=== PATIENT | female | born 1935 | race African-American/Black ===

== ENCOUNTER 2017-05-03 23:33 | Inpatient (IN) | payer OTHER ==
--- NOTE | 2017-05-04 | PDOC ---
History of Present Illness - General Chief Complaint: Nausea/Vomiting Stated Complaint: VOMITED X ONE/CHEST PAIN EARLY TODAY Time Seen by Provider: 05/03/17 23:50 History Source: Patient, Family Exam Limitations: No Limitations - History of Present Illness Initial Comments: 05/03/17 23:54 82 yo F with ho HTN HLD DM prior CVA right sided hemiplegia, CAD here from [facility] c/o cp yesterday and earlier today, and had episode of vomiting today. currently denies pain. no cough. no f/c . chest pain was described as pressure like or heaviness over left chest , no radiation, spontaneously resolved. does have mild suprapubic abd pain. mild no mod factors. no radiation. Past History - Past Medical History Allergies/Adverse Reactions: Allergies Allergy/AdvReac Type Severity Reaction Status Date / Time Penicillins Allergy Verified 05/03/17 23:45 simvastatin Allergy Verified 05/03/17 23:46 Home Medications: Ambulatory Orders Acetaminophen [Tylenol] 650 mg PO Q6H 05/04/17 Amlodipine/Valsartan [Amlodipine-Valsartan 10-160 mg] 1 each PO DAILY 05/04/17 Docusate Sodium 100 mg PO HS 05/04/17 Metformin HCl 500 mg PO BID 05/04/17 Nitrofurantoin Monohyd/M-Cryst [Macrobid -] 100 mg PO BID 05/04/17 CVA: Yes Diabetes: Yes HTN: Yes Hypercholesterolemia: Yes Review of Systems - Review of Systems Constitutional: No: Chills, Diaphoresis, Fever Respiratory: No: Cough, Orthopnea Cardiac (ROS): Yes: Chest Pain. No: Irregular Heart Rate ABD/GI: Yes: Nausea, Vomiting, Abdominal cramping : No: Burning, Dysuria, Discharge Musculoskeletal: No: Back Pain, Gout, Joint Pain Neurological: No: Headache, Numbness All Other Systems: Reviewed and Negative *Physical Exam - Physical Exam HEENT: positive: [place] Respiratory/Chest: positive: Lungs Clear, Normal Breath Sounds. negative: Respiratory Distress Cardiovascular: positive: Regular Rhythm, Regular Rate, S1, S2. negative: Edema , JVD Gastrointestinal/Abdominal: positive: Normal Bowel Sounds, Tender (suprapubic ttp. no rebound no guarding.) Extremity: positive: Normal Capillary Refill, Normal Inspection Integumentary: positive: Normal Color, Dry, Warm Neurologic: positive: Fully Oriented, Alert, Normal Mood/Affect, Other (right sided ext weakness ( old cva) ) Heart Score/ECG Review #1 General ECG Interpretation: Sinus Rhythm, Normal Rate (88), Normal Intervals, No acute ischemic changes Compared to previous ECG there are: Previous ECG unavail - ECG Intrepretation Rhythm: Regular Rhythm - Malone Malone: Normal ED Treatment Course - LABORATORY CBC & Chemistry Diagram: 05/04/17 00:31 05/04/17 00:31 - RADIOLOGY Radiology Studies Ordered: Category Date Time Status CXRPORT [CHEST X-RAY PORTABLE*] [RAD] Stat Radiology 05/03/17 23:51 Ordered Medical Decision Making - Medical Decision Making 05/04/17 00:04 82 yo F with h/o HTN HLD DM CVA right sided hemiplegia here wtih /co ccp . n/v and abd pain. differential mi infection such as pna, uti pyelo electrolyte abnormality, renal failure, dka plan labs cxr ua ekg . will likely require admission for serial enzymes and r/o acs. 05/04/17 02:11 d/w dr cerna, would like pt admitted to the hospitalist for admission. given ceftriaxone for uti. d/w pt and pt daughter regarding allergies. pt h/o pcn allergy --> rash. unsure if has had ceftriaxone in the past. has been getting macrobid for 6 days at nursing facility. troponin 0.07, given asa 162. d/w admitting resident, will admit to tele under Dr. Esquivel. resident states will inform dr esquivel *DC/Admit/Observation/Transfer Diagnosis at time of Disposition: Urinary tract infection, Chest pain - Discharge Dispostion Condition at time of disposition: Stable Admit: Yes
[2017-05-04 00:54] LABS: BASOPHIL 0.7 % (0-2.0); EOSINOPHIL 0.7 % (0-4.5); MCH 29.4 pg (25.7-33.7); MCHC 32.7 g/dl (32.0-36.0); MEAN CELL VOLUME 89.9 fl (80-96); MEAN PLT VOLUME 9.6 fl (7.5-11.1); NEUTROPHILS 61.3 % (42.8-82.8); PLATELET COUNT 234 K/MM3 (134-434); RDW 13.6 % (11.6-15.6); WHITE BLOOD COUNT 6.6 K/mm3 (4.0-10.0)
[2017-05-04 00:55] LABS: URINE APPEARANCE CLOUDY; URINE BILIRUBIN NEGATIVE (NEGATIVE); URINE BLOOD 1+ (NEGATIVE); URINE COLOR YELLOW; URINE GLUCOSE (UA) NEGATIVE (NEGATIVE); URINE KETONE NEGATIVE (NEGATIVE); URINE NITRITE NEGATIVE (NEGATIVE); URINE UROBILINOGEN NEGATIVE mg/dL (0.2-1.0)
[2017-05-04 01:07] LABS: URINE LEUK ESTERASE 3+ (NEGATIVE); URINE PROTEIN 1+ (NEGATIVE)
[2017-05-04 01:10] LABS: URINE BACTERIA MODERATE /hpf (NONE SEEN); URINE RBC 3 /hpf (0-3); URINE WBC 959 /hpf (3-5)
[2017-05-04] MEDS ORDERED: CEFTRIAXONE 1 GM in DEXTROSE 5%-WATER - 50 ML IVPB ONE (01:16)
[2017-05-04] MEDS ORDERED: cefTRIAXone SODIUM 1 GM VIAL ONE (01:17)
[2017-05-04 01:27] LABS: ALBUMIN 3.6 g/dl (3.4-5.0); ANION GAP 7 (8-16); CALCIUM 9.1 mg/dL (8.5-10.1); CO2 28 mmol/L (21-32); CREATININE 1.3 mg/dL (0.55-1.02); GLUCOSE,RANDOM 136 mg/dL (74-106); SGOT/AST 20 U/L (15-37)
[2017-05-04 01:31] LABS: ALK PHOS 94 U/L (45-117); BILIRUBIN,TOTAL 0.5 mg/dL (0.2-1.0); SGPT/ALT 16 U/L (12-78); TOT PROT 7.5 g/dl (6.4-8.2)
[2017-05-04] MEDS ORDERED: SODIUM CHLORIDE 0.9% 1000 ML INFUS.BAG IV ONE (01:40)
[2017-05-04] MEDS ORDERED: ASPIRIN 81 MG CHEWABLE TABLETS ONE (01:50)
[2017-05-04] MEDS ORDERED: ASPIRIN 81 MG CHEWABLE TABLETS PO ONE (01:53)
[2017-05-04 03:31] VITALS: BMI 26.9
--- NOTE | 2017-05-04 08:44 | HP ---
CHIEF COMPLAINT: Vomiting and chest pain PCP: Dr. Franco, requests hospitalist for admission HISTORY OF PRESENT ILLNESS: This is an 82 year old female with a history of HTN , HLD, NIDDM, dementia, and CVA with right-sided hemiplegia transferred from [facility] after an episode of vomiting and complaints of chest pain. ER course was notable for: (1) EKG: NSR at 88bpm, biphasic T waves in I and aVL (2) Troponin mildly elevated at 0.07 (3) UA with 959 WBCs and suprapubic pain (is s/p 6 days of Macrobid at [facility]) (4) CXR: No acute process, old first and second rib deformities Recent Travel: None PAST MEDICAL HISTORY: As above PAST SURGICAL HISTORY: Unknown Social History: Resident of [facility] Smoking: Unknown Family History: Unavailable Allergies Penicillins Allergy (Verified 05/03/17 23:45) simvastatin Allergy (Verified 05/03/17 23:46) HOME MEDICATIONS: Home Medications Medication Instructions Recorded Acetaminophen [Tylenol] 650 mg PO Q6H 05/04/17 Amlodipine/Valsartan 1 each PO DAILY 05/04/17 [Amlodipine-Valsartan 10-160 mg] Docusate Sodium 100 mg PO HS 05/04/17 Metformin HCl 500 mg PO BID 05/04/17 Nitrofurantoin Monohyd/M-Cryst 100 mg PO BID 05/04/17 [Macrobid -] REVIEW OF SYSTEMS Limited by dementia. Denies chest pain. Denies nausea. PHYSICAL EXAMINATION Vital Signs - 24 hr 05/04/17 05/04/17 03:15 08:27 Temperature 98.6 F Pulse Rate 70 Respiratory 16 16 Rate Blood Pressure 148/57 O2 Sat by Pulse 99 99 Oximetry (%) GENERAL: Awake, alert, oriented to name only, in no acute distress. HEAD: Normal with no signs of trauma. EYES: Pupils equal, round and reactive to light, extraocular movements intact, sclera anicteric, conjunctiva clear. No lid lag. EARS, NOSE, THROAT: Ears normal, nares patent, oropharynx clear without exudates. Moist mucous membranes. NECK: Normal range of motion, supple without lymphadenopathy, JVD, or masses. LUNGS: Breath sounds equal, clear to auscultation bilaterally. No wheezes, and no crackles. No accessory muscle use. HEART: Regular rate and rhythm, normal S1 and S2 without murmur, rub or gallop. ABDOMEN: Soft, suprapubic tenderness, no other abdominal tenderness. Not distended, normoactive bowel sounds, no guarding, no rebound, no masses. No hepatomegaly or splenomegaly. MUSCULOSKELETAL: Normal range of motion at all joints. No bony deformities or tenderness. No CVA tenderness. UPPER EXTREMITIES: 2+ pulses, warm, well-perfused. No cyanosis. No clubbing. No peripheral edema. LOWER EXTREMITIES: 2+ pulses, warm, well-perfused. No calf tenderness. No peripheral edema. NEUROLOGICAL: Cranial nerves II-XII intact. Normal speech. Non-ambulatory at baseline. RUE 1/5 strength, RLE 0/5 strenght. PSYCHIATRIC: Cooperative. Good eye contact. Appropriate mood and affect. SKIN: Warm, dry, normal turgor, no rashes or lesions noted, normal capillary refill. ASSESSMENT/PLAN: 82 year old SNF resident with vomiting, chest pain, and UTI failing outpatient therapy. Problem List - Problem (1) Chest pain Assessment/Plan: -Monitor on telemetry -Serial troponins to rule out AK -Start ASA 81mg daily (also with history of CVA) -Echocardiogram -Consider cardiology consultation Code(s): R07.9 - CHEST PAIN, UNSPECIFIED (2) UTI (urinary tract infection) Assessment/Plan: -Failed outpatient therapy -Ceftriaxone 1g daily -Follow up urine culture -Follow temp, WBC Code(s): N39.0 - URINARY TRACT INFECTION, SITE NOT SPECIFIED (3) Nausea & vomiting Assessment/Plan: -Mild suprapubic tenderness; no other tenderness appreciated -Zofran 4mg IVPB q6h prn -Clear liquid diet, advance as tolerated Code(s): R11.2 - NAUSEA WITH VOMITING, UNSPECIFIED (4) HTN (hypertension) Assessment/Plan: -At goal for age -Continue home amlodipine, valsartan Code(s): I10 - ESSENTIAL (PRIMARY) HYPERTENSION (5) HLD (hyperlipidemia) Assessment/Plan: -Statin allergy listed -Check lipid profile -Fat/cholesterol-controlled when resumes full diet Code(s): E78.5 - HYPERLIPIDEMIA, UNSPECIFIED (6) Diabetes Assessment/Plan: -Resume Metformin when PO intake adequate Code(s): E11.9 - TYPE 2 DIABETES MELLITUS WITHOUT COMPLICATIONS (7) DVT prophylaxis Assessment/Plan: -Sqh 5000 unit bid Code(s): [id number] - Visit type - Emergency Visit Emergency Visit: Yes ED Registration Date: 05/04/17 Care time: The patient presented to the Emergency Department on the above date and was hospitalized for further evaluation of their emergent condition. - New Patient This patient is new to me today: Yes Date on this admission: 05/04/17 - Critical Care Critical Care patient: No
[2017-05-04] MEDS ORDERED: ACETAMINOPHEN 325 MG TABLET (FP) PO PRN (08:51)
[2017-05-04] MEDS ORDERED: ONDANSETRON 4 MG/2 ML VIAL IVPB PRN (08:51)
[2017-05-04] MEDS ORDERED: ASPIRIN 81 MG CHEWABLE TABLETS PO SCH (10:00)
[2017-05-04] MEDS ORDERED: metFORMIN HCL 500 MG TABLET (FP) PO SCH (10:00)
[2017-05-04] MEDS: ASPIRIN 81 MG CHEWABLE TABLETS PO SCH (10:38)
[2017-05-04] MEDS: amLODIPine BESYLATE 10 MG TABLET (FP) PO SCH (10:38)
[2017-05-04] MEDS: HEPARIN NA (PORCINE) 5,000 UNITS/ML 1ML VIAL SQ SCH ×2 (10:38→22:22)
[2017-05-04] MEDS: VALSARTAN 160 MG TABLET (UD) PO SCH (10:38)
--- NOTE | 2017-05-04 19:04 | EKG ---
Test Reason : Blood Pressure : / mmHG Vent. Rate : 088 BPM Atrial Rate : 088 BPM P-R Int : 136 ms QRS Dur : 084 ms QT Int : 384 ms P-R-T Axes : 069 019 108 degrees QTc Int : 464 ms SINUS RHYTHM NONSPECIFIC ST AND T WAVE ABNORMALITY NO PREVIOUS ECGS AVAILABLE Confirmed by ROSSY BHAKTA MD ([id number]) on 05/04/2017 7:03:53 PM Referred By: MD REY Confirmed By:ROSSY BHAKTA MD
[2017-05-04] MEDS: CEFTRIAXONE 50 ML IVPB SCH (22:22)
[2017-05-04] MEDS: DOCUSATE SODIUM 100 MG CAPSULE (FP) PO SCH (22:22)
--- NOTE | 2017-05-05 07:13 | CON.CARD ---
Consult Consult Specialty:: cardio Referred by:: hospitalist Reason for Consultation:: cp - History of Present Illness Chief Complaint: cp, vomiting History of Present Illness: 82 yo female sent to ER from [place] for cp and vomiting. she is a limited historian, but states that she felt pain in center of chest, lasted > 30 min. says she had heart attack (different from the stroke) few yrs ago (many?)--doesn 't recall if had cath/stent then. says she's been having this type of cp for few years. admits to radiation to neck/jaw, R arm and back. admits to assctd diaph and sob, and naus/vomiting. says it felt different than her heartburn she sometimes gets. no pain at present time PMH: HTN, HLD, DM, prior CVA with right sided hemiplegia - Past Medical History ...: No - Alcohol/Substance Use Hx Alcohol Use: No - Smoking History Smoking history: Never smoked Have you smoked in the past 12 months: No Home Medications - Allergies Allergies/Adverse Reactions: Allergies Allergy/AdvReac Type Severity Reaction Status Date / Time Penicillins Allergy Verified 05/03/17 23:45 simvastatin Allergy Verified 05/03/17 23:46 - Home Medications Home Medications: Ambulatory Orders Acetaminophen [Tylenol] 650 mg PO Q6H 05/04/17 Amlodipine/Valsartan [Amlodipine-Valsartan 10-160 mg] 1 each PO DAILY 05/04/17 Docusate Sodium 100 mg PO HS 05/04/17 Metformin HCl 500 mg PO BID 05/04/17 Nitrofurantoin Monohyd/M-Cryst [Macrobid -] 100 mg PO BID 05/04/17 Family Disease History - Family Disease History Family History: Denies (no cmp) Review of Systems - Review of Systems Constitutional: denies: Chills, Fever Eyes: denies: Eye Pain HENT: denies: Nasal Congestion Neck: denies: Stiffness Cardiovascular: denies: Palpitations Respiratory: denies: Orthopnea, PND Gastrointestinal: denies: Diarrhea, Rectal Bleeding Genitourinary: denies: Burning, Hematuria Musculoskeletal: denies: Muscle Pain Integumentary: denies: Rash Neurological: denies: Numbness, Seizure, Syncope Endocrine: denies: Excessive Sweating Hematology/Lymphatic: denies: Excessive Bleeding Vital Signs: Vital Signs Temperature 98.6 F 05/05/17 06:00 Pulse Rate 65 05/05/17 06:00 Respiratory Rate 18 05/05/17 06:00 Blood Pressure 98/45 05/05/17 06:00 O2 Sat by Pulse Oximetry (%) 94 L 05/05/17 06:13 Constitutional: Yes: Well Nourished, No Distress Eyes: No: Sclera Icterus HENT: No: Nasal Congestion Neck: No: Decreased ROM Respiratory: Yes: CTA Bilaterally. No: Accessory Muscle Use, Rales, Wheezes Gastrointestinal: Yes: Normal Bowel Sounds. No: Distention, Hepatomegaly, Palpable Mass, Tenderness Cardiovascular: Yes: Regular Rate and Rhythm JVD: No Carotid Bruit: No PMI: Non-Displaced Heart Sounds: Yes: S1, S2. No: Gallop Murmur: No: Systolic Murmur, Diastolic Murmur Musculoskeletal: Yes: Other (No kyphosis) Extremities: No: Cold, Cyanosis Edema: No Peripheral Pulses: 2+ Left Carotid, 2+ Right Carotid, 2+ Left Doralis Pedis, 2+ Right Dorsalis Pedis Integumentary: No: Jaundice Neurological: Yes: Alert, Oriented (x3) Psychiatric: No: Agitated - Other Data Labs, Other Data: Troponin, BNP 05/04/17 05/04/17 13:30 17:15 Troponin I 0.13 0.14 Troponin, BNP 05/04/17 05/04/17 13:30 17:15 Troponin I 0.13 0.14 Laboratory Tests 05/04/17 05/04/17 05/04/17 00:31 00:31 00:31 WBC 6.6 Hgb 11.3 Plt Count 234 Sodium 141 Potassium 5.3 H Carbon Dioxide 28 BUN 40 H Creatinine 1.3 H AST 20 ALT 16 Troponin I 0.07 H 05/04/17 05/04/17 13:30 17:15 WBC Hgb Plt Count Sodium Potassium Carbon Dioxide BUN Creatinine AST ALT Troponin I 0.13 0.14 Assessment/Plan EKG: NSR, normal axis/intervals; no path q's; nonsp ST-Ts lateral leads (no old) CXR: clear lungs/pleura chest pain, vomiting: -troponin trend not c/w ACS (0.07-->0.13-->0.14): intermediate range and no rise -and-slope pattern -ekg no ischemic findings, though nonspecific ST-Ts present with no prior baseline to compare -pt not a terrific historian--sx description could be c/w CAD though suspect it is GI in etiology given ongoing sx's for few yrs per pt. -? of prior h/o CAD unclear as well per her report, not on usual secondary prevention CV med regimen -rec persantine nuclear stress test today--if negative, pt can be discharged from cv p.o.v. with GI med trial for sx control renal insufficiency: -no prior labs available -creat 1.3 here -observe trend HTN: -bp stable to mildly low -cont home valsartan; agree with holding thiazide for now given elevated creat and low bp trend DM: -per hospitalist h/o CVA: -details unknown -home med list not containing anti-PLT agent or statin -rec reconciliation of [place] meds to confirm this is accurate--if not on these agents, will not start here given prior h/o mechanism of CVA (ICH?) and med intolerances are not known to me UTI: -per hospitalis
[2017-05-05 08:55] LABS: ALBUMIN 3.2 g/dl (3.5-5.0); ALK PHOS 65 U/L (32-92); ANION GAP 7 (8-16); BILIRUBIN,TOTAL 0.5 mg/dl (0.2-1.0); CO2 25 mmol/L (22-28); CREATININE 1.2 mg/dl (0.6-1.3); GLUCOSE,RANDOM 84 mg/dl (74-106); MAGNESIUM 2.3 mg/dL (1.8-2.4); SGOT/AST 17 U/L (10-42); SGPT/ALT 9 U/L (10-40); TOT PROT 6.2 g/dl (6.4-8.3)
[2017-05-05 09:01] LABS: CHOLESTEROL 308 mg/dl
[2017-05-05 09:03] LABS: BASOPHIL 1.5 % (0-2.0); EOSINOPHIL 3.2 % (0-4.5); MCH 29.6 pg (25.7-33.7); MCHC 32.8 g/dl (32.0-36.0); MEAN PLT VOLUME 9.5 fl (7.5-11.1); NEUTROPHILS 39.5 % (42.8-82.8); PLATELET COUNT 237 K/MM3 (134-434); WHITE BLOOD COUNT 5.5 K/mm3 (4.0-10.8)
[2017-05-05] MEDS: amLODIPine BESYLATE 10 MG TABLET (FP) PO SCH (09:15)
[2017-05-05] MEDS: ASPIRIN 81 MG CHEWABLE TABLETS PO SCH (09:15)
[2017-05-05] MEDS: VALSARTAN 160 MG TABLET (UD) PO SCH (09:15)
[2017-05-05] MEDS: HEPARIN NA (PORCINE) 5,000 UNITS/ML 1ML VIAL SQ SCH ×2 (09:16→22:01)
--- NOTE | 2017-05-05 09:37 | PN ---
Progress Note (short form) - Note Progress Note: ID Consult dictated Chest pain syndrome UTI PCN allergy Pending c/s continue empiric ceftriaxone
[2017-05-05] MEDS ORDERED: DIPYRIDAMOLE STRESS TEST IVPB ONE (10:00)
[2017-05-05] MEDS ORDERED: WATER IVPB ONE (10:00)
[2017-05-05] MEDS ORDERED: DEXTROSE 5% IVPB ONE (10:00)
--- NOTE | 2017-05-05 10:12 | EKG ---
Test Reason : Blood Pressure : / mmHG Vent. Rate : 060 BPM Atrial Rate : 060 BPM P-R Int : 136 ms QRS Dur : 080 ms QT Int : 448 ms P-R-T Axes : 048 -15 139 degrees QTc Int : 448 ms SINUS RHYTHM INFERIOR INFARCT (CITED ON OR BEFORE 04-MAY-2017) POOR R WAVE PROGRESSION T WAVE ABNORMALITY, CONSIDER LATERAL ISCHEMIA ABNORMAL ECG WHEN COMPARED WITH ECG OF 04-MAY-2017 15:37, NO SIGNIFICANT CHANGE WAS FOUND Confirmed by ROSSY BHAKTA MD ([id number]) on 05/05/2017 10:12:19 AM Referred By: Confirmed By:ROSSY BHAKTA MD
--- NOTE | 2017-05-05 10:15 | EKG ---
Test Reason : Blood Pressure : / mmHG Vent. Rate : 077 BPM Atrial Rate : 077 BPM P-R Int : 132 ms QRS Dur : 084 ms QT Int : 414 ms P-R-T Axes : 066 002 132 degrees QTc Int : 468 ms SINUS RHYTHM NONSPECIFIC T WAVE ABNORMALITY ABNORMAL ECG WHEN COMPARED WITH ECG OF 04-MAY-2017 00:12, NONSPECIFIC T WAVE ABNORMALITY now present in V2 Confirmed by ROSSY BHAKTA MD ([id number]) on 05/05/2017 10:14:43 AM Referred By: DR Darien JONES Confirmed By:ROSSY BHAKTA MD
--- NOTE | 2017-05-05 12:31 | DS ---
Physical Exam: SUBJECTIVE: Patient seen and examined, confused appears to be comfortable OBJECTIVE:This is an 82 year old female with a history of HTN, HLD, NIDDM, dementia, and CVA with right-sided hemiplegia transferred from [facility] after an episode of vomiting and complaints of chest pain. ER course was notable for: (1) EKG: NSR at 88bpm, biphasic T waves in I and aVL (2) Troponin mildly elevated at 0.07 (3) UA with 959 WBCs and suprapubic pain (is s/p 6 days of Macrobid at [facility]) (4) CXR: No acute process, old first and second rib deformities Vital Signs Period Temp Pulse Resp BP Sys/Douglas Pulse Ox Last 24 Hr 98 F-98.7 F 63-77 16-18 98-128/44-68 94-99 PHYSICAL EXAM GENERAL: Awake, alert, oriented to name only, in no acute distress. HEAD: Normal with no signs of trauma. EYES: Pupils equal, round and reactive to light, extraocular movements intact, sclera anicteric, conjunctiva clear. No lid lag. EARS, NOSE, THROAT: Ears normal, nares patent, oropharynx clear without exudates. Moist mucous membranes. NECK: Normal range of motion, supple without lymphadenopathy, JVD, or masses. LUNGS: Breath sounds equal, clear to auscultation bilaterally. No wheezes, and no crackles. No accessory muscle use. HEART: Regular rate and rhythm, normal S1 and S2 without murmur, rub or gallop. ABDOMEN: Soft, suprapubic tenderness, no other abdominal tenderness. Not distended, normoactive bowel sounds, no guarding, no rebound, no masses. No hepatomegaly or splenomegaly. MUSCULOSKELETAL: Normal range of motion at all joints. No bony deformities or tenderness. No CVA tenderness. UPPER EXTREMITIES: 2+ pulses, warm, well-perfused. No cyanosis. No clubbing. No peripheral edema. LOWER EXTREMITIES: 2+ pulses, warm, well-perfused. No calf tenderness. No peripheral edema. NEUROLOGICAL: Cranial nerves II-XII intact. Normal speech. Non-ambulatory at baseline. RUE 1/5 strength, RLE 0/5 strength. PSYCHIATRIC: Cooperative. Good eye contact. Appropriate mood and affect. SKIN: Warm, dry, normal turgor, no rashes or lesions noted, normal capillary refill. LABS Laboratory Results - last 24 hr 05/04/17 05/04/17 05/05/17 13:30 17:15 07:00 WBC 5.5 RBC 3.46 L Hgb 10.2 L Hct 31.1 L MCV 90.0 MCH 29.6 MCHC 32.8 RDW 13.0 Plt Count 237 MPV 9.5 Neutrophils % 39.5 L Lymphocytes % 48.4 H Monocytes % 7.4 Eosinophils % 3.2 Basophils % 1.5 Sodium Potassium Chloride Carbon Dioxide Anion Gap BUN Creatinine Creat Clearance w eGFR Random Glucose Calcium Magnesium Total Bilirubin AST ALT Alkaline Phosphatase Troponin I 0.13 0.14 Total Protein Albumin Triglycerides Cholesterol Total LDL Cholesterol HDL Cholesterol 05/05/17 05/05/17 05/05/17 07:00 07:00 07:00 WBC RBC Hgb Hct MCV MCH MCHC RDW Plt Count MPV Neutrophils % Lymphocytes % Monocytes % Eosinophils % Basophils % Sodium 139 Potassium 4.4 Chloride 107 Carbon Dioxide 25 Anion Gap 7 L BUN 28 H Creatinine 1.2 Creat Clearance w eGFR 42.90 Random Glucose 84 Calcium 9.0 Magnesium 2.3 Total Bilirubin 0.5 AST 17 ALT 9 L Alkaline Phosphatase 65 Troponin I 0.10 Total Protein 6.2 L Albumin 3.2 L Triglycerides 105 Cholesterol 308 Total LDL Cholesterol 235 HDL Cholesterol 52 Laboratory Tests 05/04/17 05/04/17 05/04/17 00:31 13:30 17:15 Troponin I 0.07 H 0.13 0.14 05/05/17 07:00 Troponin I 0.10 Microbiology 05/04/17 00:31 Urine - Urine - Catheterized Urine Culture - Preliminary Lactose Fermenting Neg Bacilli Lactose Fermenting Neg Bacilli#2 05/04/17 07:35 Blood - Peripheral Venous Blood Culture - Preliminary NO GROWTH OBTAINED AFTER 24 HOURS, INCUBATION TO CONTINUE FOR 4 DAYS. 05/04/17 07:35 Blood - Peripheral Venous Blood Culture - Preliminary NO GROWTH OBTAINED AFTER 24 HOURS, INCUBATION TO CONTINUE FOR 4 DAYS. HOSPITAL COURSE: - Problem (1) Chest pain Assessment/Plan: -Monitor on telemetry -Serial troponins to rule out ME -Start ASA 81mg daily (also with history of CVA) -Echocardiogram -Consider cardiology consultation Code(s): R07.9 - CHEST PAIN, UNSPECIFIED (2) UTI (urinary tract infection) Assessment/Plan: -Failed outpatient therapy -Ceftriaxone 1g daily -Follow up urine culture -Follow temp, WBC Code(s): N39.0 - URINARY TRACT INFECTION, SITE NOT SPECIFIED (3) Nausea & vomiting Assessment/Plan: -Mild suprapubic tenderness; no other tenderness appreciated -Zofran 4mg IVPB q6h prn -Clear liquid diet, advance as tolerated Code(s): R11.2 - NAUSEA WITH VOMITING, UNSPECIFIED (4) HTN (hypertension) Assessment/Plan: -At goal for age -Continue home amlodipine, valsartan Code(s): I10 - ESSENTIAL (PRIMARY) HYPERTENSION (5) HLD (hyperlipidemia) Assessment/Plan: -Statin allergy listed -Check lipid profile -Fat/cholesterol-controlled when resumes full diet Code(s): E78.5 - HYPERLIPIDEMIA, UNSPECIFIED (6) Diabetes Assessment/Plan: -Resume Metformin when PO intake adequate Code(s): E11.9 - TYPE 2 DIABETES MELLITUS WITHOUT COMPLICATIONS (7) DVT prophylaxis Assessment/Plan: -Sqh 5000 unit bid Code(s): [id number] - Date of Admission:05/04/17 Date of Discharge: 05/05/17 Minutes to complete discharge: 45 Discharge Summary Reason For Visit: UTI/CHEST PAIN Current Active Problems Chest pain (Acute) DVT prophylaxis (Acute) Diabetes (Acute) HLD (hyperlipidemia) (Acute) HTN (hypertension) (Acute) Nausea & vomiting (Acute) UTI (urinary tract infection) (Acute) Condition: Stable - Instructions Referrals: Shashank Tinoco MD [Primary Care Provider] - - Home Medications Comprehensive Discharge Medication List: Ambulatory Orders Acetaminophen [Tylenol] 650 mg PO Q6H 05/04/17 Amlodipine/Valsartan [Amlodipine-Valsartan 10-160 mg] 1 each PO DAILY 05/04/17 Docusate Sodium 100 mg PO HS 05/04/17 Metformin HCl 500 mg PO BID 05/04/17 Nitrofurantoin Monohyd/M-Cryst [Macrobid -] 100 mg PO BID 05/04/17
--- NOTE | 2017-05-05 19:04 | CONS ---
DATE OF CONSULTATION: HISTORY: The patient is an 82-year-old female evaluated for urinary tract infection. She was admitted from the snf on May 04, 2017 with reports of nausea, vomiting, and chest pain. The patient had complained of chest discomfort and had episodes of nausea and vomiting. She was admitted to the hospital where initial evaluation showed pyuria. She was empirically treated with ceftriaxone for urinary tract infection. According to the notes, she had been treated with a course of Macrobid for a urinary tract infection at the snf. At the present time, she is awake. She does not give a reliable history. She denies any pain at the present time. She denies any chest pain. Denies any dysuria or hematuria. She has been afebrile with a normal white blood cell count. PAST MEDICAL HISTORY: Positive for hypertension, hyperlipidemia, diabetes mellitus, stroke, coronary artery disease. ALLERGIES: PENICILLIN (rash) and SIMVASTATIN. MEDICATIONS: Include Zofran, Tylenol, Diovan, ceftriaxone, heparin, Colace, Norvasc, aspirin, dipyridamole. SOCIAL HISTORY: She is a snf resident, nonsmoker, nondrinker. SYSTEMS REVIEW: Neurologic: Positive for stroke. Cardiac: As per HPI. Respiratory: Negative cough or sputum production. Gastrointestinal: Positive for vomiting and diarrhea. Genitourinary: Positive for urinary tract infection. LABORATORY DATA: White count 5.5, hematocrit 31.1, platelet count 237, BUN 40, creatinine 1.3. Urinalysis 959 white cells. Blood cultures negative. Urinalysis pending. Chest x-ray negative for acute infiltrate. PHYSICAL EXAMINATION: General: She is awake and alert in no acute distress. Vital Signs: Temperature 98.3, blood pressure 116/53, pulse 63, regular, respirations 18 per minute. HEENT: Sclerae anicteric. Heart: Sounds S1, S2. Lungs: Decreased breath sounds bilaterally. Abdomen: Soft. No tenderness elicited. No mass, rebound, or rigidity. Extremities: Negative for edema. Positive contractures of the upper extremities. IMPRESSION: 1. Chest pain syndrome. 2. Urinary tract infection. 3. PENICILLIN allergy. Pending cultures, empiric antibiotic coverage with ceftriaxone 1 g IV piggyback daily. Further recommendations pending cultures. We will follow. Thank you for the kind referral. CHRIS TELLO M.D. [id number]
[2017-05-05] MEDS: CEFTRIAXONE 50 ML IVPB SCH (22:01)
[2017-05-05] MEDS: DOCUSATE SODIUM 100 MG CAPSULE (FP) PO SCH (22:01)
[2017-05-06] MEDS: amLODIPine BESYLATE 10 MG TABLET (FP) PO SCH (09:32)
[2017-05-06] MEDS: VALSARTAN 160 MG TABLET (UD) PO SCH (09:32)
[2017-05-06] MEDS: HEPARIN NA (PORCINE) 5,000 UNITS/ML 1ML VIAL SQ SCH ×2 (09:32→21:11)
[2017-05-06] MEDS: ASPIRIN 81 MG CHEWABLE TABLETS PO SCH (09:32)
--- NOTE | 2017-05-06 09:44 | PN ---
Progress Note, Physician History of Present Illness: Awake but confused Offers no complaints Denies dysuria. No c/o suprapubic or flank pain Tolerated cephalosporin - Current Medication List Current Medications: Active Medications Acetaminophen (Tylenol -) 650 mg PO Q6H PRN PRN Reason: FEVER OR PAIN Amlodipine Besylate (Norvasc -) 10 mg PO DAILY [facility] Last Admin: 05/06/17 09:32 Dose: 10 mg Aspirin (Asa -) 81 mg PO DAILY [facility] Last Admin: 05/06/17 09:32 Dose: 81 mg Docusate Sodium (Colace -) 100 mg PO HS [facility] Last Admin: 05/05/17 22:01 Dose: 100 mg Heparin Sodium (Porcine) (Heparin -) 5,000 unit SQ BID [facility] Last Admin: 05/06/17 09:32 Dose: 5,000 unit Ceftriaxone Sodium (Rocephin 1gm Ivpb (Pre-Docked)) 50 mls @ 100 mls/hr IVPB DAILY@2200 [facility] Last Admin: 05/05/17 22:01 Dose: 100 mls/hr Ondansetron HCl (Zofran Injection) 4 mg IVPB Q6H PRN PRN Reason: NAUSEA Valsartan (Diovan -) 160 mg PO DAILY [facility] Last Admin: 05/06/17 09:32 Dose: 160 mg - Objective Vital Signs: Vital Signs Temperature 98.6 F 05/06/17 09:28 Pulse Rate 73 05/06/17 09:28 Respiratory Rate 18 05/06/17 09:28 Blood Pressure 115/58 05/06/17 09:28 O2 Sat by Pulse Oximetry (%) 98 05/06/17 06:51 Constitutional: Yes: No Distress Eyes: Yes: Conjunctiva Clear Cardiovascular: Yes: Regular Rate and Rhythm, S1, S2 Respiratory: Yes: CTA Bilaterally Gastrointestinal: Yes: Normal Bowel Sounds, Soft. No: Tenderness Labs: CBC, BMP 05/05/17 07:00 05/05/17 07:00 Assessment/Plan UTI- E coli S/P chest pain syndrome PCN allergy Substitute po nitrofurantion Complete 7d course
[2017-05-06] MEDS ORDERED: VALSARTAN 160 MG TABLET (UD) PO SCH (09:47)
--- NOTE | 2017-05-06 09:47 | PN ---
Progress Note (short form) - Note Progress Note: Echo shows normal LVEF and normal wall motion. Nuclear stress test (persantine) shows post-stress EF 29% with severe global hypokinesis. There is evidence of anterolateral ischemia and fixed defect in inferior/inferolateral and lateral wall with partial reversibility c/w infarct with manuel-infarct ischemia. In light of the normal LV function and wall motion on echo, this nuclear finding likely represents large area of severe ischemia with prolonged stunning post-persantine, and is therefore a high-risk finding. 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 I had an extended conversation with dtr on phone (Taylor). She states mom has severely elevated LDL for many yrs with Dr. Elgin Sauceda, her prior student union consultant, suboptimally treated due to intolerance to multiple statins in the past. 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 She had CVA shortly after that and has not seen Dr. Sauceda since 2011. There is no prior h/o MA. She is WC bound since the stroke. Her cognitive status is intact with normal recognition of family members, awareness of current events, and normal conversations as well as excursions on occasion with family out of the NH. Lately she has had spells of being non-verbal (? effect of chronic aphasic tendencies having worsened, ? dementia onset) with humming to calm herself-- these do not last long. She at times has trouble conversing lately as well. She had 2 recent falls out of bed at night. One witnessed--she seemed confused and slid to floor. Other unwitnessed--no serious injury. No falls during the day when she reliably asks for assistance with transfers. She's had CP in the past, ? > 6 mo but difficulty verbalizing features of it due to aphasia dtr thinks. Increased intensity in past 6 mo, no prior vomiting associated with CP, no prior hospital admits. She has no h/o copd or cancer. no h/o PUD or GIB. i explained to dtr the stress test findings represent high risk for MA, CV . i also explained that studies suggest revascularization of high risk CAD might lower these risks vs medical therapy (though verdict is still out, as no RCTs done using high risk ischemia as entry criteria). i explained that at 82 with what sounds like beginning of neurocognitive decline , with limited functional status, life expectancy is unpredictable and we cannot confidently say that PCI will prolong life. it is likely that it will control sx's well, though with the risks of the procedure, and risks of bleeding on DAPT (including statistically higher GIB risk in debilitated octegenarian, plus falls risk which recently became a problem). she states that mother adamantly refused cath/PCI in 2007 when she was younger and healthier (prior to stroke), and dtr is certain she will refuse now as well in her current stage of life. i advised that it is very reasonable, given lack of confidence in mortality reduction of PCI in her, to try med therapy first and reconsider PCI (if pt willing) if sx's cannot be controlled medically. dtr agrees and i advised she speak to mother about this today. i will see mom at end of day and d/w her as well. i rec we reduce valsartan dose to 40mg daily, and start metoprolol 25 bid for angina and MA prevention, as well as ranexa 500 bid for angina. i rec we start crestor 5mg TIW plus zetia for now (LDL > 200!). i advised dtr mother should have outpt cardio f/u to titrate meds based on efficacy and/or intolerance--she prefers to bring her back to dr sauceda and states she will speak to NH to arrange this after discharge. i rec'd we keep mom in hospital for 24 hrs to observe for CP recurrence and monitor BP on the above meds (low here at times, but hctz stopped and now reducing valsartan--cont amlodipine 10mg for now (? also anti-anginal benefits) ...low threshold to cut to 5mg if need increase BB or addn itrates)
[2017-05-06] MEDS ORDERED: VALSARTAN 40 MG TABLET (FP) PO SCH (10:15)
[2017-05-06] MEDS: RANOLAZINE E.R. 500 MG TABLET (FP) PO SCH ×2 (10:42→21:11)
[2017-05-06] MEDS: METOPROLOL SUCCINATE 25 MG TAB.SR.24H (FP) PO SCH ×2 (10:42→21:12)
[2017-05-06] MEDS: PANTOPRAZOLE 40 MG TABLET (FP) PO SCH (10:42)
--- NOTE | 2017-05-06 12:12 | PN ---
Physical Exam: SUBJECTIVE: Patient seen and examined, confused appears comfortable OBJECTIVE: patient is an 82 year old female with a history of HTN, HLD, NIDDM, dementia, and CVA with right-sided hemiplegia. Patient was admitted from the emergency department for chest pain r/o acs and urinary tract infection, after failing outpatient antibiotics. Vital Signs Period Temp Pulse Resp BP Sys/Douglas Pulse Ox Last 24 Hr 98.3 F-98.6 F 73-88 18-19 104-116/44-59 98-100 PHYSICAL EXAMINATION GENERAL: Awake, alert, oriented to name only, in no acute distress. HEAD: Normal with no signs of trauma. EYES: Pupils equal, round and reactive to light, extraocular movements intact, sclera anicteric, conjunctiva clear. No lid lag. EARS, NOSE, THROAT: Ears normal, nares patent, oropharynx clear without exudates. Moist mucous membranes. NECK: Normal range of motion, supple without lymphadenopathy, JVD, or masses. LUNGS: Breath sounds equal, clear to auscultation bilaterally. No wheezes, and no crackles. No accessory muscle use. HEART: Regular rate and rhythm, normal S1 and S2 without murmur, rub or gallop. ABDOMEN: Soft, suprapubic tenderness, no other abdominal tenderness. Not distended, normoactive bowel sounds, no guarding, no rebound, no masses. No hepatomegaly or splenomegaly. MUSCULOSKELETAL: Normal range of motion at all joints. No bony deformities or tenderness. No CVA tenderness. UPPER EXTREMITIES: 2+ pulses, warm, well-perfused. No cyanosis. No clubbing. No peripheral edema. LOWER EXTREMITIES: 2+ pulses, warm, well-perfused. No calf tenderness. No peripheral edema. NEUROLOGICAL: Cranial nerves II-XII intact. Normal speech. Non-ambulatory at baseline. RUE 1/5 strength, RLE 0/5 strength. PSYCHIATRIC: Cooperative. Good eye contact. Appropriate mood and affect. SKIN: Warm, dry, normal turgor, no rashes or lesions noted, normal capillary refill. Active Medications Generic Name Dose Route Start Last Admin Trade Name Freq PRN Reason Stop Dose Admin Acetaminophen 650 mg 05/04/17 08:51 Tylenol - PO Q6H PRN FEVER OR PAIN Amlodipine Besylate 10 mg 05/04/17 10:00 05/06/17 09:32 Norvasc - PO 10 mg DAILY [facility] Administration Aspirin 81 mg 05/04/17 10:00 05/06/17 09:32 Asa - PO 81 mg DAILY [facility] Administration Docusate Sodium 100 mg 05/04/17 22:00 05/05/17 22:01 Colace - PO 100 mg HS [facility] Administration Ezetimibe 10 mg 05/06/17 22:00 Zetia - PO HS [facility] Heparin Sodium (Porcine) 5,000 unit 05/04/17 10:00 05/06/17 09:32 Heparin - SQ 5,000 unit BID [facility] Administration Metoprolol Succinate 25 mg 05/06/17 10:00 05/06/17 10:42 Toprol Xl - PO 25 mg BID [facility] Administration Nitrofurantoin Macrocrystals 50 mg 05/06/17 12:00 Macrodantin - PO Q6HPO [facility] Ondansetron HCl 4 mg 05/04/17 08:51 Zofran Injection IVPB Q6H PRN NAUSEA Pantoprazole Sodium 40 mg 05/06/17 10:00 05/06/17 10:42 Protonix - PO 40 mg DAILY [facility] Administration Ranolazine 500 mg 05/06/17 10:00 05/06/17 10:42 Ranexa - PO 500 mg BID [facility] Administration Rosuvastatin Calcium 5 mg 05/07/17 22:00 Crestor - PO MoWeFr [facility] Valsartan 40 mg 05/07/17 10:00 Diovan - PO DAILY [facility] Microbiology 05/04/17 00:31 Urine - Urine - Catheterized Urine Culture - Final Escherichia Coli Escherichia Coli#2 05/04/17 07:35 Blood - Peripheral Venous Blood Culture - Preliminary NO GROWTH OBTAINED AFTER 48 HOURS, INCUBATION TO CONTINUE FOR 3 DAYS. 05/04/17 07:35 Blood - Peripheral Venous Blood Culture - Preliminary NO GROWTH OBTAINED AFTER 48 HOURS, INCUBATION TO CONTINUE FOR 3 DAYS. IMAGING perscantine stress test, moderate to large zone of inferior, inferolateral and lateral fixed defect compatible with infarct, small to moderate zone of anterolateral reversible defect compatible with mild intensity ischemia, reduced left ventricular systolic function w/global hypokinesia, LVEF 29% as per cardiology echo, lvef 60-65%, grade I diastolic dysfunction ASSESSMENT/PLAN: 1) card chest pain r/o acs - no dysarhythmias noted on on cardiac monitoring - troponin mild elevated yesterday but trended downwarde - stress test reviewed pt started on renexa, toprol, and diovan dose decreased - trialing low dose statin with zetia - cardiology, Dr Dias, consulted and followed hypertension - continue amlopdine and valsartan - b/p at goal 2) gu:uti - urine culture, treated rocephin for the past 48 hours transition to macrobid 3) gi: - nause and vomiting resolved, symptoms likely secondary to GERD, continue protonix - advance diet 4) endo niddm - hold metformin pt received contrast yesterday, fingersticks achs with regular insulin coverage f/e/n - diabetic/low cholesterol diet ppx - heparin - oob - scd - pt dispo: requires inpatient telemetry care Visit type - Emergency Visit Emergency Visit: Yes ED Registration Date: 05/04/17 Care time: The patient presented to the Emergency Department on the above date and was hospitalized for further evaluation of their emergent condition. - New Patient This patient is new to me today: No - Critical Care Critical Care patient: No
[2017-05-06] MEDS: NITROFURANTOIN MACROCRYSTAL 50 MG CAPSULE (FP) PO SCH ×2 (12:47→17:39)
[2017-05-06] MEDS: INSULIN SLIDING SCALE (NOVOLOG) 1 VIAL SQ SCH (16:20)
--- NOTE | 2017-05-06 17:51 | PN ---
Progress Note, Physician Chief Complaint: unstable angina History of Present Illness: per dtr, yesterday pt sat up in bed and complained "oh my chest is hurting" then lay back down after short time and felt better. per RN and hospitalist Salome Phipps, she has not c/o'd cp. per pt, she says she's had cp today and yesterday--? if reliable. no sob, palpitations, syncope no cigs - Current Medication List Current Medications: Active Medications Acetaminophen (Tylenol -) 650 mg PO Q6H PRN PRN Reason: FEVER OR PAIN Amlodipine Besylate (Norvasc -) 10 mg PO DAILY [facility] Last Admin: 05/06/17 09:32 Dose: 10 mg Aspirin (Asa -) 81 mg PO DAILY [facility] Last Admin: 05/06/17 09:32 Dose: 81 mg Docusate Sodium (Colace -) 100 mg PO HS [facility] Last Admin: 05/05/17 22:01 Dose: 100 mg Ezetimibe (Zetia -) 10 mg PO [facility] Heparin Sodium (Porcine) (Heparin -) 5,000 unit SQ BID [facility] Last Admin: 05/06/17 09:32 Dose: 5,000 unit Insulin Aspart (Novolog Vial Sliding Scale -) [facility] PRN Reason: Protocol Last Admin: 05/06/17 16:20 Dose: Not Given Metoprolol Succinate (Toprol Xl -) 25 mg PO BID [facility] Last Admin: 05/06/17 10:42 Dose: 25 mg Nitrofurantoin Macrocrystals (Macrodantin -) 50 mg PO Q6HPO [facility] Last Admin: 05/06/17 17:39 Dose: 50 mg Ondansetron HCl (Zofran Injection) 4 mg IVPB Q6H PRN PRN Reason: NAUSEA Pantoprazole Sodium (Protonix -) 40 mg PO DAILY [facility] Last Admin: 05/06/17 10:42 Dose: 40 mg Ranolazine (Ranexa -) 500 mg PO BID [facility] Last Admin: 05/06/17 10:42 Dose: 500 mg Rosuvastatin Calcium (Crestor -) 5 mg PO MoWeFr [facility] Valsartan (Diovan -) 40 mg PO DAILY [facility] - Objective Vital Signs: Vital Signs Temperature 98.1 F 05/06/17 14:05 Pulse Rate 59 L 05/06/17 14:05 Respiratory Rate 16 05/06/17 14:05 Blood Pressure 112/46 05/06/17 14:05 O2 Sat by Pulse Oximetry (%) 100 05/06/17 14:05 Constitutional: Yes: No Distress, Calm Eyes: No: Sclera Icterus HENT: No: Nasal Congestion Cardiovascular: Yes: Regular Rate and Rhythm, S1, S2, Other (PMI non diplaced). No: Gallop, Murmur Respiratory: Yes: CTA Bilaterally (not taking deep breaths). No: Accessory Muscle Use, Rales, Wheezes Gastrointestinal: Yes: Normal Bowel Sounds, Soft. No: Tenderness Musculoskeletal: Yes: Other (No kyphosis) Extremities: No: Cold Edema: No Integumentary: No: Jaundice Neurological: Yes: Alert. No: Seizure Psychiatric: No: Agitated Labs: CBC, BMP 05/05/17 07:00 05/05/17 07:00 Assessment/Plan EKG: NSR, normal axis/intervals; no path q's; nonsp ST-Ts lateral leads (no old) CXR: clear lungs/pleura Echo 04/21 (here): nl LV/EF, normal wall motion. nl RV. nl LA. valves WNL. normal ao root. no peric eff MPI 04/21 (here), persantine: no ST changes vs baseline. moderate sized fixed defect inferior/inferolateral/lateral marshall with partial reversibility; small- moderate sized reversible anterolateral defect. severe global LV hypo, EF 29%. chest pain, vomiting: -troponin trend not c/w ACS (0.07-->0.13-->0.14-->0.10): intermediate range, nonspecific trend cannot definitively rule out very small NSTEMI. -ekg no ischemic findings, though nonspecific ST-Ts present with no prior baseline to compare -CP sx's ongoing for 6+ months, ? increasing of late per dtr. -known CAD from 2007 (was seeing Dr. Ellison), advised to have cath/PCI but pt adamantly refused. -stress test suggest anterolateral ischemia, and possibly/probably inferior/ inferolateral/lateral ischemia as well (somewhat fixed defect, but no WMA in this territory on echo). severe decr in EF post-persantine (with normal EF at rest) suggests extensive (multi-vessel) CAD with prolonged stunning. -see prior brief note re: telephone conversation with dtr--pt not interested in invasive procedure including stent, and her risk of falls with head trauma on DAPT is not insignificant (2 recent falls). benefits of invasive mgmt not clearly > risks if sx's can be managed medically. -d/w'd pt herself who reiterates to me that she definitely does not want invasive procedure (this was in presence of her dtr at bedside). she also states she isn't sure if she's willing to take cardiac meds ("i'll see"). -metopr added (valsartan reduced to avoid hypotension) plus low dose ranexa -statin (low dose--crestor 5 TIW) plus zetia (statin intolerant of multiple trials in past, LDL > 200) -cont ASA -outpt cardio f/u important here--dtr verbalized understanding and states will arrange for visit with dr geraldine osorio (note: not sohail) after hosp discharge -unclear that her current sx's are anginal, as she is having severe/intense pain for very brief time, resolves on its own and she has not appeared uncomfortable or in any distress to staffing coordinator--cont to observe but suspect this is more likely non-cardiac as myocardial ischemia pain doesn't tend to behave this way. -will rpt trop now and in am, and rpt ecg in am (or if has recurrent CP), to make sure no evolving abnormalities in light of the ? of her having recurrent CP sx's renal insufficiency: -no prior labs available -creat 1.3 here -stable trend HTN: -bp stable to mildly low -meds adjusted (lurdes fernandezr'd, hctz held) DM: -per hospitalist h/o CVA: -details unknown -home med list not containing anti-PLT agent or statin -rec reconciliation of NH meds to confirm this is accurate--if not on these agents, will not start here given prior h/o mechanism of CVA (ICH?) and med intolerances are not known to me UTI: -per hospitalis
[2017-05-06] MEDS: EZETIMIBE 10 MG TABLET (FP) PO SCH (21:11)
[2017-05-06] MEDS: DOCUSATE SODIUM 100 MG CAPSULE (FP) PO SCH (21:11)
[2017-05-07] MEDS: NITROFURANTOIN MACROCRYSTAL 50 MG CAPSULE (FP) PO SCH ×4 (00:10→18:00)
--- NOTE | 2017-05-07 08:40 | EKG ---
Test Reason : Blood Pressure : / mmHG Vent. Rate : 056 BPM Atrial Rate : 056 BPM P-R Int : 132 ms QRS Dur : 084 ms QT Int : 488 ms P-R-T Axes : 061 008 122 degrees QTc Int : 470 ms SINUS BRADYCARDIA NONSPECIFIC ST ABNORMALITY PROLONGED QT ABNORMAL ECG WHEN COMPARED WITH ECG OF 05-MAY-2017 05:38, Early transition in precordial leads with prominent R wave in V2-3, possibly due to lead placement? CRITERIA FOR INFERIOR INFARCT ARE NO LONGER PRESENT Confirmed by ROSSY BHAKTA MD ([id number]) on 05/07/2017 8:39:56 AM Referred By: MD VILLA Confirmed By:ROSSY BHAKTA MD
[2017-05-07] MEDS: HEPARIN NA (PORCINE) 5,000 UNITS/ML 1ML VIAL SQ SCH ×2 (09:53→22:16)
[2017-05-07] MEDS: ASPIRIN 81 MG CHEWABLE TABLETS PO SCH (09:53)
[2017-05-07] MEDS: RANOLAZINE E.R. 500 MG TABLET (FP) PO SCH ×2 (09:53→22:15)
[2017-05-07] MEDS: PANTOPRAZOLE 40 MG TABLET (FP) PO SCH (09:53)
[2017-05-07] MEDS: amLODIPine BESYLATE 10 MG TABLET (FP) PO SCH (09:53)
[2017-05-07] MEDS: VALSARTAN 40 MG TABLET (FP) PO SCH (09:53)
[2017-05-07] MEDS: METOPROLOL SUCCINATE 25 MG TAB.SR.24H (FP) PO SCH ×2 (09:53→22:15)
--- NOTE | 2017-05-07 10:31 | PN ---
Physical Exam: SUBJECTIVE: Patient seen and examined, reports pain all over her body and sometimes as chest pain OBJECTIVE: patient is an 82 year old female with a history of HTN, HLD, NIDDM, dementia, and CVA with right-sided hemiplegia. Patient was admitted from the emergency department for abnormal EKG with borderline troponins and urinary tract infection, after failing outpatient antibiotics. Vital Signs Period Temp Pulse Resp BP Sys/Douglas Pulse Ox Last 24 Hr 98.1 F-99.2 F 58-62 16-19 110-117/46-50 95-100 GENERAL: Awake, alert, oriented to name only, in no acute distress. HEAD: Normal with no signs of trauma. EYES: Pupils equal, round and reactive to light, extraocular movements intact, sclera anicteric, conjunctiva clear. No lid lag. EARS, NOSE, THROAT: Ears normal, nares patent, oropharynx clear without exudates. Moist mucous membranes. NECK: Normal range of motion, supple without lymphadenopathy, JVD, or masses. LUNGS: Breath sounds equal, clear to auscultation bilaterally. No wheezes, and no crackles. No accessory muscle use. HEART: Regular rate and rhythm, normal S1 and S2 without murmur, rub or gallop. ABDOMEN: Soft, no abdominal tenderness. Not distended, normoactive bowel sounds , no guarding, no rebound, no masses. No hepatomegaly or splenomegaly. MUSCULOSKELETAL: Normal range of motion at all joints. No bony deformities or tenderness. No CVA tenderness. UPPER EXTREMITIES: 2+ pulses, warm, well-perfused. No cyanosis. No clubbing. No peripheral edema. LOWER EXTREMITIES: 2+ pulses, warm, well-perfused. No calf tenderness. No peripheral edema. NEUROLOGICAL: Cranial nerves II-XII intact. Normal speech. Non-ambulatory at baseline. RUE 1/5 strength, RLE 0/5 strength. PSYCHIATRIC: Cooperative. Good eye contact. Appropriate mood and affect. SKIN: Warm, dry, normal turgor, no rashes or lesions noted, normal capillary refill. Laboratory Results - last 24 hr 05/06/17 05/06/17 05/06/17 16:13 18:48 21:15 POC Glucometer 97 88 Troponin I 0.26 05/07/17 05/07/17 05:55 07:30 POC Glucometer 78 Troponin I 0.20 Laboratory Tests 05/04/17 05/04/17 05/04/17 00:31 13:30 17:15 Troponin I 0.07 H 0.13 0.14 05/05/17 05/06/17 05/07/17 07:00 18:48 07:30 Troponin I 0.10 0.26 0.20 Active Medications Generic Name Dose Route Start Last Admin Trade Name Freq PRN Reason Stop Dose Admin Acetaminophen 650 mg 05/04/17 08:51 Tylenol - PO Q6H PRN FEVER OR PAIN Amlodipine Besylate 10 mg 05/04/17 10:00 05/07/17 09:53 Norvasc - PO 10 mg DAILY [facility] Administration Aspirin 81 mg 05/04/17 10:00 05/07/17 09:53 Asa - PO 81 mg DAILY [facility] Administration Docusate Sodium 100 mg 05/04/17 22:00 05/06/17 21:11 Colace - PO 100 mg HS [facility] Administration Ezetimibe 10 mg 05/06/17 22:00 05/06/17 21:11 Zetia - PO 10 mg HS [facility] Administration Heparin Sodium (Porcine) 5,000 unit 05/04/17 10:00 05/07/17 09:53 Heparin - SQ 5,000 unit BID [facility] Administration Insulin Aspart 1 vial 05/06/17 16:30 05/06/17 16:20 Novolog Vial Sliding Scale - SQ Not Given BIDAC [facility] Protocol Metoprolol Succinate 25 mg 05/06/17 10:00 05/07/17 09:53 Toprol Xl - PO 25 mg BID [facility] Administration Nitrofurantoin Macrocrystals 50 mg 05/06/17 12:00 05/07/17 05:57 Macrodantin - PO 50 mg Q6HPO [facility] Administration Ondansetron HCl 4 mg 05/04/17 08:51 Zofran Injection IVPB Q6H PRN [facility] Pantoprazole Sodium 40 mg 05/06/17 10:00 05/07/17 09:53 Protonix - PO 40 mg DAILY [facility] Administration Ranolazine 500 mg 05/06/17 10:00 05/07/17 09:53 Ranexa - PO 500 mg BID [facility] Administration Rosuvastatin Calcium 5 mg 05/07/17 22:00 Crestor - PO MoWeFr [facility] Valsartan 40 mg 05/07/17 10:00 05/07/17 09:53 Diovan - PO 40 mg DAILY [facility] Administration IMAGING perscantine stress test, moderate to large zone of inferior, inferolateral and lateral fixed defect compatible with infarct, small to moderate zone of anterolateral reversible defect compatible with mild intensity ischemia, reduced left ventricular systolic function w/global hypokinesia, LVEF 29% as per cardiology echo, lvef 60-65%, grade I diastolic dysfunction ASSESSMENT/PLAN: 1) card chest pain - no dysarhythmias noted on on cardiac monitoring - troponin mildly elevated yesterday but trended downward, repeat ekg this am poor r wave progression w/intraventricular conduction delay, onspecific st abnormality - pt denied any chest pain yesterday, however, pt reports generalized pain "sometimes chest pain", case discussed with Dr Dias, transfer to at [facility] for closer monitoring - continue renexa and toprol, crestor, and zetia - cardiology, Dr Dias, consulted and following hypertension - continue amlopdine and valsartan - b/p at goal 2) gu:uti - continue macrobid 3) gi: - nause and vomiting resolved, symptoms likely secondary to GERD, continue protonix - advance diet 4) endo niddm - continue to hold metformin, fingersticks achs with regular insulin coverage f/e/n - diabetic/low cholesterol diet ppx - heparin - oob - scd - pt dispo: requires inpatient telemetry care Visit type - Emergency Visit Emergency Visit: Yes ED Registration Date: 05/04/17 Care time: The patient presented to the Emergency Department on the above date and was hospitalized for further evaluation of their emergent condition. - New Patient This patient is new to me today: No - Critical Care Critical Care patient: No - Discharge Referral Referred to [facility] No
[2017-05-07] MEDS: INSULIN SLIDING SCALE (NOVOLOG) 1 VIAL SQ SCH ×2 (12:02→16:05)
[2017-05-07] MEDS ORDERED: PT OWN MED DRAWER 7, Y5N ONE (21:47)
[2017-05-07] MEDS ORDERED: ROSUVASTATIN CA 5 MG TABLET (FP) PO SCH (22:00)
[2017-05-07] MEDS: DOCUSATE SODIUM 100 MG CAPSULE (FP) PO SCH (22:15)
[2017-05-07] MEDS: EZETIMIBE 10 MG TABLET (FP) PO SCH (22:21)
[2017-05-08] MEDS: NITROFURANTOIN MACROCRYSTAL 50 MG CAPSULE (FP) PO SCH ×4 (00:49→17:22)
--- NOTE | 2017-05-08 00:56 | PN ---
Progress Note (short form) - Note Progress Note: Chief Complaint: unstable angina History of Present Illness: per dtr, yesterday pt sat up in bed and complained "oh my chest is hurting" then lay back down after short time and felt better. per RN and hospitalist Salome Phipps, she has not c/o'd cp. per pt, she says she's had cp today and yesterday--? if reliable. no sob, palpitations, syncope no cigs Current Medications Acetaminophen (Tylenol -) 650 mg PO Q6H PRN PRN Reason: FEVER OR PAIN Amlodipine Besylate (Norvasc -) 10 mg PO DAILY [facility] Last Admin: 05/07/17 09:53 Dose: 10 mg Aspirin (Asa -) 81 mg PO DAILY [facility] Last Admin: 05/07/17 09:53 Dose: 81 mg Docusate Sodium (Colace -) 100 mg PO HS [facility] Last Admin: 05/06/17 21:11 Dose: 100 mg Ezetimibe (Zetia -) 10 mg PO [facility] Last Admin: 05/06/17 21:11 Dose: 10 mg Heparin Sodium (Porcine) (Heparin -) 5,000 unit SQ BID [facility] Last Admin: 05/07/17 09:53 Dose: 5,000 unit Insulin Aspart (Novolog Vial Sliding Scale -) 1 vial SQ TIDAC [facility] PRN Reason: Protocol Metoprolol Succinate (Toprol Xl -) 25 mg PO BID [facility] Last Admin: 05/07/17 09:53 Dose: 25 mg Nitrofurantoin Macrocrystals (Macrodantin -) 50 mg PO Q6HPO [facility] Last Admin: 05/07/17 18:00 Dose: 50 mg Ondansetron HCl (Zofran Injection) 4 mg IVPB Q6H PRN PRN Reason: NAUSEA Pantoprazole Sodium (Protonix -) 40 mg PO DAILY [facility] Last Admin: 05/07/17 09:53 Dose: 40 mg Ranolazine (Ranexa -) 500 mg PO BID [facility] Last Admin: 05/07/17 09:53 Dose: 500 mg Rosuvastatin Calcium (Crestor -) 5 mg PO MoWeFr [facility] Last Admin: 05/07/17 22:15 Dose: 5 mg Valsartan (Diovan -) 40 mg PO DAILY [facility] Last Admin: 05/07/17 09:53 Dose: 40 mg - Objective Vital Signs: Vital Signs - 24 hr 05/07/17 05/07/17 05/07/17 06:00 06:23 09:00 Temperature 98.7 F Pulse Rate 62 Respiratory 18 18 Rate Blood Pressure 110/48 O2 Sat by Pulse 95 95 Oximetry (%) 05/07/17 05/07/17 05/07/17 14:14 17:25 17:43 Temperature 97.1 F L 98 F Pulse Rate 58 L 61 Respiratory 16 20 Rate Blood Pressure 116/59 122/61 O2 Sat by Pulse 100 100 Oximetry (%) Constitutional: Yes: No Distress, Calm Eyes: No: Sclera Icterus HENT: No: Nasal Congestion Cardiovascular: Yes: Regular Rate and Rhythm, S1, S2, Other (PMI non diplaced). No: Gallop, Murmur Respiratory: Yes: CTA Bilaterally (not taking deep breaths). No: Accessory Muscle Use, Rales, Wheezes Gastrointestinal: Yes: Normal Bowel Sounds, Soft. No: Tenderness Musculoskeletal: Yes: Other (No kyphosis) Extremities: No: Cold Edema: No Integumentary: No: Jaundice Neurological: Yes: Alert. No: Seizure Psychiatric: No: Agitated Labs: no CBC, BMP Laboratory Tests 05/06/17 05/07/17 18:48 07:30 Troponin I 0.26 0.20 Assessment/Plan EKG: NSR, normal axis/intervals; no path q's; nonsp ST-Ts lateral leads (no old) Repeat EKG: new anterior TWI 05/05, similar on repeat EKG 05/07 CXR: clear lungs/pleura Echo 04/21 (here): nl LV/EF, normal wall motion. nl RV. nl LA. valves WNL. normal ao root. no peric eff MPI 04/21 (here), persantine: no ST changes vs baseline. moderate sized fixed defect inferior/inferolateral/lateral marshall with partial reversibility; small- moderate sized reversible anterolateral defect. severe global LV hypo, EF 29%. chest pain, vomiting: -troponin trend not c/w ACS (0.07-->0.13-->0.14-->0.10): intermediate range, nonspecific trend cannot definitively rule out very small NSTEMI. -ekg no ischemic findings, though nonspecific ST-Ts present with no prior baseline to compare -CP sx's ongoing for 6+ months, ? increasing of late per dtr. -known CAD from 2007 (was seeing Dr. Ellison), advised to have cath/PCI but pt adamantly refused. -stress test suggest anterolateral ischemia, and possibly/probably inferior/ inferolateral/lateral ischemia as well (somewhat fixed defect, but no WMA in this territory on echo). severe decr in EF post-persantine (with normal EF at rest) suggests extensive (multi-vessel) CAD with prolonged stunning. -see prior brief note re: telephone conversation with dtr--pt not interested in invasive procedure including stent, and her risk of falls with head trauma on DAPT is not insignificant (2 recent falls). benefits of invasive mgmt not clearly > risks if sx's can be managed medically. -d/w'd pt herself who reiterates to me that she definitely does not want invasive procedure (this was in presence of her dtr at bedside). she also states she isn't sure if she's willing to take cardiac meds ("i'll see"). -metopr added (valsartan reduced to avoid hypotension) plus low dose ranexa -statin (low dose--crestor 5 TIW) plus zetia (statin intolerant of multiple trials in past, LDL > 200) -cont ASA -outpt cardio f/u important here--dtr verbalized understanding and states will arrange for visit with dr geraldine osorio (note: not sohail) after hosp discharge -unclear that her current sx's are anginal, as she is having severe/intense pain for very brief time, resolves on its own and she has not appeared uncomfortable or in any distress to staff educator--cont to observe but suspect this is more likely non-cardiac as myocardial ischemia pain doesn't tend to behave this way. - 05/07: repeat troponin with no further increase. No CP since yesterday after uptitration of anginal regimen. tele benign. Con't to monitor. will repeat labs in am renal insufficiency: -no prior labs available -creat 1.3 here -stable trend HTN: -bp stable to mildly low -meds adjusted (diovan decr'd, hctz held) DM: -per hospitalist h/o CVA: -details unknown -home med list not containing anti-PLT agent or statin -rec reconciliation of [place] meds to confirm this is accurate--if not on these agents, will not start here given prior h/o mechanism of CVA (ICH?) and med intolerances are not known to me. - currently on ASA. UTI: -per hospitalis
--- NOTE | 2017-05-08 01:01 | PN ---
Progress Note (short form) - Note Progress Note: Chief Complaint: unstable angina History of Present Illness: no sob, palpitations, syncope, CP no cigs Current Medications Acetaminophen (Tylenol -) 650 mg PO Q6H PRN PRN Reason: FEVER OR PAIN Amlodipine Besylate (Norvasc -) 10 mg PO DAILY [facility] Last Admin: 05/07/17 09:53 Dose: 10 mg Aspirin (Asa -) 81 mg PO DAILY [facility] Last Admin: 05/07/17 09:53 Dose: 81 mg Docusate Sodium (Colace -) 100 mg PO HS [facility] Last Admin: 05/06/17 21:11 Dose: 100 mg Ezetimibe (Zetia -) 10 mg PO HS [facility] Last Admin: 05/06/17 21:11 Dose: 10 mg Heparin Sodium (Porcine) (Heparin -) 5,000 unit SQ BID [facility] Last Admin: 05/07/17 09:53 Dose: 5,000 unit Insulin Aspart (Novolog Vial Sliding Scale -) 1 vial SQ TIDAC [facility] PRN Reason: Protocol Metoprolol Succinate (Toprol Xl -) 25 mg PO BID [facility] Last Admin: 05/07/17 09:53 Dose: 25 mg Nitrofurantoin Macrocrystals (Macrodantin -) 50 mg PO Q6HPO [facility] Last Admin: 05/07/17 18:00 Dose: 50 mg Ondansetron HCl (Zofran Injection) 4 mg IVPB Q6H PRN PRN Reason: NAUSEA Pantoprazole Sodium (Protonix -) 40 mg PO DAILY [facility] Last Admin: 05/07/17 09:53 Dose: 40 mg Ranolazine (Ranexa -) 500 mg PO BID [facility] Last Admin: 05/07/17 09:53 Dose: 500 mg Rosuvastatin Calcium (Crestor -) 5 mg PO MoWeFr [facility] Last Admin: 05/07/17 22:15 Dose: 5 mg Valsartan (Diovan -) 40 mg PO DAILY [facility] Last Admin: 05/07/17 09:53 Dose: 40 mg - Objective Vital Signs: Vital Signs - 24 hr 05/07/17 05/07/17 05/07/17 06:00 06:23 09:00 Temperature 98.7 F Pulse Rate 62 Respiratory 18 18 Rate Blood Pressure 110/48 O2 Sat by Pulse 95 95 Oximetry (%) 08/11/2205/07/17 05/07/17 14:14 17:25 17:43 Temperature 97.1 F L 98 F Pulse Rate 58 L 61 Respiratory 16 20 Rate Blood Pressure 116/59 122/61 O2 Sat by Pulse 100 100 Oximetry (%) Constitutional: Yes: No Distress, Calm Eyes: No: Sclera Icterus HENT: No: Nasal Congestion Cardiovascular: Yes: Regular Rate and Rhythm, S1, S2, Other (PMI non diplaced). No: Gallop, Murmur Respiratory: Yes: CTA Bilaterally (not taking deep breaths). No: Accessory Muscle Use, Rales, Wheezes Gastrointestinal: Yes: Normal Bowel Sounds, Soft. No: Tenderness Musculoskeletal: Yes: Other (No kyphosis) Extremities: No: Cold Edema: No Integumentary: No: Jaundice Neurological: Yes: Alert. No: Seizure Psychiatric: No: Agitated Labs: no CBC, BMP Laboratory Tests 05/06/17 05/07/17 18:48 07:30 Troponin I 0.26 0.20 Assessment/Plan Tele: SR EKG: NSR, normal axis/intervals; no path q's; nonsp ST-Ts lateral leads (no old) Repeat EKG: new anterior TWI 05/05, similar on repeat EKG 05/07 CXR: clear lungs/pleura Echo 04/21 (here): nl LV/EF, normal wall motion. nl RV. nl LA. valves WNL. normal ao root. no peric eff MPI 04/21 (here), persantine: no ST changes vs baseline. moderate sized fixed defect inferior/inferolateral/lateral marshall with partial reversibility; small- moderate sized reversible anterolateral defect. severe global LV hypo, EF 29%. chest pain, vomiting: -troponin trend not c/w ACS (0.07-->0.13-->0.14-->0.10): intermediate range, nonspecific trend cannot definitively rule out very small NSTEMI. -ekg no ischemic findings, though nonspecific ST-Ts present with no prior baseline to compare -CP sx's ongoing for 6+ months, ? increasing of late per dtr. -known CAD from 2007 (was seeing Dr. Ellison), advised to have cath/PCI but pt adamantly refused. -stress test suggest anterolateral ischemia, and possibly/probably inferior/ inferolateral/lateral ischemia as well (somewhat fixed defect, but no WMA in this territory on echo). severe decr in EF post-persantine (with normal EF at rest) suggests extensive (multi-vessel) CAD with prolonged stunning. -see prior brief note re: telephone conversation with dtr--pt not interested in invasive procedure including stent, and her risk of falls with head trauma on DAPT is not insignificant (2 recent falls). benefits of invasive mgmt not clearly > risks if sx's can be managed medically. -d/w'd pt herself who reiterates to me that she definitely does not want invasive procedure (this was in presence of her dtr at bedside). she also states she isn't sure if she's willing to take cardiac meds ("i'll see"). -metopr added (valsartan reduced to avoid hypotension) plus low dose ranexa -statin (low dose--crestor 5 TIW) plus zetia (statin intolerant of multiple trials in past, LDL > 200) -cont ASA -outpt cardio f/u important here--dtr verbalized understanding and states will arrange for visit with dr geraldine osorio (note: not sohail) after hosp discharge -unclear that her current sx's are anginal, as she is having severe/intense pain for very brief time, resolves on its own and she has not appeared uncomfortable or in any distress to staffing analyst--cont to observe but suspect this is more likely non-cardiac as myocardial ischemia pain doesn't tend to behave this way. - 05/07: repeat troponin with no further increase. No CP since yesterday after uptitration of anginal regimen. tele benign. Con't to monitor. will repeat labs in am renal insufficiency: -no prior labs available -creat 1.3 here -stable trend HTN: -bp stable to mildly low -meds adjusted (lurdes fernandezr'd, hctz held) DM: -per hospitalist h/o CVA: -details unknown -home med list not containing anti-PLT agent or statin -rec reconciliation of [place] meds to confirm this is accurate--if not on these agents, will not start here given prior h/o mechanism of CVA (ICH?) and med intolerances are not known to me. - currently on ASA. UTI: -per hospitalis
[2017-05-08] MEDS: INSULIN SLIDING SCALE (NOVOLOG) 1 VIAL SQ SCH ×3 (06:44→17:05)
[2017-05-08 07:24] LABS: BASOPHIL 1.1 % (0-2.0); EOSINOPHIL 3.7 % (0-4.5); MCH 29.9 pg (25.7-33.7); MCHC 33.3 g/dl (32.0-36.0); MEAN CELL VOLUME 89.9 fl (80-96); MEAN PLT VOLUME 9.6 fl (7.5-11.1); NEUTROPHILS 48.2 % (42.8-82.8); PLATELET COUNT 211 K/MM3 (134-434); RDW 13.2 % (11.6-15.6); WHITE BLOOD COUNT 5.7 K/mm3 (4.0-10.0)
[2017-05-08 08:37] LABS: ANION GAP 8 (8-16); CALCIUM 8.7 mg/dL (8.5-10.1); CO2 25 mmol/L (21-32); CREATININE 1.4 mg/dL (0.55-1.02); GLUCOSE,RANDOM 106 mg/dL (74-106)
[2017-05-08] MEDS: PANTOPRAZOLE 40 MG TABLET (FP) PO SCH (10:05)
[2017-05-08] MEDS: ASPIRIN 81 MG CHEWABLE TABLETS PO SCH (10:05)
[2017-05-08] MEDS: RANOLAZINE E.R. 500 MG TABLET (FP) PO SCH ×2 (10:05→22:29)
[2017-05-08] MEDS: VALSARTAN 40 MG TABLET (FP) PO SCH (10:05)
[2017-05-08] MEDS: METOPROLOL SUCCINATE 25 MG TAB.SR.24H (FP) PO SCH ×2 (10:05→22:29)
[2017-05-08] MEDS: amLODIPine BESYLATE 10 MG TABLET (FP) PO SCH (10:05)
--- NOTE | 2017-05-08 10:05 | PN ---
Progress Note (short form) - Note Progress Note: Progress Note: Chief Complaint: unstable angina History of Present Illness: no sob, palpitations, syncope, CP no cigs Current Medications Generic Name Dose Route Start Last Admin Trade Name Freq PRN Reason Stop Dose Admin Acetaminophen 650 mg 05/04/17 08:51 Tylenol - PO Q6H PRN FEVER OR PAIN Amlodipine Besylate 10 mg 05/04/17 10:00 05/07/17 09:53 Norvasc - PO 10 mg DAILY [facility] Administration Aspirin 81 mg 05/04/17 10:00 05/07/17 09:53 Asa - PO 81 mg DAILY [facility] Administration Docusate Sodium 100 mg 05/04/17 22:00 05/07/17 22:15 Colace - PO 100 mg HS [facility] Administration Ezetimibe 10 mg 05/06/17 22:00 05/07/17 22:21 Zetia - PO 10 mg HS [facility] Administration Heparin Sodium (Porcine) 5,000 unit 05/04/17 10:00 05/07/17 22:16 Heparin - SQ 5,000 unit BID [facility] Administration Insulin Aspart 1 vial 05/08/17 07:00 05/08/17 06:44 Novolog Vial Sliding Scale - SQ Not Given TIDAC [facility] Protocol Metoprolol Succinate 25 mg 05/06/17 10:00 05/07/17 22:15 Toprol Xl - PO 25 mg BID [facility] Administration Nitrofurantoin Macrocrystals 50 mg 05/06/17 12:00 05/08/17 06:43 Macrodantin - PO 50 mg Q6HPO [facility] Administration Ondansetron HCl 4 mg 05/04/17 08:51 Zofran Injection IVPB Q6H PRN NAUSEA Pantoprazole Sodium 40 mg 05/06/17 10:00 05/07/17 09:53 Protonix - PO 40 mg DAILY [facility] Administration Ranolazine 500 mg 05/06/17 10:00 05/07/17 22:15 Ranexa - PO 500 mg BID [facility] Administration Rosuvastatin Calcium 5 mg 05/07/17 22:00 05/07/17 22:15 Crestor - PO 5 mg MoWeFr [facility] Administration Valsartan 40 mg 05/07/17 10:00 05/07/17 09:53 Diovan - PO 40 mg DAILY [facility] Administration - Objective Vital Signs: Vital Signs Period Temp Pulse Resp BP Sys/Douglas Pulse Ox Last 24 Hr 97.1 F-98.3 F 55-64 16-20 111-123/49-61 98-100 Constitutional: Yes: No Distress, Calm Eyes: No: Sclera Icterus HENT: No: Nasal Congestion Cardiovascular: Yes: Regular Rate and Rhythm, S1, S2, Other (PMI non diplaced). No: Gallop, Murmur Respiratory: Yes: CTA Bilaterally (not taking deep breaths). No: Accessory Muscle Use, Rales, Wheezes Gastrointestinal: Yes: Normal Bowel Sounds, Soft. No: Tenderness Extremities: No: Cold Edema: No Integumentary: No: Jaundice Neurological: Yes: Alert. No: Seizure Psychiatric: No: Agitated Labs: CBC, BMP 05/08/17 05:35 05/08/17 05:35 Tele: SR EKG: NSR, normal axis/intervals; no path q's; nonsp ST-Ts lateral leads (no old) Repeat EKG: new anterior TWI 05/05, similar on repeat EKG 05/07 CXR: clear lungs/pleura Echo 04/21 (here): nl LV/EF, normal wall motion. nl RV. nl LA. valves WNL. normal ao root. no peric eff MPI 04/21 (here), persantine: no ST changes vs baseline. moderate sized fixed defect inferior/inferolateral/lateral marshall with partial reversibility; small- moderate sized reversible anterolateral defect. severe global LV hypo, EF 29%. a/p: chest pain, vomiting: -troponin trend not c/w ACS (0.07-->0.13-->0.14-->0.10): intermediate range, nonspecific trend cannot definitively rule out very small NSTEMI. -ekg no ischemic findings, though nonspecific ST-Ts present with no prior baseline to compare -CP sx's ongoing for 6+ months, ? increasing of late per dtr. -known CAD from 2007 (was seeing Dr. Osorio), advised to have cath/PCI but pt adamantly refused. -stress test suggest anterolateral ischemia, and possibly/probably inferior/ inferolateral/lateral ischemia as well (somewhat fixed defect, but no WMA in this territory on echo). severe decr in EF post-persantine (with normal EF at rest) suggests extensive (multi-vessel) CAD with prolonged stunning. -see prior brief note re: telephone conversation with dtr--pt not interested in invasive procedure including stent, and her risk of falls with head trauma on DAPT is not insignificant (2 recent falls). benefits of invasive mgmt not clearly > risks if sx's can be managed medically. -d/w'd pt herself who reiterates to me that she definitely does not want invasive procedure (this was in presence of her dtr at bedside). she also states she isn't sure if she's willing to take cardiac meds ("i'll see"). -metopr added (valsartan reduced to avoid hypotension) plus low dose ranexa -statin (low dose--crestor 5 TIW) plus zetia (statin intolerant of multiple trials in past, LDL > 200) -cont ASA -outpt cardio f/u important here--dtr verbalized understanding and states will arrange for visit with dr geraldine osorio (note: not sohail) after hosp discharge -unclear that her current sx's are anginal, as she is having severe/intense pain for very brief time, resolves on its own and she has not appeared uncomfortable or in any distress to public health staff nurse--cont to observe but suspect this is more likely non-cardiac as myocardial ischemia pain doesn't tend to behave this way. - 05/07: repeat troponin with no further increase. No CP since yesterday after uptitration of anginal regimen. tele benign. Con't to monitor. -05/08: remains w/o cp. Continue to monitor on current regimen and if no significant cp sxs then could dc tomorrow from cardiac pov. renal insufficiency: -no prior labs available -creat 1.3 here -stable trend HTN: -bp stable to mildly low -meds adjusted (yulianavan decr'd, hctz held) DM: -per hospitalist h/o CVA: -details unknown -home med list not containing anti-PLT agent or statin -rec reconciliation of [place] meds to confirm this is accurate--if not on these agents, will not start here given prior h/o mechanism of CVA (ICH?) and med intolerances are not known to me. - currently on ASA. UTI: -per hospitalis
[2017-05-08] MEDS: HEPARIN NA (PORCINE) 5,000 UNITS/ML 1ML VIAL SQ SCH ×2 (10:06→22:29)
--- NOTE | 2017-05-08 18:20 | PN ---
Progress Note, Physician Chief Complaint: TRANSFERRED FROM [facility] FOR CHEST PAIN AND ABNORMAL STRESS TEST / EKG IN BED TELEMETRY UNIT COMFORTABLE - Current Medication List Current Medications: Active Medications Acetaminophen (Tylenol -) 650 mg PO Q6H PRN PRN Reason: FEVER OR PAIN Amlodipine Besylate (Norvasc -) 10 mg PO DAILY [facility] Last Admin: 05/08/17 10:05 Dose: 10 mg Aspirin (Asa -) 81 mg PO DAILY [facility] Last Admin: 05/08/17 10:05 Dose: 81 mg Docusate Sodium (Colace -) 100 mg PO HS [facility] Last Admin: 05/07/17 22:15 Dose: 100 mg Ezetimibe (Zetia -) 10 mg PO HS [facility] Last Admin: 05/07/17 22:21 Dose: 10 mg Heparin Sodium (Porcine) (Heparin -) 5,000 unit SQ BID [facility] Last Admin: 05/08/17 10:06 Dose: 5,000 unit Insulin Aspart (Novolog Vial Sliding Scale -) 1 vial SQ TIDAC [facility] PRN Reason: Protocol Last Admin: 05/08/17 17:05 Dose: Not Given Metoprolol Succinate (Toprol Xl -) 25 mg PO BID [facility] Last Admin: 05/08/17 10:05 Dose: 25 mg Nitrofurantoin Macrocrystals (Macrodantin -) 50 mg PO Q6HPO [facility] Last Admin: 05/08/17 17:22 Dose: 50 mg Ondansetron HCl (Zofran Injection) 4 mg IVPB Q6H PRN PRN Reason: NAUSEA Pantoprazole Sodium (Protonix -) 40 mg PO DAILY [facility] Last Admin: 05/08/17 10:05 Dose: 40 mg Ranolazine (Ranexa -) 500 mg PO BID [facility] Last Admin: 05/08/17 10:05 Dose: 500 mg Rosuvastatin Calcium (Crestor -) 5 mg PO MoWeFr [facility] Last Admin: 05/07/17 22:15 Dose: 5 mg Valsartan (Diovan -) 40 mg PO DAILY [facility] Last Admin: 05/08/17 10:05 Dose: 40 mg - Objective Vital Signs: Vital Signs Temperature 98 F 05/08/17 14:52 Pulse Rate 64 05/08/17 14:52 Respiratory Rate 18 05/08/17 14:52 Blood Pressure 108/54 05/08/17 14:52 O2 Sat by Pulse Oximetry (%) 98 05/08/17 13:04 Constitutional: Yes: Mild Distress Eyes: Yes: WNL HENT: Yes: WNL Neck: Yes: WNL Cardiovascular: Yes: WNL Respiratory: Yes: WNL Gastrointestinal: Yes: WNL Genitourinary: Yes: WNL Musculoskeletal: Yes: WNL Extremities: Yes: WNL Edema: Yes Edema: LLE: Trace, RLE: Trace Peripheral Pulses WNL: Yes Integumentary: Yes: WNL Wound/Incision: Yes: Clean/Dry Neurological: Yes: WNL ...Motor Strength: WNL Psychiatric: Yes: WNL Labs: CBC, BMP 05/08/17 05:35 05/08/17 05:35 Problem List - Problems (1) Chest pain Code(s): R07.9 - CHEST PAIN, UNSPECIFIED (2) DVT prophylaxis Code(s): LIK4187 - (3) Diabetes Code(s): E11.9 - TYPE 2 DIABETES MELLITUS WITHOUT COMPLICATIONS (4) HLD (hyperlipidemia) Code(s): E78.5 - HYPERLIPIDEMIA, UNSPECIFIED (5) HTN (hypertension) Code(s): I10 - ESSENTIAL (PRIMARY) HYPERTENSION (6) UTI (urinary tract infection) Code(s): N39.0 - URINARY TRACT INFECTION, SITE NOT SPECIFIED Assessment/Plan CORONARY SYNDROME ACUTE WILL LIKELY NEED CARDIAC CATH EITHER OUTPATIENT OR TRANSFER TO [place] FROM [facility], WILL DISCUSS WITH DR TUTTLE. DVT PROPHYLAXIS HEPARIN SQ STATIN THERAPY ( ALLERGHIC TO SIMVASTATIN) PAIN CONTROL ASA ADA/LOW FAT DIET
[2017-05-08] MEDS ORDERED: PT OWN MED DRAWER 7, Y5N ONE (22:17)
[2017-05-08] MEDS: EZETIMIBE 10 MG TABLET (FP) PO SCH (22:29)
[2017-05-08] MEDS: DOCUSATE SODIUM 100 MG CAPSULE (FP) PO SCH (22:29)
[2017-05-09] MEDS: NITROFURANTOIN MACROCRYSTAL 50 MG CAPSULE (FP) PO SCH ×3 (00:30→11:49)
[2017-05-09] MEDS: INSULIN SLIDING SCALE (NOVOLOG) 1 VIAL SQ SCH ×3 (06:10→16:16)
[2017-05-09] MEDS: HEPARIN NA (PORCINE) 5,000 UNITS/ML 1ML VIAL SQ SCH (09:25)
[2017-05-09] MEDS: RANOLAZINE E.R. 500 MG TABLET (FP) PO SCH (09:26)
[2017-05-09] MEDS: amLODIPine BESYLATE 10 MG TABLET (FP) PO SCH (09:26)
[2017-05-09] MEDS: ASPIRIN 81 MG CHEWABLE TABLETS PO SCH (09:26)
[2017-05-09] MEDS: METOPROLOL SUCCINATE 25 MG TAB.SR.24H (FP) PO SCH (09:26)
[2017-05-09] MEDS: PANTOPRAZOLE 40 MG TABLET (FP) PO SCH (09:26)
[2017-05-09] MEDS: VALSARTAN 40 MG TABLET (FP) PO SCH (09:26)
--- NOTE | 2017-05-09 10:09 | PN ---
Progress Note (short form) - Note Progress Note: Progress Note: Chief Complaint: unstable angina History of Present Illness: no sob, palpitations, syncope, CP no cigs Current Medications Generic Name Dose Route Start Last Admin Trade Name Freq PRN Reason Stop Dose Admin Acetaminophen 650 mg 05/04/17 08:51 Tylenol - PO Q6H PRN FEVER OR PAIN Amlodipine Besylate 10 mg 05/04/17 10:00 05/09/17 09:26 Norvasc - PO 10 mg DAILY RODNEY Administration Aspirin 81 mg 05/04/17 10:00 05/09/17 09:26 Asa - PO 81 mg DAILY RODNEY Administration Docusate Sodium 100 mg 05/04/17 22:00 05/08/17 22:29 Colace - PO 100 mg HS RODNEY Administration Ezetimibe 10 mg 05/06/17 22:00 05/08/17 22:29 Zetia - PO 10 mg HS RODNEY Administration Heparin Sodium (Porcine) 5,000 unit 05/04/17 10:00 05/09/17 09:25 Heparin - SQ 5,000 unit BID RODNEY Administration Insulin Aspart 1 vial 05/08/17 07:00 05/09/17 06:10 Novolog Vial Sliding Scale - SQ Not Given TIDAC [facility] Protocol Metoprolol Succinate 25 mg 05/06/17 10:00 05/09/17 09:26 Toprol Xl - PO 25 mg BID RODNEY Administration Nitrofurantoin Macrocrystals 50 mg 05/06/17 12:00 05/09/17 05:42 Macrodantin - PO 50 mg Q6HPO RODNEY Administration Ondansetron HCl 4 mg 05/04/17 08:51 Zofran Injection IVPB Q6H PRN NAUSEA Pantoprazole Sodium 40 mg 05/06/17 10:00 05/09/17 09:26 Protonix - PO 40 mg DAILY RODNEY Administration Ranolazine 500 mg 05/06/17 10:00 05/09/17 09:26 Ranexa - PO 500 mg BID RODNEY Administration Rosuvastatin Calcium 5 mg 05/07/17 22:00 05/07/17 22:15 Crestor - PO 5 mg MoWeFr RODNEY Administration Valsartan 40 mg 05/07/17 10:00 05/09/17 09:26 Diovan - PO 40 mg DAILY RODNEY Administration - Objective Vital Signs: Vital Signs Period Temp Pulse Resp BP Sys/Douglas Pulse Ox Last 24 Hr 97.6 F-98.8 F 59-69 18-20 101-131/41-60 97-98 Constitutional: Yes: No Distress, Calm Eyes: No: Sclera Icterus HENT: No: Nasal Congestion Cardiovascular: Yes: Regular Rate and Rhythm, S1, S2, Other (PMI non diplaced). No: Gallop, Murmur Respiratory: Yes: CTA Bilaterally (not taking deep breaths). No: Accessory Muscle Use, Rales, Wheezes Gastrointestinal: Yes: Normal Bowel Sounds, Soft. No: Tenderness Extremities: No: Cold Edema: No Integumentary: No: Jaundice Neurological: Yes: Alert. No: Seizure Psychiatric: No: Agitated Labs: CBC, BMP 05/08/17 05:35 05/08/17 05:35 Tele: SR EKG: NSR, normal axis/intervals; no path q's; nonsp ST-Ts lateral leads (no old) Repeat EKG: new anterior TWI 05/05, similar on repeat EKG 05/07 CXR: clear lungs/pleura Echo 04/21 (here): nl LV/EF, normal wall motion. nl RV. nl LA. valves WNL. normal ao root. no peric eff MPI 04/21 (here), persantine: no ST changes vs baseline. moderate sized fixed defect inferior/inferolateral/lateral marshall with partial reversibility; small- moderate sized reversible anterolateral defect. severe global LV hypo, EF 29%. a/p: chest pain, vomiting: -troponin trend not c/w ACS (0.07-->0.13-->0.14-->0.10): intermediate range, nonspecific trend -ekg no ischemic findings, though nonspecific ST-Ts present with no prior baseline to compare -CP sx's ongoing for 6+ months, ? increasing of late per dtr. -known CAD from 2007 (was seeing Dr. Osorio), advised to have cath/PCI but pt adamantly refused. -stress test here suggests anterolateral ischemia, and possibly/probably inferior/inferolateral/lateral ischemia as well (somewhat fixed defect, but no WMA in this territory on echo). severe decr in EF post-persantine (with normal EF at rest) suggests extensive (multi-vessel) CAD with prolonged stunning. -see prior brief note re: telephone conversation with dtr--pt not interested in invasive procedure including stent, and her risk of falls with head trauma on DAPT is not insignificant (2 recent falls). benefits of invasive mgmt not clearly > risks if sx's can be managed medically. -d/w'd pt herself who reiterates to me that she definitely does not want invasive procedure (this was in presence of her dtr at bedside). she also states she isn't sure if she's willing to take cardiac meds ("i'll see"). -metopr added (valsartan reduced to avoid hypotension) plus low dose ranexa -statin (low dose--crestor 5 TIW) plus zetia (statin intolerant of multiple trials in past, LDL > 200) -cont ASA -outpt cardio f/u important here--dtr verbalized understanding and states will arrange for visit with dr geraldine osorio (note: not sohail) after hosp discharge -unclear that her current sx's are anginal, as she is having severe/intense pain for very brief time, resolves on its own and she has not appeared uncomfortable or in any distress to billing and accounting staff assistant--cont to observe but suspect this is more likely non-cardiac as myocardial ischemia pain doesn't tend to behave this way. - 05/07: repeat troponin with no further increase. No CP since yesterday after uptitration of anginal regimen. tele benign. Con't to monitor. -05/08-4: remains w/o cp. Ok for dc from cardiac pov on current cardiac med regimen. renal insufficiency: -no prior labs available -creat 1.3 here -stable trend HTN: -bp stable to mildly low -meds adjusted (diovan decr'd, hctz held) DM: -per hospitalist h/o CVA: -details unknown -home med list not containing anti-PLT agent or statin -rec reconciliation of [facility] meds to confirm this is accurate--if not on these agents, will not start here given prior h/o mechanism of CVA (ICH?) and med intolerances are not known to me. - currently on ASA.
--- NOTE | 2017-05-09 11:36 | DS ---
Physical Examination Vital Signs: Vital Signs Temperature 97.6 F 05/09/17 10:00 Pulse Rate 59 L 05/09/17 10:00 Respiratory Rate 19 05/09/17 10:00 Blood Pressure 101/46 05/09/17 10:00 O2 Sat by Pulse Oximetry (%) 97 05/09/17 09:34 Findings/Remarks: PATIENT REFUSING CARDIAC CATH, WILL MANAGE SUPPORTIVELY Constitutional: Yes: No Distress Eyes: Yes: WNL HENT: Yes: WNL Neck: Yes: WNL Cardiovascular: Yes: WNL Respiratory: Yes: WNL Gastrointestinal: Yes: WNL Renal/: Yes: WNL Musculoskeletal: Yes: WNL Extremities: Yes: WNL Edema: No Peripheral Pulses WNL: Yes Integumentary: Yes: WNL Wound/Incision: Yes: Clean/Dry Neurological: Yes: WNL ...Motor Strength: WNL Psychiatric: Yes: WNL Labs: CBC, BMP 05/08/17 05:35 05/08/17 05:35 Discharge Summary Reason For Visit: UTI/CHEST PAIN Current Active Problems Chest pain (Acute) DVT prophylaxis (Acute) Diabetes (Acute) HLD (hyperlipidemia) (Acute) HTN (hypertension) (Acute) Nausea & vomiting (Acute) UTI (urinary tract infection) (Acute) Procedures: Principal: STRESS TEST Other Procedures: LABS Hospital Course: ADMITTED FOR CARDIAC CORONARY ACUTE SYNDROME, TRANSFERRED TO [facility], THEN AFTER MEDICAL MANAGEMENT THE PATIENT HAS REFUSED FURTHER TESTING AND CARDIAC CATH. WILL MANAGE CONSERVATIVELY AND TRANSFER TO HALFWAY Condition: Stable - Instructions Diet, Activity, Other Instructions: LOW FAT/ADA/LOW SALT DIET Referrals: Shashank Tinoco MD [Primary Care Provider] - Disposition: RETIREMENT FACILITY - Home Medications Comprehensive Discharge Medication List: Ambulatory Orders Acetaminophen [Tylenol] 650 mg PO Q6H 05/04/17 Docusate Sodium 100 mg PO HS 05/04/17 Metformin HCl 500 mg PO BID 05/04/17 Nitrofurantoin Monohyd/M-Cryst [Macrobid -] 100 mg PO BID 05/04/17 Acetaminophen [Tylenol .Regular Strength -] 650 mg PO Q6H PRN #0 tablet Amlodipine Besylate [Norvasc -] 10 mg PO DAILY tablet 05/09/17 Aspirin [ASA -] 81 mg PO DAILY tab.chew 05/09/17 Ezetimibe [Zetia -] 10 mg PO HS tablet 05/09/17 Heparin - 5,000 unit SQ BID vial 05/09/17 Insulin Sliding Scale [Novolog Vial Sliding Scale -] 1 vial SQ TIDAC units 01/20 Metoprolol Succinate [Toprol XL -] 25 mg PO BID #60 tab 05/09/17 Nitrofurantoin Macrocrystal [Macrodantin -] 50 mg PO Q6HPO #30 cap 05/09/17 Pantoprazole Sodium [Protonix -] 40 mg PO DAILY #30 tab 05/09/17 Ranolazine [Ranexa -] 500 mg PO BID tab 05/09/17 Rosuvastatin [Crestor -] 5 mg PO MoWeFr tablet 05/09/17 Valsartan [Diovan] 40 mg PO DAILY tablet 05/09/17
[2017-05-09 14:36] VITALS: BP 119/63; PULSE 60; TEMP 97.4
== END 2017-05-09 17:01 | DRG 281 ==
LOC: FER 23:33 → FM/S 05-04 02:29 → J4S 05-07 16:56
PROVIDERS: ADMIT Internal Medicine; ATTEND Family Medicine
DX: I21.4 Non-ST elevation (NSTEMI) myocardial infarction (principal); N39.0 Urinary tract infection, site not specified; I69.351 Hemiplegia and hemiparesis following cerebral infarction affecting right dominant side; I24.9 Acute ischemic heart disease, unspecified; R11.2 Nausea with vomiting, unspecified; I10 Essential (primary) hypertension; E78.5 Hyperlipidemia, unspecified; E11.9 Type 2 diabetes mellitus without complications; Z79.4 Long term (current) use of insulin; N28.9 Disorder of kidney and ureter, unspecified; F03.90 Unspecified dementia, unspecified severity, without behavioral disturbance, psychotic disturbance, mood disturbance, and anxiety; B96.20 Unspecified Escherichia coli [E. coli] as the cause of diseases classified elsewhere; Z88.0 Allergy status to penicillin; R07.89 Other chest pain
CPT/HCPCS: 36415; 71010-TC; 78452-TC; 80048; 80053; 80061; 81003; 81015; 83690; 83735; 84484; 85025; 87040; 87086; 87186; 93005; 93010; 93017; 93306-TC; 97116-GP; 97161-GP; 99283-25; A9502; C1887; J1644

== ENCOUNTER 2017-05-18 07:38 | Inpatient (IN) | payer OTHER ==
[2017-05-18 07:48] VITALS: BMI 26.5
--- NOTE | 2017-05-18 08:12 | PDOC ---
History of Present Illness - General History Source: Patient Exam Limitations: No Limitations - History of Present Illness Initial Comments: 05/18/17 08:13 The patient is a 82 year old female with a significant past medical history of HTN, HLD, DM, Dementia, prior CVA right sided hemiplegia, CAD, frequent UTIs on on macrobid, who presents to the ED from [facility] with chest pain and SOB today. Patient states she feels like there is fluid in her lungs. She states she is having difficulty breathing lying supine. Patient is vomiting on interview. Patient denies fever, chills,cough, diarrhea. Denies dysuria, frequency, hematuria. Denies urinary incontinence, denies bowel incontinence. Patient was here two weeks ago for left sided chest pain and vomiting. She was admitted to Hospitalist Tele under Dr. Franco. <Anthony Denise - Last Filed: 05/18/17 10:09> - General History Source: Patient, Old Records <Claudy Friedman - Last Filed: 05/18/17 10:13> - General Chief Complaint: Respiratory Stated Complaint: DIFFICULT BREATHING Time Seen by Provider: 05/18/17 07:45 Past History <Anthony Denise - Last Filed: 05/18/17 10:09> - Past Medical History CVA: Yes (with right HP) Diabetes: Yes GI Disorders: Yes (UTIS.) HTN: Yes Hypercholesterolemia: Yes - Psycho/Social/Smoking Cessation Hx Anxiety: No Suicidal Ideation: No Smoking History: Never smoked Have you smoked in the past 12 months: No Hx Alcohol Use: No Drug/Substance Use Hx: No Substance Use Type: None <Claudy Friedman - Last Filed: 05/18/17 10:13> - Past Medical History Allergies/Adverse Reactions: Allergies Allergy/AdvReac Type Severity Reaction Status Date / Time Penicillins Allergy Verified 05/18/17 07:43 simvastatin Allergy Verified 05/18/17 07:43 Home Medications: Ambulatory Orders Acetaminophen 650 mg PO PRN PRN 05/18/17 Amlodipine Besylate [Norvasc -] 10 mg PO DAILY 05/18/17 Amlodipine/Valsartan [Amlodipine-Valsartan 10-160 mg] 1 each PO DAILY 05/18/17 Docusate Sodium [Colace -] 300 mg PO HS 05/18/17 Ezetimibe 10 mg PO HS 05/18/17 Heparin - 5,000 unit SQ BID 05/18/17 Insulin Aspart [Novolog] 0 unit SQ TID 05/18/17 Latanoprost 0.005% Eye Drops [Xalatan 0.005% Eye Drops -] 1 drop OD HS 05/18/17 Lidocaine [Aspercreme] 1 each TP BID 05/18/17 Mag Hydrox/Al Hydrox/Simeth [Mylanta *Suspension*] 30 ml PO Q6H PRN 05/18/17 Metformin HCl 500 mg PO BID 05/18/17 Metoprolol Succinate [Toprol Xl -] 25 mg PO BID 05/18/17 Pantoprazole Sodium [Protonix] 40 mg PO DAILY 05/18/17 Polyethylene Glycol 3350 [Glycolax] 119 gm PO PRN PRN 05/18/17 Pravastatin Sodium [Pravachol (Nf)] 40 mg PO HS 05/18/17 Ranolazine [Ranexa -] 500 mg PO BID 05/18/17 Valsartan 40 mg PO DAILY 05/18/17 Review of Systems - Review of Systems Able to Perform ROS?: Yes Comments:: 05/18/17 08:13 GENERAL/CONSTITUTIONAL: No fever or chills. No weakness. HEAD, EYES, EARS, NOSE AND THROAT: No change in vision. No ear pain or discharge. No sore throat. CARDIOVASCULAR: + chest pain. No shortness of breath. RESPIRATORY: No cough, wheezing, or hemoptysis. GASTROINTESTINAL: + vomiting. No diarrhea or constipation. GENITOURINARY: No dysuria, frequency, or change in urination. MUSCULOSKELETAL: No joint or muscle swelling or pain. No neck or back pain. SKIN: No rash NEUROLOGIC: No headache, vertigo, loss of consciousness, or change in strength/ sensation. ENDOCRINE: No increased thirst. No abnormal weight change. HEMATOLOGIC/LYMPHATIC: No anemia, easy bleeding, or history of blood clots. ALLERGIC/IMMUNOLOGIC: No hives or skin allergy. <Anthony Denise - Last Filed: 05/18/17 10:09> *Physical Exam - Vital Signs Last Vital Signs Temp Pulse Resp BP Pulse Ox 102 H 28 H 157/85 96 05/18/17 07:43 05/18/17 07:43 05/18/17 07:43 05/18/17 07:43 - Physical Exam Comments: 05/18/17 08:14 GENERAL: Awake, alert, and fully oriented, in no acute distress HEAD: No signs of trauma EYES: PERRLA, EOMI, sclera anicteric, conjunctiva clear ENT: Auricles normal inspection, hearing grossly normal, nares patent, oropharynx clear without exudates. Moist mucosa NECK: Normal ROM, supple, no lymphadenopathy, JVD, or masses LUNGS: Tachypnea. Rales. Respiratory distress. HEART: Regular rate and rhythm, normal S1 and S2, no murmurs, rubs or gallops ABDOMEN: Soft, nontender, normoactive bowel sounds. No guarding, no rebound. No masses EXTREMITIES: Normal range of motion, no edema. No clubbing or cyanosis. No cords, erythema, or tenderness NEUROLOGICAL: Cranial nerves II through XII grossly intact. Normal speech, normal gait SKIN: Warm, Dry, normal turgor, no rashes or lesions noted. <Anthony Denise - Last Filed: 05/18/17 10:09> - Vital Signs Last Vital Signs Temp Pulse Resp BP Pulse Ox 102 H 28 H 157/85 96 05/18/17 07:43 05/18/17 07:43 05/18/17 07:43 05/18/17 07:43 <Claudy Friedman - Last Filed: 05/18/17 10:13> Heart Score/ECG Review #1 ECG reviewed & interpreted by me at: 08:20 05/18/17 09:58 NSR 93, no faith, but STD V2-V5, normal axis, normal intervals, QTC 484 msec <Claudy Friedman - Last Filed: 05/18/17 10:13> ED Treatment Course - LABORATORY CBC & Chemistry Diagram: 05/18/17 08:12 05/18/17 08:12 <Anthony Denise - Last Filed: 05/18/17 10:09> - LABORATORY CBC & Chemistry Diagram: 05/18/17 08:12 05/18/17 08:12 - RADIOLOGY Radiology Studies Ordered: Category Date Time Status CHEST X-RAY PORTABLE* [RAD] Stat Radiology 05/18/17 07:45 Ordered <Claudy Friedman - Last Filed: 05/18/17 10:13> Medical Decision Making - Medical Decision Making 05/18/17 10:[address] Dennison. Discussed case with Dr. Shi. <Anthony Denise - Last Filed: 05/18/17 10:09> - Critical Care Time Total Critical Care Time (minutes): 45 Critical Care Statement: The care of this patient involved high complexity decision making to prevent further life threatening deterioration of the patient 's condition and/or to evaluate & treat vital organ system(s) failure or risk of failure. - Medical Decision Making 05/18/17 08:11 A portion of this note was documented by scribe services under my direction. I have reviewed the details of the note, within reason, and agree with the documentation with the following case summary and management plan written by me. Patient treated in the ED. Nursing notes are reviewed and incorporated into the medical decision-making. Vital signs reviewed. Peripheral IV access obtained by the nurse, laboratory studies are drawn and sent, reviewed and interpreted by myself. Vital Signs Temp Pulse Resp BP Pulse Ox 102 H 28 H 157/85 96 05/18/17 07:43 05/18/17 07:43 05/18/17 07:43 05/18/17 07:43 82 year old female with past medical history of coronary disease, CHF with ejection fraction approximately 29%, hypertension, diabetes, hyperlipidemia, stroke presents with hypoxia and shortness of breath. The patient was recently here earlier this month with cardiac etiology. At that time, patient had a slightly elevated troponin and had a stress test. Stress test demonstrated anterolateral ischemia and possibly inferior, inferior lateral ischemia. Patient was advised to have a cardiac catheterization but the patient adamantly denied. The patient was managed conservatively and discharged back to nursing facility. Patient reports today that she felt very short of breath and the fdc noted an O2 saturation of 67%. Patient denies chest pain but reports that laying flat worsened symptoms. Denies fevers or cough. However, patient does have a temperature 100.4 degrees here. Differential includes acute congestive heart failure exacerbation, pneumonia, IA , acute coronary syndrome. Adult sepsis protocol ordered. Troponin and BNP ordered patient feels much more comfortable on the BiPAP. Portal chest x-ray and likely admission to the ICU. 05/18/17 10:03 CBC, BMP 05/18/17 08:12 05/18/17 08:12 CMP Sodium 139 mmol/L (136-145) 08/13/17 08:12 Potassium 5.4 mmol/L (3.5-5.1) H D 05/18/17 08:12 Chloride 103 mmol/L (98-107) 05/18/17 08:12 Carbon Dioxide 19 mmol/L (21-32) L D 05/18/17 08:12 Anion Gap 17 (8-16) H 05/18/17 08:12 BUN 34 mg/dL (7-18) H 05/18/17 08:12 Creatinine 2.1 mg/dL (0.55-1.02) H D 05/18/17 08:12 Creat Clearance w eGFR 22.49 (>60) 05/18/17 08:12 Random Glucose 310 mg/dL (74-106) H* D 05/18/17 08:12 Lactic Acid 6.0 mmol/L (0.4-2.0) H* 05/18/17 08:12 Calcium 8.8 mg/dL (8.5-10.1) 05/18/17 08:12 Phosphorus 5.6 mg/dL (2.5-4.9) H 05/18/17 08:12 Magnesium 2.4 mg/dL (1.8-2.4) 05/18/17 08:12 Total Bilirubin 0.6 mg/dL (0.2-1.0) 05/18/17 08:12 AST 21 U/L (15-37) 05/18/17 08:12 ALT 19 U/L (12-78) 05/18/17 08:12 Alkaline Phosphatase 80 U/L (45-117) 05/18/17 08:12 Creatine Kinase 92 IU/L (26-192) 05/18/17 08:12 Troponin I 0.79 ng/ml (0.00-0.05) H* 05/18/17 08:12 B-Natriuretic Peptide 8428.38 pg/ml (5-450) H 05/18/17 08:12 Total Protein 7.2 g/dl (6.4-8.2) 05/18/17 08:12 Albumin 3.1 g/dl (3.4-5.0) L 05/18/17 08:12 Urine Test Results Urine Color Lt. yellow 05/18/17 08:12 Urine Appearance Clear 05/18/17 08:12 Urine pH 6.0 (5.0-8.0) 05/18/17 08:12 Urine Protein Trace (NEGATIVE) H 05/18/17 08:12 Urine Glucose (UA) Negative (NEGATIVE) 05/18/17 08:12 Urine Ketones Negative (NEGATIVE) 05/18/17 08:12 Urine Blood Negative (NEGATIVE) 05/18/17 08:12 Urine Nitrite Negative (NEGATIVE) 05/18/17 08:12 Urine Bilirubin Negative (NEGATIVE) 05/18/17 08:12 Ur Leukocyte Esterase Negative (NEGATIVE) 05/18/17 08:12 Chest x-ray and BNP consistent with congestive heart failure. Troponin is 0.79. There is some slight ST depressions that are small pronounced than her previous EKG several weeks ago. We'll need to trend troponins. Patient has an elevated anion gap a white count of 13 a temperature of 100.4 admitted elevated lactic acid, we'll need to draw blood cultures and give empiric antibiotics vancomycin and Levaquin. Patient is also noted have acute on chronic renal sufficiency. The patient does feel better with the BiPAP and is mentating well, but given the circumstances, decision was made to admit the patient to the ICU. Case is discussed with Dr. Woodward who accepts the patient. Case discussed with Dr. Dennison Who accepts the patient to his service. Case discussed in detail with admitting physician including history, physical exam and ancillary studies. Admitting physician has assumed care for the patient, will follow all pending diagnostics and will complete the evaluation and treatment. 05/18/17 10:[address] Plunkett had seen the patient prior on prior admission, will page Dr. Dias. 05/18/17 10:[address] Fan. Given her CAD hx and elevated trop, recommends to start heparin. Will start it <Claudy Friedman - Last Filed: 05/18/17 10:13> *DC/Admit/Observation/Transfer - Attestations Scribe Attestion: 05/18/17 08:15 Documentation prepared by Anthony Denise, acting as emergency medical service manager for Claudy Friedman MD, . <Anthony Denise - Last Filed: 05/18/17 10:09> - Discharge Dispostion Admit: Yes <Claudy Friedman - Last Filed: 05/18/17 10:13> Diagnosis at time of Disposition: CHF (congestive heart failure) Qualifiers: Congestive heart failure type: unspecified congestive heart failure type Congestive heart failure chronicity: acute Qualified Code(s): I50.9 - Heart failure, unspecified Fever Qualifiers: Fever type: unspecified Qualified Code(s): R50.9 - Fever, unspecified Acute renal failure Qualifiers: Acute renal failure type: unspecified Qualified Code(s): N17.9 - Acute kidney failure, unspecified - Referrals Referrals: Shashank Tinoco MD [Primary Care Provider] -
[2017-05-18] MEDS ORDERED: ACETAMINOPHEN INJECTION 100 ML IVPB ONE (08:25)
[2017-05-18 08:30] LABS: BASOPHIL 0.5 % (0-2.0); EOSINOPHIL 0.5 % (0-4.5); MCHC 31.6 g/dl (32.0-36.0); MEAN CELL VOLUME 91.7 fl (80-96); MEAN PLT VOLUME 9.9 fl (7.5-11.1); NEUTROPHILS 69.5 % (42.8-82.8); PLATELET COUNT 298 K/MM3 (134-434); RDW 13.5 % (11.6-15.6); WHITE BLOOD COUNT 13.6 K/mm3 (4.0-10.0)
[2017-05-18 08:33] LABS: ARTERIAL BLOOD GAS BASE EXCESS -4.6 meq/l (-2-2); ARTERIAL BLOOD GAS HCO3 19.6 meq/L (22-26); ARTERIAL BLOOD GAS PO2 77.7 mmHg (68-100); ARTERIAL BLOOD GAS pH 7.37 (7.35-7.45)
[2017-05-18 08:36] LABS: ALLENS TEST POSITIVE; ART PUNCT SITE LEFT BRACHIAL; LPM/O2% 50%; PT. ON O2? YES
[2017-05-18 08:37] LABS: VENT RATE 14
[2017-05-18 08:51] LABS: ALBUMIN 3.1 g/dl (3.4-5.0); ANION GAP 17 (8-16); CALCIUM 8.8 mg/dL (8.5-10.1); CO2 19 mmol/L (21-32); CREATININE 2.1 mg/dL (0.55-1.02); MAGNESIUM 2.4 mg/dL (1.8-2.4); PHOSPHOROUS 5.6 mg/dL (2.5-4.9); SGOT/AST 21 U/L (15-37); SGPT/ALT 19 U/L (12-78)
[2017-05-18] MEDS ORDERED: LEVOFLOXACIN 500 MG IVPB 100 ML IVPB ONE ×2 (09:03→09:23)
[2017-05-18 09:06] LABS: ALK PHOS 80 U/L (45-117); BILIRUBIN,TOTAL 0.6 mg/dL (0.2-1.0); CPK 92 IU/L (26-192); TOT PROT 7.2 g/dl (6.4-8.2)
[2017-05-18 09:14] LABS: TROPONIN I 0.79 ng/ml (0.00-0.05)
[2017-05-18 09:15] LABS: GLUCOSE,RANDOM 310 mg/dL (74-106)
[2017-05-18 09:18] LABS: URINE APPEARANCE CLEAR; URINE BILIRUBIN NEGATIVE (NEGATIVE); URINE BLOOD NEGATIVE (NEGATIVE); URINE COLOR LT. YELLOW; URINE GLUCOSE (UA) NEGATIVE (NEGATIVE); URINE KETONE NEGATIVE (NEGATIVE); URINE LEUK ESTERASE NEGATIVE (NEGATIVE); URINE NITRITE NEGATIVE (NEGATIVE); URINE PROTEIN TRACE (NEGATIVE); URINE UROBILINOGEN 0.2 mg/dL (0.2-1.0)
[2017-05-18] MEDS ORDERED: VANCOMYCIN 1 GRAM (PRE-DOCKED) 250 ML IVPB ONE (09:23)
[2017-05-18] MEDS ORDERED: FUROSEMIDE 40 MG/4 ML INJECTABLE VIAL IVPB ONE (09:39)
[2017-05-18] MEDS ORDERED: ASPIRIN 81 MG CHEWABLE TABLETS PO ONE (09:39)
[2017-05-18] MEDS ORDERED: FUROSEMIDE 40 MG/4 ML INJECTABLE VIAL ONE (09:46)
[2017-05-18] MEDS ORDERED: ASPIRIN 325 MG TABLET ONE (09:46)
[2017-05-18] MEDS ORDERED: VANCOMYCIN 1,000 MG in DEXTROSE 5%-WATER - 250 ML IVPB SCH (10:00)
[2017-05-18] MEDS ORDERED: HEPARIN NA (PORCINE) 5,000 UNITS/ML 1ML VIAL IVPUSH ONE (10:12)
[2017-05-18] MEDS ORDERED: HEPARIN NA (PORCINE) 5,000 UNITS/ML 1ML VIAL ONE (10:28)
[2017-05-18] MEDS ORDERED: HEPARIN INFUSION - 500 ML IVPB ONE (10:28)
[2017-05-18] MEDS: HEPARIN - 25,000 UNIT in SODIUM CHLORIDE 495 ML IV SCH (10:35)
--- NOTE | 2017-05-18 13:19 | EKG ---
Test Reason : Blood Pressure : / mmHG Vent. Rate : 093 BPM Atrial Rate : 093 BPM P-R Int : 140 ms QRS Dur : 100 ms QT Int : 390 ms P-R-T Axes : 052 022 162 degrees QTc Int : 484 ms NORMAL SINUS RHYTHM POSSIBLE LEFT ATRIAL ENLARGEMENT MARKED ST ABNORMALITY, POSSIBLE LATERAL SUBENDOCARDIAL INJURY ABNORMAL ECG WHEN COMPARED WITH ECG OF 07-MAY-2017 07:12, VENT. RATE HAS INCREASED BY [address] NOW DEPRESSED IN LATERAL LEADS CLINICAL CORRELATION IS RECOMMENDED Confirmed by WEI SWIFT, SOHAM ([id number]) on 05/18/2017 1:19:43 PM Referred By: Confirmed By:SOHAM CARVAJAL MD
--- NOTE | 2017-05-18 13:32 | HP ---
Admitting History and Physical - Admission History of Present Illness: 82 year old female with a significant past medical history of HTN, HLD, DM, Dementia, prior CVA right sided hemiplegia, CAD, frequent UTIs on on macrobid, who presents to the ED from [facility] with chest pain and SOB today. Patient states she feels like there is fluid in her lungs. She states she is having difficulty breathing lying supine. Patient is vomiting on interview. Patient denies fever, chills,cough, diarrhea. Denies dysuria, frequency, hematuria. Denies urinary incontinence, denies bowel incontinence. i evaluated pt in er on bipa. 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, Dementia Cardiovascular: Yes: CAD, HTN, Hyperlipdemia Pulmonary: Yes: COPD Endocrine: Yes: Diabetes Mellitus - Smoking History Smoking history: Never smoked Have you smoked in the past 12 months: No - Alcohol/Substance Use Hx Alcohol Use: No Home Medications - Allergies Allergies/Adverse Reactions: Allergies Allergy/AdvReac Type Severity Reaction Status Date / Time Penicillins Allergy Verified 05/18/17 07:43 simvastatin Allergy Verified 05/18/17 07:43 - Home Medications Home Medications: Ambulatory Orders Amlodipine Besylate [Norvasc -] 10 mg PO DAILY 05/18/17 Aspirin [ASA -] 81 mg PO DAILY 05/18/17 Docusate Sodium [Colace -] 300 mg PO HS 05/18/17 Insulin Aspart [Novolog] 0 unit SQ BID PRN 05/18/17 Latanoprost 0.005% Eye Drops [Xalatan 0.005% Eye Drops -] 1 drop OU DAILY Lidocaine [Aspercreme] 1 each TP BID 05/18/17 Metformin HCl 500 mg PO BID 05/18/17 Metoprolol Succinate [Toprol Xl -] 25 mg PO BID 05/18/17 Pantoprazole Sodium [Protonix] 40 mg PO DAILY 05/18/17 Pravastatin Sodium [Pravachol (Nf)] 40 mg PO HS 05/18/17 Ranolazine [Ranexa -] 500 mg PO BID 05/18/17 Valsartan 40 mg PO DAILY 05/18/17 Review of Systems - Review of Systems Cardiovascular: reports: Chest Pain, Shortness of Breath Respiratory: reports: SOB, SOB on Exertion Gastrointestinal: denies: Abdominal Pain Physical Examination Vital Signs: Vital Signs Temperature 99.1 F 05/18/17 10:59 Pulse Rate 72 05/18/17 11:45 Respiratory Rate 20 05/18/17 11:30 Blood Pressure 131/68 05/18/17 11:30 O2 Sat by Pulse Oximetry (%) 100 05/18/17 11:45 Cardiovascular: Yes: S1, S2 Respiratory: Yes: Diminished, Rales Gastrointestinal: Yes: Normal Bowel Sounds, Soft Edema: No Imaging - Results X-ray: Report Reviewed Problem List - Problems (1) Myocardial infarct Assessment/Plan: IV HEPARIN STATIN B-TOM CARDIO Code(s): I21.3 - ST ELEVATION (STEMI) MYOCARDIAL INFARCTION OF [facility] SITE (2) Acute renal failure Assessment/Plan: MONITOR ON DIURETICS Code(s): N17.9 - ACUTE KIDNEY FAILURE, UNSPECIFIED Qualifiers: Acute renal failure type: unspecified Qualified Code(s): N17.9 - Acute kidney failure, unspecified (3) CHF (congestive heart failure) Assessment/Plan: IV LASIX CXR Code(s): I50.9 - HEART FAILURE, UNSPECIFIED Qualifiers: Congestive heart failure type: unspecified congestive heart failure type Congestive heart failure chronicity: acute Qualified Code(s): I50.9 - Heart failure, unspecified (4) Diabetes Assessment/Plan: BGM Code(s): E11.9 - TYPE 2 DIABETES MELLITUS WITHOUT COMPLICATIONS (5) HLD (hyperlipidemia) Assessment/Plan: LIPITOR Code(s): E78.5 - HYPERLIPIDEMIA, UNSPECIFIED (6) Pneumonia Assessment/Plan: IV ABX ID CONSULT Code(s): J18.9 - PNEUMONIA, UNSPECIFIED ORGANISM
[2017-05-18] MEDS ORDERED: ACETAMINOPHEN 325 MG TABLET (FP) PO PRN (13:41)
--- NOTE | 2017-05-18 14:56 | CON.CARD ---
Cardiology Consult (text) - Consultation Consultation Note: CC: NSTEMI 82 yo female CAD s/p recent nstemi (? demand) and concern for 3vd on stress testing (managed medically), HTN, HLD, DM, prior CVA with right sided hemiplegiawith h/o sent to ER from [place] for hypoxia/sob H/o obtained per daughter since patient is not very talkative. Daughter states she is likely exhausted from having been awake all night. Last night developed acute onset of severe cp simiilar to prior anginal pain but more severe. substernal and sharp. associated with nausea and one episode of vomiting. Over the course of the night symptoms worsened and became associated with worsened sob/orthopnea. --> respiratory distress by the morning In ER received bIPAP and lasix with improvement in sx's. No symptoms in the week preceding event. No le edema, palps, dizziness, bleeding No f/c/s, cough, congestion, h/a, visual disturbances, rashes. PMH/PSHX: per hpi social hx: Never smoked fam hx: no cardiomyopathy ros: per hpi Home Medications - Allergies Allergies/Adverse Reactions: Allergies Allergy/AdvReac Type Severity Reaction Status Date / Time Penicillins Allergy Verified 05/03/17 23:45 simvastatin Allergy Verified 05/03/17 23:46 Ambulatory Orders Amlodipine Besylate [Norvasc -] 10 mg PO DAILY 05/18/17 Aspirin [ASA -] 81 mg PO DAILY 05/18/17 Docusate Sodium [Colace -] 300 mg PO HS 05/18/17 Insulin Aspart [Novolog] 0 unit SQ BID PRN 05/18/17 Latanoprost 0.005% Eye Drops [Xalatan 0.005% Eye Drops -] 1 drop OU DAILY Lidocaine [Aspercreme] 1 each TP BID 05/18/17 Metformin HCl 500 mg PO BID 05/18/17 Metoprolol Succinate [Toprol Xl -] 25 mg PO BID 05/18/17 Pantoprazole Sodium [Protonix] 40 mg PO DAILY 05/18/17 Pravastatin Sodium [Pravachol (Nf)] 40 mg PO HS 05/18/17 Ranolazine [Ranexa -] 500 mg PO BID 05/18/17 Valsartan 40 mg PO DAILY 05/18/17 Current Medications Acetaminophen (Tylenol -) 650 mg PO Q4H PRN PRN Reason: FEVER OR PAIN Amlodipine Besylate (Norvasc -) 10 mg PO DAILY [facility] Aspirin (Asa -) 81 mg PO DAILY [facility] Atorvastatin Calcium (Lipitor -) 40 mg PO HS [facility] Chlorhexidine Gluconate (Hibiclens For Decolonization -) 1 applic TP HS [facility] Docusate Sodium (Colace -) 300 mg PO HS [facility] Furosemide (Lasix Injection -) 40 mg IVPUSH BID@0600,1400 [facility] Vancomycin HCl 1,000 mg/ (Dextrose) 250 mls @ 250 mls/hr IVPB BID [facility] PRN Reason: Protocol Last Admin: 05/18/17 09:45 Dose: 250 mls/hr Heparin Sodium (Porcine) 25, (000 unit/ Sodium Chloride) 500 mls @ 16 mls/hr IV TITR [facility]; 800 UNIT/HR PRN Reason: Protocol Last Admin: 05/18/17 10:35 Dose: 16 mls/hr Insulin Aspart (Novolog Vial Sliding Scale -) 1 vial SQ ACHS [facility] PRN Reason: Protocol Latanoprost (Xalatan 0.005% Eye Drops -) 1 drop OU DAILY [facility] Metoprolol Succinate (Toprol Xl -) 25 mg PO BID [facility] Mupirocin (Bactroban Ointment (For Decolonization) -) 1 applic NS BID [facility] Stop: 05/23/17 21:59 Pantoprazole Sodium (Protonix -) 40 mg PO DAILY [facility] Ranolazine (Ranexa -) 500 mg PO BID [facility] Valsartan (Diovan -) 40 mg PO DAILY [facility] Vital Signs - 24 hr 05/18/17 05/18/17 05/18/17 07:40 07:43 08:12 Temperature 100.4 F H Pulse Rate 102 H 94 H Pulse Rate [ 94 H Left Apical] Respiratory 28 H 14 Rate Blood Pressure 157/85 Blood Pressure 127/69 [Right Arm] O2 Sat by Pulse 97 96 98 Oximetry (%) 05/18/17 05/18/17 05/18/17 09:12 09:38 10:18 Temperature 99.3 F 99.2 F Pulse Rate Pulse Rate [ 80 74 Left Apical] Respiratory 16 14 Rate Blood Pressure Blood Pressure 116/63 121/65 [Right Arm] O2 Sat by Pulse 98 98 Oximetry (%) 08/05/18/17 05/18/17 10:59 11:30 11:45 Temperature 99.1 F Pulse Rate 74 72 Pulse Rate [ 77 Left Apical] Respiratory 16 16 Rate Blood Pressure 131/68 Blood Pressure 126/70 [Right Arm] O2 Sat by Pulse 97 100 100 Oximetry (%) 05/18/17 05/18/17 05/18/17 13:25 13:38 13:46 Temperature 98.0 F Pulse Rate 73 Pulse Rate [ Left Apical] Respiratory 15 Rate Blood Pressure 102/50 Blood Pressure [Right Arm] O2 Sat by Pulse 100 100 Oximetry (%) 05/18/17 14:32 Temperature Pulse Rate Pulse Rate [ Left Apical] Respiratory Rate Blood Pressure Blood Pressure [Right Arm] O2 Sat by Pulse 100 Oximetry (%) Intake & Output 05/16/17 05/17/17 05/18/17 05/19/17 07:59 07:59 07:59 07:59 Output Total 750 Balance -750 Weight 145 lb 139 lb 4.8 oz Constitutional: Yes: Well Nourished, No Distress Eyes: No: Sclera Icterus HENT: No: Nasal Congestion Neck: No: Decreased ROM Respiratory: Yes: CTA Bilaterally. No: Accessory Muscle Use, Rales, Wheezes Gastrointestinal: Yes: Normal Bowel Sounds. No: Distention, Hepatomegaly, Palpable Mass, Tenderness Cardiovascular: Yes: Regular Rate and Rhythm JVD: No Carotid Bruit: No PMI: Non-Displaced Heart Sounds: Yes: S1, S2. No: Gallop Murmur: No: Systolic Murmur, Diastolic Murmur Musculoskeletal: Yes: Other (No kyphosis) Extremities: No: Cold, Cyanosis Edema: No Peripheral Pulses: 2+ Left Carotid, 2+ Right Carotid, 2+ Left Doralis Pedis, 2+ Right Dorsalis Pedis Integumentary: No: Jaundice Neurological: Yes: Alert, Oriented (x3) Psychiatric: No: Agitated CBC, BMP 05/18/17 08:12 05/18/17 08:12 Laboratory Tests 05/06/17 05/18/17 05/18/17 18:48 08:12 08:12 Lactic Acid 6.0 H* Magnesium 2.4 Creatine Kinase 92 Troponin I 0.26 0.79 H* B-Natriuretic Peptide 8428.38 H Albumin 3.1 L EKG 05/18: nsr, lateral std. anterior St/T wave abnormalities. tele: nsr cxr: congestive changes with pleural effusion. by my review, also appears to have possible area of consolidation. Echo 04/21 (here): nl LV/EF, normal wall motion. nl RV. nl LA. valves WNL. normal ao root. no peric eff MPI 04/21 (here), persantine: no ST changes vs baseline. moderate sized fixed defect inferior/inferolateral/lateral marshall with partial reversibility; small- moderate sized reversible anterolateral defect. severe global LV hypo, EF 29%. a/p: 82 yo female CAD s/p recent nstemi (? demand) and concern for 3vd on stress testing (managed medically), HTN, HLD, DM, prior CVA with right sided hemiplegiawith h/o sent to ER from [place] for hypoxia/sob chest pain, vomiting: -acute rise in troponins on second set of enzymes c/w ACS. --> Repeat ekg now. patient remains asymptomatic. Discussed with daughter and she again reiterates desire to pursue medical management if possible, though not opposed to reconsideration of cardiac catheterization if deemed necessary. ASA, Plavix , heparin, statin. Repeat echo tomorrow to assess whether LV function remains normal. If worsened can reassess the need for invasive management with daughter. Will trend enzymes to peak. -ekg without DIRK. + nonspecific ST-Ts. Repeating EKG as mentioned. -* known CAD from 2007 (was [address] Dr[address] Benz), advised to have cath/PCI but pt adamantly refused. ON last admit stress test suggested anterolateral ischemia, and possibly/probably inferior/inferolateral/lateral ischemia as well (somewhat fixed defect, but no WMA in this territory on echo). severe decr in EF post- persantine (with normal EF at rest) suggests extensive (multi-vessel) CAD with prolonged stunning. Daughter elected for medical managment (see prior notes). + fall risk, patient unsure if willing to be compliant with long-term cardiac regimen. - high dose statin now. Of note, has been on low dose--crestor 5 TIW plus zetia b/c of statin intolerence (multiple trials in past, LDL > 200) -con't bb, ranexa. currently bp running low with fever and possible superimposed infection. --> will hold arb and ccb. (currently cp free) SOB/respiratory failure - now off bipap and comfortable. CXR c/w congestion. sx's improving s/p lasix. con't. - cxr also by my review appears to have area of consolidation and patient with low grade fever. will get chest ct when stable to rule out superimposed infectious component. Hypotension - Get echo to evaluate for cardiogenic etiology. rule out infectious etiology as well as bp has been slowly trending down here after lasix. Holding ccb, arb. con't low dose bb for now. MARY - monitor cr with diursis HTN: -bp running low, see discussion above. DM: -per hospitalist h/o CVA: -currently on ASA, plavix, statin.
[2017-05-18 15:18] LABS: TROPONIN I 9.79 ng/ml (0.00-0.05)
--- NOTE | 2017-05-18 15:28 | CONSULT ---
Consult Consult Specialty:: PULM/CCM Referred by:: JOHN Reason for Consultation:: SOB/CHF - History of Present Illness Chief Complaint: SOB History of Present Illness: 82 G, HTN, HLD, DM, Dementia, prior CVA with right hemiplegia, CAD (refused cardiac catherization in the past), frequent UTIs on macrobid. Admitted via the ER from [facility] due to progressive chest pain and SOB of 1 day duration. No travel history or sick contacts. Due to severe respiratory distress she was placed on NIPPV therapy with improvement in her symptoms. No fever, chills, diarrhea, or dysuria. 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 Cardio/Vascular: Yes: CAD, HTN, Hyperlipdemia Pulmonary: Yes: COPD Endocrine: Yes: Diabetes Mellitus - Alcohol/Substance Use Hx Alcohol Use: No - Smoking History Smoking history: Never smoked Have you smoked in the past 12 months: No Home Medications - Allergies Allergies/Adverse Reactions: Allergies Allergy/AdvReac Type Severity Reaction Status Date / Time Penicillins Allergy Verified 05/18/17 07:43 simvastatin Allergy Verified 05/18/17 07:43 - Home Medications Home Medications: Ambulatory Orders Amlodipine Besylate [Norvasc -] 10 mg PO DAILY 05/18/17 Aspirin [ASA -] 81 mg PO DAILY 05/18/17 Docusate Sodium [Colace -] 300 mg PO HS 05/18/17 Insulin Aspart [Novolog] 0 unit SQ BID PRN 05/18/17 Latanoprost 0.005% Eye Drops [Xalatan 0.005% Eye Drops -] 1 drop OU DAILY Lidocaine [Aspercreme] 1 each TP BID 05/18/17 Metformin HCl 500 mg PO BID 05/18/17 Metoprolol Succinate [Toprol Xl -] 25 mg PO BID 05/18/17 Pantoprazole Sodium [Protonix] 40 mg PO DAILY 05/18/17 Pravastatin Sodium [Pravachol (Nf)] 40 mg PO HS 05/18/17 Ranolazine [Ranexa -] 500 mg PO BID 05/18/17 Valsartan 40 mg PO DAILY 05/18/17 Review of Systems - Review of Systems Constitutional: reports: Malaise, Weakness. denies: Chills, Fever, Night Sweats Eyes: reports: No Symptoms HENT: reports: No Symptoms Neck: reports: No Symptoms Cardiovascular: reports: Chest Pain, Edema, Shortness of Breath. denies: Palpitations Respiratory: reports: Cough, SOB, SOB on Exertion. denies: Hemoptysis, Wheezing Gastrointestinal: reports: No Symptoms Genitourinary: reports: No Symptoms Breasts: reports: No Symptoms Reported Musculoskeletal: reports: No Symptoms Integumentary: reports: No Symptoms Neurological: reports: No Symptoms Endocrine: reports: No Symptoms Hematology/Lymphatic: reports: No Symptoms Psychiatric: reports: No Symptoms Physical Exam Vital Signs: Vital Signs Temperature 98.0 F 05/18/17 13:38 Pulse Rate 72 05/18/17 15:00 Respiratory Rate 14 05/18/17 15:00 Blood Pressure 100/51 05/18/17 15:00 O2 Sat by Pulse Oximetry (%) 100 05/18/17 14:32 Constitutional: Yes: Moderate Distress Eyes: Yes: Conjunctiva Clear HENT: Yes: Atraumatic, Normocephalic Neck: Yes: Supple, Trachea Midline Cardiovascular: Yes: Tachycardia Respiratory: Yes: Accessory Muscle Use, Cough, On BiPap, Rales, Rhonchi, SOB, Tachypnea. No: Stridor, Wheezes Gastrointestinal: Yes: WNL ...Rectal Exam: Yes: Deferred Renal/: Yes: Huber Present Musculoskeletal: Yes: WNL Extremities: Yes: WNL Edema: No Peripheral Pulses WNL: Yes Integumentary: Yes: WNL Neurological: Yes: Alert ...Motor Strength: WNL Psychiatric: Yes: Alert Imaging - Results Chest X-ray: Report Reviewed, Image Reviewed Problem List - Problems (1) Acute renal failure Code(s): N17.9 - ACUTE KIDNEY FAILURE, UNSPECIFIED Qualifiers: Acute renal failure type: unspecified Qualified Code(s): N17.9 - Acute kidney failure, unspecified (2) CHF (congestive heart failure) Code(s): I50.9 - HEART FAILURE, UNSPECIFIED Qualifiers: Congestive heart failure type: unspecified congestive heart failure type Congestive heart failure chronicity: acute Qualified Code(s): I50.9 - Heart failure, unspecified (3) Myocardial infarct Code(s): I21.3 - ST ELEVATION (STEMI) MYOCARDIAL INFARCTION OF [place] SITE (4) Pneumonia Code(s): J18.9 - PNEUMONIA, UNSPECIFIED ORGANISM (5) Chest pain Code(s): R07.9 - CHEST PAIN, UNSPECIFIED (6) Diabetes Code(s): E11.9 - TYPE 2 DIABETES MELLITUS WITHOUT COMPLICATIONS (7) HLD (hyperlipidemia) Code(s): E78.5 - HYPERLIPIDEMIA, UNSPECIFIED (8) HTN (hypertension) Code(s): I10 - ESSENTIAL (PRIMARY) HYPERTENSION (9) Acute respiratory failure with hypoxia Code(s): J96.01 - ACUTE RESPIRATORY FAILURE WITH HYPOXIA Assessment/Plan NIPPV to decrease WOB Lasix Agree with empiric ABX per ID Angel-culture Follow CXR Strict I&O Daily weight Repeat lactic acid If hypotensive -> would try Dobutamine as the initial agent ASA IV Heparin ICU monitoring Dr Woodward Critical care time spent in reviewing chart, evaluating patient and formulating plan - 35 minutes.
[2017-05-18] MEDS ORDERED: CLOPIDOGREL BISULFATE 300 MG TABLET PO ONE (15:30)
--- NOTE | 2017-05-18 16:18 | PN ---
Progress Note (short form) - Note Progress Note: ID Consult dictated Chest pain syndrome R/O ACS CHF Probable RLL pneumonia/ HCAP CKD Uncontrolled DM PCN allergy Await cultures Empiric zithromax/ cefepime + stat dose vancomycin Pt has tolerated cephalosporins in past ICU monitoring Critical care time 35min
[2017-05-18] MEDS ORDERED: AZITHROMYCIN IVPB 500 MG/250 ML D5W PRE-DOCKED IVPB SCH (16:30)
[2017-05-18] MEDS ORDERED: AZITHROMYCIN IVPB 500 MG in DEXTROSE 5%-WATER - 250 ML IVPB SCH (16:30)
[2017-05-18] MEDS ORDERED: PT OWN MED DRAWER 7, Y5N ONE (17:04)
[2017-05-18] MEDS: FUROSEMIDE 40 MG/4 ML INJECTABLE VIAL IVPUSH SCH (17:06)
--- NOTE | 2017-05-18 17:21 | CONSULT ---
Consult Consult Specialty:: Nephrology Reason for Consultation:: MARY - History of Present Illness Chief Complaint: chest pain History of Present Illness: Pt is an 82 year old female with pmhx of HTN, DM, chol, dementia, CVA with right tito, CAD, and chronic UTI who presents to the ER with chest pain and shortness of breath. She was found to be in renal failure and I was called to evaluate her. She denies fever or chills. She denies dysuria or hematuria. Pt was also found to have and NSTEMI and is admitted to the ICU. She does complain of shortness of breath. Pt is unsure which meds she takes. She denies palpitations. 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 Cardio/Vascular: Yes: CAD, HTN, Hyperlipdemia Pulmonary: Yes: COPD Endocrine: Yes: Diabetes Mellitus - Alcohol/Substance Use Hx Alcohol Use: No - Smoking History Smoking history: Never smoked Have you smoked in the past 12 months: No Home Medications - Allergies Allergies/Adverse Reactions: Allergies Allergy/AdvReac Type Severity Reaction Status Date / Time Penicillins Allergy Verified 05/18/17 07:43 simvastatin Allergy Verified 05/18/17 07:43 - Home Medications Home Medications: Ambulatory Orders Amlodipine Besylate [Norvasc -] 10 mg PO DAILY 05/18/17 Aspirin [ASA -] 81 mg PO DAILY 05/18/17 Docusate Sodium [Colace -] 300 mg PO HS 05/18/17 Insulin Aspart [Novolog] 0 unit SQ BID PRN 05/18/17 Latanoprost 0.005% Eye Drops [Xalatan 0.005% Eye Drops -] 1 drop OU DAILY Lidocaine [Aspercreme] 1 each TP BID 05/18/17 Metformin HCl 500 mg PO BID 05/18/17 Metoprolol Succinate [Toprol Xl -] 25 mg PO BID 05/18/17 Pantoprazole Sodium [Protonix] 40 mg PO DAILY 05/18/17 Pravastatin Sodium [Pravachol (Nf)] 40 mg PO HS 05/18/17 Ranolazine [Ranexa -] 500 mg PO BID 05/18/17 Valsartan 40 mg PO DAILY 05/18/17 Family Disease History - Family Disease History Family History: Denies Review of Systems - Review of Systems Constitutional: reports: Malaise Eyes: reports: No Symptoms HENT: reports: No Symptoms Neck: reports: No Symptoms Cardiovascular: reports: Chest Pain, Shortness of Breath Respiratory: reports: SOB Gastrointestinal: reports: No Symptoms Genitourinary: reports: No Symptoms Musculoskeletal: reports: Muscle Weakness Neurological: reports: Pre-Existing Deficit Physical Exam Vital Signs: Vital Signs Temperature 98.0 F 05/18/17 13:38 Pulse Rate 68 05/18/17 17:00 Respiratory Rate 22 05/18/17 17:00 Blood Pressure 112/52 05/18/17 17:00 O2 Sat by Pulse Oximetry (%) 100 05/18/17 14:32 Constitutional: Yes: Calm Eyes: Yes: Conjunctiva Clear HENT: Yes: Atraumatic Cardiovascular: Yes: S1, S2 Respiratory: Yes: On Nasal O2, Rhonchi Gastrointestinal: Yes: Soft Renal/: Yes: Huber Present Musculoskeletal: Yes: Muscle Weakness Edema: Yes Neurological: Yes: Pre-Existing Deficit Labs: Laboratory Tests 05/18/17 05/18/17 05/18/17 08:12 08:12 08:12 WBC 13.6 H D Hgb 12.0 D Plt Count 298 D Sodium 139 Potassium 5.4 H D Chloride 103 Carbon Dioxide 19 L D Anion Gap 17 H BUN 34 H Creatinine 2.1 H D Creat Clearance w eGFR 22.49 Random Glucose 310 H* D Lactic Acid Calcium 8.8 Phosphorus 5.6 H Troponin I 0.79 H* B-Natriuretic Peptide 8428.38 H Urine Color Lt. yellow Urine Appearance Clear Urine pH 6.0 Ur Specific [place] Pending Urine Protein Trace H Urine Glucose (UA) Negative Urine Ketones Negative Urine Blood Negative Urine Nitrite Negative Urine Bilirubin Negative Urine Urobilinogen 0.2 Ur Leukocyte Esterase Negative 05/18/17 05/18/17 08:12 14:25 WBC Hgb Plt Count Sodium Potassium Chloride Carbon Dioxide Anion Gap BUN Creatinine Creat Clearance w eGFR Random Glucose Lactic Acid 6.0 H* Calcium Phosphorus Troponin I 9.79 H* B-Natriuretic Peptide Urine Color Urine Appearance Urine pH Ur Specific [place] Urine Protein Urine Glucose (UA) Urine Ketones Urine Blood Urine Nitrite Urine Bilirubin Urine Urobilinogen Ur Leukocyte Esterase Imaging - Results Chest X-ray: Report Reviewed Problem List - Problems (1) Acute renal failure Code(s): N17.9 - ACUTE KIDNEY FAILURE, UNSPECIFIED Qualifiers: Acute renal failure type: unspecified Qualified Code(s): N17.9 - Acute kidney failure, unspecified (2) Acute respiratory failure with hypoxia Code(s): J96.01 - ACUTE RESPIRATORY FAILURE WITH HYPOXIA (3) CHF (congestive heart failure) Code(s): I50.9 - HEART FAILURE, UNSPECIFIED Qualifiers: Congestive heart failure type: unspecified congestive heart failure type Congestive heart failure chronicity: acute Qualified Code(s): I50.9 - Heart failure, unspecified (4) Myocardial infarct Code(s): I21.3 - ST ELEVATION (STEMI) MYOCARDIAL INFARCTION OF [facility] SITE (5) HLD (hyperlipidemia) Code(s): E78.5 - HYPERLIPIDEMIA, UNSPECIFIED (6) HTN (hypertension) Code(s): I10 - ESSENTIAL (PRIMARY) HYPERTENSION Assessment/Plan Current Medications Generic Name Dose Route Start Last Admin Trade Name Freq PRN Reason Stop Dose Admin Acetaminophen 650 mg 05/18/17 13:41 Tylenol - PO Q4H PRN FEVER OR PAIN Aspirin 81 mg 05/19/17 10:00 Asa - PO DAILY [facility]NEY Atorvastatin Calcium 80 mg 05/18/17 15:30 Lipitor - PO HS [facility] Azithromycin 500 mg 05/18/17 16:30 05/18/17 17:05 Zithromax 500mg Ivpb (Pre-Docked) IVPB 500 mg DAILY [facility] Administration Chlorhexidine Gluconate 1 applic 05/18/17 22:00 Hibiclens For Decolonization - TP HS [facility] Clopidogrel Bisulfate 75 mg 05/19/17 10:00 Plavix - PO DAILY [facility] Docusate Sodium 300 mg 05/18/17 22:00 Colace - PO HS [facility] Furosemide 40 mg 05/18/17 14:00 05/18/17 17:06 Lasix Injection - IVPUSH 40 mg BID@0600,1400 [facility] Administration Heparin Sodium (Porcine) 25, 500 mls @ 16 mls/hr 05/18/17 10:15 05/18/17 10:35 000 unit/ Sodium Chloride IV 16 mls/hr TITR [facility] Administration Protocol 800 UNIT/HR Cefepime HCl 1 gm/ Dextrose 100 mls @ 200 mls/hr 05/18/17 22:00 IVPB BID [facility] Insulin Aspart 1 vial 05/18/17 16:30 Novolog Vial Sliding Scale - SQ ACHS [facility] Protocol Latanoprost 1 drop 05/19/17 10:00 Xalatan 0.005% Eye Drops - OU DAILY [facility] Metoprolol Succinate 25 mg 05/18/17 22:00 Toprol Xl - PO BID [facility] Mupirocin 1 applic 05/18/17 22:00 Bactroban Ointment (For Decolonization) - NS 05/23/17 21:59 BID [facility] Pantoprazole Sodium 40 mg 05/19/17 10:00 Protonix - PO DAILY [facility] Ranolazine 500 mg 05/18/17 22:00 Ranexa - PO BID [facility] Impression 1. MARY 2. hyperkalemia 3. CHF - acute 4. NSTEMI 5. DM 6. HTN 7. chol 8. dementia 9. CAD 10. lactic acidosis Plan - monitor renal function - check ua, lytes and manager code - check renal ultrasound - monitor urine output - cont lasix for congestion with close monitoring of renal function - lasix should help bring down the potassium - stop metformin - will need to trend lactic acid levels - will need better glucose control - admit to ICU - hold valsartan - cardio eval - tele monitor - cont abx per ID - follow cultures - will follow
[2017-05-18] MEDS: INSULIN SLIDING SCALE (NOVOLOG) 1 VIAL SQ SCH ×2 (17:29→23:59)
[2017-05-18] MEDS: DOCUSATE SODIUM 100 MG CAPSULE (FP) PO SCH (21:51)
[2017-05-18] MEDS: METOPROLOL SUCCINATE 25 MG TAB.SR.24H (FP) PO SCH (21:51)
[2017-05-18] MEDS: CHLORHEXIDINE GLUCONATE 4% CLEANSER FOR DECOLONIZATION TP SCH (21:51)
[2017-05-18] MEDS: ATORVASTATIN CA 80 MG TABLET (FP) PO SCH (21:51)
[2017-05-18] MEDS: RANOLAZINE E.R. 500 MG TABLET (FP) PO SCH (21:51)
[2017-05-18] MEDS: MUPIROCIN 2% TOPICAL OINTMENT FOR DECOLONIZATION NS SCH (21:51)
[2017-05-18] MEDS ORDERED: CEFEPIME HCL 1 GM VIAL (RESTRICTED TO ID) IVPB SCH (22:00)
[2017-05-18] MEDS ORDERED: ATORVASTATIN CA 40 MG TABLET (FP) PO SCH (22:00)
[2017-05-18] MEDS ORDERED: CEFEPIME 1 GM in DEXTROSE 5%-WATER - 100 ML IVPB SCH (22:00)
[2017-05-18] MEDS ORDERED: CEFEPIME 1 GM/100 ML BAG PRE-DOCKED IVPB SCH (22:00)
[2017-05-18 23:18] LABS: TROPONIN I 9.77 ng/ml (0.00-0.05)
[2017-05-19] MEDS: INSULIN SLIDING SCALE (NOVOLOG) 1 VIAL SQ SCH ×4 (06:23→23:00)
[2017-05-19] MEDS: FUROSEMIDE 40 MG/4 ML INJECTABLE VIAL IVPUSH SCH (06:23)
[2017-05-19 06:48] LABS: BASOPHIL 0.9 % (0-2.0); EOSINOPHIL 0.6 % (0-4.5); MCH 29.5 pg (25.7-33.7); MCHC 32.9 g/dl (32.0-36.0); MEAN CELL VOLUME 89.6 fl (80-96); MEAN PLT VOLUME 9.3 fl (7.5-11.1); NEUTROPHILS 69.1 % (42.8-82.8); PLATELET COUNT 226 K/MM3 (134-434); RDW 13.5 % (11.6-15.6); WHITE BLOOD COUNT 11.7 K/mm3 (4.0-10.0)
--- NOTE | 2017-05-19 08:11 | PN ---
Progress Note, Physician Chief Complaint: ID Cefepime Azithromycin Alert Lethargic able to answer questions No fever 99 - Current Medication List Current Medications: Active Medications Acetaminophen (Tylenol -) 650 mg PO Q4H PRN PRN Reason: FEVER OR PAIN Aspirin (Asa -) 81 mg PO DAILY [facility] Atorvastatin Calcium (Lipitor -) 80 mg PO HS [facility] Last Admin: 05/18/17 21:51 Dose: 80 mg Azithromycin (Zithromax 500mg Ivpb (Pre-Docked)) 500 mg IVPB DAILY [facility] Last Admin: 05/18/17 17:05 Dose: 500 mg Chlorhexidine Gluconate (Hibiclens For Decolonization -) 1 applic TP [facility] Last Admin: 05/18/17 21:51 Dose: 1 applic Clopidogrel Bisulfate (Plavix -) 75 mg PO DAILY [facility] Docusate Sodium (Colace -) 300 mg PO [facility] Last Admin: 05/18/17 21:51 Dose: 300 mg Furosemide (Lasix Injection -) 40 mg IVPUSH BID@0600,1400 [facility] Last Admin: 05/19/17 06:23 Dose: 40 mg Heparin Sodium (Porcine) 25, (000 unit/ Sodium Chloride) 500 mls @ 16 mls/hr IV TITR RODNEY; 800 UNIT/HR PRN Reason: Protocol Last Titration: 05/19/17 07:47 Dose: 600 unit/hr Cefepime HCl 1 gm/ Dextrose 100 mls @ 200 mls/hr IVPB BID [facility] Last Admin: 05/18/17 21:51 Dose: 200 mls/hr Insulin Aspart (Novolog Vial Sliding Scale -) 1 vial SQ ACHS [facility] PRN Reason: Protocol Last Admin: 05/19/17 06:23 Dose: Not Given Latanoprost (Xalatan 0.005% Eye Drops -) 1 drop OU DAILY [facility] Metoprolol Succinate (Toprol Xl -) 25 mg PO BID [facility] Last Admin: 05/18/17 21:51 Dose: 25 mg Mupirocin (Bactroban Ointment (For Decolonization) -) 1 applic NS BID [facility] Stop: 05/23/17 21:59 Last Admin: 05/18/17 21:51 Dose: 1 applic Pantoprazole Sodium (Protonix -) 40 mg PO DAILY [facility] Ranolazine (Ranexa -) 500 mg PO BID [facility] Last Admin: 05/18/17 21:51 Dose: 500 mg - Objective Vital Signs: Vital Signs Temperature 99.1 F 05/19/17 06:00 Pulse Rate 66 05/19/17 06:00 Respiratory Rate 18 05/19/17 06:00 Blood Pressure 92/47 05/19/17 06:00 O2 Sat by Pulse Oximetry (%) 99 05/18/17 19:59 Constitutional: Yes: Well Nourished, No Distress Neck: Yes: WNL, Supple Cardiovascular: Yes: Regular Rate and Rhythm, S1, S2. No: Murmur Respiratory: Yes: WNL, Regular, CTA Bilaterally, Diminished. No: Rales, Rhonchi Gastrointestinal: Yes: Soft. No: Tenderness Edema: No Labs: CBC, BMP 05/19/17 05:35 Problem List - Problems (1) Acute renal failure Code(s): N17.9 - ACUTE KIDNEY FAILURE, UNSPECIFIED Qualifiers: Acute renal failure type: unspecified Qualified Code(s): N17.9 - Acute kidney failure, unspecified (2) Myocardial infarct Code(s): I21.3 - ST ELEVATION (STEMI) MYOCARDIAL INFARCTION OF [facility] SITE (3) Pneumonia Code(s): J18.9 - PNEUMONIA, UNSPECIFIED ORGANISM Assessment/Plan Laboratory Tests 05/18/17 05/18/17 05/18/17 08:12 08:12 08:12 WBC 13.6 H D Hgb Hct Plt Count Creat Clearance w eGFR 22.49 Lactic Acid 6.0 H* Troponin I 05/18/17 05/19/17 21:30 05:35 WBC 11.7 H Hgb 9.4 L D Hct 28.5 L D Plt Count 226 D Creat Clearance w eGFR Lactic Acid Troponin I 9.77 H* Assessment Acute PA Heart failure ? Pneumonia Acute renal failure Plan Stop Azithromycin Cefepime switch to Ceftriaxone [employer] [employer]
[2017-05-19 08:26] LABS: ALBUMIN 2.7 g/dl (3.4-5.0); ANION GAP 9 (8-16); BILIRUBIN,TOTAL 0.3 mg/dL (0.2-1.0); CALCIUM 8.2 mg/dL (8.5-10.1); CO2 24 mmol/L (21-32); CREATININE 1.7 mg/dL (0.55-1.02); GLUCOSE,RANDOM 107 mg/dL (74-106); SGOT/AST 48 U/L (15-37); SGPT/ALT 16 U/L (12-78); TOT PROT 6.1 g/dl (6.4-8.2)
[2017-05-19 08:40] LABS: ALK PHOS 61 U/L (45-117); CPK 287 IU/L (26-192)
[2017-05-19 08:48] LABS: TROPONIN I 6.71 ng/ml (0.00-0.05)
--- NOTE | 2017-05-19 09:25 | EKG ---
Test Reason : Blood Pressure : / mmHG Vent. Rate : 064 BPM Atrial Rate : 064 BPM P-R Int : 132 ms QRS Dur : 096 ms QT Int : 452 ms P-R-T Axes : 068 014 -50 degrees QTc Int : 466 ms NORMAL SINUS RHYTHM ABNORMAL ECG WHEN COMPARED WITH ECG OF 18-MAY-2017 15:48, INVERTED T WAVES HAVE REPLACED NONSPECIFIC T WAVE ABNORMALITY IN INFERIOR LEADS Confirmed by YOVANNY SIWFT, JOSÉ ([id number]) on 05/19/2017 9:24:53 AM Referred By: KATIUSKA CENTENO Confirmed By:JOSÉ HAIRSTON MD
--- NOTE | 2017-05-19 09:26 | EKG ---
Test Reason : Blood Pressure : / mmHG Vent. Rate : 072 BPM Atrial Rate : 072 BPM P-R Int : 138 ms QRS Dur : 090 ms QT Int : 446 ms P-R-T Axes : 062 019 108 degrees QTc Int : 488 ms NORMAL SINUS RHYTHM PROLONGED QT ABNORMAL ECG WHEN COMPARED WITH ECG OF 18-MAY-2017 08:18, COMPARED TO EKG NO SIGNIFICANT CHANGE IS FOUND Confirmed by JOSÉ HAIRSTON MD ([id number]) on 05/19/2017 9:26:31 AM Referred By: Nargis BARON Confirmed By:JOSÉ HAIRSTON MD
[2017-05-19] MEDS: PANTOPRAZOLE 40 MG TABLET (FP) PO SCH (09:30)
[2017-05-19] MEDS: CLOPIDOGREL BISULFATE 75 MG TABLET (FP) PO SCH (09:30)
[2017-05-19] MEDS: RANOLAZINE E.R. 500 MG TABLET (FP) PO SCH ×2 (09:30→21:50)
[2017-05-19] MEDS: ASPIRIN 81 MG CHEWABLE TABLETS PO SCH (09:30)
[2017-05-19] MEDS: METOPROLOL SUCCINATE 25 MG TAB.SR.24H (FP) PO SCH (09:30)
[2017-05-19] MEDS: CEFTRIAXONE 50 ML IVPB SCH (09:31)
[2017-05-19] MEDS: LATANOPROST 0.005% OPHTH SOLN 2.5ML BOTTLE OU SCH (09:44)
[2017-05-19] MEDS: MUPIROCIN 2% TOPICAL OINTMENT FOR DECOLONIZATION NS SCH ×2 (09:44→21:51)
[2017-05-19] MEDS ORDERED: VALSARTAN 40 MG TABLET (FP) PO SCH (10:00)
[2017-05-19] MEDS ORDERED: amLODIPine BESYLATE 10 MG TABLET (FP) PO SCH (10:00)
--- NOTE | 2017-05-19 10:07 | PN ---
Progress Note, Physician Chief Complaint: TN, chf History of Present Illness: very sleepy, moans responses only. calm, comfortable. - Current Medication List Current Medications: Active Medications Acetaminophen (Tylenol -) 650 mg PO Q4H PRN PRN Reason: FEVER OR PAIN Aspirin (Asa -) 81 mg PO DAILY [facility] Last Admin: 05/19/17 09:30 Dose: 81 mg Atorvastatin Calcium (Lipitor -) 80 mg PO HS [facility] Last Admin: 05/18/17 21:51 Dose: 80 mg Chlorhexidine Gluconate (Hibiclens For Decolonization -) 1 applic TP HS [facility] Last Admin: 05/18/17 21:51 Dose: 1 applic Clopidogrel Bisulfate (Plavix -) 75 mg PO DAILY [facility] Last Admin: 05/19/17 09:30 Dose: 75 mg Docusate Sodium (Colace -) 300 mg PO HS [facility] Last Admin: 05/18/17 21:51 Dose: 300 mg Furosemide (Lasix Injection -) 40 mg IVPUSH BID@0600,1400 [facility] Last Admin: 05/19/17 06:23 Dose: 40 mg Heparin Sodium (Porcine) 25, (000 unit/ Sodium Chloride) 500 mls @ 16 mls/hr IV TITR [facility]; 800 UNIT/HR PRN Reason: Protocol Last Titration: 05/19/17 07:47 Dose: 600 unit/hr Ceftriaxone Sodium (Rocephin 1gm Ivpb (Pre-Docked)) 50 mls @ 100 mls/hr IVPB DAILY [facility] Last Admin: 05/19/17 09:31 Dose: 100 mls/hr Insulin Aspart (Novolog Vial Sliding Scale -) 1 vial SQ ACHS [facility] PRN Reason: Protocol Last Admin: 05/19/17 06:23 Dose: Not Given Latanoprost (Xalatan 0.005% Eye Drops -) 1 drop OU DAILY [facility] Last Admin: 05/19/17 09:44 Dose: 1 drop Metoprolol Succinate (Toprol Xl -) 25 mg PO BID [facility] Last Admin: 05/19/17 09:30 Dose: 25 mg Mupirocin (Bactroban Ointment (For Decolonization) -) 1 applic NS BID [facility] Stop: 05/23/17 21:59 Last Admin: 05/19/17 09:44 Dose: 1 applic Pantoprazole Sodium (Protonix -) 40 mg PO DAILY [facility] Last Admin: 05/19/17 09:30 Dose: 40 mg Ranolazine (Ranexa -) 500 mg PO BID [facility] Last Admin: 05/19/17 09:30 Dose: 500 mg - Objective Vital Signs: Vital Signs Temperature 99.1 F 05/19/17 06:00 Pulse Rate 66 05/19/17 06:00 Respiratory Rate 18 05/19/17 06:00 Blood Pressure 92/47 05/19/17 06:00 O2 Sat by Pulse Oximetry (%) 99 05/18/17 19:59 Constitutional: Yes: Well Nourished, No Distress, Calm Cardiovascular: Yes: Regular Rate and Rhythm, S1, S2. No: JVD, Gallop, Murmur Respiratory: Yes: Regular, CTA Bilaterally (not taking deep breaths). No: Accessory Muscle Use, Rales, Wheezes Gastrointestinal: No: Hepatomegaly (no pulsatile liver) Extremities: No: Cold Edema: No Neurological: Yes: Lethargy. No: Seizure Psychiatric: No: Agitated Labs: CBC, BMP 05/19/17 05:35 05/19/17 05:35 - ....Imaging EKG: Other (tele: NSR) Assessment/Plan cxr: congestive changes with pleural effusion. by my review, also appears to have possible area of consolidation. Echo 04/21 (here): nl LV/EF, normal wall motion. nl RV. nl LA. valves WNL. normal ao root. no peric eff MPI 04/21 (here), persantine: no ST changes vs baseline. moderate sized fixed defect inferior/inferolateral/lateral marshall with partial reversibility; small- moderate sized reversible anterolateral defect. severe global LV hypo, EF 29%. a/p: 82 yo female CAD s/p recent nstemi (? demand) and concern for 3vd on stress testing (managed medically), HTN, HLD, DM, prior CVA with right sided hemiplegiawith h/o sent to ER from [place] for hypoxia/sob NSTEMI: -recurrent cp, vomiting (= her anginal sx's), peak trop 9 here. EKG with ischemic (downsloping) anterior ST-Ts, and new inferior nonspecific ST-Ts 05/19 vs admit. -recently here with same sx's, enzymes negative then, nuclear stress test suggestive of MVDz--pt declined cath. -known/suspected CAD since 2007 (dr jacque osorio cardio)--refused cath then despite his rec's for her to have stent, per dtr -given she now presents with acute NSTEMI c/b pulm edema, she has proven failure to med therapy and high-risk for recurrent TN/. -cont ASA, Plavix, heparin, statin. -Repeat echo to assess whether LV function remains normal. -ekg without DIRK. + nonspecific ST-Ts. Repeating EKG as mentioned. -cath previously d/w'd pt and dtr last admit, and informed them stress test suggested anterolateral ischemia, and possibly/probably inferior/inferolateral/ lateral ischemia as well (somewhat fixed defect, but no WMA in this territory on echo). severe decr in EF post-persantine (with normal EF at rest) suggests extensive (multi-vessel) CAD with prolonged stunning, however pt elected for medical managment (see prior notes). -of note, + fall risk (recently slid out of her bed twice in [place], first time this happened, preventive measures put in place per dtr), and patient non- committal to whether will comply with long-term cardiac meds (overtly verbalized this on last admit). -both tx options (invasive vs non-invasive) carry risk here, however her risk of recurrent TN/ appears to be quite high given her ischemia sx's rapidly crescendoed despite recent meds started (with presumed good compliance given pt in [place]). - she is perviously statin-intolerant (hence LDL >200 on last admit, on no meds) , getting high dose statin now and will need to titrate down later when/if s.e. sx's emrege -con't low dose bb, cont ranexa for now. -ARB and CCB held (low bp's here) hypotension, ? cardiogenic shock, ? septic shock: -MARY with low bp, congested CXR, c/w "cold and wet" -periphery feels warm, no jvd or enlarged/pulsatile liver -resp status stable lying flat--decr lasix to 40 iv daily -consider inotropes/pressors depending on echo and BP trend--defer for now (as above) acute respiratory failure - now off bipap and comfortable. CXR c/w congestion. sx's improving s/p lasix. con't. - cxr also by my review appears to have area of consolidation and patient with low grade fever. will get chest ct when stable to rule out superimposed infectious component. MARY - suspect cardiorenal/low output state - observe trend with diuresis - possible inotropes, as above HTN: -bp running low, see discussion above. DM: -per hospitalist h/o CVA: -currently on ASA, plavix, statin. est critical care time 38 min
--- NOTE | 2017-05-19 10:19 | CONS ---
DATE OF CONSULTATION: DATE OF DICTATION: 05/18/2017 The patient is an 82-year-old female admitted from the [facility] with shortness of breath. She had recently been hospitalized at [facility] for treatment of a urinary tract infection. She now returns from the [facility] with a 1-day history of increasing shortness of breath and chest pain. In the emergency room she was noted to have congestion. Lab data showed an elevated BNP, troponin and EKG changes. She was admitted to the intensive care unit with a provisional diagnoses of acute myocardial infarction. Her course has been complicated by fever and leukocytosis. She suffers from dementia and cannot give a reliable history. There were no reports of cough, sputum production, or hemoptysis. No reported vomiting or diarrhea. No grossly purulent urine or infected decubitus ulcers. PAST MEDICAL HISTORY: Positive for dementia, hypertension, hyperlipidemia, diabetes mellitus, stroke with right hemiparesis, coronary artery disease, chronic kidney disease, recurrent urinary tract infections. ALLERGIES: PENICILLIN AND SIMVASTATIN. Patient develops a rash with penicillin and has tolerated cephalosporins in the past. MEDICATIONS: Norvasc, aspirin, Colace, NovoLog, metformin, Toprol, Protonix, Pravachol, valsartan. SOCIAL HISTORY: halfway resident, dependent activities of daily living. No active tobacco or alcohol use. SYSTEMS REVIEW: Neurologic: Positive for dementia and stroke. Cardiac: As per HPI. Respiratory: As per HPI. Gastrointestinal: Negative vomiting or diarrhea. Genitourinary: Positive for recurrent urinary tract infections. LABORATORY DATA: White count 13.6, hematocrit 37.9, platelet count 298, BUN 34, creatinine 2.1. Urinalysis: Negative leukocyte esterase. Chest x-ray shows congestion with probable right lower lobe consolidation. PHYSICAL EXAMINATION: General: The patient is awake but confused. Vital Signs: Temperature is 98.0, T-maximal 100.4, blood pressure 100/51, pulse 72 regular, and respirations 14 per minute. Eyes: Sclerae anicteric. Heart: Heart sounds S1, S2. Lungs: Poor inspiratory effort, grossly clear. Abdomen: Soft, no tenderness elicited. No mass, rebound or rigidity. Extremities: Negative for edema. No sacral or healed decubiti present. IMPRESSION: 1. Chest pain syndrome, rule out acute myocardial infarction. 2. Congestive heart failure. 3. Probably right lower lobe pneumonia/health care acquired pneumonia. 4. Chronic kidney disease. 5. Uncontrolled diabetes mellitus. 6. PENICILLIN ALLERGY. 7. Leukocytosis. Await cultures. Empiric antibiotic coverage in this PENICILLIN ALLERGIC PATIENT with Zithromax, cefepime and STAT dose vancomycin. Patient has tolerated cephalosporins in the past. ICU monitoring. 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 Urine Legionella antigen. ICU monitoring. Critical care time spent 35 minutes. Thank you for the kind referral. CHRIS TELLO M.D. [id number]
[2017-05-19] MEDS: HEPARIN - 25,000 UNIT in SODIUM CHLORIDE 495 ML IV SCH (12:15)
--- NOTE | 2017-05-19 13:10 | PN ---
Teaching Attending Note Name of Resident: José Miguel Tinoco ATTENDING PHYSICIAN STATEMENT I saw and evaluated the patient. I reviewed the resident's note and discussed the case with the resident. I agree with the resident's findings and plan as documented. SUBJECTIVE: Patient seen and examined in the ICU. Lethargic but arousable. Denies CP or SOB today. Denies significant cough. Intake & Output 05/16/17 05/17/17 05/18/17 05/19/17 23:59 23:59 23:59 23:59 Intake Total 512 72 Output Total 1700 250 Balance -1188 -178 Weight 139 lb 4.8 oz 136 lb 3.931 oz Last Vital Signs Temp Pulse Resp BP Pulse Ox 98.4 F 58 L 12 84/35 100 05/19/17 12:00 05/19/17 12:00 05/19/17 12:00 05/19/17 12:00 05/19/17 10:14 Active Medications Acetaminophen (Tylenol -) 650 mg PO Q4H PRN PRN Reason: FEVER OR PAIN Aspirin (Asa -) 81 mg PO DAILY [facility] Last Admin: 05/19/17 09:30 Dose: 81 mg Atorvastatin Calcium (Lipitor -) 80 mg PO HS [facility] Last Admin: 05/18/17 21:51 Dose: 80 mg Chlorhexidine Gluconate (Hibiclens For Decolonization -) 1 applic TP HS [facility] Last Admin: 05/18/17 21:51 Dose: 1 applic Clopidogrel Bisulfate (Plavix -) 75 mg PO DAILY [facility] Last Admin: 05/19/17 09:30 Dose: 75 mg Docusate Sodium (Colace -) 300 mg PO HS [facility] Last Admin: 05/18/17 21:51 Dose: 300 mg Furosemide (Lasix Injection -) 40 mg IVPUSH DAILY [facility] Heparin Sodium (Porcine) 25, (000 unit/ Sodium Chloride) 500 mls @ 16 mls/hr IV TITR RODNEY; 800 UNIT/HR PRN Reason: Protocol Last Titration: 05/19/17 07:47 Dose: 600 unit/hr Ceftriaxone Sodium (Rocephin 1gm Ivpb (Pre-Docked)) 50 mls @ 100 mls/hr IVPB DAILY [facility] Last Admin: 05/19/17 09:31 Dose: 100 mls/hr Insulin Aspart (Novolog Vial Sliding Scale -) 1 vial SQ ACHS [facility] PRN Reason: Protocol Last Admin: 05/19/17 10:57 Dose: Not Given Latanoprost (Xalatan 0.005% Eye Drops -) 1 drop OU DAILY [facility] Last Admin: 05/19/17 09:44 Dose: 1 drop Metoprolol Tartrate (Lopressor -) 25 mg PO BID [facility] Mupirocin (Bactroban Ointment (For Decolonization) -) 1 applic NS BID [facility] Stop: 05/23/17 21:59 Last Admin: 05/19/17 09:44 Dose: 1 applic Pantoprazole Sodium (Protonix -) 40 mg PO DAILY [facility] Last Admin: 05/19/17 09:30 Dose: 40 mg Ranolazine (Ranexa -) 500 mg PO BID [facility] Last Admin: 05/19/17 09:30 Dose: 500 mg Constitutional: Yes: Lethargic, NAD Eyes: Yes: Conjunctiva Clear HENT: Yes: Atraumatic, Normocephalic Neck: Yes: Supple, Trachea Midline Cardiovascular: Yes: S1S2 Respiratory: Yes: Rales / Rhonchi at the bases. No: Stridor, Wheezes Gastrointestinal: Yes: WNL ...Rectal Exam: Yes: Deferred Renal/: Yes: Huber Present Musculoskeletal: Yes: WNL Extremities: Yes: WNL Edema: No Peripheral Pulses WNL: Yes Integumentary: Yes: WNL Neurological: Yes: Alert ...Motor Strength: WNL Psychiatric: Yes: Alert Laboratory Results - last 24 hr 05/18/17 05/18/17 05/18/17 08:12 14:25 16:15 WBC RBC Hgb Hct MCV MCH MCHC RDW Plt Count MPV Neutrophils % Lymphocytes % Monocytes % Eosinophils % Basophils % PTT (Actin FS) 95.6 H D Sodium Potassium Chloride Carbon Dioxide Anion Gap BUN Creatinine Creat Clearance w eGFR POC Glucometer Random Glucose Hemoglobin A1c % Lactic Acid Calcium Total Bilirubin AST ALT Alkaline Phosphatase Creatine Kinase 321 H Creatine Kinase Index 7.9 H* CK-MB (CK-2) 25.648 H Troponin I 9.79 H* Total Protein Albumin Urine Color Lt. yellow Urine Appearance Clear Urine pH 6.0 Ur Specific Raphine 1.015 Urine Protein Trace H Urine Glucose (UA) Negative Urine Ketones Negative Urine Blood Negative Urine Nitrite Negative Urine Bilirubin Negative Urine Urobilinogen 0.2 Ur Leukocyte Esterase Negative Random Vancomycin 05/18/17 05/18/17 05/18/17 17:28 18:35 21:30 WBC RBC Hgb Hct MCV MCH MCHC RDW Plt Count MPV Neutrophils % Lymphocytes % Monocytes % Eosinophils % Basophils % PTT (Actin FS) Sodium Potassium Chloride Carbon Dioxide Anion Gap BUN Creatinine Creat Clearance w eGFR POC Glucometer 159.63132 Random Glucose Hemoglobin A1c % Lactic Acid 1.8 Calcium Total Bilirubin AST ALT Alkaline Phosphatase Creatine Kinase 308 H Creatine Kinase Index 6.8 H* CK-MB (CK-2) 21.2 H Troponin I 9.77 H* Total Protein Albumin Urine Color Urine Appearance Urine pH Ur Specific Raphine Urine Protein Urine Glucose (UA) Urine Ketones Urine Blood Urine Nitrite Urine Bilirubin Urine Urobilinogen Ur Leukocyte Esterase Random Vancomycin 05/18/17 05/18/17 05/19/17 23:25 23:58 05:35 WBC RBC Hgb Hct MCV MCH MCHC RDW Plt Count MPV Neutrophils % Lymphocytes % Monocytes % Eosinophils % Basophils % PTT (Actin FS) 98.1 H 70.5 H Sodium Potassium Chloride Carbon Dioxide Anion Gap BUN Creatinine Creat Clearance w eGFR POC Glucometer 159.36602 Random Glucose Hemoglobin A1c % Lactic Acid Calcium Total Bilirubin AST ALT Alkaline Phosphatase Creatine Kinase Creatine Kinase Index CK-MB (CK-2) Troponin I Total Protein Albumin Urine Color Urine Appearance Urine pH Ur Specific Raphine Urine Protein Urine Glucose (UA) Urine Ketones Urine Blood Urine Nitrite Urine Bilirubin Urine Urobilinogen Ur Leukocyte Esterase Random Vancomycin 05/19/17 05/19/17 05/19/17 05:35 05:35 05:35 WBC 11.7 H RBC 3.18 L D Hgb 9.4 L D Hct 28.5 L D MCV 89.6 MCH 29.5 MCHC 32.9 RDW 13.5 Plt Count 226 D MPV 9.3 Neutrophils % 69.1 Lymphocytes % 20.7 Monocytes % 8.7 Eosinophils % 0.6 Basophils % 0.9 PTT (Actin FS) Sodium 138 Potassium 4.1 D Chloride 105 Carbon Dioxide 24 D Anion Gap 9 BUN 39 H Creatinine 1.7 H Creat Clearance w eGFR 28.70 POC Glucometer Random Glucose 107 H D Hemoglobin A1c % 6.2 H Lactic Acid Calcium 8.2 L Total Bilirubin 0.3 D AST 48 H D ALT 16 Alkaline Phosphatase 61 D Creatine Kinase 287 H Creatine Kinase Index 3.9 CK-MB (CK-2) 11.266 H Troponin I 6.71 H* Total Protein 6.1 L Albumin 2.7 L Urine Color Urine Appearance Urine pH Ur Specific Raphine Urine Protein Urine Glucose (UA) Urine Ketones Urine Blood Urine Nitrite Urine Bilirubin Urine Urobilinogen Ur Leukocyte Esterase Random Vancomycin 05/19/17 05/19/17 05/19/17 05:35 06:00 06:23 WBC RBC Hgb Hct MCV MCH MCHC RDW Plt Count MPV Neutrophils % Lymphocytes % Monocytes % Eosinophils % Basophils % PTT (Actin FS) Sodium Potassium Chloride Carbon Dioxide Anion Gap BUN Creatinine Creat Clearance w eGFR POC Glucometer 114.33663 Random Glucose Hemoglobin A1c % Lactic Acid 0.7 Calcium Total Bilirubin AST ALT Alkaline Phosphatase Creatine Kinase Creatine Kinase Index CK-MB (CK-2) Troponin I Total Protein Albumin Urine Color Urine Appearance Urine pH Ur Specific Raphine Urine Protein Urine Glucose (UA) Urine Ketones Urine Blood Urine Nitrite Urine Bilirubin Urine Urobilinogen Ur Leukocyte Esterase Random Vancomycin 9.826 05/19/17 10:55 WBC RBC Hgb Hct MCV MCH MCHC RDW Plt Count MPV Neutrophils % Lymphocytes % Monocytes % Eosinophils % Basophils % PTT (Actin FS) Sodium Potassium Chloride Carbon Dioxide Anion Gap BUN Creatinine Creat Clearance w eGFR POC Glucometer 97.72022 Random Glucose Hemoglobin A1c % Lactic Acid Calcium Total Bilirubin AST ALT Alkaline Phosphatase Creatine Kinase Creatine Kinase Index CK-MB (CK-2) Troponin I Total Protein Albumin Urine Color Urine Appearance Urine pH Ur Specific Raphine Urine Protein Urine Glucose (UA) Urine Ketones Urine Blood Urine Nitrite Urine Bilirubin Urine Urobilinogen Ur Leukocyte Esterase Random Vancomycin Problem List - Problems (1) Acute renal failure Code(s): N17.9 - ACUTE KIDNEY FAILURE, UNSPECIFIED Qualifiers: Acute renal failure type: unspecified Qualified Code(s): N17.9 - Acute kidney failure, unspecified (2) CHF (congestive heart failure) Code(s): I50.9 - HEART FAILURE, UNSPECIFIED Qualifiers: Congestive heart failure type: unspecified congestive heart failure type Congestive heart failure chronicity: acute Qualified Code(s): I50.9 - Heart failure, unspecified (3) Myocardial infarct Code(s): I21.3 - ST ELEVATION (STEMI) MYOCARDIAL INFARCTION OF UNSP SITE (4) Pneumonia Code(s): J18.9 - PNEUMONIA, UNSPECIFIED ORGANISM (5) Chest pain Code(s): R07.9 - CHEST PAIN, UNSPECIFIED (6) Diabetes Code(s): E11.9 - TYPE 2 DIABETES MELLITUS WITHOUT COMPLICATIONS (7) HLD (hyperlipidemia) Code(s): E78.5 - HYPERLIPIDEMIA, UNSPECIFIED (8) HTN (hypertension) Code(s): I10 - ESSENTIAL (PRIMARY) HYPERTENSION (9) Acute respiratory failure with hypoxia Code(s): J96.01 - ACUTE RESPIRATORY FAILURE WITH HYPOXIA Assessment/Plan O2 as needed to maintain saturation NIPPV as needed to decrease WOB Lasix Empiric ABX per ID Follow cultures Follow CXR Strict I&O Daily weight If hypotensive -> would try Dobutamine as the initial agent ASA IV Heparin Dr Woodward Critical care time spent in reviewing chart, evaluating patient and formulating plan - 35 minutes. Problem List - Problems (1) Acute renal failure Code(s): N17.9 - ACUTE KIDNEY FAILURE, UNSPECIFIED Qualifiers: Acute renal failure type: unspecified Qualified Code(s): N17.9 - Acute kidney failure, unspecified (2) CHF (congestive heart failure) Code(s): I50.9 - HEART FAILURE, UNSPECIFIED Qualifiers: Congestive heart failure type: unspecified congestive heart failure type Congestive heart failure chronicity: acute Qualified Code(s): I50.9 - Heart failure, unspecified (3) Myocardial infarct Code(s): I21.3 - ST ELEVATION (STEMI) MYOCARDIAL INFARCTION OF UNSP SITE (4) Pneumonia Code(s): J18.9 - PNEUMONIA, UNSPECIFIED ORGANISM (5) Chest pain Code(s): R07.9 - CHEST PAIN, UNSPECIFIED (6) Diabetes Code(s): E11.9 - TYPE 2 DIABETES MELLITUS WITHOUT COMPLICATIONS (7) HLD (hyperlipidemia) Code(s): E78.5 - HYPERLIPIDEMIA, UNSPECIFIED (8) HTN (hypertension) Code(s): I10 - ESSENTIAL (PRIMARY) HYPERTENSION (9) Acute respiratory failure with hypoxia Code(s): J96.01 - ACUTE RESPIRATORY FAILURE WITH HYPOXIA
--- NOTE | 2017-05-19 13:53 | PN ---
Physical Exam: SUBJECTIVE: Patient seen and examined this morning. Pt somnolent and laying in bed; awakens easily when her name is called. Pt denies any overnight events as well as dyspnea or discomfort. Pt has no other acute issues at this time. OBJECTIVE: Vital Signs Period Temp Pulse Resp BP Sys/Douglas Pulse Ox Last 24 Hr 98.3 F-99.1 F 58-77 12-22 84-122/35-59 99-100 GENERAL: The patient is somnolent, in no acute distress. HEAD: Normal with no signs of trauma. EYES: sclera anicteric, conjunctiva clear. No ptosis. NECK: Trachea midline LUNGS: Breath sounds equal, clear and diminished bilaterally, no wheezes, no crackles, no accessory muscle use. HEART: Regular rate and rhythm, S1, S2 without murmur, rub or gallop. ABDOMEN: Soft, nontender, nondistended, no guarding, no rebound, no hepatosplenomegaly, no masses. EXTREMITIES: 2+ radial pulses, warm, well-perfused, no edema. NEUROLOGICAL: Pt somnolent but awakens to voice and responds to basic commands; decreased muscle strength in RLE; PSYCH: Cooperative, not agitated SKIN: Warm, dry, normal turgor, no rashes or lesions noted Laboratory Results - last 24 hr 05/18/17 05/18/17 05/18/17 14:25 16:15 17:28 WBC RBC Hgb Hct MCV MCH MCHC RDW Plt Count MPV Neutrophils % Lymphocytes % Monocytes % Eosinophils % Basophils % PTT (Actin FS) 95.6 H D Sodium Potassium Chloride Carbon Dioxide Anion Gap BUN Creatinine Creat Clearance w eGFR POC Glucometer 159.86130 Random Glucose Hemoglobin A1c % Lactic Acid Calcium Total Bilirubin AST ALT Alkaline Phosphatase Creatine Kinase 321 H Creatine Kinase Index 7.9 H* CK-MB (CK-2) 25.648 H Troponin I 9.79 H* Total Protein Albumin Random Vancomycin 05/18/17 05/18/17 05/18/17 18:35 21:30 23:25 WBC RBC Hgb Hct MCV MCH MCHC RDW Plt Count MPV Neutrophils % Lymphocytes % Monocytes % Eosinophils % Basophils % PTT (Actin FS) 98.1 H Sodium Potassium Chloride Carbon Dioxide Anion Gap BUN Creatinine Creat Clearance w eGFR POC Glucometer Random Glucose Hemoglobin A1c % Lactic Acid 1.8 Calcium Total Bilirubin AST ALT Alkaline Phosphatase Creatine Kinase 308 H Creatine Kinase Index 6.8 H* CK-MB (CK-2) 21.2 H Troponin I 9.77 H* Total Protein Albumin Random Vancomycin 05/18/17 05/19/17 05/19/17 23:58 05:35 05:35 WBC 11.7 H RBC 3.18 L D Hgb 9.4 L D Hct 28.5 L D MCV 89.6 MCH 29.5 MCHC 32.9 RDW 13.5 Plt Count 226 D MPV 9.3 Neutrophils % 69.1 Lymphocytes % 20.7 Monocytes % 8.7 Eosinophils % 0.6 Basophils % 0.9 PTT (Actin FS) 70.5 H Sodium Potassium Chloride Carbon Dioxide Anion Gap BUN Creatinine Creat Clearance w eGFR POC Glucometer 159.28203 Random Glucose Hemoglobin A1c % Lactic Acid Calcium Total Bilirubin AST ALT Alkaline Phosphatase Creatine Kinase Creatine Kinase Index CK-MB (CK-2) Troponin I Total Protein Albumin Random Vancomycin 05/19/17 05/19/17 05/19/17 05:35 05:35 05:35 WBC RBC Hgb Hct MCV MCH MCHC RDW Plt Count MPV Neutrophils % Lymphocytes % Monocytes % Eosinophils % Basophils % PTT (Actin FS) Sodium 138 Potassium 4.1 D Chloride 105 Carbon Dioxide 24 D Anion Gap 9 BUN 39 H Creatinine 1.7 H Creat Clearance w eGFR 28.70 POC Glucometer Random Glucose 107 H D Hemoglobin A1c % 6.2 H Lactic Acid 0.7 Calcium 8.2 L Total Bilirubin 0.3 D AST 48 H D ALT 16 Alkaline Phosphatase 61 D Creatine Kinase 287 H Creatine Kinase Index 3.9 CK-MB (CK-2) 11.266 H Troponin I 6.71 H* Total Protein 6.1 L Albumin 2.7 L Random Vancomycin 05/19/17 05/19/17 05/19/17 06:00 06:23 10:55 WBC RBC Hgb Hct MCV MCH MCHC RDW Plt Count MPV Neutrophils % Lymphocytes % Monocytes % Eosinophils % Basophils % PTT (Actin FS) Sodium Potassium Chloride Carbon Dioxide Anion Gap BUN Creatinine Creat Clearance w eGFR POC Glucometer 114.18995 97.02231 Random Glucose Hemoglobin A1c % Lactic Acid Calcium Total Bilirubin AST ALT Alkaline Phosphatase Creatine Kinase Creatine Kinase Index CK-MB (CK-2) Troponin I Total Protein Albumin Random Vancomycin 9.826 Active Medications Generic Name Dose Route Start Last Admin Trade Name Freq PRN Reason Stop Dose Admin Acetaminophen 650 mg 05/18/17 13:41 Tylenol - PO Q4H PRN FEVER OR PAIN Aspirin 81 mg 05/19/17 10:00 05/19/17 09:30 Asa - PO 81 mg DAILY [facility] Administration Atorvastatin Calcium 80 mg 05/18/17 15:30 05/18/17 21:51 Lipitor - PO 80 mg HS [facility] Administration Chlorhexidine Gluconate 1 applic 05/18/17 22:00 05/18/17 21:51 Hibiclens For Decolonization - TP 1 applic HS [facility] Administration Clopidogrel Bisulfate 75 mg 05/19/17 10:00 05/19/17 09:30 Plavix - PO 75 mg DAILY [facility] Administration Docusate Sodium 300 mg 05/18/17 22:00 05/18/17 21:51 Colace - PO 300 mg HS [facility] Administration Furosemide 40 mg 05/20/17 10:00 Lasix Injection - IVPUSH DAILY [facility] Heparin Sodium (Porcine) 25, 500 mls @ 16 mls/hr 05/18/17 10:15 05/19/17 12:15 000 unit/ Sodium Chloride IV 12 mls/hr TITR [facility] Administration Protocol 800 UNIT/HR Ceftriaxone Sodium 50 mls @ 100 mls/hr 05/19/17 10:00 05/19/17 09:31 Rocephin 1gm Ivpb (Pre-Docked) IVPB 100 mls/hr DAILY [facility] Administration Insulin Aspart 1 vial 05/18/17 16:30 05/19/17 10:57 Novolog Vial Sliding Scale - SQ Not Given ACHS [facility] Protocol Latanoprost 1 drop 05/19/17 10:00 05/19/17 09:44 Xalatan 0.005% Eye Drops - OU 1 drop DAILY [facility] Administration Metoprolol Tartrate 25 mg 05/19/17 22:00 Lopressor - PO BID [facility] Mupirocin 1 applic 05/18/17 22:00 05/19/17 09:44 Bactroban Ointment (For Decolonization) - NS 05/23/17 21:59 1 applic BID [facility] Administration Pantoprazole Sodium 40 mg 05/19/17 10:00 05/19/17 09:30 Protonix - PO 40 mg DAILY [facility] Administration Ranolazine 500 mg 05/18/17 22:00 05/19/17 09:30 Ranexa - PO 500 mg BID [facility] Administration ASSESSMENT/PLAN: 82 y/o F pmhx DM, HTN, HLD, CAD, CHF, dementia, hx CVA with R hemiplegia [facility] and hypoxia 2/2 CHF exacerbation vs PNA found to have elevated troponins consistent with NSTEMI. Neuro: -S/p CVA with R hemiplegia -Pt somnolent but arousable; follows basic commands -Per notes has hx of dementia -Will continue to coordinate care with next of kin (daughter) Resp: -Per notes, at [facility] pt had O2 sats of 67% -Since admission was on BIPAP>Venturi mask>NC -Currently on 2L NC with O2 sat 100% -CXR on 05/18 revealed congestive changes and bibasilar infiltrates; possible R lobar infiltrate -F/u CXR 05/19 shows diminished infiltrates, most likely 2/2 diuresis with Lasix -Per ID will d/c Azithromycin and Cefepime for empiric PNA coverage; will start Ceftriaxone IV 1gm Cardio: -Hx of admission 05/04/17-05/09/17 for ACS; per notes pt denied intervention and was medically managed at that time. Per cardiology notes pt had persantine stress test with EF of 29% (EF normal at rest) -Troponins this admission: 0.79>9.79>9.77>6.7 -BNP 8,428 -EKG 05/[address] changes and ST depression in lateral leads compared to EKG 05/04/17 -Heparin drip started -Cont ASA, Lipitor 80mg, Plavix, Ranexa, Metoprolol succinate -Echo ordered to evaluate LV function -Appreciate cardiology recs GI: -Pt with vomiting on admission and AG of 17 -AG since closed (9 today) -Continue SSI -Hgb 12.0 on admission -Hgb this morning 9.4; blood in BM per nursing -Will trend CBC this afternoon -FOBT -Continue heparin for now -Slight increase in AST from 21>48 today; may be 2/2 abx. F/u values tomorrow Renal: -Acute on chronic renal insufficiency; baseline creatinine 1.2/1.3 -Cr on admission 2.1, trending down to 1.7 today -Holding ANIVAL/ARB per cardiology -Continue to monitor, especially with addition of Vancomycin ID: -Fever of 100.4 on admission, since then pt has been afebrile, Tmax 99.1 -Lactic acid trending down from 6.0>1.8>0.7 -UA neg -Blood cx positive today for GPC -Await S. pneumo and Legionella Ags -Pt received Vancomycin 1gm, Levaquin 500mg, Cefepime 1gm and Zithromax 500mg on admission -Appreciate ID recs: repeat blood cx today, Vancomycin 1gm loading dose with random trough value tomorrow, ESR and CRP FEN: -No fluids 2/2 CHF status -Cont to monitor electrolytes -NPO for now Prophylaxis: -Heparin drip for ND -Protonix Dispo: -Continue to monitor in ICU CCTime 35 min Visit type - Emergency Visit Emergency Visit: Yes ED Registration Date: 05/18/17 Care time: The patient presented to the Emergency Department on the above date and was hospitalized for further evaluation of their emergent condition. - New Patient This patient is new to me today: Yes Date on this admission: 05/19/17 - Critical Care Critical Care patient: No
[2017-05-19] MEDS ORDERED: FUROSEMIDE 40 MG/4 ML INJECTABLE VIAL IVPUSH ONE (14:34)
[2017-05-19] MEDS ORDERED: VANCOMYCIN 1 GRAM (PRE-DOCKED) 250 ML IVPB SCH (14:45)
--- NOTE | 2017-05-19 15:32 | PN ---
Progress Note, Physician History of Present Illness: Pt seen and examined at bedside. She is more alert than yesterday. - Current Medication List Current Medications: Active Medications Acetaminophen (Tylenol -) 650 mg PO Q4H PRN PRN Reason: FEVER OR PAIN Aspirin (Asa -) 81 mg PO DAILY [facility] Last Admin: 05/19/17 09:30 Dose: 81 mg Atorvastatin Calcium (Lipitor -) 80 mg PO HS [facility] Last Admin: 05/18/17 21:51 Dose: 80 mg Chlorhexidine Gluconate (Hibiclens For Decolonization -) 1 applic TP HS [facility] Last Admin: 05/18/17 21:51 Dose: 1 applic Clopidogrel Bisulfate (Plavix -) 75 mg PO DAILY [facility] Last Admin: 05/19/17 09:30 Dose: 75 mg Docusate Sodium (Colace -) 300 mg PO [facility] Last Admin: 05/18/17 21:51 Dose: 300 mg Furosemide (Lasix Injection -) 40 mg IVPUSH DAILY [facility] Heparin Sodium (Porcine) 25, (000 unit/ Sodium Chloride) 500 mls @ 16 mls/hr IV TITR [facility]; 800 UNIT/HR PRN Reason: Protocol Last Admin: 05/19/17 12:15 Dose: 12 mls/hr Ceftriaxone Sodium (Rocephin 1gm Ivpb (Pre-Docked)) 50 mls @ 100 mls/hr IVPB DAILY [facility] Last Admin: 05/19/17 09:31 Dose: 100 mls/hr Vancomycin HCl (Vancomycin (Pre-Docked)) 250 mls @ 250 mls/hr IVPB ONCE [facility] PRN Reason: Protocol Stop: 05/20/17 14:44 Last Admin: 05/19/17 14:41 Dose: 250 mls/hr Insulin Aspart (Novolog Vial Sliding Scale -) 1 vial SQ ACHS [facility] PRN Reason: Protocol Last Admin: 05/19/17 10:57 Dose: Not Given Latanoprost (Xalatan 0.005% Eye Drops -) 1 drop OU DAILY [facility] Last Admin: 05/19/17 09:44 Dose: 1 drop Metoprolol Tartrate (Lopressor -) 25 mg PO BID [facility] Mupirocin (Bactroban Ointment (For Decolonization) -) 1 applic NS BID [facility] Stop: 05/23/17 21:59 Last Admin: 05/19/17 09:44 Dose: 1 applic Pantoprazole Sodium (Protonix -) 40 mg PO DAILY [facility] Last Admin: 05/19/17 09:30 Dose: 40 mg Ranolazine (Ranexa -) 500 mg PO BID [facility] Last Admin: 05/19/17 09:30 Dose: 500 mg - Objective Vital Signs: Vital Signs Temperature 98.4 F 05/19/17 12:00 Pulse Rate 61 05/19/17 14:00 Respiratory Rate 13 05/19/17 14:00 Blood Pressure 109/48 05/19/17 14:00 O2 Sat by Pulse Oximetry (%) 100 05/19/17 10:14 Constitutional: Yes: Calm Eyes: Yes: Conjunctiva Clear HENT: Yes: Atraumatic Cardiovascular: Yes: S1, S2 Respiratory: Yes: On Nasal O2 Gastrointestinal: Yes: Soft Genitourinary: Yes: Huber Present Musculoskeletal: Yes: Muscle Weakness Edema: No Neurological: Yes: Pre-Existing Deficit Labs: CBC, BMP 05/19/17 05:35 05/19/17 05:35 Problem List - Problems (1) Acute renal failure Code(s): N17.9 - ACUTE KIDNEY FAILURE, UNSPECIFIED Qualifiers: Qualified Code(s): N17.9 - Acute kidney failure, unspecified (2) Acute respiratory failure with hypoxia Code(s): J96.01 - ACUTE RESPIRATORY FAILURE WITH HYPOXIA (3) CHF (congestive heart failure) Code(s): I50.9 - HEART FAILURE, UNSPECIFIED Qualifiers: Qualified Code(s): I50.9 - Heart failure, unspecified (4) Myocardial infarct Code(s): I21.3 - ST ELEVATION (STEMI) MYOCARDIAL INFARCTION OF [facility] SITE (5) HLD (hyperlipidemia) Code(s): E78.5 - HYPERLIPIDEMIA, UNSPECIFIED (6) HTN (hypertension) Code(s): I10 - ESSENTIAL (PRIMARY) HYPERTENSION Assessment/Plan Current Medications Generic Name Dose Route Start Last Admin Trade Name Freq PRN Reason Stop Dose Admin Acetaminophen 650 mg 05/18/17 13:41 Tylenol - PO Q4H PRN FEVER OR PAIN Aspirin 81 mg 05/19/17 10:00 05/19/17 09:30 Asa - PO 81 mg DAILY [facility] Administration Atorvastatin Calcium 80 mg 05/18/17 15:30 05/18/17 21:51 Lipitor - PO 80 mg HS [facility] Administration Chlorhexidine Gluconate 1 applic 05/18/17 22:00 05/18/17 21:51 Hibiclens For Decolonization - TP 1 applic HS [facility] Administration Clopidogrel Bisulfate 75 mg 05/19/17 10:00 05/19/17 09:30 Plavix - PO 75 mg DAILY [facility] Administration Docusate Sodium 300 mg 05/18/17 22:00 05/18/17 21:51 Colace - PO 300 mg HS [facility] Administration Furosemide 40 mg 05/20/17 10:00 Lasix Injection - IVPUSH DAILY [facility] Heparin Sodium (Porcine) 25, 500 mls @ 16 mls/hr 05/18/17 10:15 05/19/17 12:15 000 unit/ Sodium Chloride IV 12 mls/hr TITR [facility] Administration Protocol 800 UNIT/HR Ceftriaxone Sodium 50 mls @ 100 mls/hr 05/19/17 10:00 05/19/17 09:31 Rocephin 1gm Ivpb (Pre-Docked) IVPB 100 mls/hr DAILY [facility] Administration Vancomycin HCl 250 mls @ 250 mls/hr 05/19/17 14:45 05/19/17 14:41 Vancomycin (Pre-Docked) IVPB 05/20/17 14:44 250 mls/hr ONCE [facility] Administration Protocol Insulin Aspart 1 vial 05/18/17 16:30 05/19/17 10:57 Novolog Vial Sliding Scale - SQ Not Given ACHS [facility] Protocol Latanoprost 1 drop 05/19/17 10:00 05/19/17 09:44 Xalatan 0.005% Eye Drops - OU 1 drop DAILY [facility] Administration Metoprolol Tartrate 25 mg 05/19/17 22:00 Lopressor - PO BID [facility] Mupirocin 1 applic 05/18/17 22:00 05/19/17 09:44 Bactroban Ointment (For Decolonization) - NS 05/23/17 21:59 1 applic BID [facility] Administration Pantoprazole Sodium 40 mg 05/19/17 10:00 05/19/17 09:30 Protonix - PO 40 mg DAILY [facility] Administration Ranolazine 500 mg 05/18/17 22:00 05/19/17 09:30 Ranexa - PO 500 mg BID [facility] Administration Impression 1. MARY 2. hyperkalemia 3. CHF - acute 4. NSTEMI 5. DM 6. HTN 7. chol 8. dementia 9. CAD 10. lactic acidosis Plan - renal function is improving - likely etiology of mary was cardiorenal disease - check renal ultrasound - will repeat ua once renal function stabilizes - monitor bp - will check open die inspector tomorrow - yesenia or arb once renal function stabilizes - potassium is improved - lactic acid levels improved Dr Varner
[2017-05-19 16:21] LABS: MCH 30.1 pg (25.7-33.7); MCHC 33.4 g/dl (32.0-36.0); MEAN PLT VOLUME 9.4 fl (7.5-11.1); PLATELET COUNT 240 K/MM3 (134-434); RDW 13.6 % (11.6-15.6)
--- NOTE | 2017-05-19 18:04 | PN ---
Progress Note, Physician Chief Complaint: awake daughter bedside discussed with family - Current Medication List Current Medications: Active Medications Acetaminophen (Tylenol -) 650 mg PO Q4H PRN PRN Reason: FEVER OR PAIN Aspirin (Asa -) 81 mg PO DAILY [facility] Last Admin: 05/19/17 09:30 Dose: 81 mg Atorvastatin Calcium (Lipitor -) 80 mg PO HS [facility] Last Admin: 05/18/17 21:51 Dose: 80 mg Chlorhexidine Gluconate (Hibiclens For Decolonization -) 1 applic TP HS [facility] Last Admin: 05/18/17 21:51 Dose: 1 applic Clopidogrel Bisulfate (Plavix -) 75 mg PO DAILY [facility] Last Admin: 05/19/17 09:30 Dose: 75 mg Docusate Sodium (Colace -) 300 mg PO HS [facility] Last Admin: 05/18/17 21:51 Dose: 300 mg Furosemide (Lasix Injection -) 40 mg IVPUSH DAILY [facility] Heparin Sodium (Porcine) 25, (000 unit/ Sodium Chloride) 500 mls @ 16 mls/hr IV TITR [facility]; 800 UNIT/HR PRN Reason: Protocol Last Admin: 05/19/17 12:15 Dose: 12 mls/hr Ceftriaxone Sodium (Rocephin 1gm Ivpb (Pre-Docked)) 50 mls @ 100 mls/hr IVPB DAILY [facility] Last Admin: 05/19/17 09:31 Dose: 100 mls/hr Vancomycin HCl (Vancomycin (Pre-Docked)) 250 mls @ 250 mls/hr IVPB ONCE [facility] PRN Reason: Protocol Stop: 05/20/17 14:44 Last Admin: 05/19/17 14:41 Dose: 250 mls/hr Insulin Aspart (Novolog Vial Sliding Scale -) 1 vial SQ ACHS [facility] PRN Reason: Protocol Last Admin: 05/19/17 16:32 Dose: Not Given Latanoprost (Xalatan 0.005% Eye Drops -) 1 drop OU DAILY [facility] Last Admin: 05/19/17 09:44 Dose: 1 drop Metoprolol Tartrate (Lopressor -) 25 mg PO BID [facility] Mupirocin (Bactroban Ointment (For Decolonization) -) 1 applic NS BID [facility] Stop: 05/23/17 21:59 Last Admin: 05/19/17 09:44 Dose: 1 applic Pantoprazole Sodium (Protonix -) 40 mg PO DAILY [facility] Last Admin: 05/19/17 09:30 Dose: 40 mg Ranolazine (Ranexa -) 500 mg PO BID [facility] Last Admin: 05/19/17 09:30 Dose: 500 mg - Objective Vital Signs: Vital Signs Temperature 97.5 F L 05/19/17 16:00 Pulse Rate 65 05/19/17 16:00 Respiratory Rate 12 05/19/17 16:00 Blood Pressure 106/51 05/19/17 16:00 O2 Sat by Pulse Oximetry (%) 100 05/19/17 10:14 Constitutional: Yes: Mild Distress Eyes: Yes: WNL HENT: Yes: WNL Neck: Yes: WNL Cardiovascular: Yes: Murmur Respiratory: Yes: Cough, On Nasal O2, SOB Gastrointestinal: Yes: WNL Genitourinary: Yes: WNL Musculoskeletal: Yes: Muscle Weakness Extremities: Yes: WNL Edema: No Peripheral Pulses WNL: Yes Integumentary: Yes: WNL Wound/Incision: Yes: Clean/Dry Neurological: Yes: Pre-Existing Deficit ...Motor Strength: LLE, RLE Psychiatric: Yes: Other Labs: CBC, BMP 05/19/17 15:45 05/19/17 05:35 Problem List - Problems (1) Acute renal failure Code(s): N17.9 - ACUTE KIDNEY FAILURE, UNSPECIFIED Qualifiers: Acute renal failure type: unspecified Qualified Code(s): N17.9 - Acute kidney failure, unspecified (2) Acute respiratory failure with hypoxia Code(s): J96.01 - ACUTE RESPIRATORY FAILURE WITH HYPOXIA (3) CHF (congestive heart failure) Code(s): I50.9 - HEART FAILURE, UNSPECIFIED Qualifiers: Congestive heart failure type: unspecified congestive heart failure type Congestive heart failure chronicity: acute Qualified Code(s): I50.9 - Heart failure, unspecified (4) Fever Code(s): R50.9 - FEVER, UNSPECIFIED Qualifiers: Fever type: unspecified Qualified Code(s): R50.9 - Fever, unspecified (5) Myocardial infarct Code(s): I21.3 - ST ELEVATION (STEMI) MYOCARDIAL INFARCTION OF [facility] SITE (6) Pneumonia Code(s): J18.9 - PNEUMONIA, UNSPECIFIED ORGANISM (7) Chest pain Code(s): R07.9 - CHEST PAIN, UNSPECIFIED (8) DVT prophylaxis Code(s): [id number] - (9) Diabetes Code(s): E11.9 - TYPE 2 DIABETES MELLITUS WITHOUT COMPLICATIONS Assessment/Plan IV ABX R/O ASPIRATION PNA SWALLOW EVAL ADD FLAGYL FOR COVERAGE TX WILL NEED ECHO FOR HEART FUNCTION DISCUSSED WITH FAMILY, NO AGGRESSIVE INTERVENTIONS WILL NEED LASIX IV FOR CHF TREAT CONSERVATIVELY
[2017-05-19] MEDS: METRONIDAZOLE 500 MG PREMIXED 100 ML IVPB SCH (18:58)
[2017-05-19] MEDS: METOPROLOL TARTRATE 25 MG TABLET (FP) PO SCH (21:50)
[2017-05-19] MEDS: ATORVASTATIN CA 80 MG TABLET (FP) PO SCH (21:50)
[2017-05-19] MEDS: CHLORHEXIDINE GLUCONATE 4% CLEANSER FOR DECOLONIZATION TP SCH (21:50)
[2017-05-19] MEDS: DOCUSATE SODIUM 100 MG CAPSULE (FP) PO SCH (21:50)
[2017-05-20] MEDS: METRONIDAZOLE 500 MG PREMIXED 100 ML IVPB SCH ×2 (01:53→09:01)
[2017-05-20 06:31] LABS: MCH 30.4 pg (25.7-33.7); MCHC 33.9 g/dl (32.0-36.0); MEAN CELL VOLUME 89.7 fl (80-96); MEAN PLT VOLUME 9.7 fl (7.5-11.1); PLATELET COUNT 263 K/MM3 (134-434); RDW 13.8 % (11.6-15.6); WHITE BLOOD COUNT 8.1 K/mm3 (4.0-10.0)
[2017-05-20] MEDS: INSULIN SLIDING SCALE (NOVOLOG) 1 VIAL SQ SCH ×4 (06:41→21:26)
[2017-05-20 06:45] LABS: INR 1.12 (0.82-1.09); PROTHROMBIN TIME (PATIENT) 12.3 SEC (9.98-11.88)
[2017-05-20 06:51] LABS: ACTIVATED PTT 86.4 SECONDS (26.9-34.4)
[2017-05-20 08:09] LABS: ALBUMIN 2.7 g/dl (3.4-5.0); CALCIUM 8.3 mg/dL (8.5-10.1); GLUCOSE,RANDOM 93 mg/dL (74-106)
[2017-05-20 08:15] LABS: ALK PHOS 59 U/L (45-117); ANION GAP 8 (8-16); BILIRUBIN,TOTAL 0.4 mg/dL (0.2-1.0); CHOLESTEROL 167 mg/dL (50-200); CO2 28 mmol/L (21-32); CREATININE 1.7 mg/dL (0.55-1.02); LDL CHOLESTEROL (ONLY SJRH) 83 mg/dL (5-100); PHOSPHOROUS 3.9 mg/dL (2.5-4.9); SGOT/AST 35 U/L (15-37); SGPT/ALT 17 U/L (12-78)
[2017-05-20] MEDS: CLOPIDOGREL BISULFATE 75 MG TABLET (FP) PO SCH (09:00)
[2017-05-20] MEDS: ASPIRIN 81 MG CHEWABLE TABLETS PO SCH (09:00)
[2017-05-20] MEDS: CEFTRIAXONE 50 ML IVPB SCH (09:00)
[2017-05-20] MEDS: RANOLAZINE E.R. 500 MG TABLET (FP) PO SCH ×2 (09:00→21:20)
[2017-05-20] MEDS: METOPROLOL TARTRATE 25 MG TABLET (FP) PO SCH ×2 (09:00→21:20)
[2017-05-20] MEDS: PANTOPRAZOLE 40 MG TABLET (FP) PO SCH (09:00)
--- NOTE | 2017-05-20 09:00 | PN ---
Progress Note (short form) - Note Progress Note: alert humming being fed breakfast Vital Signs Period Temp Pulse Resp BP Sys/Douglas Pulse Ox Last 24 Hr 97.5 F-98.7 F 57-66 12-19 80-118/33-105 100-100 cor-rrr lungs decreased bs at bases abd soft,nt ext no edema no skin breakdown no phlebitis CBC, BMP 05/20/17 05:15 05/20/17 05:15 Microbiology 05/18/17 08:12 Blood - Peripheral Venous Blood Culture - Preliminary Staphylococcus Coagulase Neg 05/18/17 08:12 Blood - Peripheral Venous Blood Culture - Preliminary Staphylococcus Coagulase Neg 05/18/17 17:30 Urine For Antigen Detection Legionella Antigen - Final 05/18/17 17:30 Urine For Antigen Detection Streptococcus pneumoniae Antigen (M - Final 05/18/17 08:50 Urine - Urine - Catheterized Urine Culture - Final NO GROWTH OBTAINED Laboratory Tests 05/20/17 05:15 Vancomycin Pre-Dose 19.481 H* cxray unchanged dense left retrocardiac infiltrate/alectasis Current Medications Acetaminophen (Tylenol -) 650 mg PO Q4H PRN PRN Reason: FEVER OR PAIN Aspirin (Asa -) 81 mg PO DAILY [facility] Last Admin: 05/19/17 09:30 Dose: 81 mg Atorvastatin Calcium (Lipitor -) 80 mg PO HS [facility] Last Admin: 05/19/17 21:50 Dose: 80 mg Chlorhexidine Gluconate (Hibiclens For Decolonization -) 1 applic TP HS [facility] Last Admin: 05/19/17 21:50 Dose: 1 applic Clopidogrel Bisulfate (Plavix -) 75 mg PO DAILY [facility] Last Admin: 05/19/17 09:30 Dose: 75 mg Docusate Sodium (Colace -) 300 mg PO HS [facility] Last Admin: 05/19/17 21:50 Dose: 300 mg Furosemide (Lasix Injection -) 40 mg IVPUSH DAILY [facility] Heparin Sodium (Porcine) 25, (000 unit/ Sodium Chloride) 500 mls @ 16 mls/hr IV TITR [facility]; 800 UNIT/HR PRN Reason: Protocol Last Titration: 05/20/17 07:57 Dose: 500 unit/hr Ceftriaxone Sodium (Rocephin 1gm Ivpb (Pre-Docked)) 50 mls @ 100 mls/hr IVPB DAILY [facility] Last Admin: 05/19/17 09:31 Dose: 100 mls/hr Vancomycin HCl (Vancomycin (Pre-Docked)) 250 mls @ 250 mls/hr IVPB ONCE [facility] PRN Reason: Protocol Stop: 05/20/17 14:44 Last Admin: 05/19/17 14:41 Dose: 250 mls/hr Metronidazole (Flagyl 500mg Premixed Ivpb -) 100 mls @ 100 mls/hr IVPB Q8H-IV [facility] Last Admin: 05/20/17 01:53 Dose: 100 mls/hr Insulin Aspart (Novolog Vial Sliding Scale -) 1 vial SQ ACHS [facility] PRN Reason: Protocol Last Admin: 05/20/17 06:41 Dose: Not Given Latanoprost (Xalatan 0.005% Eye Drops -) 1 drop OU DAILY [facility] Last Admin: 05/19/17 09:44 Dose: 1 drop Metoprolol Tartrate (Lopressor -) 25 mg PO BID [facility] Last Admin: 05/19/17 21:50 Dose: 25 mg Mupirocin (Bactroban Ointment (For Decolonization) -) 1 applic NS BID [facility] Stop: 05/23/17 21:59 Last Admin: 05/19/17 21:51 Dose: 1 applic Pantoprazole Sodium (Protonix -) 40 mg PO DAILY [facility] Last Admin: 05/19/17 09:30 Dose: 40 mg Ranolazine (Ranexa -) 500 mg PO BID [facility] Last Admin: 05/19/17 21:50 Dose: 500 mg a/p s/p MD bacteremia- ?significance repeat blood cultures continue vancomycin possible pneumonia- on rocephin repeat vancomycin level in am
[2017-05-20] MEDS: LATANOPROST 0.005% OPHTH SOLN 2.5ML BOTTLE OU SCH (09:01)
[2017-05-20] MEDS: MUPIROCIN 2% TOPICAL OINTMENT FOR DECOLONIZATION NS SCH ×2 (09:02→21:21)
[2017-05-20] MEDS: FUROSEMIDE 40 MG/4 ML INJECTABLE VIAL IVPUSH SCH (09:06)
--- NOTE | 2017-05-20 10:08 | CONSULT ---
Admitting History and Physical - Primary Care Physician PCP: Cynthia Ding - Admission History of Present Illness: 82 y/o F pmhx DM, HTN, HLD, CAD, CHF, dementia, hx CVA with R hemiplegia admitted 05/18/17 from alf for SOB and hypoxia 2/2 CHF exacerbation vs PNA found to have elevated troponins consistent with NSTEMI. Pt on puree/honey thick liquid, and reported to tolerate well. Nursing reported pt was non verbal for them. Frequent humming. I was able to elicit many appropriate sentences. 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 Only seems to speak responsively, to questions posed. Difficulty with initiation of speech and cessation of humming.), Awake and Alert, Able to Follow Commands Attention: Distractible, Mild Impairment Ability to Follow Directions: Fair Head/Neck Control: WFL - Hearing Hearing: Normal Speech Evaluation - Communication Primary Language: SLOVENIAN Communication: Yes: Simple Responses (Nursing reported pt was non verbal for them. Frequent humming. I was able to elicit many appropriate sentences. 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[facility].) - Speech Production Apraxia: Yes Intelligibility: Yes: WNL - Speech Characteristics Voice Loudness: Normal Voice Pitch: Yes: Normal Voice Phonatory-based Quality: Yes: Normal Speech Pattern: Normal Speech Clarity: < 100% Nasal Resonance: Normal Articulation: Yes: Precise - Language/Auditory Comprehension Follows: Yes: 1 Stage Simple Commands Observation: Able to respond to yes/no queries: Yes (delayed but accurate), Yes/ No Confusion: No, Comprehends Conversational Speech: Yes, Benefits from Repetiton: Yes - Language/Verbal Expression Aphasia: Yes: Apraxia Able to Respond to Simple Queries: Yes: Mildly Impaired Able to Communicate Wants and Needs: Yes: Mildly Impaired Functional Communication Status: Yes: Mildly Impaired - Swallow Evaluation/Bedside Assessment Current Nutritional Intake: Dysphagia Pureed, Honey Textured Liquids Oral Secretions: Yes: WFL Dentition: Yes: Adequate, Missing Teeth Facial Symmetry at Rest: Facial Droop Right Facial Symmetry on Retraction: Facial Droop Right Against Resistance Opening: Normal Against Resistance Closing: Normal Pucker Lips: Droops Right Smile: Droops Right Lingual Movement: Normal Lingual Speed of Movement: Normal Lingual Movement Strgth Against Opposition: Normal Lingual Movement Characteristics: Normal Velopharyngeal Movement: Normal Laryngeal Elevation: WFL Laryngeal Movement: Able to Palpate Rate of Intake: WFL Bolus Size: WFL Labial Seal: WFL Chewing: WFL Oral Prep Time: WFL A-P Transit: WFL Pocketing: None Timing of Swallow: WFL Coughing/Throat Clear: No Change in Voice: No Recommendations - Speech Evaluation, Impression/Plan Impression: Impaired speech initiation likely sec old left cva. Maybe exaccerbated by infection. Premorbid status. Oriented x 3. Appropriate. Swallowing overtly intact. - Disposition [facility]charge to: [facility] - Dysphagia Impressions/Plan Dysphagia Impressions: Minimal Impairment, Ongoing Evaluation *Silent aspiration: cannot be R/O at bedside Recommendations: Modified Barium Swallow (if cough, congestion noted with po intake.) - Recommendations Diet Consistency: Regular Medication Administration: Whole with water Liquids: Thin Liquids
[2017-05-20] MEDS: HEPARIN - 25,000 UNIT in SODIUM CHLORIDE 495 ML IV SCH (11:27)
--- NOTE | 2017-05-20 11:32 | PN ---
Progress Note, Physician History of Present Illness: Pt seen and examined this AM in presence of nursing assistants teacher. Pt sitting up comfortably in bed and being fed breakfast. Pt much more alert and responsive today compared to yesterday. Admits to subjective fever and chills overnight; denies SOB or dyspnea. Admits to L sided chest pain at times which sometimes involves the L arm; denies numbness or tingling. Denies nausea or abdominal pain. Pt has no other acute issues at this time. - Current Medication List Current Medications: Active Medications Acetaminophen (Tylenol -) 650 mg PO Q4H PRN PRN Reason: FEVER OR PAIN Aspirin (Asa -) 81 mg PO DAILY [facility] Last Admin: 05/20/17 09:00 Dose: 81 mg Atorvastatin Calcium (Lipitor -) 80 mg PO HS [facility] Last Admin: 05/19/17 21:50 Dose: 80 mg Chlorhexidine Gluconate (Hibiclens For Decolonization -) 1 applic TP HS [facility] Last Admin: 05/19/17 21:50 Dose: 1 applic Clopidogrel Bisulfate (Plavix -) 75 mg PO DAILY [facility] Last Admin: 05/20/17 09:00 Dose: 75 mg Docusate Sodium (Colace -) 300 mg PO HS [facility] Last Admin: 05/19/17 21:50 Dose: 300 mg Furosemide (Lasix Injection -) 40 mg IVPUSH DAILY [facility] Last Admin: 05/20/17 09:06 Dose: 40 mg Heparin Sodium (Porcine) 25, (000 unit/ Sodium Chloride) 500 mls @ 16 mls/hr IV TITR RODNEY; 800 UNIT/HR PRN Reason: Protocol Last Admin: 05/20/17 11:27 Dose: 10 mls/hr Ceftriaxone Sodium (Rocephin 1gm Ivpb (Pre-Docked)) 50 mls @ 100 mls/hr IVPB DAILY [facility] Last Admin: 05/20/17 09:00 Dose: 100 mls/hr Vancomycin HCl (Vancomycin (Pre-Docked)) 250 mls @ 250 mls/hr IVPB ONCE R[facility]NEY PRN Reason: Protocol Stop: 05/20/17 14:44 Last Admin: 05/19/17 14:41 Dose: 250 mls/hr Insulin Aspart (Novolog Vial Sliding Scale -) 1 vial SQ ACHS [facility] PRN Reason: Protocol Last Admin: 05/20/17 11:26 Dose: Not Given Latanoprost (Xalatan 0.005% Eye Drops -) 1 drop OU DAILY [facility] Last Admin: 05/20/17 09:01 Dose: 1 drop Metoprolol Tartrate (Lopressor -) 25 mg PO BID [facility] Last Admin: 05/20/17 09:00 Dose: 25 mg Mupirocin (Bactroban Ointment (For Decolonization) -) 1 applic NS BID [facility] Stop: 05/23/17 21:59 Last Admin: 05/20/17 09:02 Dose: 1 applic Pantoprazole Sodium (Protonix -) 40 mg PO DAILY [facility] Last Admin: 05/20/17 09:00 Dose: 40 mg Ranolazine (Ranexa -) 500 mg PO BID [facility] Last Admin: 05/20/17 09:00 Dose: 500 mg - Objective Vital Signs: Vital Signs Temperature 98.2 F 05/20/17 10:00 Pulse Rate 61 05/20/17 10:00 Respiratory Rate 9 L 05/20/17 10:00 Blood Pressure 116/47 05/20/17 10:00 O2 Sat by Pulse Oximetry (%) 100 05/20/17 11:13 Physical Exam: GENERAL: The patient is alert, not altered HEAD: Normal with no signs of trauma. EYES: sclera anicteric, conjunctiva clear. No ptosis. ENT: Nasal cannula in place NECK: Trachea midline. supple LUNGS: Breath sounds equal, clear and diminished bilaterally, poor respiratory effort, no wheezes, no crackles, no accessory muscle use. HEART: Regular rate and rhythm, S1, S2 without murmur, rub or gallop. ABDOMEN: Soft, nontender, nondistended, normoactive BS, no guarding, no rebound, no hepatosplenomegaly, no masses. EXTREMITIES: 2+ radial pulses, warm, well-perfused, no edema. NEUROLOGICAL: Pt awake and alert, responds to basic commands; 1/5 muscle strength in RUE and 2/5 RUE; 4/5 in LUE and 3/5 LLE muscle strength. Decreased sensation to light touch RUE>LUE PSYCH: Cooperative, not agitated SKIN: Warm, dry, normal turgor, no rashes or lesions noted Labs: CBC, BMP 05/20/17 05:15 05/20/17 05:15 INR, PTT INR 1.12 (0.82-1.09) 05/20/17 05:15 - ....Imaging Chest X-ray: Report Reviewed, Image Reviewed Assessment/Plan 82 y/o F pmhx DM, HTN, HLD, CAD, CHF, dementia, hx CVA with R hemiplegia admitted 05/18/17 from senior care for SOB and hypoxia 2/2 CHF exacerbation vs PNA found to have elevated troponins consistent with NSTEMI. Neuro: -history of CVA with R hemiplegia -Pt alert today; follows basic commands -Per notes has hx of dementia -Will continue to coordinate care with next of kin (daughter) Resp:acute hypoxemia respiratory failure likely secondary to underlying HCAP pneumonia vs aspiration pneumonia -Per notes, at senior care pt had O2 sats of 67% -Since admission was on BIPAP>Venturi mask>NC -Currently on 2L NC with O2 sat 100% -CXR today reveals possible L retrocardiac consolidation and decreased vascular congestion -Will continue Ceftriaxone IV 1gm; given Flagyl 500mg x1dose yesterday to cover for aspiration pneumonia -Swallowing eval performed today; pt cleared for regular diet with thin liquids Cardio:NSTEMI -Hx of admission 05/04/17-05/09/17 for ACS; per notes pt denied intervention and was medically managed at that time. Per cardiology notes pt had persantine stress test with EF of 29% (EF normal at rest) -Troponins this admission: 0.79>9.79>9.77>6.7>6.03 -BNP 8,428 -EKG 05/[address] changes and ST depression in lateral leads compared to EKG 05/04/17 -Cont heparin drip -Cont ASA, Lipitor 80mg, Plavix, Ranexa, Metoprolol succinate -decrease lasix to 40mg IV Daily from BID -Await results of echo performed today for assessment of LV function -Per notes family continues to desire conservative treatment -Appreciate cardiology recs Heme: Anemia CBC stable continue heparin gtt for now trend H/H Transfuse PRN end hemoccult when has bowel movement Endocrinology: history of diabetes insulin sliding scale fingerstisks for BGM ACHS GI: -Pt with vomiting on admission and AG of 17 - AG since closed -Continue heparin -Slight increase in AST from 21 to 48 yesterday; repeat value 35 this AM -Continue to monitor with daily labs Renal: -Acute on chronic renal insufficiency; baseline creatinine 1.2/1.3 -Cr on admission 2.1, stable at 1.7 since yesterday -Holding ANIVAL/ARB per cardiology -Continue to monitor, especially with addition of Vancomycin -Renal and bladder US performed yesterday; study inadequate 2/2 pt not cooperative ID:Sepsis from pneumonia. Bacteremia. -Fever of 100.4 on admission, since then pt has been afebrile and slightly hypothermic: Tmin this AM 97.5F -Lactic acid trended down from 6.0>1.8>0.7 -UA culture neg -S. pneumo and Legionella Ags neg -Blood cx from 05/18 positive for Coag neg Staph -f/u final ID and sensitivity -Pt received Vancomycin 1gm, Levaquin 500mg, Cefepime 1gm and Zithromax 500mg on admission -Await repeat blood cx from 05/19, Vanco dose by level (random trough 19.481 today) recheck vanco random level in AM -ESR 78, CRP 10.9 -Appreciate ID recs FEN: -No fluids at this time -Cont to monitor electrolytes-no abnormalities at this time -Regular diet Prophylaxis: -Heparin drip for [place]/SCDs -Protonix
--- NOTE | 2017-05-20 11:45 | PN ---
Teaching Attending Note Name of Resident: José Miguel Tinoco ATTENDING PHYSICIAN STATEMENT I saw and evaluated the patient. I reviewed the resident's note and discussed the case with the resident. I agree with the resident's findings and plan as documented. SUBJECTIVE: Patient seen and examined in the ICU. Awake and interactive. ECHO being performed at the bedside. Denies CP or SOB today. Denies significant cough. CXR: improving bilateral airspace disease Intake & Output 05/17/17 05/18/17 05/19/17 05/20/17 23:59 23:59 23:59 23:59 Intake Total 512 718 244 Output Total 1700 1550 400 Balance -1188 -832 -156 Weight 139 lb 4.8 oz 136 lb 3.931 oz 132 lb 15.02 oz Last Vital Signs Temp Pulse Resp BP Pulse Ox 98.2 F 61 9 L 116/47 100 05/20/17 10:00 05/20/17 10:00 05/20/17 10:00 05/20/17 10:00 05/20/17 11:13 Active Medications Acetaminophen (Tylenol -) 650 mg PO Q4H PRN PRN Reason: FEVER OR PAIN Aspirin (Asa -) 81 mg PO DAILY [facility] Last Admin: 05/20/17 09:00 Dose: 81 mg Atorvastatin Calcium (Lipitor -) 80 mg PO HS [facility] Last Admin: 05/19/17 21:50 Dose: 80 mg Chlorhexidine Gluconate (Hibiclens For Decolonization -) 1 applic TP HS [facility] Last Admin: 05/19/17 21:50 Dose: 1 applic Clopidogrel Bisulfate (Plavix -) 75 mg PO DAILY [facility] Last Admin: 05/20/17 09:00 Dose: 75 mg Docusate Sodium (Colace -) 300 mg PO HS [facility] Last Admin: 05/19/17 21:50 Dose: 300 mg Furosemide (Lasix Injection -) 40 mg IVPUSH DAILY [facility] Last Admin: 05/20/17 09:06 Dose: 40 mg Heparin Sodium (Porcine) 25, (000 unit/ Sodium Chloride) 500 mls @ 16 mls/hr IV TITR RODNEY; 800 UNIT/HR PRN Reason: Protocol Last Admin: 05/20/17 11:27 Dose: 10 mls/hr Ceftriaxone Sodium (Rocephin 1gm Ivpb (Pre-Docked)) 50 mls @ 100 mls/hr IVPB DAILY [facility] Last Admin: 05/20/17 09:00 Dose: 100 mls/hr Vancomycin HCl (Vancomycin (Pre-Docked)) 250 mls @ 250 mls/hr IVPB ONCE [facility] PRN Reason: Protocol Stop: 05/20/17 14:44 Last Admin: 05/19/17 14:41 Dose: 250 mls/hr Insulin Aspart (Novolog Vial Sliding Scale -) 1 vial SQ ACHS [facility] PRN Reason: Protocol Last Admin: 05/20/17 11:26 Dose: Not Given Latanoprost (Xalatan 0.005% Eye Drops -) 1 drop OU DAILY [facility] Last Admin: 05/20/17 09:01 Dose: 1 drop Metoprolol Tartrate (Lopressor -) 25 mg PO BID [facility] Last Admin: 05/20/17 09:00 Dose: 25 mg Mupirocin (Bactroban Ointment (For Decolonization) -) 1 applic NS BID [facility] Stop: 05/23/17 21:59 Last Admin: 05/20/17 09:02 Dose: 1 applic Pantoprazole Sodium (Protonix -) 40 mg PO DAILY [facility] Last Admin: 05/20/17 09:00 Dose: 40 mg Ranolazine (Ranexa -) 500 mg PO BID [facility] Last Admin: 05/20/17 09:00 Dose: 500 mg Constitutional: Yes: Awake and responsive Eyes: Yes: Conjunctiva Clear HENT: Yes: Atraumatic, Normocephalic Neck: Yes: Supple, Trachea Midline Cardiovascular: Yes: S1S2 Respiratory: Yes: Rales / Rhonchi at the bases. No: Stridor, Wheezes Gastrointestinal: Yes: WNL ...Rectal Exam: Yes: Deferred Renal/: Yes: Huber Present Musculoskeletal: Yes: WNL Extremities: Yes: WNL Edema: No Peripheral Pulses WNL: Yes Integumentary: Yes: WNL Neurological: Yes: Alert ...Motor Strength: WNL Psychiatric: Yes: Alert Laboratory Results - last 24 hr 05/19/17 05/19/17 05/19/17 15:45 15:45 16:27 WBC 10.0 RBC 3.47 L Hgb 10.4 L D Hct 31.2 L MCV 90.0 MCH 30.1 MCHC 33.4 RDW 13.6 Plt Count 240 MPV 9.4 ESR INR PTT (Actin FS) Sodium Potassium Chloride Carbon Dioxide Anion Gap BUN Creatinine Creat Clearance w eGFR POC Glucometer 74.39703 Random Glucose Calcium Phosphorus Magnesium Total Bilirubin AST ALT Alkaline Phosphatase Troponin I C-Reactive Protein 10.9 H Total Protein Albumin Triglycerides Cholesterol Total LDL Cholesterol HDL Cholesterol Vancomycin Pre-Dose 05/19/17 05/19/17 05/20/17 17:56 23:54 05:15 WBC RBC Hgb Hct MCV MCH MCHC RDW Plt Count MPV ESR 78 H INR PTT (Actin FS) Sodium Potassium Chloride Carbon Dioxide Anion Gap BUN Creatinine Creat Clearance w eGFR POC Glucometer [phone] Random Glucose Calcium Phosphorus Magnesium Total Bilirubin AST ALT Alkaline Phosphatase Troponin I 6.03 H* C-Reactive Protein Total Protein Albumin Triglycerides Cholesterol Total LDL Cholesterol HDL Cholesterol Vancomycin Pre-Dose 05/20/17 05/20/17 05/20/17 05:15 05:15 05:15 WBC 8.1 RBC 3.20 L Hgb 9.7 L Hct 28.7 L MCV 89.7 MCH 30.4 MCHC 33.9 RDW 13.8 Plt Count 263 MPV 9.7 ESR INR 1.12 PTT (Actin FS) 86.4 H Sodium 139 Potassium 3.9 Chloride 103 Carbon Dioxide 28 Anion Gap 8 BUN 38 H Creatinine 1.7 H Creat Clearance w eGFR 28.70 POC Glucometer Random Glucose 93 Calcium 8.3 L Phosphorus 3.9 D Magnesium 2.0 Total Bilirubin 0.4 D AST 35 D ALT 17 Alkaline Phosphatase 59 Troponin I C-Reactive Protein Total Protein 6.0 L Albumin 2.7 L Triglycerides Cholesterol Total LDL Cholesterol HDL Cholesterol Vancomycin Pre-Dose 05/20/17 05/20/17 05/20/17 05:15 05:15 05:47 WBC RBC Hgb Hct MCV MCH MCHC RDW Plt Count MPV ESR INR PTT (Actin FS) Sodium Potassium Chloride Carbon Dioxide Anion Gap BUN Creatinine Creat Clearance w eGFR POC Glucometer 102.35347 Random Glucose Calcium Phosphorus Magnesium Total Bilirubin AST ALT Alkaline Phosphatase Troponin I C-Reactive Protein Total Protein Albumin Triglycerides 153 Cholesterol 167 Total LDL Cholesterol 83 HDL Cholesterol 60 Vancomycin Pre-Dose 19.481 H* 05/20/17 11:20 WBC RBC Hgb Hct MCV MCH MCHC RDW Plt Count MPV ESR INR PTT (Actin FS) Sodium Potassium Chloride Carbon Dioxide Anion Gap BUN Creatinine Creat Clearance w eGFR POC Glucometer 186.29396 Random Glucose Calcium Phosphorus Magnesium Total Bilirubin AST ALT Alkaline Phosphatase Troponin I C-Reactive Protein Total Protein Albumin Triglycerides Cholesterol Total LDL Cholesterol HDL Cholesterol Vancomycin Pre-Dose Problem List - Problems (1) Acute renal failure Code(s): N17.9 - ACUTE KIDNEY FAILURE, UNSPECIFIED Qualifiers: Acute renal failure type: unspecified Qualified Code(s): N17.9 - Acute kidney failure, unspecified (2) CHF (congestive heart failure) Code(s): I50.9 - HEART FAILURE, UNSPECIFIED Qualifiers: Congestive heart failure type: unspecified congestive heart failure type Congestive heart failure chronicity: acute Qualified Code(s): I50.9 - Heart failure, unspecified (3) Myocardial infarct Code(s): I21.3 - ST ELEVATION (STEMI) MYOCARDIAL INFARCTION OF [facility] SITE (4) Pneumonia Code(s): J18.9 - PNEUMONIA, UNSPECIFIED ORGANISM (5) Chest pain Code(s): R07.9 - CHEST PAIN, UNSPECIFIED (6) Diabetes Code(s): E11.9 - TYPE 2 DIABETES MELLITUS WITHOUT COMPLICATIONS (7) HLD (hyperlipidemia) Code(s): E78.5 - HYPERLIPIDEMIA, UNSPECIFIED (8) HTN (hypertension) Code(s): I10 - ESSENTIAL (PRIMARY) HYPERTENSION (9) Acute respiratory failure with hypoxia Code(s): J96.01 - ACUTE RESPIRATORY FAILURE WITH HYPOXIA (10) Bacteremia Assessment/Plan O2 as needed to maintain saturation NIPPV if needed to decrease WOB Lasix ABX per ID Will need repeat cultures Strict I&O Daily weight ASA IV Heparin Telemetry monitoring Dr Woodward Critical care time spent in reviewing chart, evaluating patient and formulating plan - 40 minutes. Problem List - Problems (1) Acute renal failure Code(s): N17.9 - ACUTE KIDNEY FAILURE, UNSPECIFIED Qualifiers: Acute renal failure type: unspecified Qualified Code(s): N17.9 - Acute kidney failure, unspecified (2) CHF (congestive heart failure) Code(s): I50.9 - HEART FAILURE, UNSPECIFIED Qualifiers: Congestive heart failure type: unspecified congestive heart failure type Congestive heart failure chronicity: acute Qualified Code(s): I50.9 - Heart failure, unspecified (3) Myocardial infarct Code(s): I21.3 - ST ELEVATION (STEMI) MYOCARDIAL INFARCTION OF [facility] SITE (4) Pneumonia Code(s): J18.9 - PNEUMONIA, UNSPECIFIED ORGANISM (5) Chest pain Code(s): R07.9 - CHEST PAIN, UNSPECIFIED (6) Diabetes Code(s): E11.9 - TYPE 2 DIABETES MELLITUS WITHOUT COMPLICATIONS (7) HLD (hyperlipidemia) Code(s): E78.5 - HYPERLIPIDEMIA, UNSPECIFIED (8) HTN (hypertension) Code(s): I10 - ESSENTIAL (PRIMARY) HYPERTENSION (9) Acute respiratory failure with hypoxia Code(s): J96.01 - ACUTE RESPIRATORY FAILURE WITH HYPOXIA
--- NOTE | 2017-05-20 13:17 | PN ---
Progress Note (short form) - Note Progress Note: Chief Complaint: KS, chf History of Present Illness: appears tired, getting echocardiogram. calm, comfortable. denies dyspnea, cp, palps, dizziness by shaking head but not with verbal responses. Current Medications Acetaminophen (Tylenol -) 650 mg PO Q4H PRN PRN Reason: FEVER OR PAIN Aspirin (Asa -) 81 mg PO DAILY [facility] Last Admin: 05/20/17 09:00 Dose: 81 mg Atorvastatin Calcium (Lipitor -) 80 mg PO HS [facility] Last Admin: 05/19/17 21:50 Dose: 80 mg Chlorhexidine Gluconate (Hibiclens For Decolonization -) 1 applic TP HS [facility] Last Admin: 05/19/17 21:50 Dose: 1 applic Clopidogrel Bisulfate (Plavix -) 75 mg PO DAILY [facility] Last Admin: 05/20/17 09:00 Dose: 75 mg Docusate Sodium (Colace -) 300 mg PO HS [facility] Last Admin: 05/19/17 21:50 Dose: 300 mg Furosemide (Lasix Injection -) 40 mg IVPUSH DAILY [facility] Last Admin: 05/20/17 09:06 Dose: 40 mg Heparin Sodium (Porcine) 25, (000 unit/ Sodium Chloride) 500 mls @ 16 mls/hr IV TITR [facility]; 800 UNIT/HR PRN Reason: Protocol Last Admin: 05/20/17 11:27 Dose: 10 mls/hr Ceftriaxone Sodium (Rocephin 1gm Ivpb (Pre-Docked)) 50 mls @ 100 mls/hr IVPB DAILY [facility] Last Admin: 05/20/17 09:00 Dose: 100 mls/hr Vancomycin HCl (Vancomycin (Pre-Docked)) 250 mls @ 250 mls/hr IVPB ONCE [facility] PRN Reason: Protocol Stop: 05/20/17 14:44 Last Admin: 05/19/17 14:41 Dose: 250 mls/hr Insulin Aspart (Novolog Vial Sliding Scale -) 1 vial SQ ACHS [facility] PRN Reason: Protocol Last Admin: 05/20/17 11:26 Dose: Not Given Latanoprost (Xalatan 0.005% Eye Drops -) 1 drop OU DAILY [facility] Last Admin: 05/20/17 09:01 Dose: 1 drop Metoprolol Tartrate (Lopressor -) 25 mg PO BID [facility] Last Admin: 05/20/17 09:00 Dose: 25 mg Mupirocin (Bactroban Ointment (For Decolonization) -) 1 applic NS BID [facility] Stop: 05/23/17 21:59 Last Admin: 05/20/17 09:02 Dose: 1 applic Pantoprazole Sodium (Protonix -) 40 mg PO DAILY [facility] Last Admin: 05/20/17 09:00 Dose: 40 mg Ranolazine (Ranexa -) 500 mg PO BID [facility] Last Admin: 05/20/17 09:00 Dose: 500 mg Vital Signs - 24 hr 05/19/17 05/19/17 05/19/17 14:00 16:00 18:00 Temperature 97.5 F L 97.5 F L Pulse Rate 61 65 64 Respiratory 13 12 12 Rate Blood Pressure 109/48 106/51 114/46 O2 Sat by Pulse Oximetry (%) 05/19/17 05/19/17 05/19/17 20:00 20:26 22:00 Temperature 97.6 F Pulse Rate 61 62 Respiratory 12 12 16 Rate Blood Pressure 104/51 118/105 O2 Sat by Pulse 100 Oximetry (%) 05/20/17 05/20/17 05/20/17 00:00 02:00 04:00 Temperature 98.7 F Pulse Rate 61 59 L 58 L Respiratory 12 18 16 Rate Blood Pressure 104/51 80/33 102/44 O2 Sat by Pulse Oximetry (%) 05/20/17 05/20/17 05/20/17 06:00 08:00 09:00 Temperature 97.7 F 97.5 F L Pulse Rate 57 L 61 Respiratory 19 12 12 Rate Blood Pressure 109/51 115/52 O2 Sat by Pulse Oximetry (%) 05/20/17 05/20/17 05/20/17 10:00 11:13 12:00 Temperature 98.2 F 98.3 F Pulse Rate 61 58 L Respiratory 9 L 13 Rate Blood Pressure 116/47 100/45 O2 Sat by Pulse 100 Oximetry (%) Intake & Output 05/18/17 05/19/17 05/20/17 05/21/17 07:59 07:59 07:59 07:59 Intake Total 584 890 Output Total 1950 1700 Balance -1366 -810 Weight 145 lb 136 lb 3.931 oz 132 lb 15.02 oz Constitutional: Yes: Well Nourished, No Distress, Calm Cardiovascular: Yes: Regular Rate and Rhythm, S1, S2. No: JVD, Gallop, Murmur Respiratory: Yes: trace bibasilar rales. No: Accessory Muscle Use, Rales, Wheezes Gastrointestinal: No: Hepatomegaly (no pulsatile liver) Extremities: No: Cold Edema: No Neurological: Yes: Lethargy. No: Seizure Psychiatric: No: Agitated Labs: CBC, BMP 05/20/17 05:15 05/20/17 05:15 - ....Imaging EKG: Other (tele: NSR) Assessment/Plan initial cxr: congestive changes with pleural effusion. On Dr. resendiz's review , also appears to have possible area of consolidation. Echo 05/2017 this admission: tds. grossly nl lv function. mod-severe inferior wall hypokinesis. Nl rv function. mild-mod lae. + mac. severe MR. 1+ tr. rvsp 39 Echo 04/21 (here): nl LV/EF, normal wall motion. nl RV. nl LA. valves WNL. normal ao root. no peric eff MPI 04/21 (here), persantine: no ST changes vs baseline. moderate sized fixed defect inferior/inferolateral/lateral marshall with partial reversibility; small- moderate sized reversible anterolateral defect. severe global LV hypo, EF 29%. a/p: 82 yo female CAD s/p recent nstemi (? demand) and concern for 3vd on stress testing (managed medically), HTN, HLD, DM, prior CVA with right sided hemiplegiawith h/o sent to ER from [place] for hypoxia/sob NSTEMI with resulting acute ischemic MR: -recurrent cp, vomiting (= her anginal sx's) with new acute onset respiratory distress, peak trop 9 here. EKG with ischemic (downsloping) anterior ST-Ts, and new inferior nonspecific ST-Ts 05/19 vs admit. -recently here with same sx's, enzymes negative then, nuclear stress test suggestive of Multivessel Dz--pt declined cath. known/suspected CAD since 2007 (dr jacque osorio cardio)--refused cath then despite his rec's for her to have stent, per dtr -Now presents with acute NSTEMI c/b pulm edema echo now shows severe MR so pulmonary edema likey 2/2 acute ischemic MR. 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 Discussed finding of acute ischemic MR to daughter which typically would be managed with revascularization (although counseled regarding inferior wall scar/hypokinesis and the possibility that revascularization does not guarantee that the mitral valve/inferior wall would regain function). However, no other way to treat the severe MR. Although both invasive and non-invasive options carry risk, counseled that without intervention, patient definitively will be high risk for morbidity/mortality both from CAD as well as advanced/irreversible valvular disease and a palliative approach should be pursued. Daughter again expressed concerns regarding ability of mother to adhere to DAPT (mild dementia/can intermittently refuse meds etc...) in addition to fall risk (multiple recent falls). Discussed risks/benefits of cardiac catheterization procedure in detail. Daughter continues to lean towards palliative care approach, especially considering that currently patient remains comfortable and respiratory status has improved. She is planning on discussing with family overnight and will decide by tomorrow. Will continue with heparin drip for full 72 hours until decision made. -cont ASA, Plavix, heparin, statin. Previously statin-intolerant (hence LDL > 200 on last admit, on no meds), getting high dose statin now. LDL improved can downtitrate statin. -con't low dose bb, cont ranexa for now. -ARB and CCB held (low bp's here) hypotension, ? cardiogenic shock, ? septic shock, acute respiratory failure: -MARY with low bp, congested CXR, c/w "cold and wet". Likely cardiac decompensation 2/2 acute ischemic MR. This also would explain the focal area of consolidation in right lung which has resolved with diuresis. Initially, patient also with low grade fever and concern for possible pna, now less likely. -resp status stable lying flat and off bipap--decr lasix to 40 iv daily yesterday. MARY - suspect cardiorenal/low output state - observe trend with diuresis HTN: -bp running low, will downtitrate BB DM: -per hospitalist h/o CVA: -currently on ASA, plavix, statin. est critical care time 50 min
--- NOTE | 2017-05-20 16:24 | PN ---
Progress Note, Physician History of Present Illness: Pt seen and examined at bedside. She is more awake and alert today. She denies shortness of breath. She remains in the ICU. - Current Medication List Current Medications: Active Medications Acetaminophen (Tylenol -) 650 mg PO Q4H PRN PRN Reason: FEVER OR PAIN Aspirin (Asa -) 81 mg PO DAILY [facility] Last Admin: 05/20/17 09:00 Dose: 81 mg Atorvastatin Calcium (Lipitor -) 80 mg PO HS [facility] Last Admin: 05/19/17 21:50 Dose: 80 mg Chlorhexidine Gluconate (Hibiclens For Decolonization -) 1 applic TP HS [facility] Last Admin: 05/19/17 21:50 Dose: 1 applic Clopidogrel Bisulfate (Plavix -) 75 mg PO DAILY [facility] Last Admin: 05/20/17 09:00 Dose: 75 mg Docusate Sodium (Colace -) 300 mg PO HS [facility] Last Admin: 05/19/17 21:50 Dose: 300 mg Furosemide (Lasix Injection -) 40 mg IVPUSH DAILY [facility] Last Admin: 05/20/17 09:06 Dose: 40 mg Heparin Sodium (Porcine) 25, (000 unit/ Sodium Chloride) 500 mls @ 16 mls/hr IV TITR [facility]; 800 UNIT/HR PRN Reason: Protocol Last Admin: 05/20/17 11:27 Dose: 10 mls/hr Ceftriaxone Sodium (Rocephin 1gm Ivpb (Pre-Docked)) 50 mls @ 100 mls/hr IVPB DAILY [facility] Last Admin: 05/20/17 09:00 Dose: 100 mls/hr Insulin Aspart (Novolog Vial Sliding Scale -) 1 vial SQ ACHS [facility] PRN Reason: Protocol Last Admin: 05/20/17 11:26 Dose: Not Given Latanoprost (Xalatan 0.005% Eye Drops -) 1 drop OU DAILY [facility] Last Admin: 05/20/17 09:01 Dose: 1 drop Metoprolol Tartrate (Lopressor -) 25 mg PO BID [facility] Last Admin: 05/20/17 09:00 Dose: 25 mg Mupirocin (Bactroban Ointment (For Decolonization) -) 1 applic NS BID [facility] Stop: 05/23/17 21:59 Last Admin: 05/20/17 09:02 Dose: 1 applic Pantoprazole Sodium (Protonix -) 40 mg PO DAILY [facility] Last Admin: 05/20/17 09:00 Dose: 40 mg Ranolazine (Ranexa -) 500 mg PO BID [facility] Last Admin: 05/20/17 09:00 Dose: 500 mg - Objective Vital Signs: Vital Signs Temperature 98.5 F 05/20/17 14:00 Pulse Rate 50 L 05/20/17 14:00 Respiratory Rate 11 L 05/20/17 14:00 Blood Pressure 102/47 05/20/17 14:00 O2 Sat by Pulse Oximetry (%) 100 05/20/17 11:13 Constitutional: Yes: Calm Eyes: Yes: Conjunctiva Clear HENT: Yes: Atraumatic Neck: Yes: Supple Cardiovascular: Yes: S1, S2 Respiratory: Yes: On Nasal O2 Gastrointestinal: Yes: Soft Genitourinary: Yes: Incontinence Musculoskeletal: Yes: WNL Edema: No Neurological: Yes: Oriented Psychiatric: Yes: Oriented Labs: CBC, BMP 05/20/17 05:15 05/20/17 05:15 INR, PTT INR 1.12 (0.82-1.09) 05/20/17 05:15 - ....Imaging Chest X-ray: Report Reviewed Problem List - Problems (1) Acute renal failure Code(s): N17.9 - ACUTE KIDNEY FAILURE, UNSPECIFIED Qualifiers: Acute renal failure type: unspecified Qualified Code(s): N17.9 - Acute kidney failure, unspecified (2) Acute respiratory failure with hypoxia Code(s): J96.01 - ACUTE RESPIRATORY FAILURE WITH HYPOXIA (3) CHF (congestive heart failure) Code(s): I50.9 - HEART FAILURE, UNSPECIFIED Qualifiers: Congestive heart failure type: unspecified congestive heart failure type Congestive heart failure chronicity: acute Qualified Code(s): I50.9 - Heart failure, unspecified (4) Myocardial infarct Code(s): I21.3 - ST ELEVATION (STEMI) MYOCARDIAL INFARCTION OF [facility] SITE (5) HLD (hyperlipidemia) Code(s): E78.5 - HYPERLIPIDEMIA, UNSPECIFIED (6) HTN (hypertension) Code(s): I10 - ESSENTIAL (PRIMARY) HYPERTENSION Assessment/Plan Current Medications Generic Name Dose Route Start Last Admin Trade Name Freq PRN Reason Stop Dose Admin Acetaminophen 650 mg 05/18/17 13:41 Tylenol - PO Q4H PRN FEVER OR PAIN Aspirin 81 mg 05/19/17 10:00 05/20/17 09:00 Asa - PO 81 mg DAILY [facility] Administration Atorvastatin Calcium 80 mg 05/18/17 15:30 05/19/17 21:50 Lipitor - PO 80 mg HS [facility] Administration Chlorhexidine Gluconate 1 applic 05/18/17 22:00 05/19/17 21:50 Hibiclens For Decolonization - TP 1 applic HS [facility] Administration Clopidogrel Bisulfate 75 mg 05/19/17 10:00 05/20/17 09:00 Plavix - PO 75 mg DAILY [facility] Administration Docusate Sodium 300 mg 05/18/17 22:00 05/19/17 21:50 Colace - PO 300 mg HS [facility] Administration Furosemide 40 mg 05/20/17 10:00 05/20/17 09:06 Lasix Injection - IVPUSH 40 mg DAILY [facility] Administration Heparin Sodium (Porcine) 25, 500 mls @ 16 mls/hr 05/18/17 10:15 05/20/17 11:27 000 unit/ Sodium Chloride IV 10 mls/hr TITR [facility] Administration Protocol 800 UNIT/HR Ceftriaxone Sodium 50 mls @ 100 mls/hr 05/19/17 10:00 05/20/17 09:00 Rocephin 1gm Ivpb (Pre-Docked) IVPB 100 mls/hr DAILY [facility] Administration Insulin Aspart 1 vial 05/18/17 16:30 05/20/17 11:26 Novolog Vial Sliding Scale - SQ Not Given ACHS [facility] Protocol Latanoprost 1 drop 05/19/17 10:00 05/20/17 09:01 Xalatan 0.005% Eye Drops - OU 1 drop DAILY [facility] Administration Metoprolol Tartrate 25 mg 05/19/17 22:00 05/20/17 09:00 Lopressor - PO 25 mg BID [facility] Administration Mupirocin 1 applic 05/18/17 22:00 05/20/17 09:02 Bactroban Ointment (For Decolonization) - NS 05/23/17 21:59 1 applic BID [facility] Administration Pantoprazole Sodium 40 mg 05/19/17 10:00 05/20/17 09:00 Protonix - PO 40 mg DAILY [facility] Administration Ranolazine 500 mg 05/18/17 22:00 05/20/17 09:00 Ranexa - PO 500 mg BID [facility] Administration Impression 1. MARY 2. hyperkalemia 3. CHF - acute 4. NSTEMI 5. DM 6. HTN 7. chol 8. dementia 9. CAD 10. lactic acidosis Plan - cont with lasix - monitor trader - will see as outpt for workup - urine shows trace protein - renal ultrasound was inadequate, will repeat once more stable - echo reviewed - likely etiology of mary was cardiorenal disease Dr Varner
[2017-05-20] MEDS ORDERED: HEMOQUE TEST 1 EACH EACH ONE (16:56)
--- NOTE | 2017-05-20 17:07 | PN ---
Progress Note, Physician Chief Complaint: MORE ALERT TODAY FAMILY BEDSIDE ECHO RESULTS REVIEWED - Current Medication List Current Medications: Active Medications Acetaminophen (Tylenol -) 650 mg PO Q4H PRN PRN Reason: FEVER OR PAIN Aspirin (Asa -) 81 mg PO DAILY [facility] Last Admin: 05/20/17 09:00 Dose: 81 mg Atorvastatin Calcium (Lipitor -) 80 mg PO HS [facility] Last Admin: 05/19/17 21:50 Dose: 80 mg Chlorhexidine Gluconate (Hibiclens For Decolonization -) 1 applic TP HS [facility] Last Admin: 05/19/17 21:50 Dose: 1 applic Clopidogrel Bisulfate (Plavix -) 75 mg PO DAILY [facility] Last Admin: 05/20/17 09:00 Dose: 75 mg Docusate Sodium (Colace -) 300 mg PO HS [facility] Last Admin: 05/19/17 21:50 Dose: 300 mg Furosemide (Lasix Injection -) 40 mg IVPUSH DAILY [facility] Last Admin: 05/20/17 09:06 Dose: 40 mg Heparin Sodium (Porcine) 25, (000 unit/ Sodium Chloride) 500 mls @ 16 mls/hr IV TITR [facility]; 800 UNIT/HR PRN Reason: Protocol Last Admin: 05/20/17 11:27 Dose: 10 mls/hr Ceftriaxone Sodium (Rocephin 1gm Ivpb (Pre-Docked)) 50 mls @ 100 mls/hr IVPB DAILY [facility] Last Admin: 05/20/17 09:00 Dose: 100 mls/hr Insulin Aspart (Novolog Vial Sliding Scale -) 1 vial SQ ACHS [facility] PRN Reason: Protocol Last Admin: 05/20/17 16:49 Dose: Not Given Latanoprost (Xalatan 0.005% Eye Drops -) 1 drop OU DAILY [facility] Last Admin: 05/20/17 09:01 Dose: 1 drop Metoprolol Tartrate (Lopressor -) 25 mg PO BID [facility] Last Admin: 05/20/17 09:00 Dose: 25 mg Mupirocin (Bactroban Ointment (For Decolonization) -) 1 applic NS BID [facility] Stop: 05/23/17 21:59 Last Admin: 05/20/17 09:02 Dose: 1 applic Pantoprazole Sodium (Protonix -) 40 mg PO DAILY [facility] Last Admin: 05/20/17 09:00 Dose: 40 mg Ranolazine (Ranexa -) 500 mg PO BID [facility] Last Admin: 05/20/17 09:00 Dose: 500 mg - Objective Vital Signs: Vital Signs Temperature 98.5 F 05/20/17 14:00 Pulse Rate 50 L 05/20/17 14:00 Respiratory Rate 11 L 05/20/17 14:00 Blood Pressure 102/47 05/20/17 14:00 O2 Sat by Pulse Oximetry (%) 100 05/20/17 11:13 Constitutional: Yes: Mild Distress Eyes: Yes: WNL HENT: Yes: WNL Neck: Yes: WNL Cardiovascular: Yes: WNL Respiratory: Yes: WNL Gastrointestinal: Yes: WNL Genitourinary: Yes: Incontinence Musculoskeletal: Yes: Muscle Weakness Extremities: Yes: WNL Edema: No Peripheral Pulses WNL: Yes Integumentary: Yes: WNL Wound/Incision: Yes: Clean/Dry Neurological: Yes: Pre-Existing Deficit ...Motor Strength: LLE, RLE Psychiatric: Yes: Other Labs: CBC, BMP 05/20/17 05:15 05/20/17 05:15 INR, PTT INR 1.12 (0.82-1.09) 05/20/17 05:15 Problem List - Problems (1) Acute renal failure Code(s): N17.9 - ACUTE KIDNEY FAILURE, UNSPECIFIED Qualifiers: Acute renal failure type: unspecified Qualified Code(s): N17.9 - Acute kidney failure, unspecified (2) Acute respiratory failure with hypoxia Code(s): J96.01 - ACUTE RESPIRATORY FAILURE WITH HYPOXIA (3) CHF (congestive heart failure) Code(s): I50.9 - HEART FAILURE, UNSPECIFIED Qualifiers: Congestive heart failure type: unspecified congestive heart failure type Congestive heart failure chronicity: acute Qualified Code(s): I50.9 - Heart failure, unspecified (4) Fever Code(s): R50.9 - FEVER, UNSPECIFIED Qualifiers: Fever type: unspecified Qualified Code(s): R50.9 - Fever, unspecified (5) Myocardial infarct Code(s): I21.3 - ST ELEVATION (STEMI) MYOCARDIAL INFARCTION OF [facility] SITE (6) Pneumonia Code(s): J18.9 - PNEUMONIA, UNSPECIFIED ORGANISM (7) Chest pain Code(s): R07.9 - CHEST PAIN, UNSPECIFIED (8) DVT prophylaxis Code(s): [id number] - (9) Diabetes Code(s): E11.9 - TYPE 2 DIABETES MELLITUS WITHOUT COMPLICATIONS Assessment/Plan ECHO SHOWS SEVERE HYPOKINESIS NOT A CANDIDATE FOR CARDIAC CATH FAMILY HAS CHOSEN CONSERVATIVE THERAPY ICU MONITORING CHECK LABS PT EVAL IV HEPARIN
[2017-05-20] MEDS: DOCUSATE SODIUM 100 MG CAPSULE (FP) PO SCH (21:20)
[2017-05-20] MEDS: ATORVASTATIN CA 80 MG TABLET (FP) PO SCH (21:20)
[2017-05-20] MEDS: CHLORHEXIDINE GLUCONATE 4% CLEANSER FOR DECOLONIZATION TP SCH (21:21)
[2017-05-21] MEDS: INSULIN SLIDING SCALE (NOVOLOG) 1 VIAL SQ SCH ×4 (06:17→22:15)
[2017-05-21 06:34] LABS: MCH 29.9 pg (25.7-33.7); MCHC 33.4 g/dl (32.0-36.0); MEAN CELL VOLUME 89.4 fl (80-96); MEAN PLT VOLUME 9.2 fl (7.5-11.1); PLATELET COUNT 276 K/MM3 (134-434); RDW 13.5 % (11.6-15.6); WHITE BLOOD COUNT 7.8 K/mm3 (4.0-10.0)
[2017-05-21 06:57] LABS: INR 1.08 (0.82-1.09); PROTHROMBIN TIME (PATIENT) 11.9 SEC (9.98-11.88)
[2017-05-21 06:59] LABS: ACTIVATED PTT 67.1 SECONDS (26.9-34.4)
[2017-05-21 07:30] LABS: ALBUMIN 2.8 g/dl (3.4-5.0); ALK PHOS 56 U/L (45-117); ANION GAP 7 (8-16); BILIRUBIN,TOTAL 0.3 mg/dL (0.2-1.0); CALCIUM 8.2 mg/dL (8.5-10.1); CO2 28 mmol/L (21-32); CREATININE 1.6 mg/dL (0.55-1.02); GLUCOSE,RANDOM 85 mg/dL (74-106); PHOSPHOROUS 3.8 mg/dL (2.5-4.9); SGOT/AST 22 U/L (15-37); SGPT/ALT 16 U/L (12-78); TOT PROT 5.9 g/dl (6.4-8.2)
--- NOTE | 2017-05-21 09:05 | PN ---
Progress Note (short form) - Note Progress Note: alert conversant eating breakfast no complaints Vital Signs Period Temp Pulse Resp BP Sys/Douglas Pulse Ox Last 24 Hr 98.2 F-98.7 F 50-65 9-16 99-127/43-59 100-100 cor-rrr lungs decreased bs at bases abd soft,nt ext no edema CBC, BMP 05/21/17 05:20 05/21/17 05:20 Microbiology 05/19/17 14:40 Blood - Peripheral Venous Blood Culture - Preliminary NO GROWTH OBTAINED AFTER 24 HOURS, INCUBATION TO CONTINUE FOR 4 DAYS. 05/19/17 14:40 Blood - Peripheral Venous Blood Culture - Preliminary NO GROWTH OBTAINED AFTER 24 HOURS, INCUBATION TO CONTINUE FOR 4 DAYS. 05/18/17 08:12 Blood - Peripheral Venous Blood Culture - Preliminary Staphylococcus Coagulase Neg 05/18/17 08:12 Blood - Peripheral Venous Blood Culture - Preliminary Staphylococcus Coagulase Neg 05/18/17 17:30 Urine For Antigen Detection Legionella Antigen - Final 05/18/17 17:30 Urine For Antigen Detection Streptococcus pneumoniae Antigen (M - Final 05/18/17 08:50 Urine - Urine - Catheterized Urine Culture - Final NO GROWTH OBTAINED Laboratory Tests 05/20/17 05/21/17 05:15 05:20 Random Vancomycin 13.643 Vancomycin Pre-Dose 19.481 H* Current Medications Acetaminophen (Tylenol -) 650 mg PO Q4H PRN PRN Reason: FEVER OR PAIN Aspirin (Asa -) 81 mg PO DAILY [facility] Last Admin: 05/20/17 09:00 Dose: 81 mg Atorvastatin Calcium (Lipitor -) 40 mg PO HS [facility] Chlorhexidine Gluconate (Hibiclens For Decolonization -) 1 applic TP HS [facility] Last Admin: 05/20/17 21:21 Dose: 1 applic Clopidogrel Bisulfate (Plavix -) 75 mg PO DAILY [facility] Last Admin: 05/20/17 09:00 Dose: 75 mg Docusate Sodium (Colace -) 300 mg PO HS [facility] Last Admin: 05/20/17 21:20 Dose: 300 mg Furosemide (Lasix Injection -) 40 mg IVPUSH DAILY [facility] Last Admin: 05/20/17 09:06 Dose: 40 mg Heparin Sodium (Porcine) 25, (000 unit/ Sodium Chloride) 500 mls @ 16 mls/hr IV TITR [facility]; 800 UNIT/HR PRN Reason: Protocol Last Admin: 05/20/17 11:27 Dose: 10 mls/hr Ceftriaxone Sodium (Rocephin 1gm Ivpb (Pre-Docked)) 50 mls @ 100 mls/hr IVPB DAILY [facility] Last Admin: 05/20/17 09:00 Dose: 100 mls/hr Insulin Aspart (Novolog Vial Sliding Scale -) 1 vial SQ ACHS [facility] PRN Reason: Protocol Last Admin: 05/21/17 06:17 Dose: Not Given Latanoprost (Xalatan 0.005% Eye Drops -) 1 drop OU DAILY [facility] Last Admin: 05/20/17 09:01 Dose: 1 drop Metoprolol Tartrate (Lopressor -) 12.5 mg PO BID [facility] Mupirocin (Bactroban Ointment (For Decolonization) -) 1 applic NS BID [facility] Stop: 05/23/17 21:59 Last Admin: 05/20/17 21:21 Dose: 1 applic Pantoprazole Sodium (Protonix -) 40 mg PO DAILY [facility] Last Admin: 05/20/17 09:00 Dose: 40 mg Ranolazine (Ranexa -) 500 mg PO BID [facility] Last Admin: 05/20/17 21:20 Dose: 500 mg a/p s/p [facility] bacteremia- ?significance repeat blood cultures continue vancomycin based on levels due to ckd possible pneumonia- on rocephin repeat vancomycin level in am mental status improved
[2017-05-21] MEDS: CEFTRIAXONE 50 ML IVPB SCH (10:08)
[2017-05-21] MEDS: CLOPIDOGREL BISULFATE 75 MG TABLET (FP) PO SCH (10:09)
[2017-05-21] MEDS: FUROSEMIDE 40 MG/4 ML INJECTABLE VIAL IVPUSH SCH (10:09)
[2017-05-21] MEDS: RANOLAZINE E.R. 500 MG TABLET (FP) PO SCH ×2 (10:09→21:49)
[2017-05-21] MEDS: METOPROLOL TARTRATE 25 MG TABLET (FP) PO SCH ×2 (10:09→21:49)
[2017-05-21] MEDS: PANTOPRAZOLE 40 MG TABLET (FP) PO SCH (10:09)
[2017-05-21] MEDS: ASPIRIN 81 MG CHEWABLE TABLETS PO SCH (10:09)
[2017-05-21] MEDS: MUPIROCIN 2% TOPICAL OINTMENT FOR DECOLONIZATION NS SCH ×2 (10:10→22:16)
--- NOTE | 2017-05-21 10:17 | PN ---
Teaching Attending Note Name of Resident: José Miguel Tinoco ATTENDING PHYSICIAN STATEMENT I saw and evaluated the patient. I reviewed the resident's note and discussed the case with the resident. I agree with the resident's findings and plan as documented. SUBJECTIVE: Patient seen and examined in the ICU. Awake and alert. Denies CP or SOB today. Denies significant cough or sputum production. CXR: Overall improved bilateral airspace disease Intake & Output 05/18/17 05/19/17 05/20/17 05/21/17 23:59 23:59 23:59 23:59 Intake Total 512 718 674 70 Output Total 1700 1550 1550 250 Balance -1188 -832 -876 -180 Weight 139 lb 4.8 oz 136 lb 3.931 oz 132 lb 15.02 oz 133 lb 6.075 oz Last Vital Signs Temp Pulse Resp BP Pulse Ox 98.4 F 82 16 133/52 100 05/21/17 06:00 05/21/17 08:00 05/21/17 08:00 05/21/17 08:00 05/21/17 06:15 Active Medications Acetaminophen (Tylenol -) 650 mg PO Q4H PRN PRN Reason: FEVER OR PAIN Aspirin (Asa -) 81 mg PO DAILY [facility] Last Admin: 05/21/17 10:09 Dose: 81 mg Atorvastatin Calcium (Lipitor -) 40 mg PO HS [facility] Chlorhexidine Gluconate (Hibiclens For Decolonization -) 1 applic TP HS [facility] Last Admin: 05/20/17 21:21 Dose: 1 applic Clopidogrel Bisulfate (Plavix -) 75 mg PO DAILY [facility] Last Admin: 05/21/17 10:09 Dose: 75 mg Docusate Sodium (Colace -) 300 mg PO HS [facility] Last Admin: 05/20/17 21:20 Dose: 300 mg Furosemide (Lasix Injection -) 40 mg IVPUSH DAILY [facility] Last Admin: 05/21/17 10:09 Dose: 40 mg Heparin Sodium (Porcine) 25, (000 unit/ Sodium Chloride) 500 mls @ 16 mls/hr IV TITR RODNEY; 800 UNIT/HR PRN Reason: Protocol Last Admin: 05/20/17 11:27 Dose: 10 mls/hr Ceftriaxone Sodium (Rocephin 1gm Ivpb (Pre-Docked)) 50 mls @ 100 mls/hr IVPB DAILY [facility] Last Admin: 05/21/17 10:08 Dose: 100 mls/hr Vancomycin HCl (Vancomycin (Pre-Docked)) 250 mls @ 166.667 mls/hr IVPB ONCE ONE PRN Reason: Protocol Stop: 05/21/17 12:29 Insulin Aspart (Novolog Vial Sliding Scale -) 1 vial SQ ACHS [facility] PRN Reason: Protocol Last Admin: 05/21/17 06:17 Dose: Not Given Latanoprost (Xalatan 0.005% Eye Drops -) 1 drop OU DAILY [facility] Last Admin: 05/20/17 09:01 Dose: 1 drop Metoprolol Tartrate (Lopressor -) 12.5 mg PO BID [facility] Last Admin: 05/21/17 10:09 Dose: 12.5 mg Mupirocin (Bactroban Ointment (For Decolonization) -) 1 applic NS BID [facility] Stop: 05/23/17 21:59 Last Admin: 05/21/17 10:10 Dose: 1 applic Pantoprazole Sodium (Protonix -) 40 mg PO DAILY [facility] Last Admin: 05/21/17 10:09 Dose: 40 mg Ranolazine (Ranexa -) 500 mg PO BID [facility] Last Admin: 05/21/17 10:09 Dose: 500 mg Constitutional: Yes: Awake and alert Eyes: Yes: Conjunctiva Clear HENT: Yes: Atraumatic, Normocephalic Neck: Yes: Supple, Trachea Midline Cardiovascular: Yes: S1S2 Respiratory: Yes: minimal basilar Rales / Rhonchi. No: Stridor, Wheezes Gastrointestinal: Yes: WNL ...Rectal Exam: Yes: Deferred Renal/: Yes: Huber Present Musculoskeletal: Yes: WNL Extremities: Yes: WNL Edema: No Peripheral Pulses WNL: Yes Integumentary: Yes: WNL Neurological: Yes: Alert ...Motor Strength: WNL Psychiatric: Yes: Alert Laboratory Results - last 24 hr 05/20/17 05/20/17 05/20/17 05:47 11:20 16:44 WBC RBC Hgb Hct MCV MCH MCHC RDW Plt Count MPV INR PTT (Actin FS) Sodium Potassium Chloride Carbon Dioxide Anion Gap BUN Creatinine Creat Clearance w eGFR POC Glucometer 102.63506 186.50463 110.56827 Random Glucose Calcium Phosphorus Magnesium Total Bilirubin AST ALT Alkaline Phosphatase Total Protein Albumin Random Vancomycin 05/20/17 05/20/17 05/21/17 19:00 21:23 05:20 WBC RBC Hgb Hct MCV MCH MCHC RDW Plt Count MPV INR PTT (Actin FS) 62.5 H Sodium Potassium Chloride Carbon Dioxide Anion Gap BUN Creatinine Creat Clearance w eGFR POC Glucometer 144.65521 Random Glucose Calcium Phosphorus Magnesium Total Bilirubin AST ALT Alkaline Phosphatase Total Protein Albumin Random Vancomycin 13.643 05/21/17 05/21/17 05/21/17 05:20 05:20 05:20 WBC 7.8 RBC 3.02 L Hgb 9.0 L Hct 27.0 L MCV 89.4 MCH 29.9 MCHC 33.4 RDW 13.5 Plt Count 276 MPV 9.2 INR 1.08 PTT (Actin FS) 67.1 H Sodium 139 Potassium 4.2 Chloride 104 Carbon Dioxide 28 Anion Gap 7 L BUN 45 H Creatinine 1.6 H Creat Clearance w eGFR 30.78 POC Glucometer Random Glucose 85 Calcium 8.2 L Phosphorus 3.8 Magnesium 2.0 Total Bilirubin 0.3 D AST 22 D ALT 16 Alkaline Phosphatase 56 Total Protein 5.9 L Albumin 2.8 L Random Vancomycin 05/21/17 05:56 WBC RBC Hgb Hct MCV MCH MCHC RDW Plt Count MPV INR PTT (Actin FS) Sodium Potassium Chloride Carbon Dioxide Anion Gap BUN Creatinine Creat Clearance w eGFR POC Glucometer 107.61402 Random Glucose Calcium Phosphorus Magnesium Total Bilirubin AST ALT Alkaline Phosphatase Total Protein Albumin Random Vancomycin Problem List - Problems (1) Acute renal failure Code(s): N17.9 - ACUTE KIDNEY FAILURE, UNSPECIFIED Qualifiers: Acute renal failure type: unspecified Qualified Code(s): N17.9 - Acute kidney failure, unspecified (2) CHF (congestive heart failure) Code(s): I50.9 - HEART FAILURE, UNSPECIFIED Qualifiers: Congestive heart failure type: unspecified congestive heart failure type Congestive heart failure chronicity: acute Qualified Code(s): I50.9 - Heart failure, unspecified (3) Myocardial infarct Code(s): I21.3 - ST ELEVATION (STEMI) MYOCARDIAL INFARCTION OF UNSP SITE (4) Pneumonia Code(s): J18.9 - PNEUMONIA, UNSPECIFIED ORGANISM (5) Chest pain Code(s): R07.9 - CHEST PAIN, UNSPECIFIED (6) Diabetes Code(s): E11.9 - TYPE 2 DIABETES MELLITUS WITHOUT COMPLICATIONS (7) HLD (hyperlipidemia) Code(s): E78.5 - HYPERLIPIDEMIA, UNSPECIFIED (8) HTN (hypertension) Code(s): I10 - ESSENTIAL (PRIMARY) HYPERTENSION (9) Acute respiratory failure with hypoxia Code(s): J96.01 - ACUTE RESPIRATORY FAILURE WITH HYPOXIA (10) Bacteremia Assessment/Plan O2 as needed to maintain saturation Lasix ABX per ID Strict I&O Daily weight ASA IV Heparin Cardiac Telemetry monitoring Dr Woodward Critical care time spent in reviewing chart, evaluating patient and formulating plan - 40 minutes. Problem List - Problems (1) Acute renal failure Code(s): N17.9 - ACUTE KIDNEY FAILURE, UNSPECIFIED Qualifiers: Acute renal failure type: unspecified Qualified Code(s): N17.9 - Acute kidney failure, unspecified (2) CHF (congestive heart failure) Code(s): I50.9 - HEART FAILURE, UNSPECIFIED Qualifiers: Congestive heart failure type: unspecified congestive heart failure type Congestive heart failure chronicity: acute Qualified Code(s): I50.9 - Heart failure, unspecified (3) Myocardial infarct Code(s): I21.3 - ST ELEVATION (STEMI) MYOCARDIAL INFARCTION OF UNS SITE (4) Pneumonia Code(s): J18.9 - PNEUMONIA, UNSPECIFIED ORGANISM (5) Chest pain Code(s): R07.9 - CHEST PAIN, UNSPECIFIED (6) Diabetes Code(s): E11.9 - TYPE 2 DIABETES MELLITUS WITHOUT COMPLICATIONS (7) HLD (hyperlipidemia) Code(s): E78.5 - HYPERLIPIDEMIA, UNSPECIFIED (8) HTN (hypertension) Code(s): I10 - ESSENTIAL (PRIMARY) HYPERTENSION (9) Acute respiratory failure with hypoxia Code(s): J96.01 - ACUTE RESPIRATORY FAILURE WITH HYPOXIA
[2017-05-21] MEDS: LATANOPROST 0.005% OPHTH SOLN 2.5ML BOTTLE OU SCH (10:20)
[2017-05-21] MEDS: HEPARIN - 25,000 UNIT in SODIUM CHLORIDE 495 ML IV SCH (10:30)
--- NOTE | 2017-05-21 10:37 | PN ---
Progress Note, Physician History of Present Illness: Pt seen and examined this AM in presence of executive director of nursing. Pt sitting up comfortably in bed and being fed breakfast. Pt much more alert and responsive today compared to yesterday. No issues overnight much more awake and alert today - Current Medication List Current Medications: Active Medications Acetaminophen (Tylenol -) 650 mg PO Q4H PRN PRN Reason: FEVER OR PAIN Aspirin (Asa -) 81 mg PO DAILY [facility] Last Admin: 05/21/17 10:09 Dose: 81 mg Atorvastatin Calcium (Lipitor -) 40 mg PO HS [facility] Chlorhexidine Gluconate (Hibiclens For Decolonization -) 1 applic TP HS [facility] Last Admin: 05/20/17 21:21 Dose: 1 applic Clopidogrel Bisulfate (Plavix -) 75 mg PO DAILY [facility] Last Admin: 05/21/17 10:09 Dose: 75 mg Docusate Sodium (Colace -) 300 mg PO HS [facility] Last Admin: 05/20/17 21:20 Dose: 300 mg Furosemide (Lasix Injection -) 40 mg IVPUSH DAILY [facility] Last Admin: 05/21/17 10:09 Dose: 40 mg Heparin Sodium (Porcine) 25, (000 unit/ Sodium Chloride) 500 mls @ 16 mls/hr IV TITR RODNEY; 800 UNIT/HR PRN Reason: Protocol Last Admin: 05/20/17 11:27 Dose: 10 mls/hr Ceftriaxone Sodium (Rocephin 1gm Ivpb (Pre-Docked)) 50 mls @ 100 mls/hr IVPB DAILY [facility] Last Admin: 05/21/17 10:08 Dose: 100 mls/hr Vancomycin HCl (Vancomycin (Pre-Docked)) 250 mls @ 166.667 mls/hr IVPB ONCE ONE PRN Reason: Protocol Stop: 05/21/17 12:29 Insulin Aspart (Novolog Vial Sliding Scale -) 1 vial SQ ACHS [facility] PRN Reason: Protocol Last Admin: 05/21/17 06:17 Dose: Not Given Latanoprost (Xalatan 0.005% Eye Drops -) 1 drop OU DAILY [facility] Last Admin: 05/20/17 09:01 Dose: 1 drop Metoprolol Tartrate (Lopressor -) 12.5 mg PO BID [facility] Last Admin: 05/21/17 10:09 Dose: 12.5 mg Mupirocin (Bactroban Ointment (For Decolonization) -) 1 applic NS BID [facility] Stop: 05/23/17 21:59 Last Admin: 05/21/17 10:10 Dose: 1 applic Pantoprazole Sodium (Protonix -) 40 mg PO DAILY [facility] Last Admin: 05/21/17 10:09 Dose: 40 mg Ranolazine (Ranexa -) 500 mg PO BID [facility] Last Admin: 05/21/17 10:09 Dose: 500 mg - Objective Vital Signs: Vital Signs Temperature 98.4 F 05/21/17 06:00 Pulse Rate 82 05/21/17 08:00 Respiratory Rate 16 05/21/17 08:00 Blood Pressure 133/52 05/21/17 08:00 O2 Sat by Pulse Oximetry (%) 100 05/21/17 06:15 GENERAL: The patient is alert, not altered HEAD: Normal with no signs of trauma. EYES: sclera anicteric, conjunctiva clear. No ptosis. ENT: Nasal cannula in place NECK: Trachea midline. supple LUNGS: Breath sounds equal, clear and diminished bilaterally, poor respiratory effort, no wheezes, no crackles, no accessory muscle use. HEART: Regular rate and rhythm, S1, S2 without murmur, rub or gallop. ABDOMEN: Soft, nontender, nondistended, normoactive BS, no guarding, no rebound, no hepatosplenomegaly, no masses. EXTREMITIES: 2+ radial pulses, warm, well-perfused, no edema. NEUROLOGICAL: Pt awake and alert, responds to basic commands; 1/5 muscle strength in RUE and 2/5 RUE; 4/5 in LUE and 3/5 LLE muscle strength. Decreased sensation to light touch RUE>LUE PSYCH: Cooperative, not agitated SKIN: Warm, dry, normal turgor, no rashes or lesions noted Labs: CBC, BMP 05/21/17 05:20 05/21/17 05:20 INR, PTT INR 1.08 (0.82-1.09) 05/21/17 05:20 - ....Imaging Chest X-ray: Report Reviewed, Image Reviewed (area of consolidatrion and infiltrate improved) Assessment/Plan 82 y/o F pmhx DM, HTN, HLD, CAD, CHF, dementia, hx CVA with R hemiplegia admitted 05/18/17 from [facility] for SOB and hypoxia 2/2 CHF exacerbation vs PNA found to have elevated troponins consistent with NSTEMI. Neuro: -history of CVA with R hemiplegia -Pt alert today; follows basic commands -Per notes has hx of dementia -Will continue to coordinate care with next of kin (daughter) Resp:acute hypoxemia respiratory failure likely secondary to underlying HCAP pneumonia vs aspiration pneumonia-improved -Per notes, at [facility] pt had O2 sats of 67% -Since admission was on BIPAP>Venturi mask>NC -Currently on 2L NC with O2 sat 100% -CXR today reveals possible L retrocardiac consolidation and decreased vascular congestion -Will continue Ceftriaxone IV 1gm today last day per ID -Swallowing eval performed today; pt cleared for regular diet with thin liquids Cardio:NSTEMI -Hx of admission 05/04/17-05/09/17 for ACS; per notes pt denied intervention and was medically managed at that time. Per cardiology notes pt had persantine stress test with EF of 29% (EF normal at rest) -Troponins this admission: 0.79>9.79>9.77>6.7>6.03 -BNP 8,428 -EKG 05/[address] changes and ST depression in lateral leads compared to EKG 05/04/17 -Cont heparin drip -Cont ASA, Lipitor 80mg, Plavix, Ranexa, Metoprolol succinate -40mg IV Daily from BID -Await results of echo performed today for assessment of LV function -Per notes family continues to desire conservative treatment -Appreciate cardiology recs Heme: Anemia CBC stable continue heparin gtt for now trend H/H Transfuse PRN end hemoccult when has bowel movement Endocrinology: history of diabetes insulin sliding scale fingerstisks for BGM ACHS GI: -Pt with vomiting on admission and AG of 17 - AG since closed -Continue heparin -Continue to monitor with daily labs Renal: -Acute on chronic renal insufficiency; baseline creatinine 1.2/1.3 -Cr on admission 2.1, stable at 1.7 since yesterday -Holding ANIVAL/ARB per cardiology -Continue to monitor, especially with addition of Vancomycin -Renal and bladder US performed yesterday; study inadequate 2/2 pt not cooperative ID:Sepsis from pneumonia. Bacteremia. -Fever of 100.4 on admission, since then pt has been afebrile and slightly hypothermic: Tmin this AM 97.5F -Lactic acid trended down from 6.0>1.8>0.7 -UA culture neg -S. pneumo and Legionella Ags neg -Blood cx from 05/18 positive for Coag neg Staph -f/u final ID and sensitivity- so far staph hominus species sensitive to vancomycin -Pt received Vancomycin 1gm, Levaquin 500mg, Cefepime 1gm and Zithromax 500mg on admission -Await repeat blood cx from 05/19 so far negative Vanco dose by level give 1 dose of vanco today per ID and recheck vanco random level in AM -ESR 78, CRP 10.9 -Appreciate ID recs FEN: -No fluids at this time -Cont to monitor electrolytes-no abnormalities at this time -Regular diet Prophylaxis: -Heparin drip for WI/SCDs -Protonix
[2017-05-21] MEDS ORDERED: VANCOMYCIN 1 GRAM (PRE-DOCKED) 250 ML IVPB ONE (11:00)
--- NOTE | 2017-05-21 11:45 | PN ---
Progress Note (short form) - Note Progress Note: Progress Note: Chief Complaint: TX, chf History of Present Illness: more awake today, calm, comfortable. denies dyspnea, cp, palps, dizziness Current Medications Generic Name Dose Route Start Last Admin Trade Name Freq PRN Reason Stop Dose Admin Acetaminophen 650 mg 05/18/17 13:41 Tylenol - PO Q4H PRN FEVER OR PAIN Aspirin 81 mg 05/19/17 10:00 05/21/17 10:09 Asa - PO 81 mg DAILY [facility] Administration Atorvastatin Calcium 40 mg 05/21/17 22:00 Lipitor - PO HS [facility] Chlorhexidine Gluconate 1 applic 05/18/17 22:00 05/20/17 21:21 Hibiclens For Decolonization - TP 1 applic HS [facility] Administration Clopidogrel Bisulfate 75 mg 05/19/17 10:00 05/21/17 10:09 Plavix - PO 75 mg DAILY [facility] Administration Docusate Sodium 300 mg 05/18/17 22:00 05/20/17 21:20 Colace - PO 300 mg HS [facility] Administration Furosemide 40 mg 05/20/17 10:00 05/21/17 10:09 Lasix Injection - IVPUSH 40 mg DAILY [facility] Administration Heparin Sodium (Porcine) 25, 500 mls @ 16 mls/hr 05/18/17 10:15 05/20/17 11:27 000 unit/ Sodium Chloride IV 05/21/17 16:00 10 mls/hr TITR RODNEY Administration Protocol 800 UNIT/HR Ceftriaxone Sodium 50 mls @ 100 mls/hr 05/19/17 10:00 05/21/17 10:08 Rocephin 1gm Ivpb (Pre-Docked) IVPB 100 mls/hr DAILY [facility] Administration Vancomycin HCl 250 mls @ 166.667 mls/hr 05/21/17 11:00 Vancomycin (Pre-Docked) IVPB 05/21/17 12:29 ONCE ONE Protocol Insulin Aspart 1 vial 05/18/17 16:30 05/21/17 06:17 Novolog Vial Sliding Scale - SQ Not Given ACHS [facility] Protocol Latanoprost 1 drop 05/19/17 10:00 05/20/17 09:01 Xalatan 0.005% Eye Drops - OU 1 drop DAILY [facility] Administration Metoprolol Tartrate 12.5 mg 05/21/17 10:00 05/21/17 10:09 Lopressor - PO 12.5 mg BID [facility] Administration Mupirocin 1 applic 05/18/17 22:00 05/21/17 10:10 Bactroban Ointment (For Decolonization) - NS 05/23/17 21:59 1 applic BID [facility] Administration Pantoprazole Sodium 40 mg 05/19/17 10:00 05/21/17 10:09 Protonix - PO 40 mg DAILY [facility] Administration Ranolazine 500 mg 05/18/17 22:00 05/21/17 10:09 Ranexa - PO 500 mg BID [facility] Administration Vital Signs Temp 98.8 F 05/21/17 10:00 Pulse 76 05/21/17 10:00 Resp 16 05/21/17 10:00 BP 125/49 05/21/17 10:00 Pulse Ox 100 05/21/17 06:15 Intake & Output 05/20/17 05/20/17 05/21/17 11:59 23:59 11:59 Intake Total 244 430 70 Output Total 400 1150 250 Balance -156 -720 -180 Weight 132 lb 15.02 oz 133 lb 6.075 oz Intake: IV 144 130 70 Heparin - 25,000 Unit In 144 130 70 Normal Saline - 495 ml @ 800 UNIT/HR 16 mls/hr IV TITR RODNEY Rx#:[id number] IVPB 100 150 Oral 150 Output: Urine 400 1150 250 Huber 400 1150 250 Other: Voiding Method Indwelling Catheter Indwelling Catheter Bowel Movement No No Weight Measurement Method Built in [facility] Built in [facility] Constitutional: Yes: Well Nourished, No Distress, Calm Cardiovascular: Yes: Regular Rate and Rhythm, S1, S2. No: JVD, Gallop, Murmur Respiratory: Yes: cta bl nl eff No: Accessory Muscle Use, Rales, Wheezes Gastrointestinal: No: Hepatomegaly Extremities: No: Cold Edema: No Neurological: Yes: awake alert appropriate Psychiatric: No: Agitated no jaundice diaphoresis Labs: Laboratory Last Values WBC 7.8 K/mm3 (4.0-10.0) 05/21/17 05:20 RBC 3.02 M/mm3 (3.60-5.2) L 05/21/17 05:20 Hgb 9.0 GM/dL (10.7-15.3) L 05/21/17 05:20 Hct 27.0 % (32.4-45.2) L 05/21/17 05:20 MCV 89.4 fl (80-96) 05/21/17 05:20 MCH 29.9 pg (25.7-33.7) 05/21/17 05:20 MCHC 33.4 g/dl (32.0-36.0) 05/21/17 05:20 RDW 13.5 % (11.6-15.6) 05/21/17 05:20 Plt Count 276 K/MM3 (134-434) 05/21/17 05:20 MPV 9.2 fl (7.5-11.1) 05/21/17 05:20 Neutrophils % 69.1 % (42.8-82.8) 05/19/17 05:35 Lymphocytes % 20.7 % (8-40) 05/19/17 05:35 Monocytes % 8.7 % (3.8-10.2) 05/19/17 05:35 Eosinophils % 0.6 % (0-4.5) 05/19/17 05:35 Basophils % 0.9 % (0-2.0) 05/19/17 05:35 ESR 78 mm/hr (0-30) H 05/20/17 05:15 INR 1.08 (0.82-1.09) 05/21/17 05:20 PTT (Actin FS) 67.1 SECONDS (26.9-34.4) H 05/21/17 05:20 Puncture Site Left brachial 05/18/17 08:35 ABG pH 7.37 (7.35-7.45) 05/18/17 08:35 ABG pCO2 at Pt Temp 35.0 mmHg (35-45) 05/18/17 08:35 ABG pO2 at Pt Temp 77.7 mmHg (68-100) 05/18/17 08:35 ABG HCO3 19.6 meq/L (22-26) L 05/18/17 08:35 ABG O2 Sat (Measured) 95.0 % (90-98.9) 05/18/17 08:35 ABG O2 Content 14.1 % vol (15-22) L 05/18/17 08:35 ABG Base Excess -4.6 meq/l (-2-2) L 05/18/17 08:35 Chase Test Positive 05/18/17 08:35 Oxygen Flow Rate 50% 05/18/17 08:35 Vent Mode S/t 05/18/17 08:35 Vent Rate 14 05/18/17 08:35 PEEP 0.0 cmH2O 05/18/17 08:35 Pressure Support Vent 1005/18/17 08:35 Sodium 139 mmol/L (136-145) 05/21/17 05:20 Potassium 4.2 mmol/L (3.5-5.1) 05/21/17 05:20 Chloride 104 mmol/L (98-107) 05/21/17 05:20 Carbon Dioxide 28 mmol/L (21-32) 05/21/17 05:20 Anion Gap 7 (8-16) L 05/21/17 05:20 BUN 45 mg/dL (7-18) H 05/21/17 05:20 Creatinine 1.6 mg/dL (0.55-1.02) H 05/21/17 05:20 Creat Clearance w eGFR 30.78 (>60) 05/21/17 05:20 POC Glucometer 107.04934 UNITS (()) 05/21/17 05:56 Random Glucose 85 mg/dL (74-106) 05/21/17 05:20 Hemoglobin A1c % 6.2 % (4.8-6.0) H 05/19/17 05:35 Lactic Acid 0.7 mmol/L (0.4-2.0) 05/19/17 05:35 Calcium 8.2 mg/dL (8.5-10.1) L 05/21/17 05:20 Phosphorus 3.8 mg/dL (2.5-4.9) 05/21/17 05:20 Magnesium 2.0 mg/dL (1.8-2.4) 05/21/17 05:20 Total Bilirubin 0.3 mg/dL (0.2-1.0) D 05/21/17 05:20 AST 22 U/L (15-37) D 05/21/17 05:20 ALT 16 U/L (12-78) 05/21/17 05:20 Alkaline Phosphatase 56 U/L (45-117) 05/21/17 05:20 Creatine Kinase 287 IU/L (26-192) H 05/19/17 05:35 Creatine Kinase Index 3.9 % (0.0-5.0) 05/19/17 05:35 CK-MB (CK-2) 11.266 ng/mL (0.5-3.6) H 05/19/17 05:35 Troponin I 6.03 ng/ml (0.00-0.05) H* 05/19/17 17:56 C-Reactive Protein 10.9 MG/DL (0.00-0.3) H 05/19/17 15:45 B-Natriuretic Peptide 8428.38 pg/ml (5-450) H 05/18/17 08:12 Total Protein 5.9 g/dl (6.4-8.2) L 05/21/17 05:20 Albumin 2.8 g/dl (3.4-5.0) L 05/21/17 05:20 Triglycerides 153 mg/dL (35-160) 05/20/17 05:15 Cholesterol 167 mg/dL (50-200) 05/20/17 05:15 Total LDL Cholesterol 83 mg/dL (5-100) 05/20/17 05:15 HDL Cholesterol 60 mg/dL (40-60) 05/20/17 05:15 Urine Color Lt. yellow 05/18/17 08:12 Urine Appearance Clear 05/18/17 08:12 Urine pH 6.0 (5.0-8.0) 05/18/17 08:12 Ur Specific Cobalt 1.015 (1.005-1.025) 05/18/17 08:12 Urine Protein Trace (NEGATIVE) H 05/18/17 08:12 Urine Glucose (UA) Negative (NEGATIVE) 05/18/17 08:12 Urine Ketones Negative (NEGATIVE) 05/18/17 08:12 Urine Blood Negative (NEGATIVE) 05/18/17 08:12 Urine Nitrite Negative (NEGATIVE) 05/18/17 08:12 Urine Bilirubin Negative (NEGATIVE) 05/18/17 08:12 Urine Urobilinogen 0.2 mg/dL (0.2-1.0) 05/18/17 08:12 Ur Leukocyte Esterase Negative (NEGATIVE) 05/18/17 08:12 Random Vancomycin 13.643 ug/ml 05/21/17 05:20 Vancomycin Pre-Dose 19.481 ug/ml (5.0-10.0) H* 05/20/17 05:15 EKG: Other (tele: NSR) cxr: clear lungs Echo 05/2017 this admission: tds. grossly nl lv function. mod-severe inferior wall hypokinesis. Nl rv function. mild-mod lae. + mac. severe MR. 1+ tr. rvsp 39 Echo 04/21 (here): nl LV/EF, normal wall motion. nl RV. nl LA. valves WNL. normal ao root. no peric eff MPI 04/21 (here), persantine: no ST changes vs baseline. moderate sized fixed defect inferior/inferolateral/lateral marshall with partial reversibility; small- moderate sized reversible anterolateral defect. severe global LV hypo, EF 29%. est cct 35 mins a/p: 82 yo female CAD s/p recent nstemi (? demand) and concern for 3vd on stress testing (managed medically), HTN, HLD, DM, prior CVA with right sided hemiplegiawith h/o sent to ER from [place] for hypoxia/sob NSTEMI with resulting acute ischemic MR: -recurrent cp, vomiting (= her anginal sx's) with new acute onset respiratory distress, peak trop 9 here. EKG with ischemic (downsloping) anterior ST-Ts, and new inferior nonspecific ST-Ts 05/19 vs admit. -recently here with same sx's, enzymes negative then, nuclear stress test suggestive of Multivessel Dz--pt declined cath. known/suspected CAD since 2007 (dr jacque osorio cardio)--refused cath then despite his rec's for her to have stent, per dtr -Now presents with acute NSTEMI c/b pulm edema echo now shows severe MR so pulmonary edema likey 2/2 acute ischemic MR. Additionally, she has proven failure to med therapy and high-risk for recurrent TX/. Discussed finding of acute ischemic MR to daughter which typically would be managed with revascularization (although counseled regarding inferior wall scar/hypokinesis and the possibility that revascularization does not guarantee that the mitral valve/inferior wall would regain function). However, no other way to treat the severe MR. Although both invasive and non-invasive options carry risk, counseled that without intervention, patient definitively will be high risk for morbidity/mortality both from CAD as well as advanced/irreversible valvular disease and a palliative approach should be pursued. Daughter again expressed concerns regarding ability of mother to adhere to DAPT (mild dementia/can intermittently refuse meds etc...) in addition to fall risk (multiple recent falls). Discussed risks/benefits of cardiac catheterization procedure in detail. Daughter continues to lean towards palliative care approach, especially considering that currently patient remains comfortable and respiratory status has improved. She is planning on discussing with family. Will continue with heparin drip for full 72 hours (to stop this afternoon). -cont ASA, Plavix, heparin, statin. Previously statin-intolerant (hence LDL > 200 on last admit, on no meds), getting high dose statin now. -con't low dose bb, cont ranexa for now. -ARB and CCB held (low bp's here) hypotension, ? cardiogenic shock, ? septic shock, acute respiratory failure: -MARY with low bp, congested CXR, c/w "cold and wet". Likely cardiac decompensation 2/2 acute ischemic MR. This also would explain the focal area of consolidation in right lung which has resolved with diuresis. Initially, patient also with low grade fever and concern for possible pna, now less likely. -resp status stable lying flat and off bipap and cxr improved--cont with lasix 40 iv qd for now MARY - suspect cardiorenal/low output state - cr improving with diuresis HTN: -stable on current meds h/o CVA: -currently on ASA, plavix, statin.
--- NOTE | 2017-05-21 13:40 | PN ---
Progress Note, [employer] - Note Progress Note: Selected Entries 05/20/17 05/20/17 05/20/17 02:00 06:00 08:00 Breakfast Lunch Temperature 98.7 F 97.7 F 97.5 F L 05/20/17 05/20/17 05/20/17 10:00 12:00 13:37 Breakfast 100% Lunch 25% Temperature 98.2 F 98.3 F 05/20/17 05/20/17 05/20/17 14:00 16:00 22:00 Breakfast Lunch Temperature 98.5 F 98.2 F 98.7 F 05/21/17 05/21/17 05/21/17 02:00 06:00 08:00 Breakfast 75% Lunch Temperature 98.2 F 98.4 F 05/21/17 10:00 Breakfast Lunch Temperature 98.8 F Laboratory Tests 05/21/17 05:20 WBC 7.8 Tolerating reg diet and thin liquid. More verbal. Speech initiation much improved.
--- NOTE | 2017-05-21 14:45 | PN ---
Progress Note, Physician History of Present Illness: Pt seen and examined at bedside. She is awake and alert. She denies shortness of breath. - Current Medication List Current Medications: Active Medications Acetaminophen (Tylenol -) 650 mg PO Q4H PRN PRN Reason: FEVER OR PAIN Aspirin (Asa -) 81 mg PO DAILY [facility] Last Admin: 05/21/17 10:09 Dose: 81 mg Atorvastatin Calcium (Lipitor -) 40 mg PO HS [facility] Chlorhexidine Gluconate (Hibiclens For Decolonization -) 1 applic TP HS [facility] Last Admin: 05/20/17 21:21 Dose: 1 applic Clopidogrel Bisulfate (Plavix -) 75 mg PO DAILY [facility] Last Admin: 05/21/17 10:09 Dose: 75 mg Docusate Sodium (Colace -) 300 mg PO HS [facility] Last Admin: 05/20/17 21:20 Dose: 300 mg Furosemide (Lasix Injection -) 40 mg IVPUSH DAILY [facility] Last Admin: 05/21/17 10:09 Dose: 40 mg Heparin Sodium (Porcine) 25, (000 unit/ Sodium Chloride) 500 mls @ 16 mls/hr IV TITR [facility]; 800 UNIT/HR PRN Reason: Protocol Stop: 05/21/17 16:00 Last Admin: 05/20/17 11:27 Dose: 10 mls/hr Ceftriaxone Sodium (Rocephin 1gm Ivpb (Pre-Docked)) 50 mls @ 100 mls/hr IVPB DAILY [facility] Last Admin: 05/21/17 10:08 Dose: 100 mls/hr Insulin Aspart (Novolog Vial Sliding Scale -) 1 vial SQ ACHS [facility] PRN Reason: Protocol Last Admin: 05/21/17 06:17 Dose: Not Given Latanoprost (Xalatan 0.005% Eye Drops -) 1 drop OU DAILY [facility] Last Admin: 05/20/17 09:01 Dose: 1 drop Metoprolol Tartrate (Lopressor -) 12.5 mg PO BID [facility] Last Admin: 05/21/17 10:09 Dose: 12.5 mg Mupirocin (Bactroban Ointment (For Decolonization) -) 1 applic NS BID [facility] Stop: 05/23/17 21:59 Last Admin: 05/21/17 10:10 Dose: 1 applic Pantoprazole Sodium (Protonix -) 40 mg PO DAILY [facility] Last Admin: 05/21/17 10:09 Dose: 40 mg Ranolazine (Ranexa -) 500 mg PO BID [facility] Last Admin: 05/21/17 10:09 Dose: 500 mg - Objective Vital Signs: Vital Signs Temperature 98.8 F 05/21/17 10:00 Pulse Rate 78 05/21/17 12:00 Respiratory Rate 16 05/21/17 12:00 Blood Pressure 99/84 05/21/17 12:00 O2 Sat by Pulse Oximetry (%) 100 05/21/17 14:15 Constitutional: Yes: Calm Eyes: Yes: Conjunctiva Clear HENT: Yes: Atraumatic Cardiovascular: Yes: S1, S2 Respiratory: Yes: On Nasal O2 Gastrointestinal: Yes: Soft Genitourinary: Yes: WNL Musculoskeletal: Yes: WNL Edema: No Neurological: Yes: Oriented Psychiatric: Yes: Oriented Labs: CBC, BMP 05/21/17 05:20 05/21/17 05:20 INR, PTT INR 1.08 (0.82-1.09) 05/21/17 05:20 Problem List - Problems (1) Acute renal failure Code(s): N17.9 - ACUTE KIDNEY FAILURE, UNSPECIFIED Qualifiers: Acute renal failure type: unspecified Qualified Code(s): N17.9 - Acute kidney failure, unspecified (2) Acute respiratory failure with hypoxia Code(s): J96.01 - ACUTE RESPIRATORY FAILURE WITH HYPOXIA (3) CHF (congestive heart failure) Code(s): I50.9 - HEART FAILURE, UNSPECIFIED Qualifiers: Congestive heart failure type: unspecified congestive heart failure type Congestive heart failure chronicity: acute Qualified Code(s): I50.9 - Heart failure, unspecified (4) Myocardial infarct Code(s): I21.3 - ST ELEVATION (STEMI) MYOCARDIAL INFARCTION OF [facility] SITE (5) HLD (hyperlipidemia) Code(s): E78.5 - HYPERLIPIDEMIA, UNSPECIFIED (6) HTN (hypertension) Code(s): I10 - ESSENTIAL (PRIMARY) HYPERTENSION Assessment/Plan Current Medications Generic Name Dose Route Start Last Admin Trade Name Freq PRN Reason Stop Dose Admin Acetaminophen 650 mg 05/18/17 13:41 Tylenol - PO Q4H PRN FEVER OR PAIN Aspirin 81 mg 05/19/17 10:00 05/21/17 10:09 Asa - PO 81 mg DAILY [facility] Administration Atorvastatin Calcium 40 mg 05/21/17 22:00 Lipitor - PO HS [facility] Chlorhexidine Gluconate 1 applic 05/18/17 22:00 05/20/17 21:21 Hibiclens For Decolonization - TP 1 applic HS [facility] Administration Clopidogrel Bisulfate 75 mg 05/19/17 10:00 05/21/17 10:09 Plavix - PO 75 mg DAILY [facility] Administration Docusate Sodium 300 mg 05/18/17 22:00 05/20/17 21:20 Colace - PO 300 mg HS [facility] Administration Furosemide 40 mg 05/20/17 10:00 05/21/17 10:09 Lasix Injection - IVPUSH 40 mg DAILY [facility] Administration Heparin Sodium (Porcine) 25, 500 mls @ 16 mls/hr 05/18/17 10:15 05/20/17 11:27 000 unit/ Sodium Chloride IV 05/21/17 16:00 10 mls/hr TITR [facility] Administration Protocol 800 UNIT/HR Ceftriaxone Sodium 50 mls @ 100 mls/hr 05/19/17 10:00 05/21/17 10:08 Rocephin 1gm Ivpb (Pre-Docked) IVPB 100 mls/hr DAILY [facility] Administration Insulin Aspart 1 vial 05/18/17 16:30 05/21/17 06:17 Novolog Vial Sliding Scale - SQ Not Given ACHS [facility] Protocol Latanoprost 1 drop 05/19/17 10:00 05/20/17 09:01 Xalatan 0.005% Eye Drops - OU 1 drop DAILY [facility] Administration Metoprolol Tartrate 12.5 mg 05/21/17 10:00 05/21/17 10:09 Lopressor - PO 12.5 mg BID [facility] Administration Mupirocin 1 applic 05/18/17 22:00 05/21/17 10:10 Bactroban Ointment (For Decolonization) - NS 05/23/17 21:59 1 applic BID [facility] Administration Pantoprazole Sodium 40 mg 05/19/17 10:00 05/21/17 10:09 Protonix - PO 40 mg DAILY [facility] Administration Ranolazine 500 mg 05/18/17 22:00 05/21/17 10:09 Ranexa - PO 500 mg BID [facility] Administration Impression 1. MARY 2. hyperkalemia 3. CHF - acute 4. NSTEMI 5. DM 6. HTN 7. chol 8. dementia 9. CAD 10. lactic acidosis Plan - renal function stable for now - will need prep if cath planned - will do workup as outpt - will need to repeat kidney ultrasound - echo reviewed - likely etiology of mary was cardiorenal disease Dr Varner
[2017-05-21] MEDS ORDERED: ONDANSETRON 4 MG/2 ML VIAL IVPB ONE (15:41)
[2017-05-21] MEDS ORDERED: ONDANSETRON 4 MG/2 ML VIAL ONE (15:43)
--- NOTE | 2017-05-21 15:46 | PN ---
Progress Note (short form) - Note Progress Note: Patient started complaining of left sided chest pain, 3-4 in intensity, non radiating. She mentions the chest pain is similar to the ones that she had in the past. After about half an hour, she started vomiting, non bilious, non bloody. Stat Zofran 4mg given (checked Qtc from previous chest x-ray), will do a stat EKG, stat troponins.
[2017-05-21 17:11] LABS: ANION GAP 8 (8-16); CALCIUM 8.5 mg/dL (8.5-10.1); CO2 27 mmol/L (21-32); CREATININE 1.7 mg/dL (0.55-1.02); GLUCOSE,RANDOM 138 mg/dL (74-106)
[2017-05-21 17:30] LABS: TROPONIN I 1.49 ng/ml (0.00-0.05)
--- NOTE | 2017-05-21 17:47 | PN ---
Progress Note, Physician Chief Complaint: AWAKE MORE ALERT NAD - Current Medication List Current Medications: Active Medications Acetaminophen (Tylenol -) 650 mg PO Q4H PRN PRN Reason: FEVER OR PAIN Aspirin (Asa -) 81 mg PO DAILY [facility] Last Admin: 05/21/17 10:09 Dose: 81 mg Atorvastatin Calcium (Lipitor -) 40 mg PO HS [facility] Chlorhexidine Gluconate (Hibiclens For Decolonization -) 1 applic TP HS [facility] Last Admin: 05/20/17 21:21 Dose: 1 applic Clopidogrel Bisulfate (Plavix -) 75 mg PO DAILY [facility] Last Admin: 05/21/17 10:09 Dose: 75 mg Docusate Sodium (Colace -) 300 mg PO HS [facility] Last Admin: 05/20/17 21:20 Dose: 300 mg Furosemide (Lasix Injection -) 40 mg IVPUSH DAILY [facility] Last Admin: 05/21/17 10:09 Dose: 40 mg Ceftriaxone Sodium (Rocephin 1gm Ivpb (Pre-Docked)) 50 mls @ 100 mls/hr IVPB DAILY [facility] Last Admin: 05/21/17 10:08 Dose: 100 mls/hr Insulin Aspart (Novolog Vial Sliding Scale -) 1 vial SQ ACHS [facility] PRN Reason: Protocol Last Admin: 05/21/17 17:11 Dose: Not Given Latanoprost (Xalatan 0.005% Eye Drops -) 1 drop OU DAILY [facility] Last Admin: 05/21/17 10:20 Dose: 1 drop Metoprolol Tartrate (Lopressor -) 12.5 mg PO BID [facility] Last Admin: 05/21/17 10:09 Dose: 12.5 mg Mupirocin (Bactroban Ointment (For Decolonization) -) 1 applic NS BID [facility] Stop: 05/23/17 21:59 Last Admin: 05/21/17 10:10 Dose: 1 applic Pantoprazole Sodium (Protonix -) 40 mg PO DAILY [facility] Last Admin: 05/21/17 10:09 Dose: 40 mg Ranolazine (Ranexa -) 500 mg PO BID [facility] Last Admin: 05/21/17 10:09 Dose: 500 mg - Objective Vital Signs: Vital Signs Temperature 98.8 F 05/21/17 10:00 Pulse Rate 78 05/21/17 12:00 Respiratory Rate 16 05/21/17 12:00 Blood Pressure 99/84 05/21/17 12:00 O2 Sat by Pulse Oximetry (%) 100 05/21/17 14:15 Constitutional: Yes: No Distress Eyes: Yes: WNL HENT: Yes: WNL Neck: Yes: WNL Cardiovascular: Yes: WNL Respiratory: Yes: WNL Gastrointestinal: Yes: WNL Genitourinary: Yes: WNL Musculoskeletal: Yes: WNL Extremities: Yes: WNL Edema: No Peripheral Pulses WNL: Yes Integumentary: Yes: Rash Wound/Incision: Yes: Other Neurological: Yes: Pre-Existing Deficit ...Motor Strength: WNL Psychiatric: Yes: WNL Labs: CBC, BMP 05/21/17 05:20 05/21/17 16:00 INR, PTT INR 1.08 (0.82-1.09) 05/21/17 05:20 Problem List - Problems (1) Acute renal failure Code(s): N17.9 - ACUTE KIDNEY FAILURE, UNSPECIFIED Qualifiers: Acute renal failure type: unspecified Qualified Code(s): N17.9 - Acute kidney failure, unspecified (2) Acute respiratory failure with hypoxia Code(s): J96.01 - ACUTE RESPIRATORY FAILURE WITH HYPOXIA (3) CHF (congestive heart failure) Code(s): I50.9 - HEART FAILURE, UNSPECIFIED Qualifiers: Congestive heart failure type: unspecified congestive heart failure type Congestive heart failure chronicity: acute Qualified Code(s): I50.9 - Heart failure, unspecified (4) Fever Code(s): R50.9 - FEVER, UNSPECIFIED Qualifiers: Fever type: unspecified Qualified Code(s): R50.9 - Fever, unspecified (5) Myocardial infarct Code(s): I21.3 - ST ELEVATION (STEMI) MYOCARDIAL INFARCTION OF [facility] SITE (6) Pneumonia Code(s): J18.9 - PNEUMONIA, UNSPECIFIED ORGANISM (7) Chest pain Code(s): R07.9 - CHEST PAIN, UNSPECIFIED (8) DVT prophylaxis Code(s): [id number] - (9) Diabetes Code(s): E11.9 - TYPE 2 DIABETES MELLITUS WITHOUT COMPLICATIONS Assessment/Plan ECHO SHOWS SEVERE HYPOKINESIS NOT A CANDIDATE FOR CARDIAC CATH FAMILY HAS CHOSEN CONSERVATIVE THERAPY ICU MONITORING CHECK LABS PT EVAL IV HEPARIN
[2017-05-21] MEDS: DOCUSATE SODIUM 100 MG CAPSULE (FP) PO SCH (21:48)
[2017-05-21] MEDS: CHLORHEXIDINE GLUCONATE 4% CLEANSER FOR DECOLONIZATION TP SCH (21:49)
[2017-05-21] MEDS: ATORVASTATIN CA 40 MG TABLET (FP) PO SCH (21:49)
[2017-05-22 06:42] LABS: MCH 30.3 pg (25.7-33.7); MCHC 33.9 g/dl (32.0-36.0); MEAN CELL VOLUME 89.5 fl (80-96); MEAN PLT VOLUME 9.1 fl (7.5-11.1); PLATELET COUNT 292 K/MM3 (134-434); RDW 13.2 % (11.6-15.6); WHITE BLOOD COUNT 7.1 K/mm3 (4.0-10.0)
[2017-05-22] MEDS: INSULIN SLIDING SCALE (NOVOLOG) 1 VIAL SQ SCH ×4 (07:00→21:27)
[2017-05-22 07:05] LABS: ALBUMIN 2.9 g/dl (3.4-5.0); ANION GAP 7 (8-16); CALCIUM 8.8 mg/dL (8.5-10.1); CO2 31 mmol/L (21-32); GLUCOSE,RANDOM 104 mg/dL (74-106); MAGNESIUM 2.2 mg/dL (1.8-2.4); PHOSPHOROUS 3.7 mg/dL (2.5-4.9); SGOT/AST 21 U/L (15-37)
[2017-05-22 07:08] LABS: ALK PHOS 61 U/L (45-117); BILIRUBIN,TOTAL 0.3 mg/dL (0.2-1.0); CREATININE 1.4 mg/dL (0.55-1.02); SGPT/ALT 15 U/L (12-78); TOT PROT 6.4 g/dl (6.4-8.2)
--- NOTE | 2017-05-22 09:15 | PN ---
Progress Note (short form) - Note Progress Note: alert humming again but intermittenly conversant doesn't feel good c/o chest pain Vital Signs Period Temp Pulse Resp BP Sys/Douglas Pulse Ox Last 24 Hr 97.8 F-98.8 F 68-88 11-18 99-134/49-84 100-100 cor-rrr lungs clear abd soft,nt ext no edema CBC, BMP 05/22/17 05:15 05/22/17 05:15 Laboratory Tests 05/20/17 05/21/17 05/22/17 05:15 05:20 06:00 Random Vancomycin 13.643 19.737 Vancomycin Pre-Dose 19.481 H* Microbiology 05/19/17 14:40 Blood - Peripheral Venous Blood Culture - Preliminary NO GROWTH OBTAINED AFTER 48 HOURS, INCUBATION TO CONTINUE FOR 3 DAYS. 05/19/17 14:40 Blood - Peripheral Venous Blood Culture - Preliminary NO GROWTH OBTAINED AFTER 48 HOURS, INCUBATION TO CONTINUE FOR 3 DAYS. 05/18/17 08:12 Blood - Peripheral Venous Blood Culture - Final Staph Hominis Sub Sp Hominis 05/18/17 08:12 Blood - Peripheral Venous Blood Culture - Final Staph Hominis Sub Sp Hominis 05/18/17 17:30 Urine For Antigen Detection Legionella Antigen - Final 05/18/17 17:30 Urine For Antigen Detection Streptococcus pneumoniae Antigen (M - Final 05/18/17 08:50 Urine - Urine - Catheterized Urine Culture - Final NO GROWTH OBTAINED Current Medications Acetaminophen (Tylenol -) 650 mg PO Q4H PRN PRN Reason: FEVER OR PAIN Aspirin (Asa -) 81 mg PO DAILY [facility] Last Admin: 05/21/17 10:09 Dose: 81 mg Atorvastatin Calcium (Lipitor -) 40 mg PO HS [facility] Last Admin: 05/21/17 21:49 Dose: 40 mg Chlorhexidine Gluconate (Hibiclens For Decolonization -) 1 applic TP [facility] Last Admin: 05/21/17 21:49 Dose: 1 applic Clopidogrel Bisulfate (Plavix -) 75 mg PO DAILY [facility] Last Admin: 05/21/17 10:09 Dose: 75 mg Docusate Sodium (Colace -) 300 mg PO [facility] Last Admin: 05/21/17 21:48 Dose: 300 mg Furosemide (Lasix Injection -) 40 mg IVPUSH DAILY [facility] Last Admin: 05/21/17 10:09 Dose: 40 mg Ceftriaxone Sodium (Rocephin 1gm Ivpb (Pre-Docked)) 50 mls @ 100 mls/hr IVPB DAILY [facility] Last Admin: 05/21/17 10:08 Dose: 100 mls/hr Insulin Aspart (Novolog Vial Sliding Scale -) 1 vial SQ ACHS [facility] PRN Reason: Protocol Last Admin: 05/22/17 07:00 Dose: Not Given Latanoprost (Xalatan 0.005% Eye Drops -) 1 drop OU DAILY [facility] Last Admin: 05/21/17 10:20 Dose: 1 drop Metoprolol Tartrate (Lopressor -) 12.5 mg PO BID [facility] Last Admin: 05/21/17 21:49 Dose: 12.5 mg Mupirocin (Bactroban Ointment (For Decolonization) -) 1 applic NS BID [facility] Stop: 05/23/17 21:59 Last Admin: 05/21/17 22:16 Dose: 1 applic Pantoprazole Sodium (Protonix -) 40 mg PO DAILY [facility] Last Admin: 05/21/17 10:09 Dose: 40 mg Ranolazine (Ranexa -) 500 mg PO BID [facility] Last Admin: 05/21/17 21:49 Dose: 500 mg cxray clear a/p s/p TX bacteremia- ?significance repeat blood cultures continue vancomycin based on levels due to ckd day #5 vancomycin- continue based on levels due to ckd echo noted, plan total 10 days will d/c rocephin recurrent chest pain- cardiology f/u repeat vancomycin level in am
[2017-05-22] MEDS: METOPROLOL TARTRATE 25 MG TABLET (FP) PO SCH ×3 (09:40→21:43)
[2017-05-22] MEDS: RANOLAZINE E.R. 500 MG TABLET (FP) PO SCH ×3 (09:41→21:43)
[2017-05-22] MEDS: PANTOPRAZOLE 40 MG TABLET (FP) PO SCH (09:41)
[2017-05-22] MEDS: CLOPIDOGREL BISULFATE 75 MG TABLET (FP) PO SCH (09:41)
[2017-05-22] MEDS: ASPIRIN 81 MG CHEWABLE TABLETS PO SCH (09:42)
[2017-05-22] MEDS: FUROSEMIDE 40 MG/4 ML INJECTABLE VIAL IVPUSH SCH (09:42)
[2017-05-22] MEDS: LATANOPROST 0.005% OPHTH SOLN 2.5ML BOTTLE OU SCH (11:00)
[2017-05-22] MEDS: MUPIROCIN 2% TOPICAL OINTMENT FOR DECOLONIZATION NS SCH ×2 (11:00→21:27)
--- NOTE | 2017-05-22 11:21 | PN ---
Progress Note (short form) - Note Progress Note: Progress Note: Chief Complaint: [place], chf History of Present Illness: more sleepy today. denies dyspnea, cp, palps, dizziness Current Medications Generic Name Dose Route Start Last Admin Trade Name Freq PRN Reason Stop Dose Admin Acetaminophen 650 mg 05/18/17 13:41 Tylenol - PO Q4H PRN FEVER OR PAIN Aspirin 81 mg 05/19/17 10:00 05/22/17 09:42 Asa - PO 81 mg DAILY [facility] Administration Atorvastatin Calcium 40 mg 05/21/17 22:00 05/21/17 21:49 Lipitor - PO 40 mg HS [facility] Administration Chlorhexidine Gluconate 1 applic 05/18/17 22:00 05/21/17 21:49 Hibiclens For Decolonization - TP 1 applic HS [facility] Administration Clopidogrel Bisulfate 75 mg 05/19/17 10:00 05/22/17 09:41 Plavix - PO 75 mg DAILY [facility] Administration Docusate Sodium 300 mg 05/18/17 22:00 05/21/17 21:48 Colace - PO 300 mg HS [facility] Administration Furosemide 40 mg 05/20/17 10:00 05/22/17 09:42 Lasix Injection - IVPUSH 40 mg DAILY [facility] Administration Insulin Aspart 1 vial 05/18/17 16:30 05/22/17 07:00 Novolog Vial Sliding Scale - SQ Not Given ACHS [facility] Protocol Latanoprost 1 drop 05/19/17 10:00 05/21/17 10:20 Xalatan 0.005% Eye Drops - OU 1 drop DAILY [facility] Administration Metoprolol Tartrate 12.5 mg 05/21/17 10:00 05/22/17 09:40 Lopressor - PO 12.5 mg BID [facility] Administration Mupirocin 1 applic 05/18/17 22:00 05/21/17 22:16 Bactroban Ointment (For Decolonization) - NS 05/23/17 21:59 1 applic BID [facility] Administration Pantoprazole Sodium 40 mg 05/19/17 10:00 05/22/17 09:41 Protonix - PO 40 mg DAILY [facility] Administration Ranolazine 500 mg 05/18/17 22:00 05/22/17 09:41 Ranexa - PO 500 mg BID [facility] Administration Vital Signs Temp 97.8 F 05/22/17 06:00 Pulse 76 05/22/17 10:14 Resp 12 05/22/17 08:00 BP 114/57 05/22/17 08:00 Pulse Ox 100 05/22/17 10:14 Intake & Output 05/21/17 05/21/17 05/22/17 11:59 23:59 11:59 Intake Total 70 430 Output Total 250 1250 350 Balance -180 -820 -350 Weight 133 lb 6.075 oz 134 lb 8 oz Intake: IV 70 80 Heparin - 25,000 Unit In 70 80 Normal Saline - 495 ml @ 800 UNIT/HR 16 mls/hr IV TITR [facility] Rx#:[id number] IVPB 350 Output: Urine 250 1250 350 Huber 250 1250 350 Other: Voiding Method Indwelling Catheter Indwelling Catheter # Unmeasured Voids Huber 1 Bowel Movement No No No Weight Measurement Method Built in Bedscale Built in [facility] Constitutional: Yes: Well Nourished, No Distress, Calm Cardiovascular: Yes: Regular Rate and Rhythm, S1, S2. No: JVD, Gallop, Murmur Respiratory: Yes: cta bl nl eff No: Accessory Muscle Use, Rales, Wheezes Gastrointestinal: No: Hepatomegaly Extremities: No: Cold Edema: No Neurological: Yes: sleepy but arousable and answers questions Psychiatric: No: Agitated no jaundice diaphoresis Labs: Laboratory Last Values WBC 7.1 K/mm3 (4.0-10.0) 05/22/17 05:15 RBC 3.17 M/mm3 (3.60-5.2) L 05/22/17 05:15 Hgb 9.6 GM/dL (10.7-15.3) L 05/22/17 05:15 Hct 28.4 % (32.4-45.2) L 05/22/17 05:15 MCV 89.5 fl (80-96) 05/22/17 05:15 MCH 30.3 pg (25.7-33.7) 05/22/17 05:15 MCHC 33.9 g/dl (32.0-36.0) 05/22/17 05:15 RDW 13.2 % (11.6-15.6) 05/22/17 05:15 Plt Count 292 K/MM3 (134-434) 05/22/17 05:15 MPV 9.1 fl (7.5-11.1) 05/22/17 05:15 Neutrophils % 69.1 % (42.8-82.8) 05/19/17 05:35 Lymphocytes % 20.7 % (8-40) 05/19/17 05:35 Monocytes % 8.7 % (3.8-10.2) 05/19/17 05:35 Eosinophils % 0.6 % (0-4.5) 05/19/17 05:35 Basophils % 0.9 % (0-2.0) 05/19/17 05:35 ESR 78 mm/hr (0-30) H 05/20/17 05:15 INR 1.08 (0.82-1.09) 05/21/17 05:20 PTT (Actin FS) 67.1 SECONDS (26.9-34.4) H 05/21/17 05:20 Puncture Site Left brachial 05/18/17 08:35 ABG pH 7.37 (7.35-7.45) 05/18/17 08:35 ABG pCO2 at Pt Temp 35.0 mmHg (35-45) 05/18/17 08:35 ABG pO2 at Pt Temp 77.7 mmHg (68-100) 05/18/17 08:35 ABG HCO3 19.6 meq/L (22-26) L 05/18/17 08:35 ABG O2 Sat (Measured) 95.0 % (90-98.9) 05/18/17 08:35 ABG O2 Content 14.1 % vol (15-22) L 05/18/17 08:35 ABG Base Excess -4.6 meq/l (-2-2) L 05/18/17 08:35 Chase Test Positive 05/18/17 08:35 Oxygen Flow Rate 50% 05/18/17 08:35 Vent Mode S/t 05/18/17 08:35 Vent Rate 14 05/18/17 08:35 PEEP 0.0 cmH2O 05/18/17 08:35 Pressure Support Vent 07/1005/18/17 08:35 Sodium 142 mmol/L (136-145) 05/22/17 05:15 Potassium 4.5 mmol/L (3.5-5.1) 05/22/17 05:15 Chloride 104 mmol/L (98-107) 05/22/17 05:15 Carbon Dioxide 31 mmol/L (21-32) 05/22/17 05:15 Anion Gap 7 (8-16) L 05/22/17 05:15 BUN 39 mg/dL (7-18) H 05/22/17 05:15 Creatinine 1.4 mg/dL (0.55-1.02) H 05/22/17 05:15 Creat Clearance w eGFR 35.91 (>60) 05/22/17 05:15 POC Glucometer 113.43481 UNITS (()) 05/22/17 06:00 Random Glucose 104 mg/dL (74-106) D 05/22/17 05:15 Hemoglobin A1c % 6.2 % (4.8-6.0) H 05/19/17 05:35 Lactic Acid 0.7 mmol/L (0.4-2.0) 05/19/17 05:35 Calcium 8.8 mg/dL (8.5-10.1) 05/22/17 05:15 Phosphorus 3.7 mg/dL (2.5-4.9) 05/22/17 05:15 Magnesium 2.2 mg/dL (1.8-2.4) 05/22/17 05:15 Total Bilirubin 0.3 mg/dL (0.2-1.0) 05/22/17 05:15 AST 21 U/L (15-37) 05/22/17 05:15 ALT 15 U/L (12-78) 05/22/17 05:15 Alkaline Phosphatase 61 U/L (45-117) 05/22/17 05:15 Creatine Kinase 96 IU/L (26-192) 05/21/17 16:00 Creatine Kinase Index 3.9 % (0.0-5.0) 05/19/17 05:35 CK-MB (CK-2) 11.266 ng/mL (0.5-3.6) H 05/19/17 05:35 Troponin I 1.49 ng/ml (0.00-0.05) H* 05/21/17 16:00 C-Reactive Protein 10.9 MG/DL (0.00-0.3) H 05/19/17 15:45 B-Natriuretic Peptide 8428.38 pg/ml (5-450) H 05/18/17 08:12 Total Protein 6.4 g/dl (6.4-8.2) 05/22/17 05:15 Albumin 2.9 g/dl (3.4-5.0) L 05/22/17 05:15 Triglycerides 153 mg/dL (35-160) 05/20/17 05:15 Cholesterol 167 mg/dL (50-200) 05/20/17 05:15 Total LDL Cholesterol 83 mg/dL (5-100) 05/20/17 05:15 HDL Cholesterol 60 mg/dL (40-60) 05/20/17 05:15 Urine Color Lt. yellow 05/18/17 08:12 Urine Appearance Clear 05/18/17 08:12 Urine pH 6.0 (5.0-8.0) 05/18/17 08:12 Ur Specific [place] 1.015 (1.005-1.025) 05/18/17 08:12 Urine Protein Trace (NEGATIVE) H 05/18/17 08:12 Urine Glucose (UA) Negative (NEGATIVE) 05/18/17 08:12 Urine Ketones Negative (NEGATIVE) 05/18/17 08:12 Urine Blood Negative (NEGATIVE) 05/18/17 08:12 Urine Nitrite Negative (NEGATIVE) 05/18/17 08:12 Urine Bilirubin Negative (NEGATIVE) 05/18/17 08:12 Urine Urobilinogen 0.2 mg/dL (0.2-1.0) 05/18/17 08:12 Ur Leukocyte Esterase Negative (NEGATIVE) 05/18/17 08:12 Random Vancomycin 19.737 ug/ml 05/22/17 06:00 Vancomycin Pre-Dose 19.481 ug/ml (5.0-10.0) H* 05/20/17 05:15 EKG: Other (tele: NSR) cxr: no chf, ?left infiltrate Echo 05/2017 this admission: tds. grossly nl lv function. mod-severe inferior wall hypokinesis. Nl rv function. mild-mod lae. + mac. severe MR. 1+ tr. rvsp 39 Echo 04/21 (here): nl LV/EF, normal wall motion. nl RV. nl LA. valves WNL. normal ao root. no peric eff MPI 04/21 (here), persantine: no ST changes vs baseline. moderate sized fixed defect inferior/inferolateral/lateral marshall with partial reversibility; small- moderate sized reversible anterolateral defect. severe global LV hypo, EF 29%. est cct 36 mins a/p: 82 yo female CAD s/p recent nstemi (? demand) and concern for 3vd on stress testing (managed medically), HTN, HLD, DM, prior CVA with right sided hemiplegia with h/o sent to ER from [place] for hypoxia/sob NSTEMI with resulting acute ischemic MR: -recurrent cp, vomiting (= her anginal sx's) with new acute onset respiratory distress, peak trop 9 here. EKG with ischemic (downsloping) anterior ST-Ts, and new inferior nonspecific ST-Ts 05/19 vs admit. -recently here with same sx's, enzymes negative then, nuclear stress test suggestive of Multivessel Dz--pt declined cath. known/suspected CAD since 2007 (dr jacque osorio cardio)--refused cath then despite his rec's for her to have stent, per dtr -Now presents with acute NSTEMI c/b pulm edema echo now shows severe MR so pulmonary edema likey 2/2 acute ischemic MR. Additionally, she has proven failure to med therapy and high-risk for recurrent [place]/. Discussed finding of acute ischemic MR to daughter which typically would be managed with revascularization (although counseled regarding inferior wall scar/hypokinesis and the possibility that revascularization does not guarantee that the mitral valve/inferior wall would regain function). However, no other way to treat the severe MR. Although both invasive and non-invasive options carry risk, counseled that without intervention, patient definitively will be high risk for morbidity/mortality both from CAD as well as advanced/irreversible valvular disease and a palliative approach should be pursued. Daughter again expressed concerns regarding ability of mother to adhere to DAPT (mild dementia/can intermittently refuse meds etc...) in addition to fall risk (multiple recent falls). Discussed risks/benefits of cardiac catheterization procedure in detail. Daughter continues to lean towards palliative care approach, especially considering that currently patient remains comfortable and respiratory status has improved. She is planning on discussing with family. -completed 72 hours hep gtt. cont ASA, Plavix, statin. -con't low dose bb, cont ranexa for now. -ARB and CCB held (low bp's here) hypotension, ? cardiogenic shock, ? septic shock, acute respiratory failure: -MARY with low bp, congested CXR, c/w "cold and wet". Likely cardiac decompensation 2/2 acute ischemic MR. This also would explain the focal area of consolidation in right lung which has resolved with diuresis. Initially, patient also with low grade fever and concern for possible pna, now less likely. -resp status stable lying flat and off bipap and cxr improved--cont with lasix 40 iv qd for now MARY - suspect cardiorenal/low output state - cr still improving with diuresis HTN: -stable on current meds h/o CVA: -currently on ASA, plavix, statin.
--- NOTE | 2017-05-22 11:37 | PN ---
Teaching Attending Note Name of Resident: José Miguel Tinoco ATTENDING PHYSICIAN STATEMENT I saw and evaluated the patient. I reviewed the resident's note and discussed the case with the resident. I agree with the resident's findings and plan as documented. SUBJECTIVE: Patient seen and examined in the ICU. Awake and alert. Denies CP or SOB. Denies significant cough or sputum production. CXR: Poor Inspiratory effort -> Possible LLL atelectasis / effusion Intake & Output 05/19/17 05/20/17 05/21/17 05/22/17 23:59 23:59 23:59 23:59 Intake Total 718 674 500 Output Total 1550 1550 1500 350 Balance -832 -876 -1000 -350 Weight 136 lb 3.931 oz 132 lb 15.02 oz 133 lb 6.075 oz 134 lb 8 oz Last Vital Signs Temp Pulse Resp BP Pulse Ox 98.7 F 76 12 128/48 100 05/22/17 10:00 05/22/17 10:14 05/22/17 10:00 05/22/17 10:00 05/22/17 10:14 Active Medications Acetaminophen (Tylenol -) 650 mg PO Q4H PRN PRN Reason: FEVER OR PAIN Aspirin (Asa -) 81 mg PO DAILY [facility] Last Admin: 05/22/17 09:42 Dose: 81 mg Atorvastatin Calcium (Lipitor -) 40 mg PO HS [facility] Last Admin: 05/21/17 21:49 Dose: 40 mg Chlorhexidine Gluconate (Hibiclens For Decolonization -) 1 applic TP HS [facility] Last Admin: 05/21/17 21:49 Dose: 1 applic Clopidogrel Bisulfate (Plavix -) 75 mg PO DAILY [facility] Last Admin: 05/22/17 09:41 Dose: 75 mg Docusate Sodium (Colace -) 300 mg PO HS [facility] Last Admin: 05/21/17 21:48 Dose: 300 mg Furosemide (Lasix Injection -) 40 mg IVPUSH DAILY [facility] Last Admin: 05/22/17 09:42 Dose: 40 mg Insulin Aspart (Novolog Vial Sliding Scale -) 1 vial SQ ACHS [facility] PRN Reason: Protocol Last Admin: 05/22/17 07:00 Dose: Not Given Latanoprost (Xalatan 0.005% Eye Drops -) 1 drop OU DAILY [facility] Last Admin: 05/21/17 10:20 Dose: 1 drop Metoprolol Tartrate (Lopressor -) 12.5 mg PO BID [facility] Last Admin: 05/22/17 09:40 Dose: 12.5 mg Mupirocin (Bactroban Ointment (For Decolonization) -) 1 applic NS BID [facility] Stop: 05/23/17 21:59 Last Admin: 05/21/17 22:16 Dose: 1 applic Pantoprazole Sodium (Protonix -) 40 mg PO DAILY [facility] Last Admin: 05/22/17 09:41 Dose: 40 mg Ranolazine (Ranexa -) 500 mg PO BID [facility] Last Admin: 05/22/17 09:41 Dose: 500 mg Constitutional: Yes: Awake and alert Eyes: Yes: Conjunctiva Clear HENT: Yes: Atraumatic, Normocephalic Neck: Yes: Supple, Trachea Midline Cardiovascular: Yes: S1S2 Respiratory: Yes: minimal basilar Rales / Rhonchi. No: Stridor, Wheezes Gastrointestinal: Yes: WNL ...Rectal Exam: Yes: Deferred Renal/: Yes: Huber Present Musculoskeletal: Yes: WNL Extremities: Yes: WNL Edema: No Peripheral Pulses WNL: Yes Integumentary: Yes: WNL Neurological: Yes: Alert ...Motor Strength: WNL Psychiatric: Yes: Alert Laboratory Results - last 24 hr 05/21/17 05/21/17 05/21/17 12:12 12:47 16:00 WBC RBC Hgb Hct MCV MCH MCHC RDW Plt Count MPV Sodium Potassium Chloride Carbon Dioxide Anion Gap BUN Creatinine Creat Clearance w eGFR POC Glucometer 261.42687 278.44938 Random Glucose Calcium Phosphorus Magnesium Total Bilirubin AST ALT Alkaline Phosphatase Creatine Kinase 96 Troponin I 1.49 H* Total Protein Albumin Random Vancomycin 05/21/17 05/21/17 05/21/17 16:00 17:00 21:53 WBC RBC Hgb Hct MCV MCH MCHC RDW Plt Count MPV Sodium 136 Potassium 4.4 Chloride 101 Carbon Dioxide 27 Anion Gap 8 BUN 47 H Creatinine 1.7 H Creat Clearance w eGFR POC Glucometer 160.11620 130.63949 Random Glucose 138 H D Calcium 8.5 Phosphorus Magnesium Total Bilirubin AST ALT Alkaline Phosphatase Creatine Kinase Troponin I Total Protein Albumin Random Vancomycin 05/22/17 05/22/17 05/22/17 05:15 05:15 06:00 WBC 7.1 RBC 3.17 L Hgb 9.6 L Hct 28.4 L MCV 89.5 MCH 30.3 MCHC 33.9 RDW 13.2 Plt Count 292 MPV 9.1 Sodium 142 Potassium 4.5 Chloride 104 Carbon Dioxide 31 Anion Gap 7 L BUN 39 H Creatinine 1.4 H Creat Clearance w eGFR 35.91 POC Glucometer Random Glucose 104 D Calcium 8.8 Phosphorus 3.7 Magnesium 2.2 Total Bilirubin 0.3 AST 21 ALT 15 Alkaline Phosphatase 61 Creatine Kinase Troponin I Total Protein 6.4 Albumin 2.9 L Random Vancomycin 19.737 05/22/17 05/22/17 06:00 11:09 WBC RBC Hgb Hct MCV MCH MCHC RDW Plt Count MPV Sodium Potassium Chloride Carbon Dioxide Anion Gap BUN Creatinine Creat Clearance w eGFR POC Glucometer 113.46765 191.60466 Random Glucose Calcium Phosphorus Magnesium Total Bilirubin AST ALT Alkaline Phosphatase Creatine Kinase Troponin I Total Protein Albumin Random Vancomycin Problem List - Problems (1) Acute renal failure Code(s): N17.9 - ACUTE KIDNEY FAILURE, UNSPECIFIED Qualifiers: Acute renal failure type: unspecified Qualified Code(s): N17.9 - Acute kidney failure, unspecified (2) CHF (congestive heart failure) Code(s): I50.9 - HEART FAILURE, UNSPECIFIED Qualifiers: Congestive heart failure type: unspecified congestive heart failure type Congestive heart failure chronicity: acute Qualified Code(s): I50.9 - Heart failure, unspecified (3) Myocardial infarct Code(s): I21.3 - ST ELEVATION (STEMI) MYOCARDIAL INFARCTION OF [facility] SITE (4) Pneumonia Code(s): J18.9 - PNEUMONIA, UNSPECIFIED ORGANISM (5) Chest pain Code(s): R07.9 - CHEST PAIN, UNSPECIFIED (6) Diabetes Code(s): E11.9 - TYPE 2 DIABETES MELLITUS WITHOUT COMPLICATIONS (7) HLD (hyperlipidemia) Code(s): E78.5 - HYPERLIPIDEMIA, UNSPECIFIED (8) HTN (hypertension) Code(s): I10 - ESSENTIAL (PRIMARY) HYPERTENSION (9) Acute respiratory failure with hypoxia Code(s): J96.01 - ACUTE RESPIRATORY FAILURE WITH HYPOXIA (10) Bacteremia Assessment/Plan O2 as needed to maintain saturation Lasix ABX per ID Strict I&O Daily weight ASA IV Heparin Incentive Spirometry / OOB / Ambulate Cardiac Telemetry monitoring Dr Woodward Critical care time spent in reviewing chart, evaluating patient and formulating plan - 40 minutes. Problem List - Problems (1) Acute renal failure Code(s): N17.9 - ACUTE KIDNEY FAILURE, UNSPECIFIED Qualifiers: Acute renal failure type: unspecified Qualified Code(s): N17.9 - Acute kidney failure, unspecified (2) CHF (congestive heart failure) Code(s): I50.9 - HEART FAILURE, UNSPECIFIED Qualifiers: Congestive heart failure type: unspecified congestive heart failure type Congestive heart failure chronicity: acute Qualified Code(s): I50.9 - Heart failure, unspecified (3) Myocardial infarct Code(s): I21.3 - ST ELEVATION (STEMI) MYOCARDIAL INFARCTION OF [facility] SITE (4) Pneumonia Code(s): J18.9 - PNEUMONIA, UNSPECIFIED ORGANISM (5) Chest pain Code(s): R07.9 - CHEST PAIN, UNSPECIFIED (6) Diabetes Code(s): E11.9 - TYPE 2 DIABETES MELLITUS WITHOUT COMPLICATIONS (7) HLD (hyperlipidemia) Code(s): E78.5 - HYPERLIPIDEMIA, UNSPECIFIED (8) HTN (hypertension) Code(s): I10 - ESSENTIAL (PRIMARY) HYPERTENSION (9) Acute respiratory failure with hypoxia Code(s): J96.01 - ACUTE RESPIRATORY FAILURE WITH HYPOXIA
[2017-05-22] MEDS ORDERED: METOCLOPRAMIDE HCL INJECTION 10 MG/2 ML VIAL IVPB ONE (14:29)
--- NOTE | 2017-05-22 16:07 | PN ---
Progress Note, Physician History of Present Illness: Pt seen and examined at bedside. She is awake and alert. She complains of nausea today. - Current Medication List Current Medications: Active Medications Acetaminophen (Tylenol -) 650 mg PO Q4H PRN PRN Reason: FEVER OR PAIN Aspirin (Asa -) 81 mg PO DAILY [facility] Last Admin: 05/22/17 09:42 Dose: 81 mg Atorvastatin Calcium (Lipitor -) 40 mg PO HS [facility] Last Admin: 05/21/17 21:49 Dose: 40 mg Chlorhexidine Gluconate (Hibiclens For Decolonization -) 1 applic TP HS [facility] Last Admin: 05/21/17 21:49 Dose: 1 applic Clopidogrel Bisulfate (Plavix -) 75 mg PO DAILY [facility] Last Admin: 05/22/17 09:41 Dose: 75 mg Docusate Sodium (Colace -) 300 mg PO HS [facility] Last Admin: 05/21/17 21:48 Dose: 300 mg Furosemide (Lasix Injection -) 40 mg IVPUSH DAILY [facility] Last Admin: 05/22/17 09:42 Dose: 40 mg Insulin Aspart (Novolog Vial Sliding Scale -) 1 vial SQ ACHS [facility] PRN Reason: Protocol Last Admin: 05/22/17 11:30 Dose: Not Given Latanoprost (Xalatan 0.005% Eye Drops -) 1 drop OU DAILY [facility] Last Admin: 05/21/17 10:20 Dose: 1 drop Metoprolol Tartrate (Lopressor -) 12.5 mg PO BID [facility] Last Admin: 05/22/17 09:40 Dose: 12.5 mg Mupirocin (Bactroban Ointment (For Decolonization) -) 1 applic NS BID [facility] Stop: 05/23/17 21:59 Last Admin: 05/21/17 22:16 Dose: 1 applic Pantoprazole Sodium (Protonix -) 40 mg PO DAILY [facility] Last Admin: 05/22/17 09:41 Dose: 40 mg Ranolazine (Ranexa -) 500 mg PO BID [facility] Last Admin: 05/22/17 09:41 Dose: 500 mg - Objective Vital Signs: Vital Signs Temperature 98.7 F 05/22/17 10:00 Pulse Rate 61 05/22/17 14:00 Respiratory Rate 16 05/22/17 14:00 Blood Pressure 113/48 05/22/17 14:00 O2 Sat by Pulse Oximetry (%) 100 05/22/17 10:14 Constitutional: Yes: Calm Eyes: Yes: Conjunctiva Clear HENT: Yes: Atraumatic Neck: Yes: Supple Cardiovascular: Yes: S1, S2 Respiratory: Yes: On Nasal O2 Gastrointestinal: Yes: Soft Genitourinary: Yes: WNL Musculoskeletal: Yes: WNL Edema: No Neurological: Yes: Oriented Labs: CBC, BMP 05/22/17 05:15 05/22/17 05:15 INR, PTT INR 1.08 (0.82-1.09) 05/21/17 05:20 Problem List - Problems (1) Acute renal failure Code(s): N17.9 - ACUTE KIDNEY FAILURE, UNSPECIFIED Qualifiers: Acute renal failure type: unspecified Qualified Code(s): N17.9 - Acute kidney failure, unspecified (2) Acute respiratory failure with hypoxia Code(s): J96.01 - ACUTE RESPIRATORY FAILURE WITH HYPOXIA (3) CHF (congestive heart failure) Code(s): I50.9 - HEART FAILURE, UNSPECIFIED Qualifiers: Congestive heart failure type: unspecified congestive heart failure type Congestive heart failure chronicity: acute Qualified Code(s): I50.9 - Heart failure, unspecified (4) Myocardial infarct Code(s): I21.3 - ST ELEVATION (STEMI) MYOCARDIAL INFARCTION OF [facility] SITE (5) HLD (hyperlipidemia) Code(s): E78.5 - HYPERLIPIDEMIA, UNSPECIFIED (6) HTN (hypertension) Code(s): I10 - ESSENTIAL (PRIMARY) HYPERTENSION Assessment/Plan Current Medications Generic Name Dose Route Start Last Admin Trade Name Freq PRN Reason Stop Dose Admin Acetaminophen 650 mg 05/18/17 13:41 Tylenol - PO Q4H PRN FEVER OR PAIN Aspirin 81 mg 05/19/17 10:00 05/22/17 09:42 Asa - PO 81 mg DAILY [facility] Administration Atorvastatin Calcium 40 mg 05/21/17 22:00 05/21/17 21:49 Lipitor - PO 40 mg HS [facility] Administration Chlorhexidine Gluconate 1 applic 05/18/17 22:00 05/21/17 21:49 Hibiclens For Decolonization - TP 1 applic HS [facility] Administration Clopidogrel Bisulfate 75 mg 05/19/17 10:00 05/22/17 09:41 Plavix - PO 75 mg DAILY [facility] Administration Docusate Sodium 300 mg 05/18/17 22:00 05/21/17 21:48 Colace - PO 300 mg HS [facility] Administration Furosemide 40 mg 05/20/17 10:00 05/22/17 09:42 Lasix Injection - IVPUSH 40 mg DAILY [facility] Administration Insulin Aspart 1 vial 05/18/17 16:30 05/22/17 11:30 Novolog Vial Sliding Scale - SQ Not Given ACHS [facility] Protocol Latanoprost 1 drop 05/19/17 10:00 05/21/17 10:20 Xalatan 0.005% Eye Drops - OU 1 drop DAILY [facility] Administration Metoprolol Tartrate 12.5 mg 05/21/17 10:00 05/22/17 09:40 Lopressor - PO 12.5 mg BID [facility] Administration Mupirocin 1 applic 05/18/17 22:00 05/21/17 22:16 Bactroban Ointment (For Decolonization) - NS 05/23/17 21:59 1 applic BID [facility] Administration Pantoprazole Sodium 40 mg 05/19/17 10:00 05/22/17 09:41 Protonix - PO 40 mg DAILY [facility] Administration Ranolazine 500 mg 05/18/17 22:00 05/22/17 09:41 Ranexa - PO 500 mg BID [facility] Administration Impression 1. MARY 2. hyperkalemia 3. CHF - acute 4. NSTEMI 5. DM 6. HTN 7. chol 8. dementia 9. CAD 10. lactic acidosis Plan - renal function is actually improved - cont with lasix - will discuss transition to PO with cardio - renal mass vs cyst should be imaged, ultrasound report reviewed - likely etiology of mary was cardiorenal disease Dr Varner
--- NOTE | 2017-05-22 16:15 | PN ---
Progress Note, Physician History of Present Illness: No issues overnight much more awake and alert today still has not had a bowel movement despite laxatives and stimulants - Current Medication List Current Medications: Active Medications Acetaminophen (Tylenol -) 650 mg PO Q4H PRN PRN Reason: FEVER OR PAIN Aspirin (Asa -) 81 mg PO DAILY [facility] Last Admin: 05/22/17 09:42 Dose: 81 mg Atorvastatin Calcium (Lipitor -) 40 mg PO HS [facility] Last Admin: 05/21/17 21:49 Dose: 40 mg Chlorhexidine Gluconate (Hibiclens For Decolonization -) 1 applic TP HS [facility] Last Admin: 05/21/17 21:49 Dose: 1 applic Clopidogrel Bisulfate (Plavix -) 75 mg PO DAILY [facility] Last Admin: 05/22/17 09:41 Dose: 75 mg Docusate Sodium (Colace -) 300 mg PO HS [facility] Last Admin: 05/21/17 21:48 Dose: 300 mg Furosemide (Lasix Injection -) 40 mg IVPUSH DAILY [facility] Last Admin: 05/22/17 09:42 Dose: 40 mg Insulin Aspart (Novolog Vial Sliding Scale -) 1 vial SQ ACHS [facility] PRN Reason: Protocol Last Admin: 05/22/17 11:30 Dose: Not Given Latanoprost (Xalatan 0.005% Eye Drops -) 1 drop OU DAILY [facility] Last Admin: 05/21/17 10:20 Dose: 1 drop Metoprolol Tartrate (Lopressor -) 12.5 mg PO BID [facility] Last Admin: 05/22/17 09:40 Dose: 12.5 mg Mupirocin (Bactroban Ointment (For Decolonization) -) 1 applic NS BID [facility] Stop: 05/23/17 21:59 Last Admin: 05/21/17 22:16 Dose: 1 applic Pantoprazole Sodium (Protonix -) 40 mg PO DAILY [facility] Last Admin: 05/22/17 09:41 Dose: 40 mg Ranolazine (Ranexa -) 500 mg PO BID [facility] Last Admin: 05/22/17 09:41 Dose: 500 mg - Objective Vital Signs: Vital Signs Temperature 98.7 F 05/22/17 10:00 Pulse Rate 61 05/22/17 14:00 Respiratory Rate 16 05/22/17 14:00 Blood Pressure 113/48 05/22/17 14:00 O2 Sat by Pulse Oximetry (%) 100 05/22/17 10:14 GENERAL: The patient is alert, not altered HEAD: Normal with no signs of trauma. EYES: sclera anicteric, conjunctiva clear. No ptosis. ENT: Nasal cannula in place NECK: Trachea midline. supple LUNGS: Breath sounds equal, clear and diminished bilaterally, poor respiratory effort, no wheezes, no crackles, no accessory muscle use. HEART: Regular rate and rhythm, S1, S2 without murmur, rub or gallop. ABDOMEN: Soft, nontender, nondistended, normoactive BS, no guarding, no rebound, no hepatosplenomegaly, no masses. EXTREMITIES: 2+ radial pulses, warm, well-perfused, no edema. NEUROLOGICAL: Pt awake and alert, responds to basic commands; 1/5 muscle strength in RUE and 2/5 RUE; 4/5 in LUE and 3/5 LLE muscle strength. Decreased sensation to light touch RUE>LUE PSYCH: Cooperative, not agitated SKIN: Warm, dry, normal turgor, no rashes or lesions noted Labs: CBC, BMP 05/22/17 05:15 05/22/17 05:15 INR, PTT INR 1.08 (0.82-1.09) 05/21/17 05:20 - ....Imaging Chest X-ray: Report Reviewed, Image Reviewed Assessment/Plan 82 y/o F pmhx DM, HTN, HLD, CAD, CHF, dementia, hx CVA with R hemiplegia [facility] and hypoxia 2/2 CHF exacerbation vs PNA found to have elevated troponins consistent with NSTEMI. Neuro: -history of CVA with R hemiplegia -Pt alert today; follows basic commands -Per notes has hx of dementia -Will continue to coordinate care with next of kin (daughter) Resp:acute hypoxemia respiratory failure likely secondary to underlying HCAP pneumonia vs aspiration pneumonia-improved -Per notes, at prison pt had O2 sats of 67% -on room air now -Swallowing eval performed today; pt cleared for regular diet with thin liquids Cardio:NSTEMI -Hx of admission 05/04/17-05/09/17 for ACS; per notes pt denied intervention and was medically managed at that time. Per cardiology notes pt had persantine stress test with EF of 29% (EF normal at rest) -BNP 8,428 -EKG 05/[address] changes and ST depression in lateral leads compared to EKG 05/04/17 -Cont heparin drip -Cont ASA, Lipitor 80mg, Plavix, Ranexa, Metoprolol succinate -40mg IV Daily -Await results of echo performed today for assessment of LV function -Per notes family continues to desire conservative treatment refusing cath -Appreciate cardiology recs Heme: Anemia CBC stable continue heparin gtt for now trend H/H Transfuse PRN end hemoccult when has bowel movement Endocrinology: history of diabetes insulin sliding scale fingerstisks for BGM ACHS GI: -Pt with vomiting on admission and AG of 17 - AG since closed vomited again yesterday. Will get KUB to rule out obstruction -Continue heparin -Continue to monitor with daily labs Renal: -Acute on chronic renal insufficiency; baseline creatinine 1.4 improved today -Cr on admission 2.1, improved at 1.4 since yesterday -Holding ANIVAL/ARB per cardiology -Continue to monitor, especially with addition of Vancomycin -Renal and bladder US performed yesterday; study inadequate 2/2 pt not cooperative ID:Sepsis from pneumonia. Bacteremia. Afebrile -Lactic acid normalized -UA culture neg -S. pneumo and Legionella Ags neg -Blood cx from 05/18 positive for Coag neg Staph -f/u final ID and sensitivity- so far staph hominus species sensitive to vancomycin -Pt received Vancomycin 1gm, Levaquin 500mg, Cefepime 1gm and Zithromax 500mg on admission -ESR 78, CRP 10.9 -Appreciate ID recs FEN: -No fluids at this time -Cont to monitor electrolytes-no abnormalities at this time -Regular diet Prophylaxis: -hep subQ/SCDs -Protonix
--- NOTE | 2017-05-22 21:02 | PN ---
Progress Note, Physician Chief Complaint: AWAKE MORE ALERT - Current Medication List Current Medications: Active Medications Acetaminophen (Tylenol -) 650 mg PO Q4H PRN PRN Reason: FEVER OR PAIN Aspirin (Asa -) 81 mg PO DAILY [facility] Last Admin: 05/22/17 09:42 Dose: 81 mg Atorvastatin Calcium (Lipitor -) 40 mg PO HS [facility] Last Admin: 05/21/17 21:49 Dose: 40 mg Chlorhexidine Gluconate (Hibiclens For Decolonization -) 1 applic TP HS [facility] Last Admin: 05/21/17 21:49 Dose: 1 applic Clopidogrel Bisulfate (Plavix -) 75 mg PO DAILY [facility] Last Admin: 05/22/17 09:41 Dose: 75 mg Docusate Sodium (Colace -) 300 mg PO HS [facility] Last Admin: 05/21/17 21:48 Dose: 300 mg Furosemide (Lasix Injection -) 40 mg IVPUSH DAILY [facility] Last Admin: 05/22/17 09:42 Dose: 40 mg Heparin Sodium (Porcine) (Heparin -) 5,000 unit SQ TID [facility] Insulin Aspart (Novolog Vial Sliding Scale -) 1 vial SQ ACHS [facility] PRN Reason: Protocol Last Admin: 05/22/17 17:30 Dose: Not Given Latanoprost (Xalatan 0.005% Eye Drops -) 1 drop OU DAILY [facility] Last Admin: 05/22/17 11:00 Dose: 1 drop Metoprolol Tartrate (Lopressor -) 12.5 mg PO BID [facility] Last Admin: 05/22/17 09:40 Dose: 12.5 mg Mupirocin (Bactroban Ointment (For Decolonization) -) 1 applic NS BID [facility] Stop: 05/23/17 21:59 Last Admin: 05/22/17 11:00 Dose: 1 applic Pantoprazole Sodium (Protonix -) 40 mg PO DAILY [facility] Last Admin: 05/22/17 09:41 Dose: 40 mg Ranolazine (Ranexa -) 500 mg PO BID [facility] Last Admin: 05/22/17 09:41 Dose: 500 mg - Objective Vital Signs: Vital Signs Temperature 98.7 F 05/22/17 10:00 Pulse Rate 61 05/22/17 18:00 Respiratory Rate 16 05/22/17 18:00 Blood Pressure 128/52 05/22/17 18:00 O2 Sat by Pulse Oximetry (%) 100 08/17/17 10:14 Constitutional: Yes: No Distress Eyes: Yes: WNL HENT: Yes: WNL Neck: Yes: WNL Cardiovascular: Yes: Regular Rate and Rhythm, Murmur Respiratory: Yes: WNL Gastrointestinal: Yes: WNL Genitourinary: Yes: Incontinence Breast(s): Yes: Other Musculoskeletal: Yes: Muscle Weakness Extremities: Yes: Other Edema: No Peripheral Pulses WNL: Yes Integumentary: Yes: WNL Wound/Incision: Yes: Clean/Dry Neurological: Yes: Pre-Existing Deficit ...Motor Strength: LLE, RLE Psychiatric: Yes: WNL Labs: CBC, BMP 05/22/17 05:15 05/22/17 05:15 INR, PTT INR 1.08 (0.82-1.09) 05/21/17 05:20 Problem List - Problems (1) Acute renal failure Code(s): N17.9 - ACUTE KIDNEY FAILURE, UNSPECIFIED Qualifiers: Acute renal failure type: unspecified Qualified Code(s): N17.9 - Acute kidney failure, unspecified (2) Acute respiratory failure with hypoxia Code(s): J96.01 - ACUTE RESPIRATORY FAILURE WITH HYPOXIA (3) CHF (congestive heart failure) Code(s): I50.9 - HEART FAILURE, UNSPECIFIED Qualifiers: Congestive heart failure type: unspecified congestive heart failure type Congestive heart failure chronicity: acute Qualified Code(s): I50.9 - Heart failure, unspecified (4) Fever Code(s): R50.9 - FEVER, UNSPECIFIED Qualifiers: Fever type: unspecified Qualified Code(s): R50.9 - Fever, unspecified (5) Myocardial infarct Code(s): I21.3 - ST ELEVATION (STEMI) MYOCARDIAL INFARCTION OF [place] SITE (6) Pneumonia Code(s): J18.9 - PNEUMONIA, UNSPECIFIED ORGANISM (7) Chest pain Code(s): R07.9 - CHEST PAIN, UNSPECIFIED (8) DVT prophylaxis Code(s): [id number] - (9) Diabetes Code(s): E11.9 - TYPE 2 DIABETES MELLITUS WITHOUT COMPLICATIONS Assessment/Plan FAMILY REFUSED CARDIAC CATHETER PALLIATIVE CARE/CONSERVATIVE THERAPY CHECK LABS DC PLANNING
[2017-05-22] MEDS: CHLORHEXIDINE GLUCONATE 4% CLEANSER FOR DECOLONIZATION TP SCH (21:27)
[2017-05-22] MEDS: HEPARIN NA (PORCINE) 5,000 UNITS/ML 1ML VIAL SQ SCH (21:35)
[2017-05-22] MEDS: DOCUSATE SODIUM 100 MG CAPSULE (FP) PO SCH ×2 (21:35→21:43)
[2017-05-22] MEDS: ATORVASTATIN CA 40 MG TABLET (FP) PO SCH ×2 (21:35→21:43)
[2017-05-23] MEDS: HEPARIN NA (PORCINE) 5,000 UNITS/ML 1ML VIAL SQ SCH (06:21)
[2017-05-23] MEDS: INSULIN SLIDING SCALE (NOVOLOG) 1 VIAL SQ SCH ×4 (06:31→21:46)
[2017-05-23 08:08] LABS: MCH 29.8 pg (25.7-33.7); MCHC 33.1 g/dl (32.0-36.0); MEAN CELL VOLUME 89.9 fl (80-96); MEAN PLT VOLUME 8.8 fl (7.5-11.1); PLATELET COUNT 281 K/MM3 (134-434); RDW 13.4 % (11.6-15.6); WHITE BLOOD COUNT 5.8 K/mm3 (4.0-10.0)
[2017-05-23 09:02] LABS: ALBUMIN 2.9 g/dl (3.4-5.0); ALK PHOS 66 U/L (45-117); ANION GAP 8 (8-16); BILIRUBIN,TOTAL 0.3 mg/dL (0.2-1.0); CALCIUM 9.2 mg/dL (8.5-10.1); CO2 28 mmol/L (21-32); CREATININE 1.5 mg/dL (0.55-1.02); GLUCOSE,RANDOM 82 mg/dL (74-106); MAGNESIUM 2.2 mg/dL (1.8-2.4); PHOSPHOROUS 4.4 mg/dL (2.5-4.9); SGOT/AST 27 U/L (15-37); SGPT/ALT 18 U/L (12-78); TOT PROT 6.4 g/dl (6.4-8.2)
[2017-05-23] MEDS: CLOPIDOGREL BISULFATE 75 MG TABLET (FP) PO SCH (09:35)
[2017-05-23] MEDS: METOPROLOL TARTRATE 25 MG TABLET (FP) PO SCH ×2 (09:35→09:55)
[2017-05-23] MEDS: RANOLAZINE E.R. 500 MG TABLET (FP) PO SCH ×3 (09:35→22:20)
[2017-05-23] MEDS: LATANOPROST 0.005% OPHTH SOLN 2.5ML BOTTLE OU SCH (09:36)
[2017-05-23] MEDS: PANTOPRAZOLE 40 MG TABLET (FP) PO SCH (09:36)
[2017-05-23] MEDS: FUROSEMIDE 40 MG/4 ML INJECTABLE VIAL IVPUSH SCH (09:36)
[2017-05-23] MEDS: MUPIROCIN 2% TOPICAL OINTMENT FOR DECOLONIZATION NS SCH (09:36)
[2017-05-23] MEDS: ASPIRIN 81 MG CHEWABLE TABLETS PO SCH ×2 (09:36→10:00)
[2017-05-23] MEDS ORDERED: FUROSEMIDE 40 MG TABLET (FP) PO SCH (10:00)
--- NOTE | 2017-05-23 10:16 | HOSP ---
Physical Examination Vital Signs: Vital Signs Temperature 98.3 F 05/23/17 09:47 Pulse Rate 76 05/23/17 09:47 Respiratory Rate 16 05/23/17 09:47 Blood Pressure 88/40 05/23/17 09:47 O2 Sat by Pulse Oximetry (%) 100 05/23/17 01:23 Labs: CBC, BMP 05/23/17 05:35 05/23/17 05:35 Hospitalist Encounter Assessment: Called to evaluate patient for lethargy. Briefly this is an 82 year old female with a history of HTN, HLD, DM, dementia, prior CVA right sided hemiplegia, CAD, and frequent UTIs admitted with NSTEMI, now off heparin. Family has opted for conservative management. On my arrival, BP 83/50, P 76, RR 16. FSBG=86. Patient opens eyes to voice, groans, follows some simple commands, does not offer any meaningful verbal response. PERRL, moving left extremities (right hemiplegia at baseline). Lungs CTAB. RRR, S1/S2. No edema. Assessment: Hypotensive, decline in mental status. Plan: -Was on IV Lasix and may have been over-diuresed -Hold PO Lasix today -Hold Metoprolol -Trial of NS 250 mL bolus -Head CT to r/o acute intracranial process as patient is less responsive than usual -Follow up blood cultures 05/19: no growth to date PCP notified and will resume care. Please re-call if needed.
[2017-05-23] MEDS ORDERED: SODIUM CHLORIDE 250 ML IV STA (10:28)
--- NOTE | 2017-05-23 10:57 | PN ---
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 Eyes closed but arousable. Initially, no verbalizations but head nod response and vocalizing. With cues, I was able to elicit delayed but appropriate verbalizations. Pt is o x 3. Lethargic. Tolerated breakfast. No drooling, cough or vocal wetness. Pending CT head. Selected Entries 05/22/17 05/22/17 05/22/17 02:00 06:00 10:00 Temperature 98 F 97.8 F 98.7 F 05/22/17 05/23/17 05/23/17 22:00 02:00 05:15 Temperature 98.2 F 98.2 F 98.1 F 05/23/17 09:47 Temperature 98.3 F Laboratory Tests 05/22/17 05/23/17 05:15 05:35 WBC 7.1 5.8
--- NOTE | 2017-05-23 10:58 | PN ---
Progress Note (short form) - Note Progress Note: Progress Note: Chief Complaint: DC, chf History of Present Illness: more lethargic this AM. not answering questions. BP on low side. No overnight events. no cigs Current Medications Generic Name Dose Route Start Last Admin Trade Name Freq PRN Reason Stop Dose Admin Acetaminophen 650 mg 05/18/17 13:41 Tylenol - PO Q4H PRN FEVER OR PAIN Aspirin 81 mg 05/19/17 10:00 05/23/17 10:00 Asa - PO Not Given DAILY [facility] Atorvastatin Calcium 40 mg 05/21/17 22:00 05/22/17 21:43 Lipitor - PO Not Given HS RODNEY Clopidogrel Bisulfate 75 mg 05/19/17 10:00 05/23/17 09:35 Plavix - PO 75 mg DAILY [facility] Administration Docusate Sodium 300 mg 05/18/17 22:00 05/22/17 21:43 Colace - PO Not Given HS RONDEY Furosemide 40 mg 05/23/17 10:00 05/23/17 09:37 Lasix - PO Not Given DAILY [facility] Insulin Aspart 1 vial 05/18/17 16:30 05/23/17 06:31 Novolog Vial Sliding Scale - SQ Not Given ACHS [facility] Protocol Latanoprost 1 drop 05/19/17 10:00 05/23/17 09:36 Xalatan 0.005% Eye Drops - OU Not Given DAILY [facility] Metoprolol Tartrate 12.5 mg 05/21/17 10:00 05/23/17 09:55 Lopressor - PO Not Given BID [facility] Pantoprazole Sodium 40 mg 05/19/17 10:00 05/23/17 09:36 Protonix - PO 40 mg DAILY [facility] Administration Ranolazine 500 mg 05/18/17 22:00 05/23/17 09:58 Ranexa - PO Not Given BID [facility] Vital Signs Temp 98.3 F 05/23/17 09:47 Pulse 76 05/23/17 09:47 Resp 16 05/23/17 09:47 BP 88/40 05/23/17 09:47 Pulse Ox 100 05/23/17 01:23 Intake & Output 05/22/17 05/22/17 05/23/17 11:59 23:59 11:59 Intake Total 50 Output Total 350 200 Balance -350 -150 Weight 134 lb 8 oz 135 lb 9.6 oz Intake: IVPB 50 Output: Urine 350 200 Huber 350 200 Other: Voiding Method Incontinent Diaper Diaper # Unmeasured Voids Void 0 2 Bowel Movement No No Weight Measurement Method Built in Bedscale Patient Lift Scale Constitutional: Yes: Well Nourished, No Distress, Calm Cardiovascular: Yes: Regular Rate and Rhythm, S1, S2. No: JVD, Gallop, Murmur Respiratory: Yes: cta bl poor eff No: Accessory Muscle Use, Rales, Wheezes Gastrointestinal: No: Hepatomegaly Extremities: No: Cold Edema: No Neurological: Yes: lethargic Psychiatric: No: Agitated no jaundice diaphoresis Labs: Laboratory Last Values WBC 5.8 K/mm3 (4.0-10.0) 05/23/17 05:35 RBC 3.28 M/mm3 (3.60-5.2) L 05/23/17 05:35 Hgb 9.8 GM/dL (10.7-15.3) L 05/23/17 05:35 Hct 29.5 % (32.4-45.2) L 05/23/17 05:35 MCV 89.9 fl (80-96) 05/23/17 05:35 MCH 29.8 pg (25.7-33.7) 05/23/17 05:35 MCHC 33.1 g/dl (32.0-36.0) 05/23/17 05:35 RDW 13.4 % (11.6-15.6) 05/23/17 05:35 Plt Count 281 K/MM3 (134-434) 05/23/17 05:35 MPV 8.8 fl (7.5-11.1) 05/23/17 05:35 Neutrophils % 69.1 % (42.8-82.8) 05/19/17 05:35 Lymphocytes % 20.7 % (8-40) 05/19/17 05:35 Monocytes % 8.7 % (3.8-10.2) 05/19/17 05:35 Eosinophils % 0.6 % (0-4.5) 05/19/17 05:35 Basophils % 0.9 % (0-2.0) 05/19/17 05:35 ESR 78 mm/hr (0-30) H 05/20/17 05:15 INR 1.08 (0.82-1.09) 05/21/17 05:20 PTT (Actin FS) 67.1 SECONDS (26.9-34.4) H 05/21/17 05:20 Puncture Site Left brachial 05/18/17 08:35 ABG pH 7.37 (7.35-7.45) 05/18/17 08:35 ABG pCO2 at Pt Temp 35.0 mmHg (35-45) 05/18/17 08:35 ABG pO2 at Pt Temp 77.7 mmHg (68-100) 05/18/17 08:35 ABG HCO3 19.6 meq/L (22-26) L 05/18/17 08:35 ABG O2 Sat (Measured) 95.0 % (90-98.9) 05/18/17 08:35 ABG O2 Content 14.1 % vol (15-22) L 05/18/17 08:35 ABG Base Excess -4.6 meq/l (-2-2) L 05/18/17 08:35 Chase Test Positive 05/18/17 08:35 Oxygen Flow Rate 50% 05/18/17 08:35 Vent Mode S/t 05/18/17 08:35 Vent Rate 14 05/18/17 08:35 PEEP 0.0 cmH2O 05/18/17 08:35 Pressure Support Vent 1005/18/17 08:35 Sodium 141 mmol/L (136-145) 05/23/17 05:35 Potassium 4.1 mmol/L (3.5-5.1) 05/23/17 05:35 Chloride 105 mmol/L (98-107) 05/23/17 05:35 Carbon Dioxide 28 mmol/L (21-32) 05/23/17 05:35 Anion Gap 8 (8-16) 05/23/17 05:35 BUN 36 mg/dL (7-18) H 05/23/17 05:35 Creatinine 1.5 mg/dL (0.55-1.02) H 05/23/17 05:35 Creat Clearance w eGFR 33.16 (>60) 05/23/17 05:35 POC Glucometer 86 UNITS (()) 05/23/17 06:29 Random Glucose 82 mg/dL (74-106) D 05/23/17 05:35 Hemoglobin A1c % 6.2 % (4.8-6.0) H 05/19/17 05:35 Lactic Acid 0.7 mmol/L (0.4-2.0) 05/19/17 05:35 Calcium 9.2 mg/dL (8.5-10.1) 05/23/17 05:35 Phosphorus 4.4 mg/dL (2.5-4.9) 05/23/17 05:35 Magnesium 2.2 mg/dL (1.8-2.4) 05/23/17 05:35 Total Bilirubin 0.3 mg/dL (0.2-1.0) 05/23/17 05:35 AST 27 U/L (15-37) D 05/23/17 05:35 ALT 18 U/L (12-78) 05/23/17 05:35 Alkaline Phosphatase 66 U/L (45-117) 05/23/17 05:35 Creatine Kinase 96 IU/L (26-192) 05/21/17 16:00 Creatine Kinase Index 3.9 % (0.0-5.0) 05/19/17 05:35 CK-MB (CK-2) 11.266 ng/mL (0.5-3.6) H 05/19/17 05:35 Troponin I 1.49 ng/ml (0.00-0.05) H* 05/21/17 16:00 C-Reactive Protein 10.9 MG/DL (0.00-0.3) H 05/19/17 15:45 B-Natriuretic Peptide 8428.38 pg/ml (5-450) H 05/18/17 08:12 Total Protein 6.4 g/dl (6.4-8.2) 05/23/17 05:35 Albumin 2.9 g/dl (3.4-5.0) L 05/23/17 05:35 Triglycerides 153 mg/dL (35-160) 05/20/17 05:15 Cholesterol 167 mg/dL (50-200) 05/20/17 05:15 Total LDL Cholesterol 83 mg/dL (5-100) 05/20/17 05:15 HDL Cholesterol 60 mg/dL (40-60) 05/20/17 05:15 Urine Color Lt. yellow 05/18/17 08:12 Urine Appearance Clear 05/18/17 08:12 Urine pH 6.0 (5.0-8.0) 05/18/17 08:12 Ur Specific Dahinda 1.015 (1.005-1.025) 05/18/17 08:12 Urine Protein Trace (NEGATIVE) H 05/18/17 08:12 Urine Glucose (UA) Negative (NEGATIVE) 05/18/17 08:12 Urine Ketones Negative (NEGATIVE) 05/18/17 08:12 Urine Blood Negative (NEGATIVE) 05/18/17 08:12 Urine Nitrite Negative (NEGATIVE) 05/18/17 08:12 Urine Bilirubin Negative (NEGATIVE) 05/18/17 08:12 Urine Urobilinogen 0.2 mg/dL (0.2-1.0) 05/18/17 08:12 Ur Leukocyte Esterase Negative (NEGATIVE) 05/18/17 08:12 Random Vancomycin 14.599 ug/ml 05/23/17 05:35 Vancomycin Pre-Dose 19.481 ug/ml (5.0-10.0) H* 05/20/17 05:15 EKG: Other (tele: SR) cxr: no chf, ?left infiltrate Echo 05/2017 this admission: tds. grossly nl lv function. mod-severe inferior wall hypokinesis. Nl rv function. mild-mod lae. + mac. severe MR. 1+ tr. rvsp 39 Echo 04/21 (here): nl LV/EF, normal wall motion. nl RV. nl LA. valves WNL. normal ao root. no peric eff MPI 04/21 (here), persantine: no ST changes vs baseline. moderate sized fixed defect inferior/inferolateral/lateral marshall with partial reversibility; small- moderate sized reversible anterolateral defect. severe global LV hypo, EF 29%. a/p: 82 yo female CAD s/p recent nstemi (? demand) and concern for 3vd on stress testing (managed medically), HTN, HLD, DM, prior CVA with right sided hemiplegia with h/o sent to ER from [place] for hypoxia/sob NSTEMI with resulting acute ischemic MR: -recurrent cp, vomiting (= her anginal sx's) with new acute onset respiratory distress, peak trop 9 here. EKG with ischemic (downsloping) anterior ST-Ts, and new inferior nonspecific ST-Ts 05/19 vs admit. -recently here with same sx's, enzymes negative then, nuclear stress test suggestive of Multivessel Dz--pt declined cath. known/suspected CAD since 2007 (dr jacque osorio cardio)--refused cath then despite his rec's for her to have stent, per dtr -Now presents with acute NSTEMI c/b pulm edema echo now shows severe MR so pulmonary edema likey 2/2 acute ischemic MR. Additionally, she has proven failure to med therapy and high-risk for recurrent DC/. Discussed finding of acute ischemic MR to daughter which typically would be managed with revascularization (although counseled regarding inferior wall scar/hypokinesis and the possibility that revascularization does not guarantee that the mitral valve/inferior wall would regain function). However, no other way to treat the severe MR. Although both invasive and non-invasive options carry risk, counseled that without intervention, patient definitively will be high risk for morbidity/mortality both from CAD as well as advanced/irreversible valvular disease and a palliative approach should be pursued. Daughter again expressed concerns regarding ability of mother to adhere to DAPT (mild dementia/can intermittently refuse meds etc...) in addition to fall risk (multiple recent falls). Discussed risks/benefits of cardiac catheterization procedure in detail. Family has decided on palliative approach so will cont with med management. -completed 72 hours hep gtt. cont ASA, Plavix, statin. -con't low dose bb, cont ranexa for now. -ARB and CCB held (low bp's here) hypotension, ? cardiogenic shock, ? septic shock, acute respiratory failure: -after iv lasix for several days resp status improved -today she is hypotensive so possibly overdiuresed. Will hold lasix for now and will get small bolus ivfs, monitor bp response MARY - suspect cardiorenal/low output state - cr improved with diuresis HTN: -on low side, plan as above h/o CVA: -currently on ASA, plavix, statin.
[2017-05-23 11:50] LABS: ARTERIAL BLD GAS O2 SATURATION 99.4 % (90-98.9); ARTERIAL BLOOD GAS BASE EXCESS 2.7 meq/l (-2-2); ARTERIAL BLOOD GAS HCO3 26.6 meq/L (22-26); ARTERIAL BLOOD GAS pH 7.44 (7.35-7.45)
[2017-05-23 11:54] LABS: ALLENS TEST POSITIVE; ART PUNCT SITE LEFT RADIAL; PT. ON O2? YES
[2017-05-23 11:56] LABS: TYPE OF O2 N/C
[2017-05-23 11:59] LABS: LPM/O2% 2 LPM
--- NOTE | 2017-05-23 12:53 | PN ---
Progress Note (short form) - Note Progress Note: PULMONARY Somnolent but answering questions. Denies shortness of breath or chest pain. Last Vital Signs Temp Pulse Resp BP Pulse Ox 98.3 F 76 16 88/40 100 05/23/17 09:47 05/23/17 09:47 05/23/17 09:47 05/23/17 09:47 05/23/17 01:23 Gen: somnolent but arousable Heart: RRR Lung: decreased breath sounds at the bases Abd: soft, nontender Ext: no edema CBC, BMP 05/23/17 05:35 05/23/17 05:35 Active Medications Acetaminophen (Tylenol -) 650 mg PO Q4H PRN PRN Reason: FEVER OR PAIN Aspirin (Asa -) 81 mg PO DAILY [facility] Last Admin: 05/23/17 10:00 Dose: Not Given Atorvastatin Calcium (Lipitor -) 40 mg PO HS [facility] Last Admin: 05/22/17 21:43 Dose: Not Given Clopidogrel Bisulfate (Plavix -) 75 mg PO DAILY [facility] Last Admin: 05/23/17 09:35 Dose: 75 mg Docusate Sodium (Colace -) 300 mg PO HS [facility] Last Admin: 05/22/17 21:43 Dose: Not Given Furosemide (Lasix -) 40 mg PO DAILY [facility] Last Admin: 05/23/17 09:37 Dose: Not Given Insulin Aspart (Novolog Vial Sliding Scale -) 1 vial SQ ACHS [facility] PRN Reason: Protocol Last Admin: 05/23/17 06:31 Dose: Not Given Latanoprost (Xalatan 0.005% Eye Drops -) 1 drop OU DAILY [facility] Last Admin: 05/23/17 09:36 Dose: Not Given Metoprolol Tartrate (Lopressor -) 12.5 mg PO BID [facility] Last Admin: 05/23/17 09:55 Dose: Not Given Pantoprazole Sodium (Protonix -) 40 mg PO DAILY [facility] Last Admin: 05/23/17 09:36 Dose: 40 mg Ranolazine (Ranexa -) 500 mg PO BID [facility] Last Admin: 05/23/17 09:58 Dose: Not Given A/P Acute NSTEMI Acute Pulmonary Edema improving Mitral Regurgitation Pneumonia treated h/o CVA Acute on Chronic Renal Failure improving - continue lasix - ASA, plavix - beta katerina, statin - ANIVAL/ARB when renal function stabilizes - antibiotics completed - DVT prophylaxis
--- NOTE | 2017-05-23 14:48 | PN ---
Progress Note, Physician Chief Complaint: LETHARGIC STAT CT HEAD AND ABG ORDERED - Current Medication List Current Medications: Active Medications Acetaminophen (Tylenol -) 650 mg PO Q4H PRN PRN Reason: FEVER OR PAIN Aspirin (Asa -) 81 mg PO DAILY [facility] Last Admin: 05/23/17 10:00 Dose: Not Given Atorvastatin Calcium (Lipitor -) 40 mg PO HS [facility] Last Admin: 05/22/17 21:43 Dose: Not Given Clopidogrel Bisulfate (Plavix -) 75 mg PO DAILY [facility] Last Admin: 05/23/17 09:35 Dose: 75 mg Docusate Sodium (Colace -) 300 mg PO HS [facility] Last Admin: 05/22/17 21:43 Dose: Not Given Furosemide (Lasix -) 40 mg PO DAILY [facility] Last Admin: 05/23/17 09:37 Dose: Not Given Insulin Aspart (Novolog Vial Sliding Scale -) 1 vial SQ ACHS [facility] PRN Reason: Protocol Last Admin: 05/23/17 06:31 Dose: Not Given Latanoprost (Xalatan 0.005% Eye Drops -) 1 drop OU DAILY [facility] Last Admin: 05/23/17 09:36 Dose: Not Given Metoprolol Tartrate (Lopressor -) 12.5 mg PO BID [facility] Last Admin: 05/23/17 09:55 Dose: Not Given Pantoprazole Sodium (Protonix -) 40 mg PO DAILY [facility] Last Admin: 05/23/17 09:36 Dose: 40 mg Ranolazine (Ranexa -) 500 mg PO BID [facility] Last Admin: 05/23/17 09:58 Dose: Not Given - Objective Vital Signs: Vital Signs Temperature 98.3 F 05/23/17 09:47 Pulse Rate 76 05/23/17 09:47 Respiratory Rate 16 05/23/17 09:47 Blood Pressure 88/40 05/23/17 09:47 O2 Sat by Pulse Oximetry (%) 100 05/23/17 01:23 Constitutional: Yes: Moderate Distress Eyes: Yes: WNL HENT: Yes: WNL Neck: Yes: WNL Cardiovascular: Yes: Pulse Irregular, Murmur Respiratory: Yes: WNL Gastrointestinal: Yes: WNL Edema: No Peripheral Pulses WNL: Yes Integumentary: Yes: WNL Wound/Incision: Yes: Clean/Dry Neurological: Yes: Other (LETHARGIC) ...Motor Strength: LLE, RLE Psychiatric: Yes: Other Labs: CBC, BMP 05/23/17 05:35 05/23/17 05:35 INR, PTT INR 1.08 (0.82-1.09) 05/21/17 05:20 Problem List - Problems (1) Acute renal failure Code(s): N17.9 - ACUTE KIDNEY FAILURE, UNSPECIFIED Qualifiers: Acute renal failure type: unspecified Qualified Code(s): N17.9 - Acute kidney failure, unspecified (2) Acute respiratory failure with hypoxia Code(s): J96.01 - ACUTE RESPIRATORY FAILURE WITH HYPOXIA (3) CHF (congestive heart failure) Code(s): I50.9 - HEART FAILURE, UNSPECIFIED Qualifiers: Congestive heart failure type: unspecified congestive heart failure type Congestive heart failure chronicity: acute Qualified Code(s): I50.9 - Heart failure, unspecified (4) Fever Code(s): R50.9 - FEVER, UNSPECIFIED Qualifiers: Fever type: unspecified Qualified Code(s): R50.9 - Fever, unspecified (5) Myocardial infarct Code(s): I21.3 - ST ELEVATION (STEMI) MYOCARDIAL INFARCTION OF [facility] SITE (6) Pneumonia Code(s): J18.9 - PNEUMONIA, UNSPECIFIED ORGANISM (7) Chest pain Code(s): R07.9 - CHEST PAIN, UNSPECIFIED (8) DVT prophylaxis Code(s): [id number] - (9) Diabetes Code(s): E11.9 - TYPE 2 DIABETES MELLITUS WITHOUT COMPLICATIONS Assessment/Plan STAT CT HEAD NO ACUTE CHANGES ABG NO C02 HYPERCAPNEA NEURO EVAL OOB TO CHAIR WITH ASSIST PT CARDIO F/U POOR OVER ALL PROGNOSIS, FAMILY REFUSING ANY AGGRESSIVE INTERVENTION PALLIAITVE CARE AT SNF
--- NOTE | 2017-05-23 16:22 | PN ---
Progress Note, Physician History of Present Illness: Pt seen and examined at bedside. She is more drowsy today. She is arousible. - Current Medication List Current Medications: Active Medications Acetaminophen (Tylenol -) 650 mg PO Q4H PRN PRN Reason: FEVER OR PAIN Aspirin (Asa -) 81 mg PO DAILY [facility] Last Admin: 05/23/17 10:00 Dose: Not Given Atorvastatin Calcium (Lipitor -) 40 mg PO HS [facility] Last Admin: 05/22/17 21:43 Dose: Not Given Clopidogrel Bisulfate (Plavix -) 75 mg PO DAILY [facility] Last Admin: 05/23/17 09:35 Dose: 75 mg Docusate Sodium (Colace -) 300 mg PO HS [facility] Last Admin: 05/22/17 21:43 Dose: Not Given Furosemide (Lasix -) 40 mg PO DAILY [facility] Last Admin: 05/23/17 09:37 Dose: Not Given Insulin Aspart (Novolog Vial Sliding Scale -) 1 vial SQ ACHS [facility] PRN Reason: Protocol Last Admin: 05/23/17 06:31 Dose: Not Given Latanoprost (Xalatan 0.005% Eye Drops -) 1 drop OU DAILY [facility] Last Admin: 05/23/17 09:36 Dose: Not Given Metoprolol Tartrate (Lopressor -) 12.5 mg PO BID [facility] Last Admin: 05/23/17 09:55 Dose: Not Given Pantoprazole Sodium (Protonix -) 40 mg PO DAILY [facility] Last Admin: 05/23/17 09:36 Dose: 40 mg Ranolazine (Ranexa -) 500 mg PO BID [facility] Last Admin: 05/23/17 09:58 Dose: Not Given - Objective Vital Signs: Vital Signs Temperature 98.5 F 05/23/17 14:00 Pulse Rate 64 05/23/17 14:00 Respiratory Rate 20 05/23/17 14:00 Blood Pressure 121/58 05/23/17 14:00 O2 Sat by Pulse Oximetry (%) 100 05/23/17 01:23 Constitutional: Yes: Calm Eyes: Yes: Conjunctiva Clear HENT: Yes: Atraumatic Neck: Yes: Supple Cardiovascular: Yes: S1, S2 Respiratory: Yes: CTA Bilaterally Gastrointestinal: Yes: Soft Genitourinary: Yes: WNL Musculoskeletal: Yes: Muscle Weakness Edema: No Neurological: Yes: Other (drowsy) Labs: CBC, BMP 05/23/17 05:35 05/23/17 05:35 INR, PTT INR 1.08 (0.82-1.09) 05/21/17 05:20 Problem List - Problems (1) Acute renal failure Code(s): N17.9 - ACUTE KIDNEY FAILURE, UNSPECIFIED Qualifiers: Acute renal failure type: unspecified Qualified Code(s): N17.9 - Acute kidney failure, unspecified (2) Acute respiratory failure with hypoxia Code(s): J96.01 - ACUTE RESPIRATORY FAILURE WITH HYPOXIA (3) CHF (congestive heart failure) Code(s): I50.9 - HEART FAILURE, UNSPECIFIED Qualifiers: Congestive heart failure type: unspecified congestive heart failure type Congestive heart failure chronicity: acute Qualified Code(s): I50.9 - Heart failure, unspecified (4) Myocardial infarct Code(s): I21.3 - ST ELEVATION (STEMI) MYOCARDIAL INFARCTION OF [facility] SITE (5) HLD (hyperlipidemia) Code(s): E78.5 - HYPERLIPIDEMIA, UNSPECIFIED (6) HTN (hypertension) Code(s): I10 - ESSENTIAL (PRIMARY) HYPERTENSION Assessment/Plan Current Medications Generic Name Dose Route Start Last Admin Trade Name Freq PRN Reason Stop Dose Admin Acetaminophen 650 mg 05/18/17 13:41 Tylenol - PO Q4H PRN FEVER OR PAIN Aspirin 81 mg 05/19/17 10:00 05/23/17 10:00 Asa - PO Not Given DAILY [facility] Atorvastatin Calcium 40 mg 05/21/17 22:00 05/22/17 21:43 Lipitor - PO Not Given HS [facility] Clopidogrel Bisulfate 75 mg 05/19/17 10:00 05/23/17 09:35 Plavix - PO 75 mg DAILY [facility] Administration Docusate Sodium 300 mg 05/18/17 22:00 05/22/17 21:43 Colace - PO Not Given HS [facility] Furosemide 40 mg 05/23/17 10:00 05/23/17 09:37 Lasix - PO Not Given DAILY [facility] Insulin Aspart 1 vial 05/18/17 16:30 05/23/17 06:31 Novolog Vial Sliding Scale - SQ Not Given ACHS [facility] Protocol Latanoprost 1 drop 05/19/17 10:00 05/23/17 09:36 Xalatan 0.005% Eye Drops - OU Not Given DAILY [facility] Metoprolol Tartrate 12.5 mg 05/21/17 10:00 05/23/17 09:55 Lopressor - PO Not Given BID [facility] Pantoprazole Sodium 40 mg 05/19/17 10:00 05/23/17 09:36 Protonix - PO 40 mg DAILY [facility] Administration Ranolazine 500 mg 05/18/17 22:00 05/23/17 09:58 Ranexa - PO Not Given BID [facility] Impression 1. MARY 2. hyperkalemia 3. CHF - acute 4. NSTEMI 5. DM 6. HTN 7. chol 8. dementia 9. CAD 10. lactic acidosis Plan - renal function worsening - hold diuretics for now - repeat labs in am - renal mass vs cyst should be imaged, ultrasound report reviewed - likely etiology of mary was cardiorenal disease - evaluate for diuretics on daily basis Dr Varner
[2017-05-23] MEDS ORDERED: VANCOMYCIN 500 MG/100 ML PRE-DOCKED IVPB ONE (20:47)
--- NOTE | 2017-05-23 20:47 | PN ---
Progress Note (short form) - Note Progress Note: patient seen at 5 pm but coomputers down so I could not document sleepy, but arousable hypotensive earlier today but now improved after fluid challenge Vital Signs Period Temp Pulse Resp BP Sys/Douglas Pulse Ox Last 24 Hr 98.1 F-98.5 F 64-87 16-20 88-121/40-58 97-100 cor-rrr lungs clear abd soft,nt ext no edema CBC, BMP 05/23/17 05:35 05/23/17 05:35 Laboratory Tests 05/20/17 05/21/17 05/22/17 05:15 05:20 06:00 Random Vancomycin 13.643 19.737 Vancomycin Pre-Dose 19.481 H* 05/23/17 05:35 Random Vancomycin 14.599 Vancomycin Pre-Dose Microbiology 05/19/17 14:40 Blood - Peripheral Venous Blood Culture - Preliminary NO GROWTH OBTAINED AFTER 96 HOURS, INCUBATION TO CONTINUE FOR 1 DAYS. 05/19/17 14:40 Blood - Peripheral Venous Blood Culture - Preliminary NO GROWTH OBTAINED AFTER 96 HOURS, INCUBATION TO CONTINUE FOR 1 DAYS. 05/18/17 08:12 Blood - Peripheral Venous Blood Culture - Final Staph Hominis Sub Sp Hominis 05/18/17 08:12 Blood - Peripheral Venous Blood Culture - Final Staph Hominis Sub Sp Hominis 05/18/17 17:30 Urine For Antigen Detection Legionella Antigen - Final 05/18/17 17:30 Urine For Antigen Detection Streptococcus pneumoniae Antigen (M - Final 05/18/17 08:50 Urine - Urine - Catheterized Urine Culture - Final NO GROWTH OBTAINED a/p hypotension most likely due to over diuresis, improved with iv fluid challenge s/p WA bacteremia- ?significance repeat blood cultures continue vancomycin based on levels due to ckd day #6 vancomycin- continue based on levels due to ckd echo noted, plan total 10 days recurrent chest pain- cardiology f/u redose vancomycin today follow levels
[2017-05-23] MEDS: ATORVASTATIN CA 40 MG TABLET (FP) PO SCH (22:20)
[2017-05-23] MEDS: DOCUSATE SODIUM 100 MG CAPSULE (FP) PO SCH (22:20)
--- NOTE | 2017-05-24 08:18 | PN ---
Progress Note, Physician Chief Complaint: FL, chf History of Present Illness: she denies cp or vomiting denies sob, orthopnea no palpitations no cigs - Current Medication List Current Medications: Active Medications Acetaminophen (Tylenol -) 650 mg PO Q4H PRN PRN Reason: FEVER OR PAIN Aspirin (Asa -) 81 mg PO DAILY [facility] Last Admin: 05/23/17 10:00 Dose: Not Given Atorvastatin Calcium (Lipitor -) 40 mg PO HS [facility] Last Admin: 05/23/17 22:20 Dose: Not Given Clopidogrel Bisulfate (Plavix -) 75 mg PO DAILY [facility] Last Admin: 05/23/17 09:35 Dose: 75 mg Docusate Sodium (Colace -) 300 mg PO HS [facility] Last Admin: 05/23/17 22:20 Dose: Not Given Furosemide (Lasix -) 40 mg PO DAILY [facility] Last Admin: 05/23/17 09:37 Dose: Not Given Insulin Aspart (Novolog Vial Sliding Scale -) 1 vial SQ ACHS [facility] PRN Reason: Protocol Last Admin: 05/23/17 21:46 Dose: Not Given Latanoprost (Xalatan 0.005% Eye Drops -) 1 drop OU DAILY [facility] Last Admin: 05/23/17 09:36 Dose: Not Given Metoprolol Tartrate (Lopressor -) 12.5 mg PO BID [facility] Last Admin: 05/23/17 09:55 Dose: Not Given Pantoprazole Sodium (Protonix -) 40 mg PO DAILY [facility] Last Admin: 05/23/17 09:36 Dose: 40 mg Ranolazine (Ranexa -) 500 mg PO BID [facility] Last Admin: 05/23/17 22:20 Dose: Not Given - Objective Vital Signs: Vital Signs Temperature 98.6 F 05/24/17 05:00 Pulse Rate 64 05/24/17 05:00 Respiratory Rate 18 05/24/17 05:00 Blood Pressure 126/58 05/24/17 05:00 O2 Sat by Pulse Oximetry (%) 95 05/23/17 21:00 Constitutional: Yes: No Distress, Calm Eyes: No: Sclera Icterus HENT: No: Nasal Congestion Cardiovascular: Yes: Regular Rate and Rhythm, S1, S2, Other (PMI non diplaced). No: JVD, Gallop, Murmur Respiratory: Yes: CTA Bilaterally (not taking deep breaths). No: Accessory Muscle Use, Rales, Wheezes Gastrointestinal: Yes: Normal Bowel Sounds, Soft. No: Tenderness Musculoskeletal: Yes: Other (No kyphosis) Extremities: No: Cold Edema: No Integumentary: No: Jaundice Neurological: Yes: Alert. No: Seizure Psychiatric: No: Agitated Labs: CBC, BMP 05/23/17 05:35 INR, PTT INR 1.08 (0.82-1.09) 05/21/17 05:20 - ....Imaging EKG: Other (tele: NSR) Assessment/Plan Echo 05/2017 this admission: tds. grossly nl lv function. mod-severe inferior wall hypokinesis. Nl rv function. mild-mod lae. + mac. severe MR. 1+ tr. rvsp 39 Echo 04/21 (here): nl LV/EF, normal wall motion. nl RV. nl LA. valves WNL. normal ao root. no peric eff MPI 04/21 (here), persantine: no ST changes vs baseline. moderate sized fixed defect inferior/inferolateral/lateral marshall with partial reversibility; small- moderate sized reversible anterolateral defect. severe global LV hypo, EF 29%. CXR 05/22 (gitig review): RLL chf findings cleared vs admit; no congestive changes seen; LLL atx vs infiltrate a/p: 82 yo female CAD s/p recent nstemi (? demand) and concern for 3vd on stress testing (managed medically), HTN, HLD, DM, prior CVA with right sided hemiplegia with h/o sent to ER from [place] for hypoxia/sob NSTEMI with resulting acute ischemic MR: -recurrent cp, vomiting (= her anginal sx's) with new acute onset respiratory distress, peak trop 9 here. EKG with ischemic (downsloping) anterior ST-Ts, and new inferior nonspecific ST-Ts 05/19 vs admit. -recently here with same sx's, enzymes negative then, nuclear stress test suggestive of Multivessel Dz--pt declined cath. known/suspected CAD since 2007 (dr jacque osorio cardio)--refused cath then despite his rec's for her to have stent, per dtr -Now presents with acute NSTEMI c/b pulm edema, echo showing preserved LVEF with servere IW hypo and severe MR (likely acute ischemic MR). -management dilemma as patient definitively is at high risk for morbidity/ mortality both from CAD as well as any interventions including prolonged DAPT if has coronary stent. daughter agreed there is high likelihood of mother not adhering to DAPT (mild dementia/med skepticism tendencies/intermittently refuses meds) and consider falls risk (multiple recent falls in bedroom in [place]). Dtr discussed above considerations with family and they agreed on palliative approach to treatment, no interventions planned. -cont ASA, Plavix, hi intensity statin as long as no recurrent myalgias (had in the past)--note atorva 40mg dose given elderly and on ranexa with D.I. potential. -con't low dose bb, will try titrate up dose later if bp stabilizes -cont ranexa for now. -ARB and CCB held (low bp's here) -if she is ambulatory/mobile when leaves hospital, falls risk will need to be reassessed and consider stopping DAPT after the acute post-FL period (e.g. 4-6 weeks) is past acute HFpEF, acute ischemic MR: -severe on echo here in setting of acute FL/acute chf (increased vs echo report few weeks prior) -no ongoing chf, no audible murmur -well-diuresed now, ischemia mgmt as above -holding lasix given hypotension no 05/23--appears clinically euvolemic--observe closely hypotension: -bp initially improved with conservative care of FL -hypotensive 05/23 (sbp 80s), ? overdiuresed--BP improved s/p IVF bolus and lasix held MARY - suspect cardiorenal/low output state - cr improved with diuresis staph hominis bacteremia: - per ID, ? clinical significance - on vanco HTN: -on low side, holding ARB and CCB h/o CVA: -currently on ASA, plavix, statin.
[2017-05-24 08:33] LABS: ANION GAP 9 (8-16); CO2 29 mmol/L (21-32); CREATININE 1.4 mg/dL (0.55-1.02); GLUCOSE,RANDOM 93 mg/dL (74-106)
[2017-05-24] MEDS: INSULIN SLIDING SCALE (NOVOLOG) 1 VIAL SQ SCH ×3 (09:05→21:35)
[2017-05-24] MEDS: RANOLAZINE E.R. 500 MG TABLET (FP) PO SCH ×3 (11:27→21:35)
[2017-05-24] MEDS: LATANOPROST 0.005% OPHTH SOLN 2.5ML BOTTLE OU SCH ×2 (11:28→11:33)
[2017-05-24] MEDS: PANTOPRAZOLE 40 MG TABLET (FP) PO SCH (11:28)
[2017-05-24] MEDS: CLOPIDOGREL BISULFATE 75 MG TABLET (FP) PO SCH ×2 (11:28→11:32)
[2017-05-24] MEDS: ASPIRIN 81 MG CHEWABLE TABLETS PO SCH ×2 (11:28→11:32)
--- NOTE | 2017-05-24 12:51 | PN ---
Progress Note (short form) - Note Progress Note: RENAL Pt asleep comfortable Last Vital Signs Temp Pulse Resp BP Pulse Ox 98.6 F 64 18 126/58 95 05/24/17 05:00 05/24/17 05:00 05/24/17 05:00 05/24/17 05:00 05/23/17 21:00 Current Medications Generic Name Dose Route Start Last Admin Trade Name Freq PRN Reason Stop Dose Admin Acetaminophen 650 mg 05/18/17 13:41 Tylenol - PO Q4H PRN FEVER OR PAIN Aspirin 81 mg 05/19/17 10:00 05/24/17 11:32 Asa - PO Not Given DAILY [facility] Atorvastatin Calcium 40 mg 05/21/17 22:00 05/23/17 22:20 Lipitor - PO Not Given HS [facility] Clopidogrel Bisulfate 75 mg 05/19/17 10:00 05/24/17 11:32 Plavix - PO Not Given DAILY [facility] Docusate Sodium 300 mg 05/18/17 22:00 05/23/17 22:20 Colace - PO Not Given HS [facility] Insulin Aspart 1 vial 05/18/17 16:30 05/24/17 11:29 Novolog Vial Sliding Scale - SQ Not Given ACHS [facility] Protocol Latanoprost 1 drop 05/19/17 10:00 05/24/17 11:33 Xalatan 0.005% Eye Drops - OU Not Given DAILY [facility] Metoprolol Tartrate 12.5 mg 05/21/17 10:00 05/23/17 09:55 Lopressor - PO Not Given BID [facility] Pantoprazole Sodium 40 mg 05/19/17 10:00 05/24/17 11:28 Protonix - PO 40 mg DAILY [facility] Administration Ranolazine 500 mg 05/18/17 22:00 05/24/17 11:32 Ranexa - PO Not Given BID [facility] PE breathing comfortably cvs s1s2 rr abd soft ext no edema CBC, BMP 05/23/17 05:35 05/24/17 06:05 Impression 1. MARY- better overall as compared to admission 2. hyperkalemia 3. CHF - acute 4. NSTEMI 5. DM 6. HTN 7. chol 8. dementia 9. CAD 10. lactic acidosis Plan - urine protein and creatinine - hold diuretics for now - repeat labs in am - renal mass vs cyst should be imaged, ultrasound report reviewed [facility]
--- NOTE | 2017-05-24 15:06 | PN ---
Progress Note (short form) - Note Progress Note: PULMONARY Denies shortness of breath or chest pain. Daughter at bedside. Last Vital Signs Temp Pulse Resp BP Pulse Ox 98.6 F 64 18 126/58 95 05/24/17 05:00 05/24/17 05:00 05/24/17 05:00 05/24/17 05:00 05/23/17 21:00 Gen: somnolent but arousable Heart: RRR Lung: decreased breath sounds at the bases Abd: soft, nontender Ext: no edema CBC, BMP 05/23/17 05:35 05/24/17 06:05 Active Medications Acetaminophen (Tylenol -) 650 mg PO Q4H PRN PRN Reason: FEVER OR PAIN Aspirin (Asa -) 81 mg PO DAILY [facility] Last Admin: 05/24/17 11:32 Dose: Not Given Atorvastatin Calcium (Lipitor -) 40 mg PO HS [facility] Last Admin: 05/23/17 22:20 Dose: Not Given Clopidogrel Bisulfate (Plavix -) 75 mg PO DAILY [facility] Last Admin: 05/24/17 11:32 Dose: Not Given Docusate Sodium (Colace -) 300 mg PO HS [facility] Last Admin: 05/23/17 22:20 Dose: Not Given Insulin Aspart (Novolog Vial Sliding Scale -) 1 vial SQ ACHS [facility] PRN Reason: Protocol Last Admin: 05/24/17 11:29 Dose: Not Given Latanoprost (Xalatan 0.005% Eye Drops -) 1 drop OU DAILY [facility] Last Admin: 05/24/17 11:33 Dose: Not Given Metoprolol Tartrate (Lopressor -) 12.5 mg PO BID [facility] Last Admin: 05/23/17 09:55 Dose: Not Given Pantoprazole Sodium (Protonix -) 40 mg PO DAILY [facility] Last Admin: 05/24/17 11:28 Dose: 40 mg Ranolazine (Ranexa -) 500 mg PO BID [facility] Last Admin: 05/24/17 11:32 Dose: Not Given A/P Acute NSTEMI Acute Pulmonary Edema improving Mitral Regurgitation Pneumonia treated h/o CVA Acute on Chronic Renal Failure improving - lasix as needed - ASA, plavix - beta katerina, statin - ANIVAL/ARB when renal function stabilizes - antibiotics completed - DVT prophylaxis
--- NOTE | 2017-05-24 18:06 | PN ---
Progress Note, Physician Chief Complaint: Patient came in from the [place] for SOB/hypoxia History of Present Illness: Patient comfortably lying in bed,asleep, NAD. - Current Medication List Current Medications: Active Medications Acetaminophen (Tylenol -) 650 mg PO Q4H PRN PRN Reason: FEVER OR PAIN Aspirin (Asa -) 81 mg PO DAILY [facility] Last Admin: 05/24/17 11:32 Dose: Not Given Atorvastatin Calcium (Lipitor -) 40 mg PO HS [facility] Last Admin: 05/23/17 22:20 Dose: Not Given Clopidogrel Bisulfate (Plavix -) 75 mg PO DAILY [facility] Last Admin: 05/24/17 11:32 Dose: Not Given Docusate Sodium (Colace -) 300 mg PO HS [facility] Last Admin: 05/23/17 22:20 Dose: Not Given Insulin Aspart (Novolog Vial Sliding Scale -) 1 vial SQ ACHS [facility] PRN Reason: Protocol Last Admin: 05/24/17 11:29 Dose: Not Given Latanoprost (Xalatan 0.005% Eye Drops -) 1 drop OU DAILY [facility] Last Admin: 05/24/17 11:33 Dose: Not Given Metoprolol Tartrate (Lopressor -) 12.5 mg PO BID [facility] Last Admin: 05/23/17 09:55 Dose: Not Given Pantoprazole Sodium (Protonix -) 40 mg PO DAILY [facility] Last Admin: 05/24/17 11:28 Dose: 40 mg Ranolazine (Ranexa -) 500 mg PO BID [facility] Last Admin: 05/24/17 11:32 Dose: Not Given - Objective Vital Signs: Vital Signs Temperature 98.9 F 05/24/17 14:00 Pulse Rate 70 05/24/17 14:00 Respiratory Rate 18 05/24/17 05:00 Blood Pressure 117/66 05/24/17 14:00 O2 Sat by Pulse Oximetry (%) 95 05/23/17 21:00 Constitutional: Yes: No Distress, Calm HENT: Yes: Normocephalic Cardiovascular: Yes: Regular Rate and Rhythm Respiratory: Yes: Regular, CTA Bilaterally, Diminished Gastrointestinal: Yes: Soft Edema: No Peripheral Pulses WNL: Yes Labs: CBC, BMP 05/23/17 05:35 05/24/17 06:05 INR, PTT INR 1.08 (0.82-1.09) 05/21/17 05:20 Problem List - Problems (1) Acute renal failure Code(s): N17.9 - ACUTE KIDNEY FAILURE, UNSPECIFIED Qualifiers: Acute renal failure type: unspecified Qualified Code(s): N17.9 - Acute kidney failure, unspecified (2) CHF (congestive heart failure) Code(s): I50.9 - HEART FAILURE, UNSPECIFIED Qualifiers: Congestive heart failure type: unspecified congestive heart failure type Congestive heart failure chronicity: acute Qualified Code(s): I50.9 - Heart failure, unspecified (3) Pneumonia Code(s): J18.9 - PNEUMONIA, UNSPECIFIED ORGANISM (4) Acute pulmonary edema Code(s): J81.0 - ACUTE PULMONARY EDEMA (5) NSTEMI (non-ST elevated myocardial infarction) Code(s): I21.4 - NON-ST ELEVATION (NSTEMI) MYOCARDIAL INFARCTION Assessment/Plan (1) Acute renal failure Code(s): N17.9 - ACUTE KIDNEY FAILURE, UNSPECIFIED Qualifiers: Acute renal failure type: unspecified Qualified Code(s): N17.9 - Acute kidney failure, unspecified -seen by nephro today -hold diuretics for now -repeat labs in am (2) Acute pulmonary edema -seen by pulmo -no SOB, improving (3) CHF (congestive heart failure) Code(s): I50.9 - HEART FAILURE, UNSPECIFIED Qualifiers: Congestive heart failure type: unspecified congestive heart failure type Congestive heart failure chronicity: acute Qualified Code(s): I50.9 - Heart failure, unspecified -seen by cardio today -not in failure at this time -hold lasix (4) NSTEMI -seen by cardio -continue ASA, Plavix, statin -continue low dose BB -ARB and CCB held (5) Pneumonia Code(s): J18.9 - PNEUMONIA, UNSPECIFIED ORGANISM -treated
[2017-05-24] MEDS: DOCUSATE SODIUM 100 MG CAPSULE (FP) PO SCH ×2 (21:35)
[2017-05-24] MEDS: ATORVASTATIN CA 40 MG TABLET (FP) PO SCH (21:36)
[2017-05-25] MEDS: INSULIN SLIDING SCALE (NOVOLOG) 1 VIAL SQ SCH ×4 (06:11→21:42)
[2017-05-25 08:06] LABS: EOSINOPHIL 3.1 % (0-4.5); MCH 30.3 pg (25.7-33.7); MCHC 33.9 g/dl (32.0-36.0); MEAN CELL VOLUME 89.4 fl (80-96); MEAN PLT VOLUME 8.7 fl (7.5-11.1); NEUTROPHILS 49.9 % (42.8-82.8); PLATELET COUNT 321 K/MM3 (134-434); RDW 13.4 % (11.6-15.6); WHITE BLOOD COUNT 6.4 K/mm3 (4.0-10.0)
[2017-05-25 08:28] LABS: ALBUMIN 2.8 g/dl (3.4-5.0); ALK PHOS 63 U/L (45-117); ANION GAP 5 (8-16); BILIRUBIN,TOTAL 0.2 mg/dL (0.2-1.0); CALCIUM 8.7 mg/dL (8.5-10.1); CO2 31 mmol/L (21-32); CREATININE 1.4 mg/dL (0.55-1.02); GLUCOSE,RANDOM 96 mg/dL (74-106); SGOT/AST 22 U/L (15-37); SGPT/ALT 20 U/L (12-78); TOT PROT 6.2 g/dl (6.4-8.2)
[2017-05-25] MEDS: METOPROLOL TARTRATE 25 MG TABLET (FP) PO SCH ×2 (09:09→21:30)
[2017-05-25] MEDS: RANOLAZINE E.R. 500 MG TABLET (FP) PO SCH ×2 (09:09→21:30)
[2017-05-25] MEDS: PANTOPRAZOLE 40 MG TABLET (FP) PO SCH (09:09)
[2017-05-25] MEDS: CLOPIDOGREL BISULFATE 75 MG TABLET (FP) PO SCH (09:09)
[2017-05-25] MEDS: ASPIRIN 81 MG CHEWABLE TABLETS PO SCH (09:09)
[2017-05-25] MEDS: LATANOPROST 0.005% OPHTH SOLN 2.5ML BOTTLE OU SCH (09:11)
--- NOTE | 2017-05-25 09:43 | PN ---
Progress Note, Physician Chief Complaint: NSTEMI History of Present Illness: non-verbal--only moans and shakes head. denies sob. shakes head "yes" to chest pain. "yes" to started early this am, "no" to was it present last night. no palpitations, syncope no cigs - Current Medication List Current Medications: Active Medications Acetaminophen (Tylenol -) 650 mg PO Q4H PRN PRN Reason: FEVER OR PAIN Aspirin (Asa -) 81 mg PO DAILY [facility] Last Admin: 05/25/17 09:09 Dose: 81 mg Atorvastatin Calcium (Lipitor -) 40 mg PO HS [facility] Last Admin: 05/24/17 21:36 Dose: 40 mg Clopidogrel Bisulfate (Plavix -) 75 mg PO DAILY [facility] Last Admin: 05/25/17 09:09 Dose: 75 mg Docusate Sodium (Colace -) 300 mg PO HS [facility] Last Admin: 05/24/17 21:35 Dose: Not Given Insulin Aspart (Novolog Vial Sliding Scale -) 1 vial SQ ACHS [facility] PRN Reason: Protocol Last Admin: 05/25/17 06:11 Dose: Not Given Latanoprost (Xalatan 0.005% Eye Drops -) 1 drop OU DAILY [facility] Last Admin: 05/25/17 09:11 Dose: Not Given Metoprolol Tartrate (Lopressor -) 12.5 mg PO BID [facility] Last Admin: 05/25/17 09:09 Dose: 12.5 mg Pantoprazole Sodium (Protonix -) 40 mg PO DAILY [facility] Last Admin: 05/25/17 09:09 Dose: 40 mg Ranolazine (Ranexa -) 500 mg PO BID [facility] Last Admin: 05/25/17 09:09 Dose: 500 mg - Objective Vital Signs: Vital Signs Temperature 97.6 F 05/25/17 07:52 Pulse Rate 63 05/25/17 07:52 Respiratory Rate 18 05/25/17 07:56 Blood Pressure 119/57 05/25/17 07:52 O2 Sat by Pulse Oximetry (%) 96 05/25/17 07:56 Constitutional: Yes: No Distress, Calm Eyes: No: Sclera Icterus HENT: No: Nasal Congestion Cardiovascular: Yes: Regular Rate and Rhythm, S1, S2, Other (PMI non diplaced). No: JVD, Gallop, Murmur Respiratory: Yes: CTA Bilaterally. No: Accessory Muscle Use, Rales, Wheezes Gastrointestinal: Yes: Normal Bowel Sounds, Soft. No: Tenderness Musculoskeletal: Yes: Other (No kyphosis) Extremities: No: Cold Edema: No Integumentary: No: Jaundice Neurological: Yes: Alert. No: Seizure Psychiatric: No: Agitated Labs: CBC, BMP 05/25/17 05:42 05/25/17 05:42 INR, PTT INR 1.08 (0.82-1.09) 05/21/17 05:20 - ....Imaging EKG: Other (tele: NSR, no events) Assessment/Plan Echo 05/2017 this admission: tds. grossly nl lv function. mod-severe inferior wall hypokinesis. Nl rv function. mild-mod lae. + mac. severe MR. 1+ tr. rvsp 39 Echo 04/21 (here): nl LV/EF, normal wall motion. nl RV. nl LA. valves WNL. normal ao root. no peric eff MPI 04/21 (here), persantine: no ST changes vs baseline. moderate sized fixed defect inferior/inferolateral/lateral marshall with partial reversibility; small- moderate sized reversible anterolateral defect. severe global LV hypo, EF 29%. CXR 05/22 (gitig review): RLL chf findings cleared vs admit; no congestive changes seen; LLL atx vs infiltrate a/p: 82 yo female CAD s/p recent nstemi (? demand) and concern for 3vd on stress testing (managed medically), HTN, HLD, DM, prior CVA with right sided hemiplegia with h/o sent to ER from [place] for hypoxia/sob NSTEMI with resulting acute ischemic MR: -recurrent cp, vomiting (= her anginal sx's) with new acute onset respiratory distress, peak trop 9 here. EKG with ischemic (downsloping) anterior ST-Ts, and new inferior nonspecific ST-Ts 05/19 vs admit. -recently here with same sx's, enzymes negative then, nuclear stress test suggestive of Multivessel Dz--pt declined cath. known/suspected CAD since 2007 (dr jacque osorio cardio)--refused cath then despite his rec's for her to have stent, per dtr -Now presents with acute NSTEMI c/b pulm edema, echo showing preserved LVEF with servere IW hypo and severe MR (likely acute ischemic MR). -management dilemma as patient definitively is at high risk for morbidity/ mortality both from CAD as well as any interventions including prolonged DAPT if has coronary stent. daughter agreed there is high likelihood of mother not adhering to DAPT (mild dementia/med skepticism tendencies/intermittently refuses meds) and consider falls risk (multiple recent falls in bedroom in [place]). Dtr discussed above considerations with family and they agreed on palliative approach to treatment, no interventions planned. -cont ASA, Plavix, hi intensity statin as long as no recurrent myalgias (had in the past)--note atorva 40mg dose given elderly and on ranexa with D.I. potential. -con't low dose bb, bp running 90s-120s--will try titrate up dose later if bp stabilizes -cont ranexa for now. -ARB and CCB held (low bp's here) -if she is ambulatory/mobile when leaves hospital, falls risk will need to be reassessed and consider stopping DAPT after the acute post-[place] period (e.g. 4-6 weeks) is past -05/25: admits to cp since this am, appears comfortable--rpt ecg ordered, recycle troponins (note: last hosp stay pt casually admitted to cp multiple times despite appearing comfortable--was uncertain whether this was recurrent angina or not at that time) acute HFpEF, acute ischemic MR: -severe on echo here in setting of acute [place]/acute chf (increased vs echo report few weeks prior) -no ongoing chf, no audible murmur -well-diuresed now, ischemia mgmt as above -holding lasix given hypotension no 05/23--appears clinically euvolemic--observe closely hypotension: -bp initially improved with conservative care of [place] -hypotensive 05/23 (sbp 80s), ? overdiuresed--BP improved s/p IVF bolus and lasix held -remains stable MARY - suspect cardiorenal/low output state - cr improved with diuresis staph hominis bacteremia: - per ID, ? clinical significance - on vanco HTN: -on low side, holding ARB and CCB h/o CVA: -currently on ASA, plavix, statin.
--- NOTE | 2017-05-25 10:23 | PN ---
Progress Note (short form) - Note Progress Note: sleepy, but arousable NAD Vital Signs Period Temp Pulse Resp BP Sys/Douglas Pulse Ox Last 24 Hr 97.6 F-98.9 F 61-86 18-18 92-130/5-66 95-96 cor-rrr lungs clear abd soft,nt ext no edema CBC WBC 6.4 K/mm3 (4.0-10.0) 05/25/17 05:42 RBC 3.05 M/mm3 (3.60-5.2) L 05/25/17 05:42 Hgb 9.3 GM/dL (10.7-15.3) L 05/25/17 05:42 Hct 27.3 % (32.4-45.2) L 05/25/17 05:42 MCV 89.4 fl (80-96) 05/25/17 05:42 MCH 30.3 pg (25.7-33.7) 05/25/17 05:42 MCHC 33.9 g/dl (32.0-36.0) 05/25/17 05:42 RDW 13.4 % (11.6-15.6) 05/25/17 05:42 Plt Count 321 K/MM3 (134-434) 05/25/17 05:42 MPV 8.7 fl (7.5-11.1) 05/25/17 05:42 Neutrophils % 49.9 % (42.8-82.8) D 05/25/17 05:42 Lymphocytes % 38.0 % (8-40) D 05/25/17 05:42 Monocytes % 8.0 % (3.8-10.2) 05/25/17 05:42 Eosinophils % 3.1 % (0-4.5) D 05/25/17 05:42 Basophils % 1.0 % (0-2.0) 05/25/17 05:42 ESR 78 mm/hr (0-30) H 05/20/17 05:15 Laboratory Tests 05/20/17 05/21/17 05/22/17 05:15 05:20 06:00 Random Vancomycin 13.643 19.737 Vancomycin Pre-Dose 19.481 H* 05/23/17 05/25/17 05:35 05:42 Random Vancomycin 14.599 12.457 Vancomycin Pre-Dose a/p hypotension most likely due to over diuresis, improved with iv fluid challenge s/p DC bacteremia- ?significance repeat blood cultures negative continue vancomycin based on levels due to ckd day #8 vancomycin- continue based on levels due to ckd echo noted, plan total 10 days last dose of vancomycin today will sign off please call back if needed
[2017-05-25] MEDS ORDERED: VANCOMYCIN 1 GRAM (PRE-DOCKED) 1,000 MG/250 ML BAG IVPB ONE (12:00)
--- NOTE | 2017-05-25 12:10 | PN ---
Progress Note (short form) - Note Progress Note: RENAL Awake makes eye contact does not answer questions Last Vital Signs Temp Pulse Resp BP Pulse Ox 97.6 F 63 18 119/57 96 05/25/17 07:52 05/25/17 10:40 05/25/17 07:56 05/25/17 07:52 05/25/17 10:40 lungs clear abd soft, not tender ext no edema neuro alert non verbal CBC, BMP 05/25/17 05:42 05/25/17 05:42 Impression 1. MARY- better overall as compared to admission- stable 2. hyperkalemia 3. CHF - acute 4. NSTEMI 5. DM 6. HTN 7. chol 8. dementia 9. CAD 10. lactic acidosis Plan - urine protein and creatinine - hold diuretics for now - repeat labs in am - renal mass vs cyst should be imaged, ultrasound report reviewed [facility]
--- NOTE | 2017-05-25 12:13 | PN ---
Progress Note, Physician Chief Complaint: Patient came in from the [place] for SOB/hypoxia History of Present Illness: Patient comfortably lying in bed, NAD, responds to few questions. Patient denies SOB, and palpitation. - Current Medication List Current Medications: Active Medications Acetaminophen (Tylenol -) 650 mg PO Q4H PRN PRN Reason: FEVER OR PAIN Aspirin (Asa -) 81 mg PO DAILY COUNT INCLUDES [facility] Last Admin: 05/25/17 09:09 Dose: 81 mg Atorvastatin Calcium (Lipitor -) 40 mg PO HS COUNT INCLUDES [facility] Last Admin: 05/24/17 21:36 Dose: 40 mg Clopidogrel Bisulfate (Plavix -) 75 mg PO DAILY COUNT INCLUDES [facility] Last Admin: 05/25/17 09:09 Dose: 75 mg Docusate Sodium (Colace -) 300 mg PO HS COUNT INCLUDES [facility] Last Admin: 05/24/17 21:35 Dose: Not Given Insulin Aspart (Novolog Vial Sliding Scale -) 1 vial SQ ACHS COUNT INCLUDES [facility] PRN Reason: Protocol Last Admin: 05/25/17 11:23 Dose: Not Given Latanoprost (Xalatan 0.005% Eye Drops -) 1 drop OU DAILY COUNT [facility]CLUDES [facility] Last Admin: 05/25/17 09:11 Dose: Not Given Metoprolol Tartrate (Lopressor -) 12.5 mg PO BID COUNT INCLUDES [facility] Last Admin: 05/25/17 09:09 Dose: 12.5 mg Pantoprazole Sodium (Protonix -) 40 mg PO DAILY COUNT [facility]CLUDES [facility] Last Admin: 05/25/17 09:09 Dose: 40 mg Ranolazine (Ranexa -) 500 mg PO BID COUNT [facility]CLUDES [facility] Last Admin: 05/25/17 09:09 Dose: 500 mg - Objective Vital Signs: Vital Signs Temperature 97.6 F 05/25/17 07:52 Pulse Rate 63 05/25/17 10:40 Respiratory Rate 18 05/25/17 07:56 Blood Pressure 119/57 05/25/17 07:52 O2 Sat by Pulse Oximetry (%) 96 05/25/17 10:40 Constitutional: Yes: No Distress, Calm Eyes: Yes: Conjunctiva Clear Neck: Yes: Supple Cardiovascular: Yes: Regular Rate and Rhythm Respiratory: Yes: Regular, CTA Bilaterally Gastrointestinal: Yes: Normal Bowel Sounds, Soft Edema: No Peripheral Pulses WNL: Yes Neurological: Yes: Alert Labs: CBC, BMP 05/25/17 05:42 05/25/17 05:42 INR, PTT INR 1.08 (0.82-1.09) 05/21/17 05:20 Problem List - Problems (1) Acute renal failure Code(s): N17.9 - ACUTE KIDNEY FAILURE, UNSPECIFIED Qualifiers: Acute renal failure type: unspecified Qualified Code(s): N17.9 - Acute kidney failure, unspecified (2) CHF (congestive heart failure) Code(s): I50.9 - HEART FAILURE, UNSPECIFIED Qualifiers: Congestive heart failure type: unspecified congestive heart failure type Congestive heart failure chronicity: acute Qualified Code(s): I50.9 - Heart failure, unspecified (3) Pneumonia Code(s): J18.9 - PNEUMONIA, UNSPECIFIED ORGANISM (4) Acute pulmonary edema Code(s): J81.0 - ACUTE PULMONARY EDEMA (5) NSTEMI (non-ST elevated myocardial infarction) Code(s): I21.4 - NON-ST ELEVATION (NSTEMI) MYOCARDIAL INFARCTION Assessment/Plan (1) Acute renal failure Code(s): N17.9 - ACUTE KIDNEY FAILURE, UNSPECIFIED Qualifiers: Acute renal failure type: unspecified Qualified Code(s): N17.9 - Acute kidney failure, unspecified -nephro on board -hold diuretics for now -repeat labs in am (2) Acute pulmonary edema -pulmo on board -no SOB, improving (3) CHF (congestive heart failure) Code(s): I50.9 - HEART FAILURE, UNSPECIFIED Qualifiers: Congestive heart failure type: unspecified congestive heart failure type Congestive heart failure chronicity: acute Qualified Code(s): I50.9 - Heart failure, unspecified -cardio on board -not in failure at this time -hold lasix (4) NSTEMI -cardio on board -continue ASA, Plavix, statin -continue low dose BB -ARB and CCB held (5) Pneumonia Code(s): J18.9 - PNEUMONIA, UNSPECIFIED ORGANISM -treated
--- NOTE | 2017-05-25 12:45 | EKG ---
Test Reason : Blood Pressure : / mmHG Vent. Rate : 059 BPM Atrial Rate : 059 BPM P-R Int : 142 ms QRS Dur : 098 ms QT Int : 452 ms P-R-T Axes : 061 -04 139 degrees QTc Int : 447 ms SINUS BRADYCARDIA T WAVE ABNORMALITY, CONSIDER ANTEROLATERAL ISCHEMIA ABNORMAL ECG WHEN COMPARED WITH ECG OF 19-MAY-2017 08:45, T WAVE INVERSION NO LONGER EVIDENT IN INFERIOR LEADS T WAVE INVERSION MORE EVIDENT IN LATERAL LEADS Confirmed by CINDY REDD MD ([id number]) on 05/25/2017 12:45:01 PM Referred By: Nargis NOLAN Confirmed By:CINDY REDD MD
[2017-05-25 13:23] LABS: TROPONIN I 0.56 ng/ml (0.00-0.05)
--- NOTE | 2017-05-25 16:26 | PN ---
Progress Note (short form) - Note Progress Note: PULMONARY Denies shortness of breath or chest pain. Appears comfortable. Last Vital Signs Temp Pulse Resp BP Pulse Ox 97.4 F L 66 18 124/63 96 05/25/17 14:00 05/25/17 14:00 05/25/17 07:56 05/25/17 14:00 05/25/17 10:40 Gen: somnolent but arousable Heart: RRR Lung: decreased breath sounds at the bases Abd: soft, nontender Ext: no edema CBC, BMP 05/25/17 05:42 05/25/17 05:42 Active Medications Acetaminophen (Tylenol -) 650 mg PO Q4H PRN PRN Reason: FEVER OR PAIN Aspirin (Asa -) 81 mg PO DAILY [facility] Last Admin: 05/25/17 09:09 Dose: 81 mg Atorvastatin Calcium (Lipitor -) 40 mg PO HS [facility] Last Admin: 05/24/17 21:36 Dose: 40 mg Clopidogrel Bisulfate (Plavix -) 75 mg PO DAILY [facility] Last Admin: 05/25/17 09:09 Dose: 75 mg Docusate Sodium (Colace -) 300 mg PO HS [facility] Last Admin: 05/24/17 21:35 Dose: Not Given Insulin Aspart (Novolog Vial Sliding Scale -) 1 vial SQ ACHS [facility] PRN Reason: Protocol Last Admin: 05/25/17 11:23 Dose: Not Given Latanoprost (Xalatan 0.005% Eye Drops -) 1 drop OU DAILY [facility] Last Admin: 05/25/17 09:11 Dose: Not Given Metoprolol Tartrate (Lopressor -) 12.5 mg PO BID [facility] Last Admin: 05/25/17 09:09 Dose: 12.5 mg Pantoprazole Sodium (Protonix -) 40 mg PO DAILY [facility] Last Admin: 05/25/17 09:09 Dose: 40 mg Ranolazine (Ranexa -) 500 mg PO BID [facility] Last Admin: 05/25/17 09:09 Dose: 500 mg A/P Acute NSTEMI Acute Pulmonary Edema improving Mitral Regurgitation Pneumonia treated h/o CVA Acute on Chronic Renal Failure improving - ASA, plavix - beta katerina, statin - ANIVAL/ARB when renal function stabilizes - antibiotics completed - DVT prophylaxis
[2017-05-25 18:48] LABS: TROPONIN I 0.48 ng/ml (0.00-0.05)
[2017-05-25] MEDS: DOCUSATE SODIUM 100 MG CAPSULE (FP) PO SCH (21:30)
[2017-05-25] MEDS: ATORVASTATIN CA 40 MG TABLET (FP) PO SCH (21:30)
[2017-05-26] MEDS: INSULIN SLIDING SCALE (NOVOLOG) 1 VIAL SQ SCH (06:02)
--- NOTE | 2017-05-26 07:29 | DS ---
Physical Examination Vital Signs: Vital Signs Temperature 98.0 F 05/26/17 06:00 Pulse Rate 58 L 05/26/17 06:00 Respiratory Rate 18 05/26/17 06:00 Blood Pressure 102/46 05/26/17 06:00 O2 Sat by Pulse Oximetry (%) 99 05/26/17 06:00 Findings/Remarks: chronically ill patient with clear advanced directives DNR/DNI no aggressive intervention Labs: CBC, BMP 05/25/17 05:42 05/25/17 05:42 Discharge Summary Reason For Visit: CHF,FEVER,RENAL FAILURE Current Active Problems Acute pulmonary edema (Acute) Acute renal failure (Acute) Acute respiratory failure with hypoxia (Acute) CHF (congestive heart failure) (Acute) Fever (Acute) Myocardial infarct (Acute) NSTEMI (non-ST elevated myocardial infarction) (Acute) Pneumonia (Acute) Pulmonary edema (Acute) - Instructions Referrals: Shashank Tinoco MD [Primary Care Provider] - - Home Medications Comprehensive Discharge Medication List: Ambulatory Orders Aspirin [ASA -] 81 mg PO DAILY 05/18/17 Docusate Sodium [Colace -] 300 mg PO HS 05/18/17 Insulin Aspart [Novolog Flexpen] 0 unit SQ BID PRN 05/18/17 Latanoprost 0.005% Eye Drops [Xalatan 0.005% Eye Drops -] 1 drop OU DAILY Lidocaine [Aspercreme] 1 each TP BID 05/18/17 Metformin HCl 500 mg PO BID 05/18/17 Pantoprazole Sodium [Protonix] 40 mg PO DAILY 05/18/17 Pravastatin Sodium [Pravachol -] 40 mg PO HS 05/18/17 Ranolazine [Ranexa -] 500 mg PO BID 05/18/17 Acetaminophen [Tylenol .Regular Strength -] 650 mg PO Q4H PRN #0 tablet Chlorhexidine Gluconate [Hibiclens For Decolonization -] 1 applic TP HS bottle 05/23/17 Clopidogrel Bisulfate [Plavix -] 75 mg PO DAILY tablet 05/23/17 Insulin Sliding Scale [Novolog Vial Sliding Scale -] 1 vial SQ ACHS units 05/23 Metoprolol Tartrate [Lopressor -] 12.5 mg PO BID tablet 05/23/17 Mupirocin Ointment [Bactroban Ointment (For Decolonization) -] 1 applic NS BID applic 05/23/17
[2017-05-26 08:01] LABS: BASOPHIL 0.9 % (0-2.0); EOSINOPHIL 3.3 % (0-4.5); MCH 30.2 pg (25.7-33.7); MCHC 33.8 g/dl (32.0-36.0); MEAN CELL VOLUME 89.3 fl (80-96); NEUTROPHILS 52.1 % (42.8-82.8); PLATELET COUNT 326 K/MM3 (134-434); RDW 13.3 % (11.6-15.6); WHITE BLOOD COUNT 7.6 K/mm3 (4.0-10.0)
[2017-05-26 08:50] LABS: ANION GAP 8 (8-16); CALCIUM 8.6 mg/dL (8.5-10.1); CO2 28 mmol/L (21-32); CREATININE 1.4 mg/dL (0.55-1.02); GLUCOSE,RANDOM 109 mg/dL (74-106); SGOT/AST 21 U/L (15-37)
[2017-05-26 08:56] LABS: ALBUMIN 2.9 g/dl (3.4-5.0); ALK PHOS 63 U/L (45-117); BILIRUBIN,TOTAL 0.3 mg/dL (0.2-1.0); SGPT/ALT 20 U/L (12-78); TOT PROT 6.2 g/dl (6.4-8.2)
--- NOTE | 2017-05-26 08:59 | PN ---
Progress Note, Physician Chief Complaint: PA History of Present Illness: she is verbal and appropriate today, able to give history now--yesterday's cp felt like strong pressure, similar to presenting ACS sx but not as strong. no sob, orthopnea no palpitations no cigs - Current Medication List Current Medications: Active Medications Acetaminophen (Tylenol -) 650 mg PO Q4H PRN PRN Reason: FEVER OR PAIN Aspirin (Asa -) 81 mg PO DAILY [facility] Last Admin: 05/25/17 09:09 Dose: 81 mg Atorvastatin Calcium (Lipitor -) 40 mg PO HS [facility] Last Admin: 05/25/17 21:30 Dose: 40 mg Clopidogrel Bisulfate (Plavix -) 75 mg PO DAILY [facility] Last Admin: 05/25/17 09:09 Dose: 75 mg Docusate Sodium (Colace -) 300 mg PO HS [facility] Last Admin: 05/25/17 21:30 Dose: 300 mg Insulin Aspart (Novolog Vial Sliding Scale -) 1 vial SQ ACHS [facility] PRN Reason: Protocol Last Admin: 05/26/17 06:02 Dose: Not Given Latanoprost (Xalatan 0.005% Eye Drops -) 1 drop OU DAILY [facility] Last Admin: 05/25/17 09:11 Dose: Not Given Metoprolol Tartrate (Lopressor -) 12.5 mg PO BID [facility] Last Admin: 05/25/17 21:30 Dose: 12.5 mg Pantoprazole Sodium (Protonix -) 40 mg PO DAILY [facility] Last Admin: 05/25/17 09:09 Dose: 40 mg Ranolazine (Ranexa -) 500 mg PO BID [facility] Last Admin: 05/25/17 21:30 Dose: 500 mg - Objective Vital Signs: Vital Signs Temperature 98.0 F 05/26/17 06:00 Pulse Rate 58 L 05/26/17 06:00 Respiratory Rate 18 05/26/17 06:00 Blood Pressure 102/46 05/26/17 06:00 O2 Sat by Pulse Oximetry (%) 99 05/26/17 06:00 Constitutional: Yes: No Distress, Calm Eyes: No: Sclera Icterus HENT: No: Nasal Congestion Cardiovascular: Yes: Regular Rate and Rhythm, S1, S2, Other (PMI non diplaced). No: JVD, Gallop, Murmur Respiratory: Yes: CTA Bilaterally. No: Accessory Muscle Use, Rales, Wheezes Gastrointestinal: Yes: Normal Bowel Sounds, Soft. No: Tenderness Musculoskeletal: Yes: Other (No kyphosis) Extremities: No: Cold Edema: No Integumentary: No: Jaundice Neurological: Yes: Alert, Oriented (x3) Psychiatric: No: Agitated Labs: CBC, BMP 05/26/17 05:48 INR, PTT INR 1.08 (0.82-1.09) 05/21/17 05:20 - ....Imaging EKG: Other (tele: NSR) Assessment/Plan Echo 05/2017 this admission: tds. grossly nl lv function. mod-severe inferior wall hypokinesis. Nl rv function. mild-mod lae. + mac. severe MR. 1+ tr. rvsp 39 Echo 04/21 (here): nl LV/EF, normal wall motion. nl RV. nl LA. valves WNL. normal ao root. no peric eff MPI 04/21 (here), persantine: no ST changes vs baseline. moderate sized fixed defect inferior/inferolateral/lateral marshall with partial reversibility; small- moderate sized reversible anterolateral defect. severe global LV hypo, EF 29%. CXR 05/22 (gitig review): RLL chf findings cleared vs admit; no congestive changes seen; LLL atx vs infiltrate a/p: 82 yo female CAD s/p recent nstemi (? demand) and concern for 3vd on stress testing (managed medically), HTN, HLD, DM, prior CVA with right sided hemiplegia with h/o sent to ER from [place] for hypoxia/sob NSTEMI with resulting acute ischemic MR: -recurrent cp, vomiting (= her anginal sx's) with new acute onset respiratory distress, peak trop 9 here. EKG with ischemic (downsloping) anterior ST-Ts, and new inferior nonspecific ST-Ts 05/19 vs admit. -recently here with same sx's, enzymes negative then, nuclear stress test suggestive of Multivessel Dz--pt declined cath. known/suspected CAD since 2007 (dr jacque osorio cardio)--refused cath then despite his rec's for her to have stent, per dtr -Now presents with acute NSTEMI c/b pulm edema, echo showing preserved LVEF with servere IW hypo and severe MR (likely acute ischemic MR). -management dilemma as patient definitively is at high risk for morbidity/ mortality both from CAD as well as any interventions including prolonged DAPT if has coronary stent. daughter agreed there is high likelihood of mother not adhering to DAPT (mild dementia/med skepticism tendencies/intermittently refuses meds) and consider falls risk (multiple recent falls in bedroom in [place]). Dtr discussed above considerations with family and they agreed on palliative approach to treatment, no interventions planned. -cont ASA, Plavix, hi intensity statin as long as no recurrent myalgias (had in the past)--note atorva 40mg dose given elderly and on ranexa with D.I. potential. -con't low dose bb, bp running 90s-120s--will try titrate up dose later if bp stabilizes -cont ranexa for now. -ARB and CCB held (low bp's here) -05/25 recurrent cp, pt was clinically stable. repeat enzymes unremarkable. ecg with pseudonormalization of prior inferior TWIs, and new TWIs in I/avL. 05/26: no more cp episodes. in line with pt and family wishes re: palliative care and comfort, will cont present meds plus add low dose nitrates to control angina -if pt is ambulatory/mobile when leaves hospital, falls risk will need to be reassessed and consider stopping DAPT after the acute post-PA period (e.g. 4-6 weeks) is past acute HFpEF, acute ischemic MR: -severe on echo here in setting of acute PA/acute chf (increased vs echo report few weeks prior) -no ongoing chf, no audible murmur -well-diuresed now, ischemia mgmt as above -holding lasix given hypotension no 05/23--appears clinically euvolemic--observe closely hypotension: -bp initially improved with conservative care of PA -hypotensive 05/23 (sbp 80s), ? overdiuresed--BP improved s/p IVF bolus and lasix held -remains stable MARY - suspect cardiorenal/low output state - cr improved with diuresis staph hominis bacteremia: - per ID, ? clinical significance - on vanco HTN: -on low side, occasional 90s syst still -same meds as above h/o CVA: -currently on ASA, plavix, statin.
[2017-05-26] MEDS: ASPIRIN 81 MG CHEWABLE TABLETS PO SCH (09:21)
[2017-05-26] MEDS: PANTOPRAZOLE 40 MG TABLET (FP) PO SCH (09:21)
[2017-05-26] MEDS: CLOPIDOGREL BISULFATE 75 MG TABLET (FP) PO SCH (09:21)
[2017-05-26] MEDS: RANOLAZINE E.R. 500 MG TABLET (FP) PO SCH (09:21)
[2017-05-26] MEDS ORDERED: METOPROLOL TARTRATE 50 MG TABLET (FP) ONE (09:24)
[2017-05-26] MEDS: METOPROLOL TARTRATE 25 MG TABLET (FP) PO SCH (09:25)
[2017-05-26] MEDS: LATANOPROST 0.005% OPHTH SOLN 2.5ML BOTTLE OU SCH (09:26)
[2017-05-26] MEDS ORDERED: ISOSORBIDE DINITRATE 10 MG TABLET (FP) PO SCH (10:00)
[2017-05-26 10:16] VITALS: BP 142/62; PULSE 64; TEMP 98
== END 2017-05-26 12:03 | DRG 280 ==
LOC: JER 07:38 → JERBED 10:06 → JICU 13:04 → J4W 05-22 18:44
PROVIDERS: ADMIT Family Medicine; ATTEND Family Medicine
PROC: 5A09557 Assistance with Respiratory Ventilation, Greater than 96 Consecutive Hours, Continuous Positive Airway Pressure (ICD-10-PCS; principal; 2017-05-18)
DX: I21.4 Non-ST elevation (NSTEMI) myocardial infarction (principal); J18.9 Pneumonia, unspecified organism; J96.01 Acute respiratory failure with hypoxia; R57.0 Cardiogenic shock; I69.351 Hemiplegia and hemiparesis following cerebral infarction affecting right dominant side; N17.9 Acute kidney failure, unspecified; E87.2 Acidosis; J98.11 Atelectasis; R78.81 Bacteremia; E78.5 Hyperlipidemia, unspecified; I25.10 Atherosclerotic heart disease of native coronary artery without angina pectoris; F03.90 Unspecified dementia, unspecified severity, without behavioral disturbance, psychotic disturbance, mood disturbance, and anxiety; J44.9 Chronic obstructive pulmonary disease, unspecified; E11.65 Type 2 diabetes mellitus with hyperglycemia; I12.9 Hypertensive chronic kidney disease with stage 1 through stage 4 chronic kidney disease, or unspecified chronic kidney disease; E11.22 Type 2 diabetes mellitus with diabetic chronic kidney disease; N18.9 Chronic kidney disease, unspecified; E87.5 Hyperkalemia; R50.9 Fever, unspecified; D64.9 Anemia, unspecified; I95.89 Other hypotension; I34.0 Nonrheumatic mitral (valve) insufficiency; I11.0 Hypertensive heart disease with heart failure; I50.9 Heart failure, unspecified; Z88.0 Allergy status to penicillin; Z79.4 Long term (current) use of insulin
CPT/HCPCS: 36415; 36600; 70450-TC; 71010-TC; 74000-TC; 76775-TC; 76856-TC; 80048; 80053; 80061; 81003; 82553; 82803; 83036; 83605; 83721; 83735; 83880; 84100; 84484; 85025; 85027; 85610; 85651; 85730; 86140; 87040; 87086; 87186; 87899; 93005; 93010; 93306-TC; 94660; 97161-GP; 99285-25; G0480; J1644

== ENCOUNTER 2017-05-29 03:08 | Inpatient (IN) | payer OTHER ==
[2017-05-29 03:17] VITALS: BMI 24.3
[2017-05-29] MEDS ORDERED: FUROSEMIDE 40 MG/4 ML INJECTABLE VIAL IVPUSH ONE (03:24)
--- NOTE | 2017-05-29 03:25 | PDOC ---
History of Present Illness - General History Source: EMS, Half-Way Records, Old Records Exam Limitations: Clinical Condition, Dementia - History of Present Illness Initial Comments: 05/29/17 03:32 The patient is a 82 year old female with significant past medical history of coronary disease, CHF with ejection fraction approximately 29%, hypertension, diabetes, hyperlipidemia, prior CVA right sided hemiplegia, frequent UTIs on on macrobid who presents to the ED BIB[facility] from [facility] for difficulty breathing. Patient was recently seen here on 05/18 where she was admitted and treated for pneumonia and CHF. She was discharged on 05/26 and returns today for difficulty breathing. Allergies: penicillin, simsvastion Social History: No alcohol, tobacco, or drug use reported. Past Surgical History: None reported PCP: Dr. Cynthia Ding <Marga Ontiveros - Last Filed: 05/29/17 05:40> - General History Source: EMS, Family, Half-Way Records <Kraig Rose - Last Filed: 05/29/17 19:34> - General Chief Complaint: Respiratory Stated Complaint: DIFFICULTY BREATHING Time Seen by Provider: 05/29/17 03:19 Past History <Marga Ontiveros - Last Filed: 05/29/17 05:40> - Past Medical History CVA: Yes (with right HP) Diabetes: Yes GI Disorders: Yes (UTIS.) HTN: Yes Hypercholesterolemia: Yes - Psycho/Social/Smoking Cessation Hx Anxiety: No Suicidal Ideation: No Smoking History: Unknown if ever smoked Have you smoked in the past 12 months: No Information on smoking cessation initiated: No Hx Alcohol Use: No Drug/Substance Use Hx: No Substance Use Type: None <Kraig Rose - Last Filed: 05/29/17 19:34> - Past Medical History Allergies/Adverse Reactions: Allergies Allergy/AdvReac Type Severity Reaction Status Date / Time Penicillins Allergy Verified 05/29/17 03:13 simvastatin Allergy Verified 05/29/17 03:13 Home Medications: Ambulatory Orders Aspirin [ASA -] 81 mg PO DAILY 05/18/17 Docusate Sodium [Colace -] 300 mg PO HS 05/18/17 Insulin Aspart [Novolog Flexpen] 0 unit SQ BID PRN 05/18/17 Latanoprost 0.005% Eye Drops [Xalatan 0.005% Eye Drops -] 1 drop OU DAILY Lidocaine [Aspercreme] 1 each TP BID 05/18/17 Metformin HCl 500 mg PO BID 05/18/17 Pantoprazole Sodium [Protonix] 40 mg PO DAILY 05/18/17 Pravastatin Sodium [Pravachol -] 40 mg PO HS 05/18/17 Ranolazine [Ranexa -] 500 mg PO BID 05/18/17 Clopidogrel Bisulfate [Plavix -] 75 mg PO DAILY tablet 05/23/17 Insulin Sliding Scale [Novolog Vial Sliding Scale -] 1 vial SQ ACHS units 05/23 Metoprolol Tartrate [Lopressor -] 12.5 mg PO BID tablet 05/23/17 Acetaminophen [Tylenol .Regular Strength -] 650 mg PO Q6H PRN 05/29/17 Review of Systems - Review of Systems Able to Perform ROS?: No Comments:: 05/29/17 03:32 Unable to obtain secondary to clinical condition. <Marga Ontiveros - Last Filed: 05/29/17 05:40> *Physical Exam - Vital Signs Last Vital Signs Temp Pulse Resp BP Pulse Ox 99.8 F H 116 H 18 113/63 100 05/29/17 03:14 05/29/17 03:14 05/29/17 03:14 05/29/17 03:14 05/29/17 03:14 - Physical Exam Comments: 05/29/17 03:32 GENERAL: Well developed, well nourished. Awake and alert. No acute distress. HEENT: Normocephalic, atraumatic. PERRLA, EOMI. No conjunctival pallor. Sclera are non- icteric. Moist mucous membranes. Oropharynx is clear. NECK: Supple. Full ROM. No JVD. Carotid pulses 2+ and symmetric, without bruits. No thyromegaly. No lymphadenopathy. CARDIOVASCULAR: Regular rate and rhythm. No murmurs, rubs, or gallops. PULMONARY: Mild respiratory distress. Bilateral crackles. Supraclavicular retractions. ABDOMINAL: Soft. Non-tender. Non-distended. No rebound or guarding. No organomegaly. Normoactive bowel sounds. MUSCULOSKELETAL No bony deformities or tenderness. No CVA tenderness. EXTREMITIES: No cyanosis. No clubbing. No edema. No calf tenderness. SKIN: Warm and dry. Normal capillary refill. No rashes. No jaundice. NEUROLOGICAL: Awake and alert. Following commands. <Marga Ontiveros - Last Filed: 05/29/17 05:40> - Vital Signs Last Vital Signs Temp Pulse Resp BP Pulse Ox 99.8 F H 116 H 18 113/63 100 05/29/17 03:14 05/29/17 03:14 05/29/17 03:14 05/29/17 03:14 05/29/17 03:14 <Kraig Rose - Last Filed: 05/29/17 19:34> Heart Score/ECG Review - ECG Impressions Comment:: 05/29/17 03:33 Sinus tachycardia @114bpm Low voltage QRS Marked ST abnormality, possible lateral subendocardial injury Abnormal ECG <Marga Ontiveros - Last Filed: 05/29/17 05:40> ED Treatment Course - LABORATORY CBC & Chemistry Diagram: 05/29/17 04:10 05/29/17 04:10 <Marga Ontiveros - Last Filed: 05/29/17 05:40> - LABORATORY CBC & Chemistry Diagram: 05/29/17 04:10 05/29/17 14:00 <Kraig Rose - Last Filed: 05/29/17 19:34> Medical Decision Making - Medical Decision Making 05/29/17 05:[address] Cynthia Ding (via answering service) and patient's case was discussed. <Marga Ontiveros - Last Filed: 05/29/17 05:40> - Medical Decision Making 05/29/17 19:34 Dr. Rose: The scribe's documentation has been prepared under my direction and personally reviewed by me in its entirery. I confirm that the note above accurately reflects all work, treatment, procedures, and medical decision making performed by me. <Kraig Rose - Last Filed: 05/29/17 19:34> *DC/Admit/Observation/Transfer - Attestations Scribe Attestion: 05/29/17 03:32 Documentation prepared by Marga Ontiveros, acting as medical care evaluation specialist for Kraig Rose DO. <Marga Ontiveros - Last Filed: 05/29/17 05:40> - Discharge Dispostion Admit: Yes <Kraig Rose - Last Filed: 05/29/17 19:34> Diagnosis at time of Disposition: CHF (congestive heart failure), Pulmonary edema - Discharge Dispostion Condition at time of disposition: Stable
[2017-05-29] MEDS ORDERED: FUROSEMIDE 40 MG/4 ML INJECTABLE VIAL ONE (04:21)
[2017-05-29 04:22] LABS: BASOPHIL 0.4 % (0-2.0); EOSINOPHIL 0.1 % (0-4.5); MEAN CELL VOLUME 90.9 fl (80-96); MEAN PLT VOLUME 9.3 fl (7.5-11.1); NEUTROPHILS 89.3 % (42.8-82.8); PLATELET COUNT 354 K/MM3 (134-434); RDW 13.7 % (11.6-15.6); WHITE BLOOD COUNT 21.7 K/mm3 (4.0-10.0)
[2017-05-29 04:34] LABS: INR 0.99 (0.82-1.09); PROTHROMBIN TIME (PATIENT) 10.9 SEC (9.98-11.88)
[2017-05-29 04:48] LABS: ALBUMIN 3.3 g/dl (3.4-5.0); ALK PHOS 77 U/L (45-117); ANION GAP 12 (8-16); BILIRUBIN,TOTAL 0.4 mg/dL (0.2-1.0); CALCIUM 8.9 mg/dL (8.5-10.1); CO2 21 mmol/L (21-32); CREATININE 1.8 mg/dL (0.55-1.02); GLUCOSE,RANDOM 248 mg/dL (74-106); SGOT/AST 23 U/L (15-37); SGPT/ALT 18 U/L (12-78); TOT PROT 7.1 g/dl (6.4-8.2)
[2017-05-29 04:49] LABS: MAGNESIUM 2.6 mg/dL (1.8-2.4)
[2017-05-29] MEDS ORDERED: ACETAMINOPHEN 325 MG TABLET (FP) PO PRN (06:48)
[2017-05-29 06:57] LABS: URINE APPEARANCE SLCLOUDY; URINE BILIRUBIN NEGATIVE (NEGATIVE); URINE BLOOD NEGATIVE (NEGATIVE); URINE COLOR DKYELLOW; URINE GLUCOSE (UA) NEGATIVE (NEGATIVE); URINE KETONE NEGATIVE (NEGATIVE); URINE LEUK ESTERASE NEGATIVE (NEGATIVE); URINE NITRITE NEGATIVE (NEGATIVE); URINE PROTEIN NEGATIVE (NEGATIVE); URINE UROBILINOGEN NEGATIVE mg/dL (0.2-1.0)
[2017-05-29] MEDS ORDERED: metFORMIN HCL 500 MG TABLET (FP) PO SCH ×2 (07:00→08:45)
[2017-05-29] MEDS: INSULIN SLIDING SCALE (NOVOLOG) 1 VIAL SQ SCH ×4 (07:45→22:27)
[2017-05-29 08:36] LABS: TROPONIN I 0.69 ng/ml (0.00-0.05)
[2017-05-29] MEDS ORDERED: METHYL SALICYLATE/MENTHOL OINT 30 GM TUBE TP SCH (10:00)
[2017-05-29] MEDS ORDERED: METOPROLOL TARTRATE 25 MG TABLET (FP) PO SCH (10:00)
[2017-05-29] MEDS ORDERED: RANOLAZINE E.R. 500 MG TABLET (FP) PO SCH (10:00)
[2017-05-29] MEDS ORDERED: PRAVASTATIN NA 40 MG TABLET PO SCH (10:00)
[2017-05-29] MEDS ORDERED: PANTOPRAZOLE 40 MG TABLET (FP) PO SCH (10:00)
[2017-05-29] MEDS ORDERED: MUPIROCIN 2% TOPICAL OINTMENT 22 GM TUBE TP SCH (10:00)
[2017-05-29] MEDS ORDERED: CLOPIDOGREL BISULFATE 75 MG TABLET (FP) PO SCH (10:00)
[2017-05-29] MEDS ORDERED: ASPIRIN COATED 81 MG TABLET.EC PO SCH (10:00)
--- NOTE | 2017-05-29 10:51 | EKG ---
Test Reason : Blood Pressure : / mmHG Vent. Rate : 114 BPM Atrial Rate : 114 BPM P-R Int : 140 ms QRS Dur : 106 ms QT Int : 364 ms P-R-T Axes : 075 062 147 degrees QTc Int : 501 ms SINUS TACHYCARDIA LOW VOLTAGE QRS MARKED ST ABNORMALITY, POSSIBLE LATERAL SUBENDOCARDIAL INJURY ABNORMAL ECG WHEN COMPARED WITH ECG OF 25-MAY-2017 11:50, SIGNIFICANT CHANGES HAVE OCCURRED Confirmed by ELIDIA TUTTLE MD ([id number]) on 05/29/2017 10:50:36 AM Referred By: Confirmed By:ELIDIA TUTTLE MD
[2017-05-29] MEDS ORDERED: ASPIRIN 81 MG CHEWABLE TABLETS ONE (11:38)
[2017-05-29] MEDS ORDERED: METOPROLOL TARTRATE 25 MG TABLET (FP) ONE (12:07)
--- NOTE | 2017-05-29 14:02 | CONSULT ---
Consult Consult Specialty:: Nephrology Reason for Consultation:: MARY and hyperkalemia - History of Present Illness Chief Complaint: shortness of breath History of Present Illness: Pt is an 82 year old female with pmhx of CHF, CKD, CVA, HTN, and DM who was sent in from the OR for shortness of breath. She was recently discharged after being treated for CHF. She is unable to give much history at the moment. She denies chest pain. 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 Cardio/Vascular: Yes: CAD, HTN, Hyperlipdemia Pulmonary: Yes: COPD ...: No Endocrine: Yes: Diabetes Mellitus - Alcohol/Substance Use Hx Alcohol Use: No - Smoking History Smoking history: Unknown if ever smoked Have you smoked in the past 12 months: No Home Medications - Allergies Allergies/Adverse Reactions: Allergies Allergy/AdvReac Type Severity Reaction Status Date / Time Penicillins Allergy Verified 05/29/17 03:13 simvastatin Allergy Verified 05/29/17 03:13 - Home Medications Home Medications: Ambulatory Orders Aspirin [ASA -] 81 mg PO DAILY 05/18/17 Docusate Sodium [Colace -] 300 mg PO HS 05/18/17 Insulin Aspart [Novolog Flexpen] 0 unit SQ BID PRN 05/18/17 Latanoprost 0.005% Eye Drops [Xalatan 0.005% Eye Drops -] 1 drop OU DAILY Lidocaine [Aspercreme] 1 each TP BID 05/18/17 Metformin HCl 500 mg PO BID 05/18/17 Pantoprazole Sodium [Protonix] 40 mg PO DAILY 05/18/17 Pravastatin Sodium [Pravachol -] 40 mg PO HS 05/18/17 Ranolazine [Ranexa -] 500 mg PO BID 05/18/17 Clopidogrel Bisulfate [Plavix -] 75 mg PO DAILY tablet 05/23/17 Insulin Sliding Scale [Novolog Vial Sliding Scale -] 1 vial SQ ACHS units 05/23 Metoprolol Tartrate [Lopressor -] 12.5 mg PO BID tablet 05/23/17 Acetaminophen [Tylenol .Regular Strength -] 650 mg PO Q6H PRN 05/29/17 Family Disease History - Family Disease History Family History: Denies Review of Systems - Review of Systems Constitutional: reports: No Symptoms Eyes: reports: No Symptoms HENT: reports: No Symptoms Neck: reports: No Symptoms Cardiovascular: reports: Shortness of Breath Respiratory: reports: SOB Gastrointestinal: reports: No Symptoms Genitourinary: reports: No Symptoms Musculoskeletal: reports: No Symptoms Neurological: reports: No Symptoms Psychiatric: reports: No Symptoms Physical Exam Vital Signs: Vital Signs Temperature 98.6 F 05/29/17 13:06 Pulse Rate 100 H 05/29/17 06:57 Respiratory Rate 90 H 05/29/17 13:06 Blood Pressure 116/63 05/29/17 13:06 O2 Sat by Pulse Oximetry (%) 100 05/29/17 06:57 Constitutional: Yes: Calm Eyes: Yes: Conjunctiva Clear Cardiovascular: Yes: S1, S2 Respiratory: Yes: On Nasal O2, Rhonchi Gastrointestinal: Yes: Soft Renal/: Yes: Huber Present Musculoskeletal: Yes: Muscle Weakness Edema: No Neurological: Yes: Other (drowsy) Labs: Laboratory Tests 05/29/17 05/29/17 05/29/17 04:10 04:10 04:10 WBC 21.7 H D Sodium 139 Potassium 6.0 H D Chloride 106 Carbon Dioxide 21 D Anion Gap 12 BUN 42 H Creatinine 1.8 H D Lactic Acid 2.6 H* Troponin I B-Natriuretic Peptide Urine Color Urine Appearance Urine pH Ur Specific [place] Urine Protein Urine Glucose (UA) Urine Ketones Urine Blood Urine Nitrite Urine Bilirubin Urine Urobilinogen Ur Leukocyte Esterase 05/29/17 05/29/17 05/29/17 04:10 06:40 07:50 WBC Sodium Potassium Chloride Carbon Dioxide Anion Gap BUN Creatinine Lactic Acid Troponin I 0.69 H* B-Natriuretic Peptide 24128.63 H Urine Color Dkyellow Urine Appearance Slcloudy Urine pH 5.0 Ur Specific [place] Pending Urine Protein Negative Urine Glucose (UA) Negative Urine Ketones Negative Urine Blood Negative Urine Nitrite Negative Urine Bilirubin Negative Urine Urobilinogen Negative Ur Leukocyte Esterase Negative Imaging - Results Chest X-ray: Report Reviewed Problem List - Problems (1) CHF (congestive heart failure) Code(s): I50.9 - HEART FAILURE, UNSPECIFIED Qualifiers: (2) Acute renal failure Code(s): N17.9 - ACUTE KIDNEY FAILURE, UNSPECIFIED Qualifiers: Acute renal failure type: unspecified Qualified Code(s): N17.9 - Acute kidney failure, unspecified (3) HTN (hypertension) Code(s): I10 - ESSENTIAL (PRIMARY) HYPERTENSION (4) NSTEMI (non-ST elevated myocardial infarction) Code(s): I21.4 - NON-ST ELEVATION (NSTEMI) MYOCARDIAL INFARCTION (5) Hyperkalemia Code(s): E87.5 - HYPERKALEMIA Assessment/Plan Current Medications Generic Name Dose Route Start Last Admin Trade Name Freq PRN Reason Stop Dose Admin Acetaminophen 650 mg 05/29/17 06:48 Tylenol - PO Q6H PRN FEVER OR PAIN Aspirin 81 mg 05/29/17 13:00 Ecotrin - PO DAILY [facility] Atorvastatin Calcium 10 mg 05/29/17 22:00 Lipitor - PO HS [facility] Clopidogrel Bisulfate 75 mg 05/29/17 13:00 Plavix - PO DAILY [facility] Docusate Sodium 300 mg 05/29/17 22:00 Colace - PO HS [facility] Insulin Aspart 1 vial 05/29/17 07:00 05/29/17 12:42 Novolog Vial Sliding Scale - SQ Not Given ACHS [facility] Protocol Latanoprost 1 drop 05/29/17 22:00 Xalatan 0.005% Eye Drops - OD HS [facility] Metformin HCl 500 mg 05/29/17 08:45 Glucophage - PO BID@0700,1630 [facility] Methyl Salicylate 1 applic 05/29/17 10:00 Ashutosh-Herman - TP DAILY [facility] Metoprolol Tartrate 12.5 mg 05/29/17 13:00 Lopressor - PO BID [facility] Mupirocin 1 applic 05/29/17 10:00 Bactroban 2% Ointment - TP BID [facility] Pantoprazole Sodium 40 mg 05/29/17 13:00 Protonix - PO DAILY [facility] Pneumococcal 13-Valent Conj Vacc 0.5 ml 05/29/17 13:03 Prevnar 13 Syringe - IM 05/29/17 13:04 .ONCE ONE Ranolazine 500 mg 05/29/17 13:00 Ranexa - PO BID [facility] Impression 1. MARY 2. hyperkalemia 3. CHF - acute 4. NSTEMI 5. DM 6. HTN 7. chol 8. dementia 9. CAD Plan - pt received a dose of lasix in her - will give another dose - repeat labs - repeat potassium - repeat cxr - cardio eval - stop metformin Dr Varner
--- NOTE | 2017-05-29 14:07 | HP ---
Admitting History and Physical - Primary Care Physician PCP: Cynthia Ding - Admission Chief Complaint: CHEST PAIN/SOB History of Present Illness: 82 Y/O FEMALE WITH ACUTE ON CHRONIC CHF READMITTED AFTER BEING DISCHARGED SEVERAL DAYS AO WITH CHEST PAIN AND SOB. PATIENT HAD AN ACUTE CORONARY SYNDROME 2 WEEK AGO AND FAMILY OPTED TO NOT HAVE ANY CARDIAC CATH/PROCEDURES AND DEEMED HER DNR/DNI WITH NO AGGRESSIVE INTERVENTIONS. PATIENT HERE FROM [facility] FOR ACUTE CHEST PAIN/CHF ACUTE ON CHRONIC. - Past Medical History SHOVE UP: Yes: CVA, Dementia Cardiovascular: Yes: CAD, HTN, Hyperlipdemia Pulmonary: Yes: COPD ...: No Endocrine: Yes: Diabetes Mellitus - Advance Directives Advance Directives: Yes: Health Care Proxy, DNR - Smoking History Smoking history: Unknown if ever smoked Have you smoked in the past 12 months: No - Alcohol/Substance Use Hx Alcohol Use: No Home Medications - Allergies Allergies/Adverse Reactions: Allergies Allergy/AdvReac Type Severity Reaction Status Date / Time Penicillins Allergy Verified 05/29/17 03:13 simvastatin Allergy Verified 05/29/17 03:13 - Home Medications Home Medications: Ambulatory Orders Aspirin [ASA -] 81 mg PO DAILY 05/18/17 Docusate Sodium [Colace -] 300 mg PO HS 05/18/17 Insulin Aspart [Novolog Flexpen] 0 unit SQ BID PRN 05/18/17 Latanoprost 0.005% Eye Drops [Xalatan 0.005% Eye Drops -] 1 drop OU DAILY Lidocaine [Aspercreme] 1 each TP BID 05/18/17 Metformin HCl 500 mg PO BID 05/18/17 Pantoprazole Sodium [Protonix] 40 mg PO DAILY 05/18/17 Pravastatin Sodium [Pravachol -] 40 mg PO HS 05/18/17 Ranolazine [Ranexa -] 500 mg PO BID 05/18/17 Clopidogrel Bisulfate [Plavix -] 75 mg PO DAILY tablet 05/23/17 Insulin Sliding Scale [Novolog Vial Sliding Scale -] 1 vial SQ ACHS units 05/23 Metoprolol Tartrate [Lopressor -] 12.5 mg PO BID tablet 05/23/17 Acetaminophen [Tylenol .Regular Strength -] 650 mg PO Q6H PRN 05/29/17 Review of Systems - Review of Systems Constitutional: reports: Loss of Appetite, Weakness Eyes: reports: No Symptoms HENT: reports: No Symptoms Neck: reports: No Symptoms Cardiovascular: reports: Chest Pain Respiratory: reports: SOB Gastrointestinal: reports: No Symptoms Genitourinary: reports: Incontinence Musculoskeletal: reports: Muscle Weakness Integumentary: reports: Other Neurological: reports: Weakness Endocrine: reports: Other Hematology/Lymphatic: reports: No Symptoms Psychiatric: reports: No Symptoms Physical Examination Vital Signs: Vital Signs Temperature 98.6 F 05/29/17 13:06 Pulse Rate 100 H 05/29/17 06:57 Respiratory Rate 90 H 05/29/17 13:06 Blood Pressure 116/63 05/29/17 13:06 O2 Sat by Pulse Oximetry (%) 100 05/29/17 06:57 Constitutional: Yes: Mild Distress Eyes: Yes: WNL HENT: Yes: WNL Neck: Yes: WNL Cardiovascular: Yes: WNL Respiratory: Yes: Diminished, On Nasal O2, SOB Gastrointestinal: Yes: WNL Renal/: Yes: WNL Musculoskeletal: Yes: Muscle Weakness Extremities: Yes: WNL Edema: No Peripheral Pulses WNL: Yes Integumentary: Yes: WNL Wound/Incision: Yes: Clean/Dry Neurological: Yes: Pre-Existing Deficit ...Motor Strength: LLE, RLE Psychiatric: Yes: Other Imaging - Results X-ray: Report Reviewed Assessment/Plan ACUTE ON CHRONIC CHF DMII HTN LIPIDEMIA CRI BED BOUNG/NON-AMBULATORY PLAN: DIURESIS IV LASIX DAILY [facility] CONSULT R/O PNA PALLIATIVE CARE CONSULT RECOMMENDING PATIENT NO LONGER BE READMITTED TO HOSPITAL SETTING DNR/DNI NO BLOOD DRAWS AND DC TO A HOSPICE CENTER VS SNF .
--- NOTE | 2017-05-29 14:14 | CON.PULM ---
Consult Consult Specialty:: PULMONARY Referred by:: Dr. Ding Reason for Consultation:: shortness of breath - History of Present Illness Chief Complaint: shortness of breath History of Present Illness: 82yo female with h/o HTN, DM, CAD, LV Systolic Dysfunction, mitral regurgitation , CKD, h/o CVA who was recently discharged after admission for acute NSTEMI complicated by acute pulmonary edema and acute on chronic renal failure and presumed pneumonia who was sent from the [facility] for shortness of breath. Pt is a poor historian, unable to provide further history at this time. Shakes her head when asked if short of breath or with chest pain. During last admission , cardiac intervention was offered to family but pts family declining invasive testing and wished for medical management. 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 Cardio/Vascular: Yes: CAD, HTN, Hyperlipdemia Pulmonary: Yes: COPD ...: No Endocrine: Yes: Diabetes Mellitus - Alcohol/Substance Use Hx Alcohol Use: No - Smoking History Smoking history: Unknown if ever smoked Have you smoked in the past 12 months: No Home Medications - Allergies Allergies/Adverse Reactions: Allergies Allergy/AdvReac Type Severity Reaction Status Date / Time Penicillins Allergy Verified 05/29/17 03:13 simvastatin Allergy Verified 05/29/17 03:13 - Home Medications Home Medications: Ambulatory Orders Aspirin [ASA -] 81 mg PO DAILY 05/18/17 Docusate Sodium [Colace -] 300 mg PO HS 05/18/17 Insulin Aspart [Novolog Flexpen] 0 unit SQ BID PRN 05/18/17 Latanoprost 0.005% Eye Drops [Xalatan 0.005% Eye Drops -] 1 drop OU DAILY Lidocaine [Aspercreme] 1 each TP BID 05/18/17 Metformin HCl 500 mg PO BID 05/18/17 Pantoprazole Sodium [Protonix] 40 mg PO DAILY 05/18/17 Pravastatin Sodium [Pravachol -] 40 mg PO HS 05/18/17 Ranolazine [Ranexa -] 500 mg PO BID 05/18/17 Clopidogrel Bisulfate [Plavix -] 75 mg PO DAILY tablet 05/23/17 Insulin Sliding Scale [Novolog Vial Sliding Scale -] 1 vial SQ ACHS units 05/23 Metoprolol Tartrate [Lopressor -] 12.5 mg PO BID tablet 05/23/17 Acetaminophen [Tylenol .Regular Strength -] 650 mg PO Q6H PRN 05/29/17 Family Disease History - Family Disease History Family History: Unable to Obtain Review of Systems Unable to obtain ROS, reason: poor historian Physical Exam Vital Sings: Vital Signs Temperature 98.6 F 05/29/17 13:06 Pulse Rate 100 H 05/29/17 06:57 Respiratory Rate 90 H 05/29/17 13:06 Blood Pressure 116/63 05/29/17 13:06 O2 Sat by Pulse Oximetry (%) 100 05/29/17 06:57 Constitutional: Yes: Calm Eyes: Yes: Conjunctiva Clear, EOM Intact HENT: Yes: Atraumatic, Normocephalic Neck: Yes: Supple, Trachea Midline Cardiovascular: Yes: Regular Rate and Rhythm Respiratory: Yes: Rhonchi ...Clubbing: No Gastrointestinal: Yes: Normal Bowel Sounds, Soft. No: Tenderness Edema: No Neurological: Yes: Confusion Imaging - Results Chest X-ray: Report Reviewed, Image Reviewed Problem List - Problems (1) Acute on chronic systolic (congestive) heart failure Code(s): I50.23 - ACUTE ON CHRONIC SYSTOLIC (CONGESTIVE) HEART FAILURE (2) Pleural effusion Code(s): J90 - PLEURAL EFFUSION, NOT ELSEWHERE CLASSIFIED (3) CAD (coronary artery disease) Code(s): I25.10 - ATHSCL HEART DISEASE OF [place] CORONARY ARTERY W/O ANG PCTRS (4) Elevated troponin Code(s): R74.8 - ABNORMAL LEVELS OF OTHER SERUM ENZYMES (5) HLD (hyperlipidemia) Code(s): E78.5 - HYPERLIPIDEMIA, UNSPECIFIED (6) HTN (hypertension) Code(s): I10 - ESSENTIAL (PRIMARY) HYPERTENSION (7) Lactic acidosis Code(s): E87.2 - ACIDOSIS (8) Mitral regurgitation Code(s): I34.0 - NONRHEUMATIC MITRAL (VALVE) INSUFFICIENCY (9) Pulmonary hypertension Code(s): I27.2 - OTHER SECONDARY PULMONARY HYPERTENSION Assessment/Plan Acute on Chronic Systolic Heart Failure Severe Mitral Regurgitation Pulmonary HTN CAD +Troponins likely from above Lactic Acidosis Acute on Chronic Renal Failure HTN Hyperlipidemia - IV lasix - monitor urine output, creatinine - daily weights, I/Os - trend cardiac enzymes, lactate - ASA, plavix - beta katerina - afterload reduction when renal function stabilizes - monitor urine output, creatinine - cardiology evaluation - discuss with family goals of care Thank you for this consult Gunnar Lui MD
[2017-05-29] MEDS: FUROSEMIDE 40 MG/4 ML INJECTABLE VIAL IVPUSH SCH (14:30)
[2017-05-29 15:38] LABS: ANION GAP 10 (8-16); CO2 23 mmol/L (21-32); GLUCOSE,RANDOM 165 mg/dL (74-106)
[2017-05-29 15:39] LABS: CREATININE 1.9 mg/dL (0.55-1.02)
--- NOTE | 2017-05-29 16:12 | CONSULT ---
Consult Consult Specialty:: infectious diseases Reason for Consultation:: leukocytosis/pna - History of Present Illness Chief Complaint: sob History of Present Illness: 82yo female with h/o HTN, DM, CAD, LV Systolic Dysfunction, mitral regurgitation , CKD, h/o CVA who was recently discharged after admission for acute NSTEMI complicated by acute pulmonary edema and acute on chronic renal failure a who was sent from the half-way for shortness of breath. 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 Cardio/Vascular: Yes: CAD, HTN, Hyperlipdemia Pulmonary: Yes: COPD ...: No Endocrine: Yes: Diabetes Mellitus - Alcohol/Substance Use Hx Alcohol Use: No - Smoking History Smoking history: Unknown if ever smoked Have you smoked in the past 12 months: No Home Medications - Allergies Allergies/Adverse Reactions: Allergies Allergy/AdvReac Type Severity Reaction Status Date / Time Penicillins Allergy Verified 05/29/17 03:13 simvastatin Allergy Verified 05/29/17 03:13 - Home Medications Home Medications: Ambulatory Orders Aspirin [ASA -] 81 mg PO DAILY 05/18/17 Docusate Sodium [Colace -] 300 mg PO HS 05/18/17 Insulin Aspart [Novolog Flexpen] 0 unit SQ BID PRN 05/18/17 Latanoprost 0.005% Eye Drops [Xalatan 0.005% Eye Drops -] 1 drop OU DAILY Lidocaine [Aspercreme] 1 each TP BID 05/18/17 Metformin HCl 500 mg PO BID 05/18/17 Pantoprazole Sodium [Protonix] 40 mg PO DAILY 05/18/17 Pravastatin Sodium [Pravachol -] 40 mg PO HS 05/18/17 Ranolazine [Ranexa -] 500 mg PO BID 05/18/17 Clopidogrel Bisulfate [Plavix -] 75 mg PO DAILY tablet 05/23/17 Insulin Sliding Scale [Novolog Vial Sliding Scale -] 1 vial SQ ACHS units 05/23 Metoprolol Tartrate [Lopressor -] 12.5 mg PO BID tablet 05/23/17 Acetaminophen [Tylenol .Regular Strength -] 650 mg PO Q6H PRN 05/29/17 Review of Systems Unable to obtain ROS, reason: unable to obtain Physical Exam Vital Signs: Vital Signs Temperature 98.6 F 05/29/17 14:00 Pulse Rate 100 H 05/29/17 06:57 Respiratory Rate 90 H 05/29/17 14:00 Blood Pressure 116/63 05/29/17 14:00 O2 Sat by Pulse Oximetry (%) 100 05/29/17 06:57 Constitutional: Yes: Calm, Other Eyes: Yes: Conjunctiva Clear HENT: Yes: Atraumatic Neck: Yes: Supple Cardiovascular: Yes: Regular Rate and Rhythm Respiratory: Yes: On Nasal O2, Poor Air Entry, Rhonchi Gastrointestinal: Yes: Normal Bowel Sounds, Soft Musculoskeletal: Yes: WNL Extremities: Yes: WNL Neurological: Yes: Alert Psychiatric: Yes: Alert Labs: CBC, BMP 05/29/17 14:00 Imaging - Results Chest X-ray: Report Reviewed, Image Reviewed Assessment/Plan Problem List - Problems (1) Acute on chronic systolic (congestive) heart failure Code(s): I50.23 - ACUTE ON CHRONIC SYSTOLIC (CONGESTIVE) HEART FAILURE (2) Pleural effusion Code(s): J90 - PLEURAL EFFUSION, NOT ELSEWHERE CLASSIFIED (3) CAD (coronary artery disease) Code(s): I25.10 - ATHSCL HEART DISEASE OF [place] CORONARY ARTERY W/O ANG PCTRS (4) Elevated troponin Code(s): R74.8 - ABNORMAL LEVELS OF OTHER SERUM ENZYMES (5) HLD (hyperlipidemia) Code(s): E78.5 - HYPERLIPIDEMIA, UNSPECIFIED (6) HTN (hypertension) Code(s): I10 - ESSENTIAL (PRIMARY) HYPERTENSION (7) Lactic acidosis Code(s): E87.2 - ACIDOSIS (8) Mitral regurgitation Code(s): I34.0 - NONRHEUMATIC MITRAL (VALVE) INSUFFICIENCY (9) Pulmonary hypertension Code(s): I27.2 - OTHER SECONDARY PULMONARY HYPERTEN leukocytosis there is a chance patient can have pneumonia,very hard to tell at this moment patient is lcinically stable will watch her for today and see if she spikes any fever or how the wbc trends plan continue current mgmt monitor wbc iresp support rest as per primary
[2017-05-29] MEDS ORDERED: PNEUMOC 13-VAL CONJ-DIP CRM/PF 0.5 ML DISP.SYRIN IM ONE (16:30)
[2017-05-29] MEDS: MUPIROCIN 2% TOPICAL OINTMENT 22 GM TUBE TP SCH ×2 (18:50→22:37)
[2017-05-29] MEDS: METHYL SALICYLATE/MENTHOL OINT 30 GM TUBE TP SCH (18:51)
[2017-05-29] MEDS: ASPIRIN COATED 81 MG TABLET.EC PO SCH (18:53)
[2017-05-29] MEDS: CLOPIDOGREL BISULFATE 75 MG TABLET (FP) PO SCH (18:53)
[2017-05-29] MEDS: PANTOPRAZOLE 40 MG TABLET (FP) PO SCH (18:53)
[2017-05-29] MEDS: METOPROLOL TARTRATE 25 MG TABLET (FP) PO SCH ×2 (18:53→22:27)
[2017-05-29] MEDS: RANOLAZINE E.R. 500 MG TABLET (FP) PO SCH ×2 (18:54→22:27)
--- NOTE | 2017-05-29 21:28 | CON.CARD ---
Cardiology Consult (text) - Consultation Consultation Note: CC: sob 82 yo female CAD s/p recent nstemi x 2 with resulting severe acute on chronic ischemic mr (family declined invasive intervention, HTN, HLD, DM, prior CVA with right sided hemiplegiawith sent to ER for recurrent hypoxia/sob In ER received lasix with improvement in sx's. Also lasix this afternoon. Unable to obtain history from patient, but she is currently in nad and denies symptoms including sob, cp, dizziness, palps. No le edema, palps, dizziness, bleeding No f/c/s, cough, congestion, h/a, visual disturbances, rashes. PMH/PSHX: per hpi social hx: Never smoked fam hx: no cardiomyopathy ros: per hpi, limited Ambulatory Orders Aspirin [ASA -] 81 mg PO DAILY 05/18/17 Docusate Sodium [Colace -] 300 mg PO HS 05/18/17 Insulin Aspart [Novolog Flexpen] 0 unit SQ BID PRN 05/18/17 Latanoprost 0.005% Eye Drops [Xalatan 0.005% Eye Drops -] 1 drop OU DAILY Lidocaine [Aspercreme] 1 each TP BID 05/18/17 Metformin HCl 500 mg PO BID 05/18/17 Pantoprazole Sodium [Protonix] 40 mg PO DAILY 05/18/17 Pravastatin Sodium [Pravachol -] 40 mg PO HS 05/18/17 Ranolazine [Ranexa -] 500 mg PO BID 05/18/17 Clopidogrel Bisulfate [Plavix -] 75 mg PO DAILY tablet 05/23/17 Insulin Sliding Scale [Novolog Vial Sliding Scale -] 1 vial SQ ACHS units 05/23 Metoprolol Tartrate [Lopressor -] 12.5 mg PO BID tablet 05/23/17 Acetaminophen [Tylenol .Regular Strength -] 650 mg PO Q6H PRN 05/29/17 Current Medications Acetaminophen (Tylenol -) 650 mg PO Q6H PRN PRN Reason: FEVER OR PAIN Aspirin (Ecotrin -) 81 mg PO DAILY [facility] Last Admin: 05/29/17 18:53 Dose: Not Given Atorvastatin Calcium (Lipitor -) 10 mg PO [facility] Clopidogrel Bisulfate (Plavix -) 75 mg PO DAILY [facility] Last Admin: 05/29/17 18:53 Dose: Not Given Docusate Sodium (Colace -) 300 mg PO HS [facility] Furosemide (Lasix Injection -) 40 mg IVPUSH DAILY [facility] Last Admin: 05/29/17 14:30 Dose: 40 mg Insulin Aspart (Novolog Vial Sliding Scale -) 1 vial SQ ACHS [facility] PRN Reason: Protocol Last Admin: 05/29/17 17:57 Dose: Not Given Latanoprost (Xalatan 0.005% Eye Drops -) 1 drop OD HS [facility] Methyl Salicylate (Ashutosh-Herman -) 1 applic TP DAILY [facility] Last Admin: 05/29/17 18:51 Dose: 1 applic Metoprolol Tartrate (Lopressor -) 12.5 mg PO BID [facility] Last Admin: 05/29/17 18:53 Dose: Not Given Mupirocin (Bactroban 2% Ointment -) 1 applic TP BID [facility] Last Admin: 05/29/17 18:50 Dose: 1 applic Pantoprazole Sodium (Protonix -) 40 mg PO DAILY [facility] Last Admin: 05/29/17 18:53 Dose: Not Given Ranolazine (Ranexa -) 500 mg PO BID [facility] Last Admin: 05/29/17 18:54 Dose: Not Given Vital Signs - 24 hr 05/29/17 05/29/17 05/29/17 03:14 05:40 06:57 Temperature 99.8 F H 98.2 F Pulse Rate 116 H 91 H Pulse Rate [ 100 H Left] Respiratory 18 18 20 Rate Blood Pressure 113/63 124/78 Blood Pressure 118/65 [Right Arm] O2 Sat by Pulse 100 100 100 Oximetry (%) 05/29/17 05/29/17 05/29/17 14:00 17:11 18:04 Temperature 98.6 F 98.5 F Pulse Rate 94 H Pulse Rate [ Left] Respiratory 90 H 18 Rate Blood Pressure 116/63 124/63 Blood Pressure [Right Arm] O2 Sat by Pulse 97 Oximetry (%) Intake & Output 05/27/17 05/28/17 05/29/17 05/30/17 07:59 07:59 07:59 07:59 Intake Total 60 Output Total 300 Balance -240 Weight 133 lb 1.6 oz Constitutional: Yes: Well Nourished, No Distress Eyes: No: Sclera Icterus HENT: No: Nasal Congestion Neck: No: Decreased ROM Respiratory: Yes: CTA Bilaterally. No: Accessory Muscle Use, Rales, Wheezes Gastrointestinal: Yes: Normal Bowel Sounds. No: Distention, Hepatomegaly, Palpable Mass, Tenderness Cardiovascular: Yes: Regular Rate and Rhythm JVD: No Carotid Bruit: No PMI: Non-Displaced Heart Sounds: Yes: S1, S2. No: Gallop Murmur: No: Systolic Murmur, Diastolic Murmur Musculoskeletal: Yes: Other (No kyphosis) Extremities: No: Cold, Cyanosis Edema: No Peripheral Pulses: 2+ Left Carotid, 2+ Right Carotid, 2+ Left Doralis Pedis, 2+ Right Dorsalis Pedis Integumentary: No: Jaundice Neurological: Yes: Alert, Oriented (x3) Psychiatric: No: Agitated CBC, BMP 05/29/17 04:10 05/29/17 14:00 Laboratory Tests 05/18/17 05/20/17 05/20/17 14:25 05:15 05:15 Potassium Lactic Acid Magnesium 2.0 Total Bilirubin AST ALT Alkaline Phosphatase Creatine Kinase 321 H Creatine Kinase Index 7.9 H* CK-MB (CK-2) 25.648 H Troponin I 9.79 H* Albumin 2.7 L Triglycerides 153 Cholesterol 167 Total LDL Cholesterol 83 HDL Cholesterol 60 05/25/17 05/29/17 05/29/17 17:30 04:10 04:10 Potassium Lactic Acid 2.6 H* Magnesium Total Bilirubin 0.4 D AST 23 ALT 18 Alkaline Phosphatase 77 D Creatine Kinase Creatine Kinase Index CK-MB (CK-2) Troponin I 0.48 H Albumin 3.3 L Triglycerides Cholesterol Total LDL Cholesterol HDL Cholesterol 05/29/17 05/29/17 05/29/17 04:10 07:50 14:00 Potassium 5.5 H Lactic Acid Magnesium 2.6 H Total Bilirubin AST ALT Alkaline Phosphatase Creatine Kinase 110 Creatine Kinase Index CK-MB (CK-2) Troponin I 0.69 H* Albumin Triglycerides Cholesterol Total LDL Cholesterol HDL Cholesterol EKG sinus tach lateral std. anterior St/T wave abnormalities. tele: nsr cxr: congestive changes with pleural effusion. worsened rll congestion Echo 05/2017 this admission: tds. grossly nl lv function. mod-severe inferior wall hypokinesis. Nl rv function. mild-mod lae. + mac. severe MR. 1+ tr. rvsp 39 Echo 04/21 (here): nl LV/EF, normal wall motion. nl RV. nl LA. valves WNL. normal ao root. no peric eff MPI 04/21 (here), persantine: no ST changes vs baseline. moderate sized fixed defect inferior/inferolateral/lateral marshall with partial reversibility; small- moderate sized reversible anterolateral defect. severe global LV hypo, EF 29%. a/p: 82 yo female CAD s/p recent nstemi x 2 with resulting severe acute on chronic ischemic mr (family declined invasive intervention, HTN, HLD, DM, prior CVA with right sided hemiplegiawith sent to ER for recurrent hypoxia/sob a/p: 82 yo female CAD s/p recent nstemi (? demand) and concern for 3vd on stress testing (managed medically), HTN, HLD, DM, prior CVA with right sided hemiplegia with h/o sent [facility] [place] [facility] for hypoxia[place]sob hypoxia/sob - likely related to ongoing CAD/3vd/acute on chronic ischemic MR. Disease not intervened upon. At risk for recurrent pulmonary edema as below. - gentle diuresis. supportive/palliative care recent NSTEMI with resulting acute ischemic MR: -known/suspected CAD since 2007 (dr jacque osorio cardio)--refused cath then despite his rec's for her to have stent, per dtr -Now s/p recent NSTEMI x 2 c/b pulm edema, echo showing preserved LVEF with servere IW hypo and severe MR (likely acute ischemic MR). -management dilemma as patient definitively is at high risk for morbidity/ mortality both from CAD as well as any interventions including prolonged DAPT if has coronary stent. daughter agreed there is high likelihood of mother not adhering to DAPT (mild dementia/med skepticism tendencies/intermittently refuses meds) and consider falls risk (multiple recent falls in bedroom in [place]). Dtr discussed above considerations with family and they agreed on palliative approach to treatment, no interventions planned. -cont ASA, Plavix, hi intensity statin as long as no recurrent myalgias (had in the past)--note atorva 40mg dose given elderly and on ranexa with D.I. potential. -con't low dose bb, -cont ranexa for now. -hold outpatient arb given hyperkalemia. -recurrent trop elevation. would not restart heparin for now as patient is now s/p 2 courses of heparin this month and continues to have recurrent ischemia/ demand ischemia. If bp tolerates will need uptitration of anti-anginals, consider nitropatch or imdur tomorrow if bp remains stable s/p lasix. . acute HFpEF, acute ischemic MR: -severe on echo here in setting of acute [place]/acute chf (increased vs echo report few weeks prior) -recurrent rll congestion on cxr likely 2/2 mr. - monitor with iv lasix. does not appear to be particularly volume overloaded, consider transition to po tomorrow if respiratory status is improved. MARY/hyperkalemia - monitor with diuresis, renal following. HTN: -now runs on low side, monitor with diuresis h/o CVA: -currently on ASA, plavix, statin.
[2017-05-29] MEDS ORDERED: ATORVASTATIN CA 10 MG TABLET (FP) PO SCH ×2 (22:00)
[2017-05-29] MEDS ORDERED: LATANOPROST 0.005% OPHTH SOLN 2.5ML BOTTLE OD SCH ×2 (22:00)
[2017-05-29] MEDS ORDERED: DOCUSATE SODIUM 100 MG CAPSULE (FP) PO SCH ×2 (22:00)
[2017-05-30 06:15] LABS: BASOPHIL 0.6 % (0-2.0); MCH 29.6 pg (25.7-33.7); MCHC 32.8 g/dl (32.0-36.0); MEAN CELL VOLUME 90.1 fl (80-96); MEAN PLT VOLUME 9.3 fl (7.5-11.1); NEUTROPHILS 78.2 % (42.8-82.8); PLATELET COUNT 325 K/MM3 (134-434); RDW 14.1 % (11.6-15.6); WHITE BLOOD COUNT 12.2 K/mm3 (4.0-10.0)
[2017-05-30 06:40] LABS: ANION GAP 12 (8-16); CALCIUM 8.9 mg/dL (8.5-10.1); CO2 25 mmol/L (21-32); GLUCOSE,RANDOM 176 mg/dL (74-106)
[2017-05-30] MEDS: INSULIN SLIDING SCALE (NOVOLOG) 1 VIAL SQ SCH ×3 (06:55→17:00)
[2017-05-30] MEDS ORDERED: PT OWN MED DRAWER 7, Y5N ONE (09:46)
[2017-05-30] MEDS: MUPIROCIN 2% TOPICAL OINTMENT 22 GM TUBE TP SCH (10:05)
[2017-05-30] MEDS: METOPROLOL TARTRATE 25 MG TABLET (FP) PO SCH (10:07)
[2017-05-30] MEDS: RANOLAZINE E.R. 500 MG TABLET (FP) PO SCH (10:07)
[2017-05-30] MEDS: FUROSEMIDE 40 MG/4 ML INJECTABLE VIAL IVPUSH SCH (10:07)
[2017-05-30] MEDS: PANTOPRAZOLE 40 MG TABLET (FP) PO SCH (10:07)
[2017-05-30] MEDS: ASPIRIN COATED 81 MG TABLET.EC PO SCH (10:07)
[2017-05-30] MEDS: CLOPIDOGREL BISULFATE 75 MG TABLET (FP) PO SCH (10:07)
[2017-05-30] MEDS: METHYL SALICYLATE/MENTHOL OINT 30 GM TUBE TP SCH (10:11)
--- NOTE | 2017-05-30 10:32 | PN ---
Progress Note (short form) - Note Progress Note: s: no cp,palps, dizzy, less sob o: Vital Signs Period Temp Pulse Resp BP Sys/Douglas Pulse Ox Last 24 Hr 97.7 F-99 F 87-97 18-90 116-132/63-69 92-97 Constitutional: Yes: Well Nourished, No Distress Eyes: No: Sclera Icterus HENT: No: Nasal Congestion Respiratory: Yes: CTA Bilaterally. No: Accessory Muscle Use, Rales, Wheezes Gastrointestinal: Yes: Normal Bowel Sounds. No: Distention, Hepatomegaly, Palpable Mass, Tenderness Cardiovascular: Yes: Regular Rate and Rhythm JVD: No Heart Sounds: Yes: S1, S2. No: Gallop Murmur: No: Systolic Murmur, Diastolic Murmur Extremities: No: Cold, Cyanosis Edema: No Integumentary: No: Jaundice Neurological: Yes: Alert,appropriate Psychiatric: No: Agitated Current Medications Generic Name Dose Route Start Last Admin Trade Name Freq PRN Reason Stop Dose Admin Acetaminophen 650 mg 05/29/17 06:48 Tylenol - PO Q6H PRN FEVER OR PAIN Aspirin 81 mg 05/29/17 13:00 05/30/17 10:07 Ecotrin - PO 81 mg DAILY [facility] Administration Atorvastatin Calcium 10 mg 05/29/17 22:00 05/29/17 22:27 Lipitor - PO 10 mg HS [facility] Administration Clopidogrel Bisulfate 75 mg 05/29/17 13:00 05/30/17 10:07 Plavix - PO 75 mg DAILY [facility] Administration Docusate Sodium 300 mg 05/29/17 22:00 05/29/17 22:37 Colace - PO Not Given HS [facility] Insulin Aspart 1 vial 05/29/17 07:00 05/30/17 06:55 Novolog Vial Sliding Scale - SQ 2 units ACHS [facility] Administration Protocol Latanoprost 1 drop 05/29/17 22:00 05/29/17 22:38 Xalatan 0.005% Eye Drops - OD Not Given HS [facility] Methyl Salicylate 1 applic 05/29/17 10:00 05/30/17 10:11 Ashutosh-Herman - TP 1 applic DAILY [facility] Administration Metoprolol Tartrate 12.5 mg 05/29/17 13:00 05/30/17 10:07 Lopressor - PO 12.5 mg BID [facility] Administration Mupirocin 1 applic 05/29/17 10:00 05/29/17 22:37 Bactroban 2% Ointment - TP Not Given BID [facility] Pantoprazole Sodium 40 mg 05/29/17 13:00 05/30/17 10:07 Protonix - PO 40 mg DAILY [facility] Administration Ranolazine 500 mg 05/29/17 13:00 05/30/17 10:07 Ranexa - PO 500 mg BID [facility] Administration CBC, BMP 05/30/17 05:20 05/30/17 05:20 EKG sinus tach lateral std. anterior St/T wave abnormalities. tele: sr cxr: congestive changes with pleural effusion. worsened rll congestion Echo 05/2017 this admission: tds. grossly nl lv function. mod-severe inferior wall hypokinesis. Nl rv function. mild-mod lae. + mac. severe MR. 1+ tr. rvsp 39 Echo 04/21 (here): nl LV/EF, normal wall motion. nl RV. nl LA. valves WNL. normal ao root. no peric eff MPI 04/21 (here), persantine: no ST changes vs baseline. moderate sized fixed defect inferior/inferolateral/lateral marshall with partial reversibility; small- moderate sized reversible anterolateral defect. severe global LV hypo, EF 29%. a/p: 82 yo female CAD s/p recent nstemi (? demand) and concern for 3vd on stress testing (managed medically), HTN, HLD, DM, prior CVA with right sided hemiplegia with h/o sent to ER from [place] for hypoxia/sob hypoxia/sob - likely related to ongoing CAD/3vd/acute on chronic ischemic MR. Disease not intervened upon. At risk for recurrent pulmonary edema as below. - gentle diuresis. supportive/palliative care recent NSTEMI with resulting acute ischemic MR: -known/suspected CAD since 2007 (dr jacque osorio cardio)--refused cath then despite his rec's for her to have stent, per dtr -Now s/p recent NSTEMI x 2 c/b pulm edema, echo showing preserved LVEF with servere IW hypo and severe MR (likely acute ischemic MR). -management dilemma as patient definitively is at high risk for morbidity/ mortality both from CAD as well as any interventions including prolonged DAPT if has coronary stent. daughter agreed there is high likelihood of mother not adhering to DAPT (mild dementia/med skepticism tendencies/intermittently refuses meds) and consider falls risk (multiple recent falls in bedroom [place]). Dtr discussed above considerations with family and they agreed on palliative approach to treatment, no interventions planned. -cont ASA, Plavix, hi intensity statin as long as no recurrent myalgias (had in the past)--note atorva 40mg dose given elderly and on ranexa with D.I. potential. -con't low dose bb, -cont ranexa for now. -hold outpatient arb given hyperkalemia. -recurrent trop elevation. would not restart heparin for now as patient is now s/p 2 courses of heparin this month and continues to have recurrent ischemia/ demand ischemia. will start imdur 30 qd here as well. acute HFpEF, acute ischemic MR: -severe on echo here in setting of acute [place]/acute chf (increased vs echo report few weeks prior) -recurrent rll congestion on cxr likely 2/2 mr. -does not appear to be particularly volume overloaded and bun/cr up after iv lasix so will hold for now MARY/hyperkalemia -does not appear to be particularly volume overloaded and bun/cr up after iv lasix so will hold for now HTN: -stable h/o CVA: -currently on ASA, plavix, statin.
[2017-05-30 10:41] LABS: CPK 605 IU/L (26-192)
[2017-05-30] MEDS ORDERED: HEPARIN NA (PORCINE) 5,000 UNITS/ML 1ML VIAL IVPUSH PRN ×2 (11:05)
[2017-05-30] MEDS ORDERED: HEPARIN INFUSION - 500 ML IVPB SCH (11:15)
--- NOTE | 2017-05-30 12:54 | DS ---
Physical Examination Vital Signs: Vital Signs Temperature 97.7 F 05/30/17 10:05 Pulse Rate 87 05/30/17 10:26 Respiratory Rate 18 05/30/17 10:05 Blood Pressure 125/68 05/30/17 10:05 O2 Sat by Pulse Oximetry (%) 92 L 05/30/17 10:26 Constitutional: Yes: Mild Distress Eyes: Yes: WNL HENT: Yes: WNL Neck: Yes: WNL Cardiovascular: Yes: Murmur Respiratory: Yes: Cough, On Nasal O2, Poor Air Entry, SOB Gastrointestinal: Yes: WNL Renal/: Yes: WNL Musculoskeletal: Yes: Muscle Weakness Extremities: Yes: WNL Edema: Yes Peripheral Pulses WNL: Yes Integumentary: Yes: WNL Wound/Incision: Yes: Clean/Dry Neurological: Yes: Pre-Existing Deficit ...Motor Strength: LLE, RLE Psychiatric: Yes: Other Labs: CBC, BMP 05/30/17 05:20 05/30/17 05:20 Discharge Summary Reason For Visit: CONGESTIVE HEART FAILURE Current Active Problems Acute on chronic systolic (congestive) heart failure (Acute) CAD (coronary artery disease) (Acute) CHF (congestive heart failure) (Acute) Elevated troponin (Acute) Hyperkalemia (Acute) Lactic acidosis (Acute) Mitral regurgitation (Acute) Pleural effusion (Acute) Pulmonary edema (Acute) Pulmonary hypertension (Acute) Procedures: Principal: CXR Hospital Course: ADMITTED ACUTE ON CHRONIC CHF, DIURESED, NO AGGRESSIVE INTERVENTIONS, HOSPICE REFERRAL, TO [facility] WHEN BED AVAILABLE Condition: Stable - Instructions Diet, Activity, Other Instructions: HOSPICE LOW SODIUM DYSPHAGIA PRECAUTIONS Referrals: Shashank Tinoco MD [Primary Care Provider] - Disposition: TRANSFER ACUTE CARE/OTHER HOSP - Home Medications Comprehensive Discharge Medication List: Ambulatory Orders Aspirin [ASA -] 81 mg PO DAILY 05/18/17 Docusate Sodium [Colace -] 300 mg PO HS 05/18/17 Insulin Aspart [Novolog Flexpen] 0 unit SQ BID PRN 05/18/17 Latanoprost 0.005% Eye Drops [Xalatan 0.005% Eye Drops -] 1 drop OU DAILY Lidocaine [Aspercreme] 1 each TP BID 05/18/17 Metformin HCl 500 mg PO BID 05/18/17 Pantoprazole Sodium [Protonix] 40 mg PO DAILY 05/18/17 Pravastatin Sodium [Pravachol -] 40 mg PO HS 05/18/17 Ranolazine [Ranexa -] 500 mg PO BID 05/18/17 Clopidogrel Bisulfate [Plavix -] 75 mg PO DAILY tablet 05/23/17 Insulin Sliding Scale [Novolog Vial Sliding Scale -] 1 vial SQ ACHS units 05/23 Metoprolol Tartrate [Lopressor -] 12.5 mg PO BID tablet 05/23/17 Acetaminophen [Tylenol .Regular Strength -] 650 mg PO Q6H PRN 05/29/17
--- NOTE | 2017-05-30 13:20 | PN ---
Progress Note (short form) - Note Progress Note: PULMONARY Shakes head no if short of breath or chest pain. Last Vital Signs Temp Pulse Resp BP Pulse Ox 97.7 F 87 18 125/68 92 L 05/30/17 10:05 05/30/17 10:26 05/30/17 10:05 05/30/17 10:05 05/30/17 10:26 Intake & Output 05/27/17 05/28/17 05/29/17 05/30/17 23:59 23:59 23:59 23:59 Intake Total 60 240 Output Total 1200 Balance -1140 240 Weight 133 lb 1.6 oz Gen: NAD at rest Heart: RRR Lung: scattered rhonchi Abd: soft, nontender Ext: no edema CBC, BMP 05/30/17 05:20 05/30/17 05:20 Troponin, BNP 05/30/17 05/30/17 05:20 05:20 Troponin I 20.20 H* Cancelled Active Medications Acetaminophen (Tylenol -) 650 mg PO Q6H PRN PRN Reason: FEVER OR PAIN Aspirin (Ecotrin -) 81 mg PO DAILY [facility] Last Admin: 05/30/17 10:07 Dose: 81 mg Atorvastatin Calcium (Lipitor -) 10 mg PO HS [facility] Last Admin: 05/29/17 22:27 Dose: 10 mg Clopidogrel Bisulfate (Plavix -) 75 mg PO DAILY [facility] Last Admin: 05/30/17 10:07 Dose: 75 mg Docusate Sodium (Colace -) 300 mg PO HS [facility] Last Admin: 05/29/17 22:37 Dose: Not Given Heparin Sodium (Porcine) (Heparin -) 1,000 unit IVPUSH PRN PRN PRN Reason: Heparin Heparin Sodium (Porcine) (Heparin -) 5,000 unit IVPUSH PRN PRN PRN Reason: Heparin Heparin Sodium/Dextrose (Heparin Infusion -) 500 mls @ 16 mls/hr IVPB TITR [facility] ; 800 UNITS/HR PRN Reason: Protocol Last Admin: 05/30/17 12:02 Dose: 16 mls/hr Insulin Aspart (Novolog Vial Sliding Scale -) 1 vial SQ ACHS [facility] PRN Reason: Protocol Last Admin: 05/30/17 12:14 Dose: 6 units Isosorbide Mononitrate (Imdur -) 30 mg PO DAILY [facility] Latanoprost (Xalatan 0.005% Eye Drops -) 1 drop OD HS [facility] Last Admin: 05/29/17 22:38 Dose: Not Given Methyl Salicylate (Ashutosh-Herman -) 1 applic TP DAILY [facility] Last Admin: 05/30/17 10:11 Dose: 1 applic Metoprolol Tartrate (Lopressor -) 12.5 mg PO BID [facility] Last Admin: 05/30/17 10:07 Dose: 12.5 mg Mupirocin (Bactroban 2% Ointment -) 1 applic TP BID [facility] Last Admin: 05/29/17 22:37 Dose: Not Given Pantoprazole Sodium (Protonix -) 40 mg PO DAILY [facility] Last Admin: 05/30/17 10:07 Dose: 40 mg Ranolazine (Ranexa -) 500 mg PO BID [facility] Last Admin: 05/30/17 10:07 Dose: 500 mg A/P Acute on Chronic Systolic Heart Failure Severe Mitral Regurgitation Pulmonary HTN CAD +Troponins/Acute NSTEMI Lactic Acidosis Acute on Chronic Renal Failure HTN Hyperlipidemia - continue lasix - monitor urine output, creatinine - daily weights, I/Os - ASA, plavix - beta katerina - afterload reduction when renal function stabilizes - monitor urine output, creatinine - continue discussions with family goals of care Problem List - Problems (1) Acute on chronic systolic (congestive) heart failure Code(s): I50.23 - ACUTE ON CHRONIC SYSTOLIC (CONGESTIVE) HEART FAILURE (2) Pleural effusion Code(s): J90 - PLEURAL EFFUSION, NOT ELSEWHERE CLASSIFIED (3) CAD (coronary artery disease) Code(s): I25.10 - ATHSCL HEART DISEASE OF [place] CORONARY ARTERY W/O ANG PCTRS (4) Elevated troponin Code(s): R74.8 - ABNORMAL LEVELS OF OTHER SERUM ENZYMES (5) HLD (hyperlipidemia) Code(s): E78.5 - HYPERLIPIDEMIA, UNSPECIFIED (6) HTN (hypertension) Code(s): I10 - ESSENTIAL (PRIMARY) HYPERTENSION (7) Lactic acidosis Code(s): E87.2 - ACIDOSIS (8) Mitral regurgitation Code(s): I34.0 - NONRHEUMATIC MITRAL (VALVE) INSUFFICIENCY (9) Pulmonary hypertension Code(s): I27.2 - OTHER SECONDARY PULMONARY HYPERTENSION
--- NOTE | 2017-05-30 15:52 | PN ---
Progress Note, Physician History of Present Illness: Pt seen and examined at bedside. She feels that her breathing is improved today. - Current Medication List Current Medications: Active Medications Acetaminophen (Tylenol -) 650 mg PO Q6H PRN PRN Reason: FEVER OR PAIN Aspirin (Ecotrin -) 81 mg PO DAILY [facility] Last Admin: 05/30/17 10:07 Dose: 81 mg Atorvastatin Calcium (Lipitor -) 10 mg PO HS [facility] Last Admin: 05/29/17 22:27 Dose: 10 mg Clopidogrel Bisulfate (Plavix -) 75 mg PO DAILY [facility] Last Admin: 05/30/17 10:07 Dose: 75 mg Docusate Sodium (Colace -) 300 mg PO HS [facility] Last Admin: 05/29/17 22:37 Dose: Not Given Heparin Sodium (Porcine) (Heparin -) 1,000 unit IVPUSH PRN PRN PRN Reason: Heparin Heparin Sodium (Porcine) (Heparin -) 5,000 unit IVPUSH PRN PRN PRN Reason: Heparin Insulin Aspart (Novolog Vial Sliding Scale -) 1 vial SQ ACHS [facility] PRN Reason: Protocol Last Admin: 05/30/17 12:14 Dose: 6 units Isosorbide Mononitrate (Imdur -) 30 mg PO DAILY [facility] Latanoprost (Xalatan 0.005% Eye Drops -) 1 drop OD HS [facility] Last Admin: 05/29/17 22:38 Dose: Not Given Methyl Salicylate (Ashutosh-Herman -) 1 applic TP DAILY [facility] Last Admin: 05/30/17 10:11 Dose: 1 applic Metoprolol Tartrate (Lopressor -) 12.5 mg PO BID [facility] Last Admin: 05/30/17 10:07 Dose: 12.5 mg Mupirocin (Bactroban 2% Ointment -) 1 applic TP BID [facility] Last Admin: 05/29/17 22:37 Dose: Not Given Pantoprazole Sodium (Protonix -) 40 mg PO DAILY [facility] Last Admin: 05/30/17 10:07 Dose: 40 mg Ranolazine (Ranexa -) 500 mg PO BID [facility] Last Admin: 05/30/17 10:07 Dose: 500 mg - Objective Vital Signs: Vital Signs Temperature 97.7 F 05/30/17 10:05 Pulse Rate 87 05/30/17 10:26 Respiratory Rate 18 05/30/17 10:05 Blood Pressure 125/68 05/30/17 10:05 O2 Sat by Pulse Oximetry (%) 92 L 05/30/17 10:26 Constitutional: Yes: Calm Eyes: Yes: Conjunctiva Clear HENT: Yes: Atraumatic Cardiovascular: Yes: S1, S2 Respiratory: Yes: On Nasal O2 Gastrointestinal: Yes: Soft Genitourinary: Yes: Incontinence Edema: No Neurological: Yes: Oriented Labs: CBC, BMP 05/30/17 05:20 05/30/17 05:20 INR, PTT INR 0.99 (0.82-1.09) 05/29/17 04:10 Problem List - Problems (1) CHF (congestive heart failure) Code(s): I50.9 - HEART FAILURE, UNSPECIFIED Qualifiers: (2) Acute renal failure Code(s): N17.9 - ACUTE KIDNEY FAILURE, UNSPECIFIED Qualifiers: Acute renal failure type: unspecified Qualified Code(s): N17.9 - Acute kidney failure, unspecified (3) HTN (hypertension) Code(s): I10 - ESSENTIAL (PRIMARY) HYPERTENSION (4) NSTEMI (non-ST elevated myocardial infarction) Code(s): I21.4 - NON-ST ELEVATION (NSTEMI) MYOCARDIAL INFARCTION (5) Hyperkalemia Code(s): E87.5 - HYPERKALEMIA Assessment/Plan Current Medications Generic Name Dose Route Start Last Admin Trade Name Freq PRN Reason Stop Dose Admin Acetaminophen 650 mg 05/29/17 06:48 Tylenol - PO Q6H PRN FEVER OR PAIN Aspirin 81 mg 05/29/17 13:00 05/30/17 10:07 Ecotrin - PO 81 mg DAILY [facility] Administration Atorvastatin Calcium 10 mg 05/29/17 22:00 05/29/17 22:27 Lipitor - PO 10 mg HS [facility] Administration Clopidogrel Bisulfate 75 mg 05/29/17 13:00 05/30/17 10:07 Plavix - PO 75 mg DAILY [facility] Administration Docusate Sodium 300 mg 05/29/17 22:00 05/29/17 22:37 Colace - PO Not Given HS [facility] Heparin Sodium (Porcine) 1,000 unit 05/30/17 11:05 Heparin - IVPUSH PRN PRN Heparin Heparin Sodium (Porcine) 5,000 unit 05/30/17 11:05 Heparin - IVPUSH PRN PRN Heparin Insulin Aspart 1 vial 05/29/17 07:00 05/30/17 12:14 Novolog Vial Sliding Scale - SQ 6 units ACHS [facility] Administration Protocol Isosorbide Mononitrate 30 mg 05/31/17 10:00 Imdur - PO DAILY [facility] Latanoprost 1 drop 05/29/17 22:00 05/29/17 22:38 Xalatan 0.005% Eye Drops - OD Not Given HS [facility] Methyl Salicylate 1 applic 05/29/17 10:00 05/30/17 10:11 Ashutosh-Herman - TP 1 applic DAILY [facility] Administration Metoprolol Tartrate 12.5 mg 05/29/17 13:00 05/30/17 10:07 Lopressor - PO 12.5 mg BID [facility] Administration Mupirocin 1 applic 05/29/17 10:00 05/29/17 22:37 Bactroban 2% Ointment - TP Not Given BID [facility] Pantoprazole Sodium 40 mg 05/29/17 13:00 05/30/17 10:07 Protonix - PO 40 mg DAILY [facility] Administration Ranolazine 500 mg 05/29/17 13:00 05/30/17 10:07 Ranexa - PO 500 mg BID [facility] Administration Impression 1. MARY 2. hyperkalemia 3. CHF - acute 4. NSTEMI 5. DM 6. HTN 7. chol 8. dementia 9. CAD Plan - lasix held for today - low potassium diet - cardio input appreciated - pt likely having another nstemi - will treat potassium medically Dr Varner
[2017-05-30] MEDS ORDERED: SODIUM POLYSTYRENE SULFONATE 15 GM/60 ML BOTTLE PO ONE (15:55)
[2017-05-30 17:08] VITALS: BP 118/61; PULSE 83; TEMP 98.5
--- NOTE | 2017-05-30 17:17 | PN ---
Progress Note, Physician History of Present Illness: feels better no complaint breathing better - Current Medication List Current Medications: Active Medications Acetaminophen (Tylenol -) 650 mg PO Q6H PRN PRN Reason: FEVER OR PAIN Aspirin (Ecotrin -) 81 mg PO DAILY COUNT INCLUDES THE [facility] Last Admin: 05/30/17 10:07 Dose: 81 mg Atorvastatin Calcium (Lipitor -) 10 mg PO HS COUNT INCLUDES THE [facility] Last Admin: 05/29/17 22:27 Dose: 10 mg Clopidogrel Bisulfate (Plavix -) 75 mg PO DAILY COUNT INCLUDES THE [facility] Last Admin: 05/30/17 10:07 Dose: 75 mg Docusate Sodium (Colace -) 300 mg PO HS COUNT INCLUDES THE [facility] Last Admin: 05/29/17 22:37 Dose: Not Given Heparin Sodium (Porcine) (Heparin -) 1,000 unit IVPUSH PRN PRN PRN Reason: Heparin Heparin Sodium (Porcine) (Heparin -) 5,000 unit IVPUSH PRN PRN PRN Reason: Heparin Insulin Aspart (Novolog Vial Sliding Scale -) 1 vial SQ ACHS COUNT INCLUDES THE [facility] PRN Reason: Protocol Last Admin: 05/30/17 12:14 Dose: 6 units Isosorbide Mononitrate (Imdur -) 30 mg PO DAILY COUNT INCLUDES THE [facility] Latanoprost (Xalatan 0.005% Eye Drops -) 1 drop OD HS COUNT INCLUDES THE [facility] Last Admin: 05/29/17 22:38 Dose: Not Given Methyl Salicylate (Ashutosh-Herman -) 1 applic TP DAILY COUNT INCLUDES THE [facility] Last Admin: 05/30/17 10:11 Dose: 1 applic Metoprolol Tartrate (Lopressor -) 12.5 mg PO BID COUNT INCLUDES THE [facility] Last Admin: 05/30/17 10:07 Dose: 12.5 mg Mupirocin (Bactroban 2% Ointment -) 1 applic TP BID COUNT INCLUDES THE [facility] Last Admin: 05/29/17 22:37 Dose: Not Given Pantoprazole Sodium (Protonix -) 40 mg PO DAILY COUNT INCLUDES THE [facility] Last Admin: 05/30/17 10:07 Dose: 40 mg Ranolazine (Ranexa -) 500 mg PO BID COUNT INCLUDES THE [facility] Last Admin: 05/30/17 10:07 Dose: 500 mg - Objective Vital Signs: Vital Signs Temperature 98.5 F 05/30/17 17:07 Pulse Rate 83 05/30/17 17:07 Respiratory Rate 17 05/30/17 17:07 Blood Pressure 118/61 05/30/17 17:07 O2 Sat by Pulse Oximetry (%) 92 L 05/30/17 10:26 Constitutional: Yes: No Distress, Calm Cardiovascular: Yes: Regular Rate and Rhythm Respiratory: Yes: Regular, On Nasal O2 Gastrointestinal: Yes: Normal Bowel Sounds, Soft Musculoskeletal: Yes: WNL Extremities: Yes: WNL Neurological: Yes: Alert, Oriented Psychiatric: Yes: Alert, Oriented Labs: CBC, BMP 05/30/17 05:20 05/30/17 05:20 INR, PTT INR 0.99 (0.82-1.09) 05/29/17 04:10 Assessment/Plan Problem List - Problems (1) Acute on chronic systolic (congestive) heart failure Code(s): I50.23 - ACUTE ON CHRONIC SYSTOLIC (CONGESTIVE) HEART FAILURE (2) Pleural effusion Code(s): J90 - PLEURAL EFFUSION, NOT ELSEWHERE CLASSIFIED (3) CAD (coronary artery disease) Code(s): I25.10 - ATHSCL HEART DISEASE OF [place] CORONARY ARTERY W/O ANG PCTRS (4) Elevated troponin Code(s): R74.8 - ABNORMAL LEVELS OF OTHER SERUM ENZYMES (5) HLD (hyperlipidemia) Code(s): E78.5 - HYPERLIPIDEMIA, UNSPECIFIED (6) HTN (hypertension) Code(s): I10 - ESSENTIAL (PRIMARY) HYPERTENSION (7) Lactic acidosis Code(s): E87.2 - ACIDOSIS (8) Mitral regurgitation Code(s): I34.0 - NONRHEUMATIC MITRAL (VALVE) INSUFFICIENCY (9) Pulmonary hypertension Code(s): I27.2 - OTHER SECONDARY PULMONARY HYPERTEN leukocytosis there is a chance patient can have pneumonia,very hard to tell at this moment patient is lcinically stable will watch her for today and see if she spikes any fever or how the wbc trends plan continue current mgmt wbc coming down resp support rest as per primary
[2017-05-31] MEDS ORDERED: ISOSORBIDE MONONITRATE 30 MG TAB.SR.24H (FP) PO SCH (10:00)
== END 2017-05-30 17:56 | disposition hospice, inpatient (51) | DRG 280 ==
LOC: JER 03:08 → JERBED 05:40 → JER 08:41 → J2W 10:03
PROVIDERS: ADMIT Family Medicine; ATTEND Family Medicine
DX: I22.2 Subsequent non-ST elevation (NSTEMI) myocardial infarction (principal); I50.23 Acute on chronic systolic (congestive) heart failure; I13.0 Hypertensive heart and chronic kidney disease with heart failure and stage 1 through stage 4 chronic kidney disease, or unspecified chronic kidney disease; E87.2 Acidosis; N17.9 Acute kidney failure, unspecified; I69.351 Hemiplegia and hemiparesis following cerebral infarction affecting right dominant side; I34.0 Nonrheumatic mitral (valve) insufficiency; I27.2 Other secondary pulmonary hypertension; I25.10 Atherosclerotic heart disease of native coronary artery without angina pectoris; E78.5 Hyperlipidemia, unspecified; E87.5 Hyperkalemia; E11.22 Type 2 diabetes mellitus with diabetic chronic kidney disease; N18.9 Chronic kidney disease, unspecified
CPT/HCPCS: 36415; 71010-TC; 80048; 80053; 81003; 82553; 83605; 83735; 83880; 84484; 85025; 85610; 87040; 87086; 93005; 93010; 99285-25; J1644

== ENCOUNTER 2017-06-04 09:54 | Emergency (ER) | payer OTHER ==
--- NOTE | 2017-06-04 10:26 | PDOC ---
History of Present Illness <Rubén Moffett - Last Filed: 06/04/17 13:17> - General History Source: EMS, Family, Group Home Records Exam Limitations: Clinical Condition, Dementia - History of Present Illness Initial Comments: 06/04/17 10:20 82y F hx of HTN, HLD, DM, Dementia, prior CVA with right sided hemiplegia, CAD, UTIs in the past sent from [facility] for AMS/Hypoxia. The pt is lethargic on exam and history obtained from EMS and family. Per daughter Ambreen who is bedside the pt was doing well yetserday when she visited - she had dinner, and is normally awake/alert and is conversant. She did complain of some chest pain and had some nitro which improved her discomfort. Today, she was notified by the NH that the pt had difficulty breathing and was sent to the ED. Per the daughter the pts mental status is not normal for her. Per EMS they stated the NH noted the pt was hypoxic and breathing harder than usual. She was put on 8L of NC. <Radu Bowden - Last Filed: 06/07/17 09:23> - General Stated Complaint: DIFFICULTY BREATHING Time Seen by Provider: 06/04/17 10:16 Past History <Rubén Moffett - Last Filed: 06/04/17 13:17> - Past Medical History CVA: Yes (with right HP) Diabetes: Yes GI Disorders: Yes (UTIS.) HTN: Yes Hypercholesterolemia: Yes - Psycho/Social/Smoking Cessation Hx Anxiety: No Suicidal Ideation: No Smoking History: Unknown if ever smoked Have you smoked in the past 12 months: No Hx Alcohol Use: No Drug/Substance Use Hx: No Substance Use Type: None <Radu Bowden - Last Filed: 06/07/17 09:23> - Past Medical History Allergies/Adverse Reactions: Allergies Allergy/AdvReac Type Severity Reaction Status Date / Time Penicillins Allergy Verified 05/29/17 03:13 simvastatin Allergy Verified 05/29/17 03:13 Home Medications: Ambulatory Orders Aspirin [ASA -] 81 mg PO DAILY 05/18/17 Docusate Sodium [Colace -] 300 mg PO HS 05/18/17 Latanoprost 0.005% Eye Drops [Xalatan 0.005% Eye Drops -] 1 drop OU DAILY Lidocaine [Aspercreme] 1 each TP BID 05/18/17 Metformin HCl 500 mg PO BID 05/18/17 Pantoprazole Sodium [Protonix] 40 mg PO DAILY 05/18/17 Pravastatin Sodium [Pravachol -] 40 mg PO HS 05/18/17 Ranolazine [Ranexa -] 500 mg PO BID 05/18/17 Acetaminophen [Tylenol .Regular Strength -] 650 mg PO Q6H PRN #0 tablet Clopidogrel Bisulfate [Plavix -] 75 mg PO DAILY tablet 05/30/17 Methyl Salicylate/Menthol Oint [Analgesic [place] -] 1 applic TP DAILY applic Metoprolol Tartrate [Lopressor -] 12.5 mg PO BID tablet 05/30/17 Calcium Carbonate/Vitamin D3 [Oyster Shell 500-Vit D3 200 Tb] 1 tab PO DAILY Review of Systems - Review of Systems Able to Perform ROS?: No <Radu Bowden - Last Filed: 06/07/17 09:23> *Physical Exam - Vital Signs Last Vital Signs Temp Pulse Resp BP Pulse Ox 97.8 F 63 27 H 73/54 94 L 06/04/17 10:18 06/04/17 12:54 06/04/17 12:54 06/04/17 12:54 06/04/17 12:54 <Rubén Moffett - Last Filed: 06/04/17 13:17> - Physical Exam Comments: 06/04/17 10:27 GENERAL: The patient is grunting/tachypneic HEAD: Normocephalic, atraumatic. EYES: pupils 3mm and symmetrically reactive ENT: Normal voice, Moist mucous membranes. NECK: Normal range of motion, supple LUNGS: tachypenic, breath sounds clear, HEART: Regular rate and rhythm, normal S1 and S2 without murmur, rub or gallop. ABDOMEN: Soft, nontender, slightly distended, no rebound/gurading EXTREMITIES: trace edema NEUROLOGICAL: limited exam PSYCH: unable to assess SKIN: extremities cool to the touch <Radu Bowden - Last Filed: 06/07/17 09:23> ED Treatment Course - RADIOLOGY Radiograph Interpretation: 06/04/17 13:17 CHEST x-rays impressions reported by Dr. Partida: CHF unchanged. <Rubén Moffett - Last Filed: 06/04/17 13:17> - LABORATORY CBC & Chemistry Diagram: 06/04/17 13:15 06/04/17 13:15 - RADIOLOGY Radiology Studies Ordered: Category Date Time Status HEAD CT WITHOUT CONTRAST [CT] Stat CT Scan 06/04/17 10:17 Ordered CHEST X-RAY PORTABLE* [RAD] Stat Radiology 06/04/17 10:18 Ordered <Radu Bowden - Last Filed: 06/07/17 09:23> Medical Decision Making - Medical Decision Making 06/04/17 10:28 respiratory distress and AMS from NH differential includes occult infection/uti, pna vs aspiration pna, chf, cva, anemia, metabolic derangement pt put on O2 NRB on arrival suspect hypoxia due to cold extermities awaiting rectal temp, if high or low will start sepsis protocol will obtain ABG CT head to r/o CVA awaiting EKG to screen for acs pt is DNR, DNI Daugther is bedside 06/04/17 13:36 pt had episode of hypotension and bradycardia to 35, pt was given atropine with improvement of HR BP stlil around 80s/50s will give fluids for hydration there was a hard time getting IV and labs even with A stick and with US - ultimately we got a line in the leg and labs via femoral stick discussed with family, the pt expressed yesterday again she did not want any agressive therapy and resusitation and would just like to be made comfortable her cxr is essentially unchanged from prior 06/04/17 13:50 The pt became more bardycardic and then pulseless and was pulseless. pronounced at 1:41 family bedside including HCP (daughter) - notified of pts immediately 06/04/17 14:[address] Ding will fill out certificate pt had a recent AK that was treated medically. Suspect with recent chest pain, her clinical decline erlated to cardiac in nature. Case is not an [place] case - release number of [id number] CRITICAL CARE DOCUMENTATION: I spent ~35 minutes of Critical Care time, excluding separately billable procedures, involving high complexity decision making to assess, manipulate and support vital system function(s) to treat single or multiple vital organ system failure and/or to prevent further life threatening deterioration of the patient' s condition. <Radu Bowden - Last Filed: 06/07/17 09:23> *DC/Admit/Observation/Transfer <Rubén Moffett - Last Filed: 06/04/17 13:17> - Discharge Dispostion Admit: No <Radu Bowden - Last Filed: 06/07/17 09:23> Diagnosis at time of Disposition: Cardiac arrest - Discharge Dispostion Disposition: Condition at time of disposition: - Referrals Referrals: Cynthia Ding MD [Primary Care Provider] -
[2017-06-04 10:27] VITALS: TEMP 97.8; BMI 23.8
[2017-06-04] MEDS ORDERED: ATROPINE SO4 0.4 MG/1 ML VIAL IVPUSH ONE (13:22)
[2017-06-04 13:26] LABS: MCH 29.4 pg (25.7-33.7); MEAN CELL VOLUME 97.9 fl (80-96); PLATELET COUNT 233 K/MM3 (134-434); RDW 14.7 % (11.6-15.6); WHITE BLOOD COUNT 15.1 K/mm3 (4.0-10.0)
[2017-06-04] MEDS ORDERED: SODIUM CHLORIDE 1,000 ML IV ONE (13:38)
[2017-06-04 13:41] VITALS: BP 59/42; PULSE 42
[2017-06-04 13:45] LABS: INR 2.13 (0.82-1.09); PROTHROMBIN TIME (PATIENT) 23.8 SEC (9.98-11.88)
[2017-06-04 14:12] LABS: ALBUMIN 1.8 g/dl (3.4-5.0); ANION GAP 23 (8-16); BILIRUBIN,TOTAL 0.6 mg/dL (0.2-1.0); CO2 7 mmol/L (21-32); CREATININE 2.4 mg/dL (0.55-1.02); GLUCOSE,RANDOM 87 mg/dL (74-106); TOT PROT 4.1 g/dl (6.4-8.2)
[2017-06-04 14:14] LABS: MACROCYTOSIS FEW; PLATELET ESTIMATE ADEQUATE (NORMAL); POLYCHROMASIA 1+; TOTAL CELLS COUNTED 100
[2017-06-04 14:15] LABS: BURR CELLS 4+
[2017-06-04 14:28] LABS: ALK PHOS 52 U/L (45-117); CPK 578 IU/L (26-192)
[2017-06-04 14:34] LABS: SGOT/AST 1977 U/L (15-37); SGPT/ALT 953 U/L (12-78)
[2017-06-04 14:37] LABS: CALCIUM 5.8 mg/dL (8.5-10.1); TROPONIN I 16.21 ng/ml (0.00-0.05)
--- NOTE | 2017-06-05 11:16 | EKG ---
Test Reason : Blood Pressure : / mmHG Vent. Rate : 047 BPM Atrial Rate : 086 BPM P-R Int : 000 ms QRS Dur : 138 ms QT Int : 566 ms P-R-T Axes : 000 207 163 degrees QTc Int : 500 ms ATRIAL FIBRILLATION WITH SLOW VENTRICULAR RESPONSE RIGHT BUNDLE BRANCH BLOCK POSSIBLE INFERIOR INFARCT (CITED ON OR BEFORE 04-JUN-2017) T WAVE ABNORMALITY, CONSIDER LATERAL ISCHEMIA ABNORMAL ECG WHEN COMPARED WITH ECG OF 04-JUN-2017 10:53, ATRIAL FIBRILLATION HAS REPLACED SINUS RHYTHM VENT. RATE HAS DECREASED BY 38 BPM RIGHT BUNDLE BRANCH BLOCK IS NOW PRESENT MINIMAL CRITERIA FOR ANTERIOR INFARCT ARE NO LONGER PRESENT Confirmed by ELIDIA TUTTLE MD ([id number]) on 06/05/2017 11:16:14 AM Referred By: Confirmed By:ELIDIA TUTTLE MD
--- NOTE | 2017-06-05 11:31 | EKG ---
Test Reason : Blood Pressure : / mmHG Vent. Rate : 085 BPM Atrial Rate : 085 BPM P-R Int : 138 ms QRS Dur : 120 ms QT Int : 420 ms P-R-T Axes : 057 007 165 degrees QTc Int : 499 ms POOR DATA QUALITY, INTERPRETATION MAY BE ADVERSELY AFFECTED NORMAL SINUS RHYTHM WITH SINUS ARRHYTHMIA LOW VOLTAGE QRS CANNOT RULE OUT INFERIOR INFARCT , AGE UNDETERMINED CANNOT RULE OUT ANTERIOR INFARCT , AGE UNDETERMINED MARKED ST ABNORMALITY, POSSIBLE LATERAL SUBENDOCARDIAL INJURY ABNORMAL ECG WHEN COMPARED WITH ECG OF 29-MAY-2017 03:18, MINIMAL CRITERIA FOR ANTERIOR INFARCT ARE NOW PRESENT ST NO LONGER DEPRESSED IN ANTERIOR LEADS NONSPECIFIC T WAVE ABNORMALITY, IMPROVED IN INFERIOR LEADS T WAVE AMPLITUDE HAS DECREASED IN ANTERIOR LEADS Confirmed by PARAG SWIFT, ELIDIA ([id number]) on 06/05/2017 11:31:15 AM Referred By: Confirmed By:ELIDIA TUTTLE MD
== END 2017-06-04 16:37 | disposition expired ==
LOC: JER 09:54
PROC: 3E0337Z Introduction of Electrolytic and Water Balance Substance into Peripheral Vein, Percutaneous Approach (ICD-10-PCS; principal; 2017-06-04)
PROC: 3E033GC Introduction of Other Therapeutic Substance into Peripheral Vein, Percutaneous Approach (ICD-10-PCS; 2017-06-04)
DX: I46.9 Cardiac arrest, cause unspecified (principal); I25.10 Atherosclerotic heart disease of native coronary artery without angina pectoris; I10 Essential (primary) hypertension; E11.9 Type 2 diabetes mellitus without complications; Z79.84 Long term (current) use of oral hypoglycemic drugs; E78.00 Pure hypercholesterolemia, unspecified; I69.851 Hemiplegia and hemiparesis following other cerebrovascular disease affecting right dominant side
CPT/HCPCS: 71010-TC; 80053; 82553; 83605; 83880; 84484; 85025; 85610; 86850; 86900; 86901; 87040; 87186; 93005; 93010; 96361; 96374; 99282-25